=== PATIENT | male | born 1955 | race Caucasian/White ===

== ENCOUNTER 2017-01-04 02:17 | Emergency (ER) | payer OTHER ==
[~2017-01-04] VITALS: Ht 177.8 cm; Wt 78.0 kg
[~2017-01-04 02:17] MED LIST: ALBU6.7H INH
[2017-01-04 02:36] VITALS: BP 135/90; PULSE 66; RESP 18; TEMP 98.5; O2SAT 98
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
[2017-01-04 07:05] VITALS: BP 130/77; PULSE 72; RESP 17; TEMP 97.8; O2SAT 99
--- NOTE | 2017-01-04 10:24 | PD ---
Physical Exam Date Seen by Provider: Jan 04, 2017 Time Seen by Provider: 10:25 Narrative 61 year old male patient was cleared from our facility medically and psychiatrically. I was asked to disposition the patient. Data Data Last Documented VS Vital Signs Date Time Temp Pulse Resp B/P (MAP) Pulse Ox O2 Delivery O2 Flow Rate FiO2 01/04/17 07:05 97.8 72 17 130/77 (94) 99 Room Air Orders Orders Psych Screen (01/04/17 05:16) Diet Regular Basic (01/04/17 Breakfast) ^ Other Nursing Orders (01/04/17 09:35) Ed Discharge Order (01/04/17 10:24) MDM Supervised Visit with SANDHYA: Yes Differential Diagnosis Depression versus suicidal ideation versus anxiety versus adjustment disorder versus mood disorder versus bipolar disorder versus schizophrenia versus paranoid disorder versus psychosis versus substance abuse versus alcohol abuse versus alcohol induced psychosis versus homicidality addition versus cutting versus personality disorder Narrative Course 61 year old male patient was cleared from our facility medically and psychiatrically. I was asked to disposition the patient. The patient will be discharged home with instructions to follow up with ACT. Diagnosis Primary Impression: Medical clearance for psychiatric admission Referrals: ACT (Out patient) Patient Instructions: General Instructions, Medical Clearance for Psychiatric Care (ED) Scripts No Active Prescriptions or Reported Meds Disposition: 01 DISCHARGE HOME Condition: Stable Annemarie Yu Jan 04, 2017 10:24
[2017-01-04 10:30] VITALS: BP 133/81; TEMP 98
--- NOTE | 2017-01-04 11:03 | MB ---
cc: LETICIA PEÑA DATE OF CONSULTATION: 01/04/2017 REASON FOR CONSULTATION: Roberts ACT HISTORY OF PRESENT ILLNESS Mr. Salazar is a 61-year-old male with a remote history of depression, who presents under [email or web address] ACT by law enforcement alleging that the patient was found in unsuitable living conditions with no edible food and a bug infestation. Reviewing the electronic medical record, I see no prior psychiatric contact within our system. The patient seen and examined. Chart reviewed. Case discussed with nurse in the J pod. On my examination today, the patient is calm and cooperative with interview. I note that the patient in fact appears fairly well-groomed and his nails and hair are clean. The patient denies the allegations in the [email or web address] ACT noting that he has "hundreds of pounds of food" in his house including Rice and noodles. He does point out that his refrigerator does not work and so the food in there has spoiled but otherwise he has an adequate supply of edible food. He does admit that there is a insect problem in his apartment and has spoken with the landlord about this. He says that the hosiery looper has come by but have not had much luck in reducing this problem. He denies that he has assembled a yen in the house and tells me when asked that he can gain access to each room of the house without difficulty and has safe passages throughout the house. The patient denies any issues with low mood or elevated mood and I can elicit no depressive or hypomanic / manic symptoms. He denies any suicidal or homicidal ideation, intent or plan on direct questioning and contracts for safety. He denies any current audiovisual hallucinations, and I can elicit no delusional materials. The remainder of psychiatric ROS is negative. The patient is requesting that the Roberts ACT be lifted. He has no physical complaints at this time. PAST PSYCHIATRIC HISTORY The patient reports a history of depression but notes that he has not had issues with this problem in several years. He is not currently under the care of a psychiatrist. He denies any history of psychiatric admissions or suicide attempts. FAMILY HISTORY The patient denies any family history of serious mental illness, substance use disorder or suicide. CHEMICAL DEPENDENCY HISTORY: The patient reports that he is us that he is a social drinker. He denies any other substance use. SOCIAL HISTORY The patient reports that he lives alone. He is single with no children. He has some college education. He is disabled. He served in the [employer] and had an honorable discharge never seen combat. He denies any legal history. He denies any access to guns or firearms. PAST MEDICAL HISTORY The patient reports a history of chronic pain report related to back problems. REVIEW OF SYSTEMS Except as noted in HPI, this is negative. PHYSICAL EXAMINATION VITAL SIGNS: Temperature is 97.8, pulse 72, respirations 17, blood pressure 130/77, pulse oximetry 99% on room air. IN GENERAL: Physical examination was completed by the ED provider. On my examination today, the patient appears to be in no acute physical distress. No motor abnormalities noted. The patient does appear well groomed as I said. LABORATORY Reviewed: No laboratories were obtained this admission. MENTAL STATUS EXAM The patient is in hospital gown. He is well-groomed. He is awake and alert and oriented to person, place and date. His registration is 3/3 in his recall is 3/3 at 5 minutes. He is able to spell the word world forwards and backwards, although he does miss the ER when spelling backwards. He is able to name two items a repeat a phrase. No motor abnormalities noted. Speech is within normal limits for rate, tone and volume. Language and fund of knowledge average. Focus concentration intact. Memory grossly intact on clinical exam. Mood is fair and affect full and reactive. Thought process linear. No loosening of associations. No delusional material elicited. Denies audiovisual hallucinations. Denies suicidal or homicidal ideation, intent or plan on direct questioning. Contracts for safety. Insight and judgment seem fair. ASSESSMENT/PLAN 1. Adjustment disorder, unspecified, F 43.20 This is a 61-year-old male with psychiatric history as detailed above who presents under a Roberts ACT. Roberts ACT does not allege any specific mental illness but rather alleges that the patient's living conditions are suboptimal. The patient denies the allegations in the Roberts ACT. He denies suicidal or homicidal ideation. I can detect no unstable mental illness as defined under the Roberts ACT in this patient at this time. He appears fairly well-groomed on my examination. Synthesizing this information and weighing the relevant factors, I quality systems engineer that the patient does not presently meet Roberts ACT criteria. I have lifted the Roberts ACT. I would recommend involving social security assessor as appropriate if there are concerns about his living situation. I have invited the patient to follow up on an outpatient basis with Landen Rodriguez if he feels like he has mental health issues going forward and in particular if he feels like his depression is recurring although this is apparently well controlled presently. I have counseled the patient to return to the psychiatric emergency room for any concerning psychiatric symptoms. The patient is otherwise psychiatrically clear for discharge from the emergency department. Thank you very much for this consultation. Leticia Peña DC/emily /9:43 AM /10:43 AM MTDS[place]ana
== END 2017-01-04 10:34 | disposition home or self-care (01) ==
LOC: NEPD 02:17
DX: F43.20 Adjustment disorder, unspecified (principal); G89.29 Other chronic pain; M25.531 Pain in right wrist; J45.909 Unspecified asthma, uncomplicated; J44.9 Chronic obstructive pulmonary disease, unspecified; F17.210 Nicotine dependence, cigarettes, uncomplicated; Z86.19 Personal history of other infectious and parasitic diseases; Z87.19 Personal history of other diseases of the digestive system
CPT/HCPCS: 99285

== ENCOUNTER 2018-02-22 03:58 | Observation (INO) ==
[2018-02-22] MEDS ORDERED: Morphine Sulfate Inj 8 MG/ML Vial IM ONE (04:41)
[2018-02-22] MEDS ORDERED: Orphenadrine Inj 60 MG/2 ML Ampul IM ONE (04:41)
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
--- NOTE | 2018-02-22 07:02 | ED ---
HPI General Chief Complaint: Back Pain/Injury Stated Complaint: Pain Time Seen by Provider: 02/22/18 04:41 Source: patient Mode of arrival: ambulatory Limitations: no limitations History of Present Illness HPI Narrative: 62-year-old male came to the emergency room with history of sudden onset right lower extremity pain and charley horses with some tremors. Patient says that he was going to the bathroom and suddenly the spasm in the charley horses started. His leg almost gave way and patient fell but on his both outstretched hands. This happened an hour prior to coming to the emergency room. Patient appears to be uncomfortable. He has been shifting on the stretcher to get into a comfortable position. Vital signs were relatively stable. Upon asking if patient has any lower back issues he said many years back he had some fracture of his vertebrae. Pain is worse upon movement. No bowel or bladder incontinence. No recent trauma. Related Data Home Medications Medication Instructions Recorded Confirmed loratadine [Claritin] 10 mg PO DAILY 02/22/18 02/22/18 Previous Rx's Medication Instructions Recorded cyclobenzaprine 10 mg PO Q8H PRN #30 tab 02/23/18 gabapentin 200 mg PO TID 30 Days #180 cap 02/23/18 oxycodone-acetaminophen 1 tab PO Q4H PRN #12 tab 02/23/18 Allergies Allergy/AdvReac Type Severity Reaction Status Date / Time ibuprofen Allergy Severe SOB Verified 02/22/18 04:17 Review of Systems ROS: all other systems reviewed are negative [facility] Surgical History Surgical History Hx of cholecystectomy (Acute) Family History Family History Other Patient denies medical problems Social History Social History Substance History: Active Abuse Second Hand Smoke Exposure: No Smoking Status: Light tobacco smoker Tobacco Type: Cigarettes How Often Do You Have a Drink Containing Alcohol: 2 to 4 times a month Immunization History Tetanus Immunization: <5 Years Exam Narrative Exam Narrative: GENERAL: Awake, alert, anxious, uncomfortable SKIN: Focused skin assessment warm/dry. HEAD: Atraumatic. Normocephalic. EYES: Pupils equal and round. No scleral icterus. No injection or drainage. ENT: No nasal bleeding or discharge. Mucous membranes pink and moist. NECK: Trachea midline. No JVD. CARDIOVASCULAR: Regular rate and rhythm. No murmur appreciated. RESPIRATORY: No accessory muscle use. Clear to auscultation. Breath sounds equal bilaterally. GASTROINTESTINAL: Abdomen soft, non-tender, nondistended. Hepatic and splenic margins not palpable. MUSCULOSKELETAL: No obvious deformities. No clubbing. No cyanosis. No edema. Fasciculations over the right hamstrings and quadricep muscle NEUROLOGICAL: Awake and alert. No obvious cranial nerve deficits. Motor grossly within normal limits. Normal speech. PSYCHIATRIC: Appropriate mood and affect; insight and judgment normal. Course Consultations Consultation #1: neurosurgery requested admit to medicine and tlso brace per report Consultation #2: dr villasenor agrees to admit Initial Documented Vital Signs Temperature 98.5 F 02/22/18 04:02 Pulse Rate 122 H 02/22/18 04:02 Respiratory Rate 22 02/22/18 04:02 Blood Pressure 166/103 H 02/22/18 04:02 Pulse Oximetry 98 02/22/18 04:02 Last Documented Vital Signs Temperature 97.5 F L 02/23/18 07:47 Pulse Rate 62 02/23/18 07:47 Respiratory Rate 18 02/23/18 07:47 Blood Pressure 111/77 02/23/18 07:47 Pulse Oximetry 96 02/23/18 07:47 Medical Decision Making MDM Narrative Medical decision making narrative: 7:09 AM based on the history MRI of the lumbar spine was ordered. I discussed the case with the neurosurgeon Dr. Esparza regarding the MRI report. He has recommended the patient to be admitted to the hospitalist service and a TLSO brace. I will update the patient regarding this. Awaiting for the hospitalist to call back. Patient was medicated for pain and muscle relaxation. Medical Screen Exam Complete: Yes Emergency Medical Condition: Yes Lab Data Result diagrams: 02/23/18 08:17 02/23/18 08:17 Lab Results 02/22/18 02/22/18 02/23/18 Range/Units 07:45 07:45 08:17 WBC 11.5 H 7.1 (4.0-11.0) th/mm3 RBC 4.76 4.85 (4.50-5.90) mil/mm3 Hgb 14.5 15.0 (13.0-17.0) gm/dL Hct 42.8 43.1 (39.0-51.0) % MCV 90.0 88.8 (80.0-100.0) fL MCH 30.5 31.0 (27.0-34.0) pg MCHC 34.0 34.8 (32.0-36.0) % RDW 14.0 13.6 (11.6-17.2) % Plt Count 266 230 (150-450) th/mm3 MPV 8.0 7.9 (7.0-11.0) fL Neut % (Auto) 60.9 40.1 (16.0-70.0) % Lymph % (Auto) 26.2 39.6 (9.0-44.0) % [place] % (Auto) 9.6 H 10.1 H (0.0-8.0) % Eos % (Auto) 2.4 8.9 H (0.0-4.0) % Baso % (Auto) 0.9 1.3 (0.0-2.0) % Neut # (Auto) 7.0 2.8 (1.8-7.7) th/mm3 Lymph # (Auto) 3.0 2.8 (1.0-4.8) th/mm3 [place] # (Auto) 1.1 H 0.7 (0.0-0.9) th/mm3 Eos # (Auto) 0.3 0.6 H (0.0-0.4) th/mm3 Baso # (Auto) 0.1 0.1 (0.0-0.2) th/mm3 WBC Differential . . Differential Comment Auto diff final Auto diff final Sodium 142 (136-145) meq/L Potassium 4.1 (3.5-5.1) meq/L Chloride 109 H (98-107) meq/L Carbon Dioxide 27.6 (21.0-32.0) meq/L Anion Gap 5 (5-15) meq/L BUN 24 H (7-18) mg/dL Creatinine 1.29 (0.60-1.30) mg/dL Estimated GFR 57 L (>89) mL/min Random Glucose 87 (74-106) mg/dL Calcium 8.4 L (8.5-10.1) mg/dL Magnesium 2.3 (1.5-2.5) mg/dL Total Bilirubin 0.6 (0.2-1.0) mg/dL AST 44 H (15-37) U/L ALT 48 (12-78) U/L Alkaline Phosphatase 69 (45-117) U/L Total Protein 6.8 (6.4-8.2) g/dL Albumin 3.4 (3.4-5.0) g/dL 02/23/18 Range/Units 08:17 WBC (4.0-11.0) th/mm3 RBC (4.50-5.90) mil/mm3 Hgb (13.0-17.0) gm/dL Hct (39.0-51.0) % MCV (80.0-100.0) fL MCH (27.0-34.0) pg MCHC (32.0-36.0) % RDW (11.6-17.2) % Plt Count (150-450) th/mm3 MPV (7.0-11.0) fL Neut % (Auto) (16.0-70.0) % Lymph % (Auto) (9.0-44.0) % [place] % (Auto) (0.0-8.0) % Eos % (Auto) (0.0-4.0) % Baso % (Auto) (0.0-2.0) % Neut # (Auto) (1.8-7.7) th/mm3 Lymph # (Auto) (1.0-4.8) th/mm3 [place] # (Auto) (0.0-0.9) th/mm3 Eos # (Auto) (0.0-0.4) th/mm3 Baso # (Auto) (0.0-0.2) th/mm3 WBC Differential Differential Comment Sodium 140 (136-145) meq/L Potassium 4.3 (3.5-5.1) meq/L Chloride 106 (98-107) meq/L Carbon Dioxide 28.6 (21.0-32.0) meq/L Anion Gap 5 (5-15) meq/L BUN 21 H (7-18) mg/dL Creatinine 1.18 (0.60-1.30) mg/dL Estimated GFR 63 L (>89) mL/min Random Glucose 89 (74-106) mg/dL Calcium 8.5 (8.5-10.1) mg/dL Magnesium (1.5-2.5) mg/dL Total Bilirubin 0.4 (0.2-1.0) mg/dL AST 35 (15-37) U/L ALT 38 (12-78) U/L Alkaline Phosphatase 71 (45-117) U/L Total Protein 6.3 L (6.4-8.2) g/dL Albumin 3.1 L (3.4-5.0) g/dL Imaging Data Radiologist's impression: Lumbar Spine CT 02/22/18 00:00 CONCLUSION: 1. Bilateral pars defects present at the level of L4/L5 and L5/S1 with stable degenerative changes of the disc and facet joints. Bilateral severe neuroforaminal stenosis is present at both of these levels. Lumbar Spine X-Ray 02/22/18 00:00 CONCLUSION: No evidence of fracture. Stable anterolisthesis of L4 and L5 with degenerative changes of the lower lumbar spine. Lumbar Spine X-Ray 02/22/18 00:00 CONCLUSION: Pars defects at L4/L5 with grade 1 anterolisthesis of L4 and L5. Prior CT demonstrated bilateral pars defects at this level as well as L5/S1.. Lumbar Spine MRI 02/22/18 04:41 CONCLUSION: 1. There is interspinous edema between the L3 and L4 spinous processes which potentially could be acute ligamentous injury. The remaining findings appear chronic. 2. There are bilateral pars defects at L4 and L5 with 8 mm of anterolisthesis of L4 on L5. 3. At L4-L5 there is effacement of the right lateral recess with moderate to severe right neural foraminal stenosis. 4. At L5-S1 there is moderate left neural foraminal stenosis. Discharge Plan Discharge Disposition Patient Disposition: ED Admit(ED Internal Use Only) Discharge Condition Condition: Stable Discharge Order Discharge Orders: Discharge Order (Routine); Ordered 02/23/18 Ordered By: Harrison Villasenor ED Use Only Admit Order (Routine); Ordered 02/22/18 Ordered By: Valeria Abdi Discharge Details Anticipated Discharge Date: 02/23/18 Physicians Team ED Provider: Genoveva Marina Primary Care Provider: UNKNOWN, Attending Provider: Harrison Villasenor Other Providers: Paul Esparza Status ED Status: Left Department Discharge Information Discharge Date/Time: 02/22/18 09:29
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
[2018-02-22 08:03] LABS: Baso # (Auto) 0.1 th/mm3 (0.0-0.2); Baso % (Auto) 0.9 % (0.0-2.0); Eos # (Auto) 0.3 th/mm3 (0.0-0.4); Eos % (Auto) 2.4 % (0.0-4.0); Hematocrit 42.8 % (39.0-51.0); Hemoglobin 14.5 gm/dL (13.0-17.0); Lymph % (Auto) 26.2 % (9.0-44.0); Mean Corpuscular Hemoglobin 30.5 pg (27.0-34.0); Mono # (Auto) 1.1 th/mm3 (0.0-0.9); Mono % (Auto) 9.6 % (0.0-8.0); Neut % (Auto) 60.9 % (16.0-70.0); Platelet Count 266 th/mm3 (150-450); Red Blood Count 4.76 mil/mm3 (4.50-5.90); White Blood Count 11.5 th/mm3 (4.0-11.0)
[2018-02-22 08:23] LABS: Alanine Aminotransferase 48 U/L (12-78); Albumin 3.4 g/dL (3.4-5.0); Anion Gap 5 meq/L (5-15); Aspartate Aminotransferase 44 U/L (15-37); Blood Urea Nitrogen 24 mg/dL (7-18); Calcium 8.4 mg/dL (8.5-10.1); Carbon Dioxide 27.6 meq/L (21.0-32.0); Chloride 109 meq/L (98-107); Glomerular Filtration Rate 57 mL/min (>89); Glucose,Random 87 mg/dL (74-106); Magnesium 2.3 mg/dL (1.5-2.5); Potassium 4.1 meq/L (3.5-5.1); Sodium 142 meq/L (136-145)
[2018-02-22 08:26] LABS: Alkaline Phosphatase 69 U/L (45-117); Total Protein 6.8 g/dL (6.4-8.2)
--- NOTE | 2018-02-22 08:33 | CT ---
EXAM DATE: 02/22/2018 8:18 AM EST AGE/SEX: 62 years / Male INDICATIONS: Back pain. Evaluate extent of pars defects L4, L5. CLINICAL DATA: This is the patient's initial encounter. Patient reports that signs and symptoms have been present for 1 day and indicates a pain score of 7/10. MEDICAL/SURGICAL HISTORY: . Spondylosis Cholecystectomy. RADIATION DOSE: 29.28 CTDI (mGy) COMPARISON: [facility] [place], CT LUMBAR SPINE W/O CONTRAST, 05/22/2015. [facility] [place], MR LUMBAR SPINE W/O CONTRAST, . . TECHNIQUE: Contiguous axial images were acquired with a multirow detector CT scanner without contras t. Multiplanar reconstructions in the sagittal and coronal plane were also performed. Using automate d exposure control and adjustment of the mA and/or kV according to patient size, radiation dose was k ept as low as reasonably achievable to obtain optimal diagnostic quality images. DICOM format image data is available electronically for review and comparison. FINDINGS: Vertebrae: Normal vertebral body height. Alignment: There is approximately 1 cm of anterolisthesis of L4 and L5 stable from prior exam. Bilat eral pars defects are present at the level of L4/L5 and L5/S1 with extensive adjacent bony productive changes. This appearance is stable. T12-L1: The thecal sac has a normal diameter. No evidence of disc bulge or protrusion. The neural foramina are patent bilaterally. L1-L2: Minimal broad-based disc bulge and moderate facet degenerative change. Minimal neuroforaminal narrowing. L2-L3: Minimal disc bulge and moderate facet hypertrophy. Minimal neuroforaminal narrowing. L3-L4: Minimal broad-based disc bulge. Severe right-sided facet degenerative change and moderate on the left. Mild bilateral neuroforaminal stenosis. The spinous process of L3 and L4 articulate and dem onstrate degenerative changes. L4-L5: Significant disc desiccation and disc space narrowing with vacuum disc phenomena. Bilateral p ars defects with grade 1 anterolisthesis of L4 and L5. Broad-based posterior disc bulge, severe bilat eral facet degenerative changes. Severe bilateral neuroforaminal stenosis, right greater than left. L5-S1: Disc desiccation and disc space narrowing with vacuum disc phenomenon. Broad-based disc bulge and bilateral pars defects. There is severe bilateral neuroforaminal stenosis. Moderate facet degene rative change. There is a bridging osteophyte involving the left SI joint with sclerotic degenerative changes. CONCLUSION: 1. Bilateral pars defects present at the level of L4/L5 and L5/S1 with stable degenerative changes o f the disc and facet joints. Bilateral severe neuroforaminal stenosis is present at both of these lev els. Electronically signed by: Milagros Gao MD Board Certified Radiologist 02/22/2018 8:32 AM EST
[2018-02-22] MEDS ORDERED: Acetaminophen 325 MG Tablet PO PRN (08:35)
[2018-02-22] MEDS: oxyCODONE/Acetaminophen 10/325 Tablet PO PRN ×2 (08:58→21:28)
[2018-02-22] MEDS: Senna/Docusate Sodium 8.6/50 MG Tablet PO SCH ×2 (08:58→21:27)
[2018-02-22] MEDS: Loratadine 10 MG Tablet PO SCH (08:58)
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
[2018-02-22] MEDS: Gabapentin 100 MG Capsule PO SCH ×2 (13:38→17:40)
[2018-02-22] MEDS: Morphine Inj 4 MG/ML Vial IV.PUSH PRN ×3 (13:39→23:20)
[2018-02-23] MEDS: oxyCODONE/Acetaminophen 10/325 Tablet PO PRN ×2 (03:32→08:21)
[2018-02-23] MEDS: Morphine Inj 4 MG/ML Vial IV.PUSH PRN (05:27)
[2018-02-23 05:39] VITALS: RESP 18
[2018-02-23 07:50] VITALS: BP 111/77; PULSE 62; TEMP 97.5; O2SAT 96
[2018-02-23] MEDS: Senna/Docusate Sodium 8.6/50 MG Tablet PO SCH (08:17)
[2018-02-23] MEDS: Gabapentin 100 MG Capsule PO SCH (08:17)
[2018-02-23] MEDS: Loratadine 10 MG Tablet PO SCH (08:17)
[2018-02-23 08:44] LABS: Baso # (Auto) 0.1 th/mm3 (0.0-0.2); Baso % (Auto) 1.3 % (0.0-2.0); Eos # (Auto) 0.6 th/mm3 (0.0-0.4); Eos % (Auto) 8.9 % (0.0-4.0); Hematocrit 43.1 % (39.0-51.0); Lymph # (Auto) 2.8 th/mm3 (1.0-4.8); Lymph % (Auto) 39.6 % (9.0-44.0); Mean Corpuscular HGB Conc 34.8 % (32.0-36.0); Mean Corpuscular Volume 88.8 fL (80.0-100.0); Mean Platelet Volume 7.9 fL (7.0-11.0); Mono # (Auto) 0.7 th/mm3 (0.0-0.9); Mono % (Auto) 10.1 % (0.0-8.0); Neut # (Auto) 2.8 th/mm3 (1.8-7.7); Neut % (Auto) 40.1 % (16.0-70.0); Platelet Count 230 th/mm3 (150-450); Red Blood Count 4.85 mil/mm3 (4.50-5.90); Red Cell Distribution Width 13.6 % (11.6-17.2); White Blood Count 7.1 th/mm3 (4.0-11.0)
[2018-02-23 09:17] LABS: Albumin 3.1 g/dL (3.4-5.0); Anion Gap 5 meq/L (5-15); Aspartate Aminotransferase 35 U/L (15-37); Blood Urea Nitrogen 21 mg/dL (7-18); Calcium 8.5 mg/dL (8.5-10.1); Carbon Dioxide 28.6 meq/L (21.0-32.0); Chloride 106 meq/L (98-107); Glomerular Filtration Rate 63 mL/min (>89); Glucose,Random 89 mg/dL (74-106); Potassium 4.3 meq/L (3.5-5.1); Sodium 140 meq/L (136-145)
[2018-02-23 09:18] LABS: Alanine Aminotransferase 38 U/L (12-78)
[2018-02-23 09:19] LABS: Alkaline Phosphatase 71 U/L (45-117); Total Protein 6.3 g/dL (6.4-8.2)
--- NOTE | 2018-02-23 09:26 | P.PNIM ---
Subjective Interval history: The patient was feeling a lot better. He was able to ambulate. He had better range of motion in his lower extremities. He says the spasms have been less. He states he knows that his pain is not going to completely go away and he would like to pursue surgery if possible. Physical Exam Vital signs: Vital Signs 02/22/18 12:00 02/22/18 15:25 02/22/18 18:40 Temperature Pulse Rate 72 70 Respiratory Rate 16 16 17 Blood Pressure 130/80 118/75 Pulse Oximetry 98 98 02/22/18 20:00 02/23/18 00:00 02/23/18 04:00 Temperature 98.3 F 98.1 F 98.2 F Pulse Rate 77 81 65 Respiratory Rate 17 18 18 Blood Pressure 122/77 125/88 111/76 Pulse Oximetry 96 96 99 02/23/18 07:47 Temperature 97.5 F L Pulse Rate 62 Respiratory Rate 18 Blood Pressure 111/77 Pulse Oximetry 96 Intake & Output 02/22/18 02/23/18 02/23/18 18:59 06:59 18:59 Intake Total 360 / 360 Output Total 500 / 500 Balance -140 / -140 Intake: Oral 360 / 360 Output: Urine 500 / 500 Other: # Voids 1 Narrative: GENERAL: No distress. SKIN: Focused skin assessment warm/dry. HEAD: Atraumatic. Normocephalic. EYES: Pupils equal and round. No scleral icterus. No injection or drainage. ENT: No nasal bleeding or discharge. Mucous membranes pink and moist. NECK: Trachea midline. No JVD. CARDIOVASCULAR: Regular rate and rhythm. No murmur appreciated. RESPIRATORY: No accessory muscle use. Clear to auscultation. Breath sounds equal bilaterally. GASTROINTESTINAL: Abdomen soft, non-tender, nondistended. Hepatic and splenic margins not palpable. MUSCULOSKELETAL: No obvious deformities. No clubbing. No cyanosis. No edema. NEUROLOGICAL: Awake and alert. No obvious cranial nerve deficits. Motor grossly within normal limits. Normal speech. Results Labs CBC & Chem 7: 02/23/18 08:17 02/23/18 08:17 Assessment and Plan Plan RLE pain Pt with severe right back pain radiating down his right leg a/w muscle spasms. MRI: There is interspinous edema between the L3 and L4 spinous processes which potentially could be acute ligamentous injury; The remaining findings appear chronic; There are bilateral pars defects at L4 and L5 with 8 mm of anterolisthesis of L4 on L5; At L4-L5 there is effacement of the right lateral recess with moderate to severe right neural foraminal stenosis; At L5-S1 there is moderate left neural foraminal stenosis. Neurosurgery consult appreciated. Symptoms have improved. -pain control as needed. -scheduled muscle relaxants. -Physical therapy eval pending. -neurosurgery considering L4-5-S1 TLIF if needed. Leukocytosis Likely reactive. -follow CBC. Resolved. HTN Exacerbated by pain. -pain control. -clonidine as needed. PPx: SCDs Discharge Planning: Await NS clearance. Progress Note: Quality VTE Deep Vein Thrombosis/Pulmonary Embolism Present on Admission: No
--- NOTE | 2018-02-23 11:23 | P.PNNS ---
Subjective Interval history: feeling better today, reports the Flexeril has helped Physical Exam Vital signs: Vital Signs 02/22/18 12:00 02/22/18 15:25 02/22/18 18:40 Temperature Pulse Rate 72 70 Respiratory Rate 16 16 17 Blood Pressure 130/80 118/75 Pulse Oximetry 98 98 02/22/18 20:00 02/23/18 00:00 02/23/18 04:00 Temperature 98.3 F 98.1 F 98.2 F Pulse Rate 77 81 65 Respiratory Rate 17 18 18 Blood Pressure 122/77 125/88 111/76 Pulse Oximetry 96 96 99 02/23/18 07:47 Temperature 97.5 F L Pulse Rate 62 Respiratory Rate 18 Blood Pressure 111/77 Pulse Oximetry 96 Intake & Output 02/22/18 02/23/18 02/23/18 18:59 06:59 18:59 Intake Total 360 / 360 Output Total 500 / 500 Balance -140 / -140 Intake: Oral 360 / 360 Output: Urine 500 / 500 Other: # Voids 1 Narrative: A&O x 3 CN II-XII intact Motor 5/5 UE/LE Reflexes symmetric physiologic Sensation intact light touch Assessment and Plan - Plan 62yoM with L4/5 listhesis and pars defects with disc herniation, right leg spasms (thigh). Plan: Conservative management with pain control for now (flexeril, neurontin, pain meds). If pain unremitting, could consider surgery L4-5-S1 TLIF. Will follow. 02/23/18: cont medical management for now with analgesics, muscle relaxants and Neurontin patient may follow up [facility] office in 1-2 weeks to discuss further regarding surgery
== END 2018-02-23 10:47 | disposition home or self-care (01) ==
LOC: NEPE 03:58 → NEDA 03:58 → NEPGCP 09:26
PROVIDERS: ADMIT Hospitalist; ATTEND Hospitalist
DX: Z90.49 Acquired absence of other specified parts of digestive tract; I10 Essential (primary) hypertension; M43.16 Spondylolisthesis, lumbar region; M51.26 Other intervertebral disc displacement, lumbar region; M47.9 Spondylosis, unspecified; B19.20 Unspecified viral hepatitis C without hepatic coma; D72.829 Elevated white blood cell count, unspecified; F12.90 Cannabis use, unspecified, uncomplicated; M79.604 Pain in right leg; F17.210 Nicotine dependence, cigarettes, uncomplicated
CPT/HCPCS: 72100; 72120; 72131; 72148; 80053; 83735; 85025; 90772; 90782; 96372; 96374; 96376; 97162; 99285; G0378; G8987; G8988; J2270; L0200; L0484; L0560; L0565

== ENCOUNTER 2018-03-13 20:40 | Inpatient (IN) ==
[~2018-03-13 20:40] MED LIST changes: -ALBU6.7H INH; +Norepinephrine Inj 4 MG/4 ML Ampul IV.CONT ONE
--- NOTE | 2018-03-13 21:06 | ED ---
HPI General Chief Complaint: Cardiac Arrest/CPR Stated Complaint: Respriatory Time Seen by Provider: 03/13/18 20:45 Source: EMS Mode of arrival: EMS Limitations: altered mental status History of Present Illness HPI narrative: 62-year-old male was found unresponsive by a friend this evening. Patient was in a tent with another person and reportedly with history of heroin abuse. Patient was found unresponsive. Unknown amount of time. EMS was called. Patient was found to be unresponsive and in PEA. Chest compressions started. Patient was intubated. Patient was given epinephrine IV x3 and bicarb 1 amp IV, Narcan 2 mg IV. Patient was transported to ED for evaluation. Patient regained pulse upon arrival to the ED. Review medical record, patient has history of right lung collapse, pancreatitis, hepatitis C and chronic back pain. Possible history hypertension controlled with clonidine. complaint: Reports found unresponsive and stopped breathing Onset (ago): minute(s) Timing confirmed by: other (Friends) Place: street Bystander CPR performed: No AED applied by bystander/wood room supervisor: Yes Shock advised: No Initial findings in the field: unresponsive, no respirations, no pulse and PEA ROSC in the field: No Associated injuries: No Treatments prior to arrival: Reports intubation, chest compressions, epinephrine mgs # and sodium bicarbonate Related Data Home Medications Medication Instructions Recorded Confirmed loratadine [Claritin] 10 mg PO DAILY 02/22/18 03/13/18 Previous Rx's Medication Instructions Recorded cyclobenzaprine 10 mg PO Q8H PRN #30 tab 02/23/18 gabapentin 200 mg PO TID 30 Days #180 cap 02/23/18 oxycodone-acetaminophen 1 tab PO Q4H PRN #12 tab 02/23/18 Allergies Allergy/AdvReac Type Severity Reaction Status Date / Time ibuprofen Allergy Severe SOB Verified 03/13/18 20:46 Review of Systems ROS: all other systems reviewed are negative PENDING SALE TO [facility] Medical History Medical History Back injury (Acute) Collapse of right lung (Acute) Hepatitis C (Acute) Open wrist fracture (Acute) Pancreatitis (Acute) Spondylosis (Acute) Surgical History Surgical History Hx of cholecystectomy (Acute) Family History Family History Other Patient denies medical problems Social History Social History Substance History: Active Abuse Second Hand Smoke Exposure: No Smoking Status: Light tobacco smoker Tobacco Type: Cigarettes How Often Do You Have a Drink Containing Alcohol: 2 to 4 times a month Recent Travel in [facility] within the Last 8 Weeks: No Recent Out of Country Travel within the Last 8 Weeks: No Immunization History Tetanus Immunization: Unable to Assess Exam Narrative Exam Narrative: GENERAL: Well-nourished, well-developed patient. SKIN: Focused skin assessment warm/dry. HEAD: Normocephalic. EYES: No scleral icterus. No injection or drainage. Pupils 3 mm equal nonreactive NECK: Supple, trachea midline. No JVD or lymphadenopathy. CARDIOVASCULAR: Regular rate and rhythm without murmurs, gallops, or rubs. RESPIRATORY: No spontaneous respiration. Patient is intubated. GASTROINTESTINAL: Abdomen soft, nondistended. MUSCULOSKELETAL: No cyanosis, or edema. BACK: without obvious deformity. Neurologic exam: Patient is intubated. Unresponsive. Course Initial Documented Vital Signs Pulse Rate 122 H 03/13/18 20:42 Respiratory Rate 20 03/13/18 20:42 Blood Pressure 146/66 H 03/13/18 20:42 Pulse Oximetry 100 03/13/18 20:42 Last Documented Vital Signs Pulse Rate 107 H 03/13/18 21:16 Respiratory Rate 15 03/13/18 21:16 Blood Pressure 153/93 H 03/13/18 21:16 Pulse Oximetry 100 03/13/18 21:16 Medical Decision Making MDM Narrative Medical decision making narrative: 62-year-old male was found unresponsive with bowel respiration effort. Patient was intubated. Chest compressions started. Patient was given epinephrine IV and bicarb and Narcan with good results. Patient regained pulse and blood pressure. Normal saline solution 125 cc an hour. Medical Screen Exam Complete: Yes Emergency Medical Condition: Yes Differential Diagnosis Differential Diagnosis: Differential diagnosis including drug overdose, TIA, CVA , [place], electrolyte imbalance, arrhythmia, sepsis. Lab Data Lab results reviewed: Yes I reviewed the patient's lab results. Result diagrams: 03/13/18 20:45 03/13/18 20:45 Lab Results 03/13/18 03/13/18 03/13/18 Range/Units 20:45 20:45 20:45 WBC 17.2 H (4.0-11.0) th/mm3 RBC 4.61 (4.50-5.90) mil/mm3 Hgb 14.0 (13.0-17.0) gm/dL Hct 42.4 (39.0-51.0) % MCV 91.8 (80.0-100.0) fL MCH 30.3 (27.0-34.0) pg MCHC 33.0 (32.0-36.0) % RDW 13.5 (11.6-17.2) % Plt Count 271 (150-450) th/mm3 MPV 8.6 (7.0-11.0) fL Prelim Diff (Auto) Slide review pending Neut % (Auto) 44.8 (16.0-70.0) % Lymph % (Auto) 43.1 (9.0-44.0) % [place] % (Auto) 9.3 H (0.0-8.0) % Eos % (Auto) 1.6 (0.0-4.0) % Baso % (Auto) 1.2 (0.0-2.0) % Neut # (Auto) 7.7 (1.8-7.7) th/mm3 Lymph # (Auto) 7.4 H (1.0-4.8) th/mm3 [place] # (Auto) 1.6 H (0.0-0.9) th/mm3 Eos # (Auto) 0.3 (0.0-0.4) th/mm3 Baso # (Auto) 0.2 (0.0-0.2) th/mm3 Differential Comment . PT 11.0 (9.8-11.6) sec INR 1.1 Ratio APTT 30.0 (23.4-31.7) sec Sodium (136-145) meq/L Potassium (3.5-5.1) meq/L Chloride (98-107) meq/L Carbon Dioxide (21.0-32.0) meq/L Anion Gap (5-15) meq/L BUN (7-18) mg/dL Creatinine (0.60-1.30) mg/dL Estimated GFR (>89) mL/min Random Glucose (74-106) mg/dL Calcium (8.5-10.1) mg/dL Magnesium (1.5-2.5) mg/dL Total Bilirubin (0.2-1.0) mg/dL AST (15-37) U/L ALT (12-78) U/L Alkaline Phosphatase (45-117) U/L Total Creatine Kinase (39-308) U/L Troponin I (0.02-0.05) ng/mL Total Protein (6.4-8.2) g/dL Albumin (3.4-5.0) g/dL Lipase 196 (73-393) U/L Urine Color (Yellw/Straw) Urine Clarity (Clear) Urine pH (5.0-8.5) Ur Specific [place] (1.002-1.035) Urine Protein (Neg-Trace) mg/dL Urine Glucose (UA) (Negative) mg/dL Urine Ketones (Negative) mg/dL Urine Occult Blood (Negative) Urine Nitrate (Negative) Urine Bilirubin (Negative) Urine Urobilinogen (Less than 2) mg/dL Ur Leukocyte Esterase (Negative) Urine RBC (0-3) /hpf Urine WBC (0-5) /hpf Hyaline Casts (0-3) /lpf Urine Sperm (None) /hpf Micro UA Comment Ur Microscopic Review Urine Culture Comments Urine Opiates Screen (Neg) Ur Barbiturates Screen (Neg) Ur Amphetamines Screen (Neg) U Benzodiazepines Scrn (Neg) Urine Cocaine Screen (Neg) U Cannabinoids Screen (Neg) Serum Alcohol Less than 3 (0-5) mg/dL 03/13/18 03/13/18 03/13/18 Range/Units 20:45 20:56 20:56 WBC (4.0-11.0) th/mm3 RBC (4.50-5.90) mil/mm3 Hgb (13.0-17.0) gm/dL Hct (39.0-51.0) % MCV (80.0-100.0) fL MCH (27.0-34.0) pg MCHC (32.0-36.0) % RDW (11.6-17.2) % Plt Count (150-450) th/mm3 MPV (7.0-11.0) fL Prelim Diff (Auto) Neut % (Auto) (16.0-70.0) % Lymph % (Auto) (9.0-44.0) % [place] % (Auto) (0.0-8.0) % Eos % (Auto) (0.0-4.0) % Baso % (Auto) (0.0-2.0) % Neut # (Auto) (1.8-7.7) th/mm3 Lymph # (Auto) (1.0-4.8) th/mm3 [place] # (Auto) (0.0-0.9) th/mm3 Eos # (Auto) (0.0-0.4) th/mm3 Baso # (Auto) (0.0-0.2) th/mm3 Differential Comment PT (9.8-11.6) sec INR Ratio APTT (23.4-31.7) sec Sodium 144 (136-145) meq/L Potassium 3.7 (3.5-5.1) meq/L Chloride 104 (98-107) meq/L Carbon Dioxide 23.3 (21.0-32.0) meq/L Anion Gap 17 H (5-15) meq/L BUN 15 (7-18) mg/dL Creatinine 1.82 H (0.60-1.30) mg/dL Estimated GFR 38 L (>89) mL/min Random Glucose 299 H (74-106) mg/dL Calcium 8.0 L (8.5-10.1) mg/dL Magnesium 2.8 H (1.5-2.5) mg/dL Total Bilirubin 0.3 (0.2-1.0) mg/dL AST 56 H (15-37) U/L ALT 52 (12-78) U/L Alkaline Phosphatase 59 (45-117) U/L Total Creatine Kinase 178 (39-308) U/L Troponin I 0.05 (0.02-0.05) ng/mL Total Protein 5.9 L (6.4-8.2) g/dL Albumin 2.8 L (3.4-5.0) g/dL Lipase (73-393) U/L Urine Color Yellow (Yellw/Straw) Urine Clarity Cloudy H (Clear) Urine pH 5.0 (5.0-8.5) Ur Specific [place] 1.021 (1.002-1.035) Urine Protein 30 H (Neg-Trace) mg/dL Urine Glucose (UA) Negative (Negative) mg/dL Urine Ketones Negative (Negative) mg/dL Urine Occult Blood Small H (Negative) Urine Nitrate Negative (Negative) Urine Bilirubin Negative (Negative) Urine Urobilinogen Less than 2 (Less than 2) mg/dL Ur Leukocyte Esterase Trace H (Negative) Urine RBC 5 H (0-3) /hpf Urine WBC 3 (0-5) /hpf Hyaline Casts 9 (0-3) /lpf Urine Sperm Moderate H (None) /hpf Micro UA Comment Cath-culture not ind Ur Microscopic Review Not Reportable Urine Culture Comments Cath-cult not ind Urine Opiates Screen Pos H (Neg) Ur Barbiturates Screen Neg (Neg) Ur Amphetamines Screen Neg (Neg) U Benzodiazepines Scrn Neg (Neg) Urine Cocaine Screen Pos H (Neg) U Cannabinoids Screen Pos H (Neg) Serum Alcohol (0-5) mg/dL Imaging Data Attestation: I personally reviewed and interpreted this imaging study as follows : Radiologist's impression: Chest X-Ray 03/13/18 20:52 CONCLUSION: 1. Mild bibasilar atelectasis. 2. Endotracheal tube tip 5.7 cm above the saqib. 3. Nasogastric tube tip at the GE junction. Discharge Plan Discharge Disposition Patient Disposition: ED Admit(ED Internal Use Only) Discharge Details Diagnosis: Cardiopulmonary arrest, Acute drug overdose Physicians Team ED Provider: Venkat Gaitan Primary Care Provider: UNKNOWN, Rxs /Orders / Referrals /Forms Prescriptions: No Action loratadine [Claritin] 10 mg Tablet 10 mg PO DAILY RF: 0 cyclobenzaprine 10 mg Tablet 10 mg PO Q8H PRN (Reason: spasm) Qty: 30 RF: 0 oxycodone-acetaminophen 10-325 mg Tablet 1 tab PO Q4H PRN (Reason: pain 3-10 ) Qty: 12 RF: 0 gabapentin 100 mg Capsule 200 mg PO TID 30 Days Qty: 180 RF: 0 Discharge Interventions Interventions: Vital Signs Last Done: 03/13/18 21:16 Status ED Status: With Doctor
[2018-03-13] MEDS: Sod Chloride 0.9% Inj 1,000 ML IV.CONT SCH (21:07)
[2018-03-13 21:22] LABS: Baso # (Auto) 0.2 th/mm3 (0.0-0.2); Baso % (Auto) 1.2 % (0.0-2.0); Eos # (Auto) 0.3 th/mm3 (0.0-0.4); Eos % (Auto) 1.6 % (0.0-4.0); Hematocrit 42.4 % (39.0-51.0); Lymph # (Auto) 7.4 th/mm3 (1.0-4.8); Lymph % (Auto) 43.1 % (9.0-44.0); Mean Corpuscular Hemoglobin 30.3 pg (27.0-34.0); Mean Corpuscular Volume 91.8 fL (80.0-100.0); Mean Platelet Volume 8.6 fL (7.0-11.0); Mono # (Auto) 1.6 th/mm3 (0.0-0.9); Mono % (Auto) 9.3 % (0.0-8.0); Neut # (Auto) 7.7 th/mm3 (1.8-7.7); Neut % (Auto) 44.8 % (16.0-70.0); Platelet Count 271 th/mm3 (150-450); Red Blood Count 4.61 mil/mm3 (4.50-5.90); Red Cell Distribution Width 13.5 % (11.6-17.2); White Blood Count 17.2 th/mm3 (4.0-11.0)
[2018-03-13 21:34] LABS: Amphetamine Screen,Urine Neg (Neg); Barbiturate Screen,Urine Neg (Neg); Cannabinoid Screen,Urine Pos (Neg); Cocaine Screen,Urine Pos (Neg)
[2018-03-13 21:35] LABS: Lipase 196 U/L (73-393)
--- NOTE | 2018-03-13 21:35 | XR ---
EXAM DATE: 03/13/2018 9:31 PM EST AGE/SEX: 62 years / Male INDICATIONS: ET tube placement. CLINICAL DATA: This is the patient's initial encounter. Patient reports that signs and symptoms have been present for 1 day and indicates a pain score of Nonresponsive. MEDICAL/SURGICAL HISTORY: None. None. COMPAR[place]: [facility] [place], [place]. . FINDINGS: There is mild atelectasis at the bases, right slightly more so than left. No lobar consolidation demo nstrated. No pleural effusion or pneumothorax. Heart size is normal. Endotracheal tube tip is proximally 5.7 cm above the saqib. There is a nasogastric tube with tip kacie r the gastroesophageal junction. CONCLUSION: 1. Mild bibasilar atelectasis. 2. Endotracheal tube tip 5.7 cm above the saqib. 3. Nasogastric tube tip at the GE junction. Electronically signed by: Jared Guy MD Board Certified Radiologist 03/13/2018 9:33 PM EST
[2018-03-13 21:36] LABS: Alanine Aminotransferase 52 U/L (12-78); Albumin 2.8 g/dL (3.4-5.0); Anion Gap 17 meq/L (5-15); Aspartate Aminotransferase 56 U/L (15-37); Blood Urea Nitrogen 15 mg/dL (7-18); Carbon Dioxide 23.3 meq/L (21.0-32.0); Chloride 104 meq/L (98-107); Glomerular Filtration Rate 38 mL/min (>89); Glucose,Random 299 mg/dL (74-106); INR 1.1 Ratio; Magnesium 2.8 mg/dL (1.5-2.5); Potassium 3.7 meq/L (3.5-5.1); Sodium 144 meq/L (136-145)
[2018-03-13 21:38] LABS: Bilirubin,Urine Negative (Negative); Clarity,Urine Cloudy (Clear); Glucose,Urine (UA) Negative (Negative); Hyaline Casts,Urine 9 /lpf (0-3); Leukocyte Esterase,Urine Trace (Negative); Nitrite,Urine Negative (Negative); Opiate Screen,Urine Pos (Neg); Specific Gravity,Urine 1.021 (1.002-1.035); Sperm,Urine Moderate /hpf
[2018-03-13 21:40] LABS: Alkaline Phosphatase 59 U/L (45-117); Creatine Kinase 178 U/L (39-308); Total Protein 5.9 g/dL (6.4-8.2); Troponin I 0.05 ng/mL (0.02-0.05)
[2018-03-13 21:40] LABS: Color,Urine Yellow (Yellw/Straw)
[2018-03-13] MEDS: Propofol 1000 mg/100 ml Inj 1,000 MG/100 ML BOTTLE IV.CONT PRN (21:47)
[2018-03-13 21:48] LABS: ABG Base Excess -5.9 mmol/L (-2-2); ABG PCO2 45 mmHg (38-42); ABG PO2 169 mmHg (61-120)
[2018-03-13 21:53] LABS: Creatine Kinase MB 3.4 ng/mL (0.5-3.6)
[2018-03-13 22:04] LABS: Eosinophils 1 % (0-4); Lymphocytes 48 % (9-44); Monocytes 11 % (0-8); Platelet Estimate Normal (Normal); Platelet Morphology Normal (Normal)
[2018-03-13 22:05] LABS: Burr Cells 1+
--- NOTE | 2018-03-13 22:14 | CT ---
EXAM DATE: 03/13/2018 10:07 PM EST AGE/SEX: 62 years / Male INDICATIONS: Altered mental status; patient on ventilator. CLINICAL DATA: This is the patient's initial encounter. Patient reports that signs and symptoms have been present for 1 day and indicates a pain score of Nonresponsive. MEDICAL/SURGICAL HISTORY: Non-responsive. Non-responsive. RADIATION DOSE: 56.35 CTDI (mGy) COMPARISON: No prior exams available for comparison. TECHNIQUE: CT of the head without contrast. Using automated exposure control and adjustment of the mA and/or kV according to patient size, radiation dose was kept as low as reasonably achievable to ob tain optimal diagnostic quality images. DICOM format image data is available electronically for revi ew and comparison. FINDINGS: Study is mildly degraded by motion artifact. Cerebrum: The ventricles are normal for age. No evidence of midline shift, mass lesion, hemorrhage or acute infarction. No extraaxial fluid collections are seen. Posterior Fossa: The cerebellum and brainstem are intact. The 4th ventricle is midline. The cerebe llopontine angle is unremarkable. Extracranial: The visualized portion of the orbits is intact. There is mucosal thickening in the eth moidal air cells and maxillary sinuses. The frontal sinuses are occluded with soft tissue density. Th ere is abnormal soft tissue density in the sinuses. Skull: The calvaria is intact. No evidence of skull fracture. CONCLUSION: 1. No acute hemorrhage or mass effect. 2. Extensive sinusitis with abnormal soft tissue density in the nasal passage which could indicate p olyposis. . Electronically signed by: Harrison De Los Santos MD Board Certified Radiologist 03/13/2018 10:12 PM EST
[2018-03-13] MEDS ORDERED: Bisacodyl 10 MG Supp RECTAL PRN (22:21)
[2018-03-13] MEDS ORDERED: Sodium Phosphate Inj 30 MMOL in Sodium Chlor 0.9% Inj 250 ML IV.SIG PRN (22:37)
[2018-03-13] MEDS ORDERED: Potassium Phosphate Inj 30 MMOL in Sodium Chlor 0.9% Inj 250 ML IV.SIG PRN (22:37)
[2018-03-13] MEDS ORDERED: Potassium Chloride Liq 20 MEQ/15 ML UDC PO PRN (22:37)
[2018-03-13] MEDS ORDERED: Magnesium Oxide 400 MG Tablet PO PRN (22:37)
[2018-03-13] MEDS ORDERED: Magnesium Sulfate Inj 4 GM in Sodium Chlor 0.9% Inj 92 ML IV.SIG PRN (22:37)
[2018-03-13] MEDS ORDERED: Potassium Chlor 20 mEq Premix 20 MEQ/100 ML PIGGYBACK IV.SIG PRN (22:37)
[2018-03-13] MEDS ORDERED: Magnesium Sulfate Inj 2 GM in Sodium Chlor 0.9% Inj 96 ML IV.SIG PRN (22:37)
[2018-03-13] MEDS ORDERED: Potassium Chlor 40 mEq Premix 40 MEQ/100 ML PIGGYBACK IV.SIG PRN (22:37)
[2018-03-13] MEDS ORDERED: Potassium Phosphate 500 MG Soluble Tablet PO PRN (22:37)
[2018-03-13] MEDS ORDERED: Dextrose 50% in Water 50 ML Vial IV.PUSH PRN (22:37)
--- NOTE | 2018-03-13 22:39 | XR ---
EXAM DATE: 03/13/2018 10:24 PM EST AGE/SEX: 62 years / Male INDICATIONS: Post intubation. CLINICAL DATA: This is the patient's subsequent encounter. Patient reports that signs and symptoms h ave been present for 1 day and indicates a pain score of Nonresponsive. MEDICAL/SURGICAL HISTORY: Non-responsive. Non-responsive. COMPARISON: [facility] – [place], CHEST PA & LAT, 06/12/2015. . FINDINGS: No infiltrate, effusion or pneumothorax demonstrated. Heart size stable, within normal limits. Endotracheal tube tip is approximately 5 cm above the saqib. Nasogastric tube tip is in the lower es ophagus. There are multiple rib fractures posteriorly on the right that I believe are nonacute. CONCLUSION: Clear lungs. Endotracheal tube and nasogastric tube positions as above. Old right rib fractures. Electronically signed by: Jared Guy MD Board Certified Radiologist 03/13/2018 10:38 PM EST
--- NOTE | 2018-03-13 22:41 | P.HPCC ---
History of Present Illness Service: Critical care medicine Primary Care Physician: UNKNOWN Chief Complaint: PEA arrest History of Present Illness: This is a 62-year-old male. Date of admission 03/13/2018. Past medical history includes hepatitis C, pancreatitis hypertension, chronic back pain and allergic rhinitis. History of tobacco abuse. Patient presents to [facility] as a PEA arrest per documentation, patient also history of heroin abuse. Patient was found to be unresponsive in attendance in a homeless camp. Presenting rhythm was pulseless electric activity. Chest compressions started. Patient was intubated. Patient was given epinephrine IV x3 and sodium bicarb 1 amp IV, naltrexone 2 mg IV. Patient was transported to ED for evaluation. Patient regained pulse upon arrival to the ED. 15 minutes per ED physician CT brain revealed no acute intracranial findings. Troponin 0.0 0.5. Patient had a leukocytosis, elevated magnesium, acute injury creatinine 1.8, lactate of 9.8 and a blood sugar today today. Toxicology screen positive for opiates, cocaine and cannabinoids. Patient is currently not moving his unresponsive at 50 rebeka grams per kilogram per minute of propofol this is currently on hold. Chest x-ray revealed old right rib fractures. No pneumothorax. ET tube 5 cm above the saqib. - Diagnosis (1) Lactic acidosis (2) Leukocytosis (3) Hyperglycemia (4) Cocaine abuse (5) Synthetic cannabinoid abuse (6) Cardiopulmonary arrest (7) Acute drug overdose Inpatient Certification: I certify that the inpatient services were ordered in accordance with Medicare regulations governing the order. 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 - Medical History Medical History: Medical History (Last Reviewed 03/13/18 @ 21:02 by Venkat Gaitan MD) Back injury Collapse of right lung Hepatitis C Open wrist fracture Pancreatitis Spondylosis - Surgical History Surgical History: Surgical History (Last Reviewed 03/13/18 @ 21:02 by Venkat Gaitan MD) Hx of cholecystectomy - Family History Family History: Family History (Last Reviewed 03/13/18 @ 21:02 by Venkat Gaitan MD) Other Patient denies medical problems - Tobacco History Second Hand Smoke Exposure: No Tobacco Use In Past 30 Days: Yes Smoking Status: Light tobacco smoker Tobacco Type: Cigarettes - Alcohol History How Often Do You Have a Drink Containing Alcohol: 2 to 4 times a month - Substance Use History Substance History: Active Abuse - Travel History Recent Travel in the [place] Within the Last 8 Weeks: No Recent Travel Out of the Country Within the Last 8 Weeks: No - Immunization History Tetanus Immunization: Unable to Assess Medications and Allergies Active Medications: Active Medications Acetaminophen (Tylenol) 650 mg PO Q6H PRN PRN Reason: Fever >101f Al Hydroxide/Mg Hydroxide (Milk Of Magnesia Liq) 30 ml PO Q12H PRN PRN Reason: Mild Constipation Albuterol (Albuterol Neb (Areli)) 2.5 mg NEB Q2HR NEB PRN PRN Reason: SHORTNESS OF BREATH/WHEEZING Albuterol (Duoneb Neb (Prn)) 1 ampul NEB Q4HR NEB ARELI Bisacodyl (Dulcolax Supp) 10 mg RECTAL DAILY PRN PRN Reason: SEVERE CONSITIPATION Chlorhexidine Gluconate (Peridex 0.12% Oral Kit) 15 ml OROPHARYNG BID@0800, 2000 [facility] Chlorhexidine Gluconate (Chlorhexidine 2% Cloth) 3 pack TOPICAL DAILY@0400 ARELI Stop: 03/19/18 03:59 Chlorhexidine Gluconate (Chlorhexidine 2% Cloth) 3 pack TOPICAL DAILY@0400 PRN PRN Reason: Extra cloth needed Stop: 03/19/18 03:59 Sodium Chloride (Ns Inj) 1,000 mls @ 125 mls/hr IV.CONT .Q8H [facility] Last Admin: 03/13/18 21:07 Dose: 125 mls/hr Propofol (Diprivan 1000 Mg/100 Ml Inj) 1,000 mg in 100 mls @ 2.4 mls/hr IV.CONT TITRATE PRN; Protocol PRN Reason: Per Protocol Last Titration: 03/13/18 22:13 Dose: 50 mcg/kg/min, 24 mls/hr Fentanyl (Fentanyl 10 Mcg/Ml Premix Drip) 2,500 mcg in 250 mls @ 5 mls/hr IV.SIG TITRATE PRN; Protocol PRN Reason: Per Protocol Multivitamins 10 ml/ Thiamine HCl 100 mg/ Folic Acid 1 mg/Sodium Chloride 511.2 mls @ 125 mls/hr IV.SIG Q24H ARELI Stop: 03/16/18 03:06 Lactulose (Lactulose Liq) 30 ml PO DAILY PRN PRN Reason: SEVERE CONSITIPATION Miscellaneous Medication () 1 each OROPHARYNG 0000,0400,1200,1600 ARELI Ondansetron HCl (Zofran Inj) 4 mg IV.PUSH Q6H PRN PRN Reason: NAUSEA OR VOMITING Pantoprazole Sodium (Protonix Inj) 40 mg IV.PUSH DAILY ARELI Senna/Docusate Sodium (Ioana-Colace) 1 tab PO BID ARELI Sennosides (Senokot) 17.2 mg PO Q12H PRN PRN Reason: Moderate Constipation Sodium Chloride (Ns Flush) 2 ml IV.FLUSH BID ARELI Sodium Chloride (Ns Flush) 2 ml IV.FLUSH PRN PRN PRN Reason: FLUSH AFTER USING IV ACCESS Allergies Allergy/AdvReac Type Severity Reaction Status Date / Time ibuprofen Allergy Severe SOB Verified 03/13/18 20:46 Home Medications Medication Instructions Recorded Confirmed Type loratadine [Claritin] 10 mg PO DAILY 02/22/18 03/13/18 History Results - Labs CBC & Chem 7: 03/13/18 20:45 03/13/18 20:45 Labs: Short CBC 03/13/18 Range/Units 20:45 WBC 17.2 H (4.0-11.0) th/mm3 Hgb 14.0 (13.0-17.0) gm/dL Hct 42.4 (39.0-51.0) % Plt Count 271 (150-450) th/mm3 BMP 03/13/18 20:45 Sodium 144 Potassium 3.7 Chloride 104 Carbon Dioxide 23.3 BUN 15 Creatinine 1.82 H Calcium 8.0 L Cardiac Enzymes 03/13/18 Range/Units 20:45 Total Creatine Kinase 178 (39-308) U/L CK-MB (CK-2) 3.4 (0.5-3.6) ng/mL Troponin I 0.05 (0.02-0.05) ng/mL Liver Function 03/13/18 Range/Units 20:45 Total Bilirubin 0.3 (0.2-1.0) mg/dL AST 56 H (15-37) U/L ALT 52 (12-78) U/L Alkaline Phosphatase 59 (45-117) U/L Albumin 2.8 L (3.4-5.0) g/dL Urine 03/13/18 Range/Units 20:56 Urine Color Yellow (Yellw/Straw) Urine Clarity Cloudy H (Clear) Urine pH 5.0 (5.0-8.5) Ur Specific [place] 1.021 (1.002-1.035) Urine Protein 30 H (Neg-Trace) mg/dL Urine Glucose (UA) Negative (Negative) mg/dL - Imaging Impressions Head CT 03/13/18 20:50 CONCLUSION: 1. No acute hemorrhage or mass effect. 2. Extensive sinusitis with abnormal soft tissue density in the nasal passage which could indicate polyposis. . Chest X-Ray 03/13/18 20:52 CONCLUSION: 1. Mild bibasilar atelectasis. 2. Endotracheal tube tip 5.7 cm above the saqib. 3. Nasogastric tube tip at the GE junction. Chest X-Ray 03/13/18 21:57 CONCLUSION: Clear lungs. Endotracheal tube and nasogastric tube positions as above. Old right rib fractures. Exam Vital signs: Vital Signs 03/13/18 20:42 03/13/18 20:43 03/13/18 20:48 Pulse Rate 122 H Respiratory Rate 20 15 15 Blood Pressure 146/66 H Pulse Oximetry 100 100 03/13/18 20:55 03/13/18 20:57 03/13/18 21:16 Pulse Rate 104 H 104 H 107 H Respiratory Rate 15 15 Blood Pressure 78/52 L 153/93 H Pulse Oximetry 98 100 100 03/13/18 21:46 03/13/18 21:50 03/13/18 22:09 Pulse Rate 102 H 97 H Respiratory Rate 15 15 Blood Pressure 188/123 H 181/114 H Pulse Oximetry 100 100 100 03/13/18 22:30 03/13/18 22:37 Pulse Rate 86 Respiratory Rate 14 Blood Pressure 189/108 H Pulse Oximetry 100 96 Intake & Output 03/13/18 03/13/18 03/14/18 06:59 18:59 06:59 Weight 80 kg - Constitutional no acute distress - Routine HEENT Exam Head: Present: normocephalic, atraumatic Eye: Present: EOMI, PERRL, normal accommodation ENT: Present: mucous membranes dry - Routine Neck Exam Present: supple - Routine Chest/Breast/Axilla Exam Chest wall: Absent: tenderness Breast: Absent: tenderness Axillae: Absent: lymphadenopathy - Routine Respiratory Exam Present: prolonged expiratory phase, rhonchi. Absent: accessory muscle use, wheezes - Routine Cardiovascular Exam Present: RRR, S1. Absent: S2, murmur - Routine Abdominal Exam Present: soft, normoactive bowel sounds - Routine Extremities Exam Absent: cyanosis, clubbing, edema - Routine Skin Exam Present: intact - Routine Neurological Exam Absent: alert, oriented X3, CN II-XII intact, sensory deficit, motor deficit Septic Shock Reassessment Septic shock perfusion: reassessment completed Caprini VTE Risk Assessment Caprini VTE Risk Assessment: Moderate/High Risk (score >= 2) Caprini Risk Assessment Model: Point Value = 1 Point Value = 2 Point Value = 3 Point Value = 5 Age 41-60 Minor surgery BMI > 25 kg/m2 Swollen legs Varicose veins or History of unexplained or recurrent spontaneous Oral contraceptives or hormone replacement Sepsis (< 1 month) Serious lung disease, including pneumonia (< 1 month) Abnormal pulmonary function Acute myocardial infarction Congestive heart failure (< 1 month) History of inflammatory bowel disease Medical patient at bed rest Age 61-74 Arthroscopic surgery Major open surgery (> 45 min) Laparoscopic surgery (> 45 min) Malignancy Confined to bed (> 72 hours) Immobilizing plaster cast Central venous access Age >= 75 History of VTE Family history of VTE Factor V Leiden Prothrombin [id number] Lupus anticoagulant Anticardiolipin antibodies Elevated serum homocysteine Heparin-induced thrombocytopenia Other congenital or acquired thrombophilia Stroke (< 1 month) Elective arthroplasty Hip, pelvis, or leg fracture Acute spinal cord injury (< 1 month) Prophylaxis Regimen: Total Risk Factor Score Risk Level Prophylaxis Regimen 0-1 Low Early ambulation 2 Moderate Order ONE of the following: *Sequential Compression Device (SCD) *Heparin 5000 units SQ BID 3-4 Higher Order ONE of the following medications: *Heparin 5000 units SQ TID *Enoxaparin/Lovenox 40 mg SQ daily (WT < 150 kg, CrCl > 30 mL/min) *Enoxaparin/Lovenox 30 mg SQ daily (WT < 150 kg, CrCl > 10-29 mL/min) *Enoxaparin/Lovenox 30 mg SQ BID (WT < 150 kg, CrCl > 30 mL/min) AND/OR *Sequential Compression Device (SCD) 5 or more Highest Order ONE of the following medications: *Heparin 5000 units SQ TID (Preferred with Epidurals) *Enoxaparin/Lovenox 40 mg SQ daily (WT < 150 kg, CrCl > 30 mL/min) *Enoxaparin/Lovenox 30 mg SQ daily (WT < 150 kg, CrCl > 10-29 mL/min) *Enoxaparin/Lovenox 30 mg SQ BID (WT < 150 kg, CrCl > 30 mL/min) AND *Sequential Compression Device (SCD) Assessment and Plan - Problem List (1) Lactic acidosis Code(s): E87.2 - Acidosis Status: Acute (2) Leukocytosis Code(s): D72.829 - Elevated white blood cell count, unspecified Status: Acute (3) Hyperglycemia Code(s): R73.9 - Hyperglycemia, unspecified Status: Acute (4) Cocaine abuse Code(s): F14.10 - Cocaine abuse, uncomplicated Status: Acute (5) Synthetic cannabinoid abuse Code(s): F19.10 - Other psychoactive substance abuse, uncomplicated Status: Acute (6) Cardiopulmonary arrest Code(s): I46.9 - Cardiac arrest, cause unspecified Status: Acute (7) Acute drug overdose Code(s): T50.901A - Poisoning by unspecified drugs, medicaments and biological substances, accidental (unintentional), initial encounter Status: Acute - Assessment and Plan Plan: Neuro/Psych: Altered mental status rule out hypoxic ischemic encephalopathy Polysubstance overdose including opiates, cocaine and cannabinoids Currently on propofol/fentanyl drips for sedation/analgesia while intubated Goal of RA SS -[address] brain revealed no acute intracranial findings. Sinusitis Acetaminophen 650 by tube every 6 hours as needed fever Possible candidate for targeted temperature monitoring CV: PEA arrest -likely noncardiac Hypertension Lactic acidosis EKG reveals no ST elevation. Initial troponin 0 0.05. Cycle troponins every 6 hours x2 2D echocardiogram a.m. EKG ordered As needed nicardipine drip for hypertension Initial lactate 9.8. Serial lactates until cleared. Resp: Acute respiratory failure PRVC/AC Ventilation bundle Head of bed at 30 degrees Albuterol/ipratropium aerosols every 4 hours with albuterol aerosols every 2 hours as needed dyspnea Spontaneous breathing trials when clinically indicated Follow-up a.m. ABG and chest x-ray GI: History of hepatitis C NG tube to low intermittent wall suction Pantoprazole for GI prophylaxis Docusate sodium/senna 1 tablet twice daily for bowel regimen : Aly catheter placed in ED Endo: Hyperglycemia Sliding scale insulin aspart insulin with Accu-Cheks every 6 hours to maintain euglycemia Check TSH Renal: Acute kidney injury Monitor urine output Accurate I's and O's Follow BMP in a.m. 03/14 Check urine eosinophils and electrolytes Heme: Leukocytosis Monitor CBC daily. Follow trends No indication for transfusion of blood product ID: Treat empirically with piperacillin/days renally dosed Blood cultures x2, sputum ordered FEN: Hypermagnesia Currently 0.9% NaCl at 84 cc an hour Replace electrolytes as clinically indicated per ICU electrolyte protocol MSK: PT evaluate and treat Access -Utilize peripheral IV. Central line if indicated Prophylaxis -GI -pantoprazole -DVT -SCD/enoxaparin Critical care time 35 minutes admission (2) Leukocytosis Qualifiers: Leukocytosis type: unspecified Qualified Code(s): D72.829 - Elevated white blood cell count, unspecified (7) Acute drug overdose Qualifiers: Encounter type: initial encounter Injury intent: undetermined intent Qualified Code(s): T50.904A - Poisoning by unspecified drugs, medicaments and biological substances, undetermined, initial encounter
--- NOTE | 2018-03-14 00:07 | P.PCN ---
Date of procedure: 03/14/18 Pre-op diagnosis: Target temperature monitoring Post-op diagnosis: same Procedure: DATE: 03/14/2018 PROCEDURE: Femoral arterial catheter placement INDICATION: Hemodynamic access DETAILS OF PROCEDURE The patient was placed in supine position. The skin was cleansed with Chloraprep. Additional barrier precautions included large sterile drape, sterile gloves, sterile gown, face mask, and hat. 1% lidocaine was used for local anesthesia. Under direct ultrasound guidance and on the initial attempt, the artery was accessed with an introducer needle. The guide wire was advanced. Using Seldinger technique 20 gauge arterial catheter was placed. The guide wire was removed. The catheter was connected to a transducer line and flushed with saline. The video monitor displayed normal arterial wave forms. The catheter was secured with 2-0 silk. A sterile dressing with antibiotic disc was applied. ESTIMATED BLOOD LOSS: minimal COMPLICATIONS: None
--- NOTE | 2018-03-14 00:09 | P.PCN ---
Date of procedure: 03/14/18 Pre-op diagnosis: Target temperature monitoring/PEA arrest Post-op diagnosis: same Procedure: DATE: 03/14/2018 Quattro cooling LINE PLACEMENT: Right femoral vein. Ultrasound-guided INDICATION: Central venous accesstargeted temperature monitoring CONSENT Informed consent for procedure was not obtained is no family available/ considered emergent for target temperature monitoring. DESCRIPTION OF THE PROCEDURE The patient was placed in supine position. The skin was cleansed with Chloraprep. Additional barrier precautions included large sterile drape, sterile gloves, sterile gown, face mask, and hat. 1 % lidocaine was used for local anesthesia. Under direct ultrasound guidance and on initial attempt, the vein was accessed with an introducer needle. The guide wire was advanced and the tract was dilated x2. Using Seldinger technique a 9.3 [place] triple lumen targeted temperature monitoring/heat exchange catheter was advanced to a depth of 45 centimeters. The guide wire was removed. All ports had good return of dark venous blood and flushed easily with saline. The central line was secured with 2.0 silk. A sterile dressing with antibiotic disc was applied. ESTIMATED BLOOD LOSS: Minimal COMPLICATIONS: No apparent complications.
[2018-03-14] MEDS: fentaNYL 10 mcg/mL Premix Drip 2,500 MCG/250 ML BAG IV.SIG PRN ×2 (00:15→15:21)
[2018-03-14] MEDS ORDERED: Artificial Tears Opth Oint 3.5 GM Tube EACH EYE PRN (00:18)
[2018-03-14] MEDS ORDERED: Norepinephrine Inj 4 MG in Sodium Chlor 0.9% Inj 246 ML IV.SIG PRN (00:29)
[2018-03-14] MEDS ORDERED: NITROGLYCERIN IV.SIG PRN (00:37)
[2018-03-14] MEDS ORDERED: SODIUM CHLOR 0.9% IV.SIG PRN (00:37)
[2018-03-14] MEDS ORDERED: Nitroglycerin Drip Premix 50 MG/250 ML BOTTLE IV.CONT PRN (00:52)
[2018-03-14] MEDS ORDERED: Hypromellose 0.3% Opth Gel 10 GM Bottle EACH EYE PRN (00:59)
[2018-03-14] MEDS: Multivitamin Inj 10 ML, Thiamine Inj 100 MG, Folic Acid Inj 1 MG in Sodium Chlor 0.9% I... IV.SIG SCH ×2 (01:00→23:24)
[2018-03-14] MEDS: niCARdipine Inj 25 MG in Sodium Chlor 0.9% Inj 240 ML IV.CONT PRN (01:00)
[2018-03-14] MEDS: Cisatracurium Inj 100 MG in Sodium Chlor 0.9% Inj 240 ML IV.CONT PRN ×6 (01:30→23:21)
[2018-03-14 01:48] LABS: Activated Partial Thrombo Time 25.3 sec (23.4-31.7); INR 1.1 Ratio; Prothrombin Time 10.7 sec (9.8-11.6)
[2018-03-14 01:52] LABS: Baso % (Auto) 0.2 % (0.0-2.0); Eos % (Auto) 0.1 % (0.0-4.0); Hematocrit 49.3 % (39.0-51.0); Hemoglobin 16.4 gm/dL (13.0-17.0); Lymph # (Auto) 0.9 th/mm3 (1.0-4.8); Lymph % (Auto) 6.4 % (9.0-44.0); Mean Corpuscular HGB Conc 33.2 % (32.0-36.0); Mean Corpuscular Hemoglobin 29.4 pg (27.0-34.0); Mean Corpuscular Volume 88.3 fL (80.0-100.0); Mean Platelet Volume 8.2 fL (7.0-11.0); Mono # (Auto) 1.2 th/mm3 (0.0-0.9); Mono % (Auto) 8.1 % (0.0-8.0); Neut # (Auto) 12.2 th/mm3 (1.8-7.7); Neut % (Auto) 85.2 % (16.0-70.0); Platelet Count 318 th/mm3 (150-450); Red Blood Count 5.59 mil/mm3 (4.50-5.90); Red Cell Distribution Width 13.4 % (11.6-17.2); White Blood Count 14.4 th/mm3 (4.0-11.0)
[2018-03-14 02:29] LABS: Alanine Aminotransferase 108 U/L (12-78); Albumin 3.7 g/dL (3.4-5.0); Alkaline Phosphatase 94 U/L (45-117); Anion Gap 10 meq/L (5-15); Aspartate Aminotransferase 146 U/L (15-37); Blood Urea Nitrogen 17 mg/dL (7-18); Calcium 7.8 mg/dL (8.5-10.1); Carbon Dioxide 24.2 meq/L (21.0-32.0); Chloride 109 meq/L (98-107); Creatine Kinase 508 U/L (39-308); Glomerular Filtration Rate 60 mL/min (>89); Glucose,Random 175 mg/dL (74-106); Magnesium 2.1 mg/dL (1.5-2.5); Sodium 143 meq/L (136-145); Total Protein 7.6 g/dL (6.4-8.2)
[2018-03-14 02:36] LABS: Potassium 2.9 meq/L (3.5-5.1); Troponin I 6.05 ng/mL (0.02-0.05)
[2018-03-14] MEDS: Potassium Chlor 40 mEq Premix 40 MEQ/100 ML PIGGYBACK IV.SIG PRN ×2 (03:00→06:12)
[2018-03-14 03:05] LABS: Creatine Kinase MB 27.5 ng/mL (0.5-3.6)
[2018-03-14 03:09] LABS: CKMB Percent 5.4 % (0.0-4.0)
[2018-03-14] MEDS ORDERED: Chlorhexidine Gluconate 2% 1 Pack (2 Cloths) TOPICAL PRN (04:00)
--- NOTE | 2018-03-14 04:00 | XR ---
EXAM DATE: 03/14/2018 3:39 AM EST AGE/SEX: 62 years / Male INDICATIONS: Shortness of breath, possible pneumothorax. CLINICAL DATA: This is the patient's subsequent encounter. Patient reports that signs and symptoms h ave been present for 2 days and indicates a pain score of Nonresponsive. MEDICAL/SURGICAL HISTORY: Non-responsive. Non-responsive. COMPARISON: C, CHEST 1V SINGLE AP, 03/13/2018. . FINDINGS: The ET tube is well placed. The NG tube tip projects over the distal esophagus and should be advanced . There appears to be overlying in the IVC and extends into the right atrium presumably related to a properly positioned central line. The heart size is normal. The lungs are grossly clear. CONCLUSION: NG tube tip in the distal esophagus. This should be advanced. Electronically signed by: Jared Sheppard MD Board Certified Radiologist 03/14/2018 3:59 AM EST
[2018-03-14] MEDS: Propofol 1000 mg/100 ml Inj 1,000 MG/100 ML BOTTLE IV.CONT PRN ×3 (04:26→17:24)
[2018-03-14] MEDS: Chlorhexidine Gluconate 2% 1 Pack (2 Cloths) TOPICAL SCH (04:31)
[2018-03-14] MEDS: Oral Hygiene Kit OROPHARYNG SCH ×4 (04:37→16:08)
[2018-03-14] MEDS: Insulin NovoLOG Aspart Correctional Sugar Inj SQ SCH ×4 (04:37→18:20)
[2018-03-14] MEDS: Artificial Tears Opth Drops 15 ML Bottle EACH EYE SCH ×4 (04:38→23:24)
[2018-03-14] MEDS: Sod Chloride 0.9% Inj 1,000 ML IV.CONT SCH ×3 (05:33→21:12)
[2018-03-14 05:45] LABS: ABG Base Excess -2.7 mmol/L (-2-2); ABG PCO2 35 mmHg (38-42); ABG PO2 204 mmHG (61-120)
[2018-03-14 05:59] LABS: Baso % (Auto) 0.2 % (0.0-2.0); Eos % (Auto) 0.1 % (0.0-4.0); Hematocrit 43.4 % (39.0-51.0); Hemoglobin 14.9 gm/dL (13.0-17.0); Mean Corpuscular HGB Conc 34.4 % (32.0-36.0); Mean Corpuscular Volume 87.2 fL (80.0-100.0); Mean Platelet Volume 7.8 fL (7.0-11.0); Mono % (Auto) 6.4 % (0.0-8.0); Neut % (Auto) 87.3 % (16.0-70.0); Platelet Count 245 th/mm3 (150-450); Red Blood Count 4.98 mil/mm3 (4.50-5.90); Red Cell Distribution Width 13.3 % (11.6-17.2); White Blood Count 16.1 th/mm3 (4.0-11.0)
[2018-03-14 06:05] LABS: Activated Partial Thrombo Time 24.5 sec (23.4-31.7); INR 1.1 Ratio; Prothrombin Time 10.9 sec (9.8-11.6)
[2018-03-14] MEDS: Piperacil/Tazo 3.375 GM Premix 3.375 GM/50 ML PIGGYBACK IV.SIG SCH ×5 (06:12→23:57)
[2018-03-14 06:34] LABS: Calcium 7.3 mg/dL (8.5-10.1); Carbon Dioxide 22.8 meq/L (21.0-32.0); Phosphorus 2.3 mg/dL (2.5-4.9); Potassium 4.3 meq/L (3.5-5.1); Thyroid Stimulating Hormone 0.459 uIU/mL (0.358-3.740); Total Protein 6.3 g/dL (6.4-8.2)
[2018-03-14 07:03] LABS: Troponin I 13.7 ng/mL (0.02-0.05)
--- NOTE | 2018-03-14 07:59 | P.PNCC ---
Subjective Subjective Remarks/Hospital Course: This is a 62-year-old male. Date of admission 03/13/2018. Past medical history includes hepatitis C, pancreatitis hypertension, chronic back pain and allergic rhinitis. History of tobacco abuse. Patient presents to [facility] as a PEA arrest per documentation, patient also history of heroin abuse. Patient was found to be unresponsive in attendance in a homeless camp. Presenting rhythm was pulseless electric activity. Chest compressions started. Patient was intubated. Patient was given epinephrine IV x3 and sodium bicarb 1 amp IV, naltrexone 2 mg IV. Patient was transported to ED for evaluation. Patient regained pulse upon arrival to the ED. 15 minutes per ED physician CT brain revealed no acute intracranial findings. Troponin 0.0 0.5. Patient had a leukocytosis, elevated magnesium, acute injury creatinine 1.8, lactate of 9.8 and a blood sugar today today. Toxicology screen positive for opiates, cocaine and cannabinoids. Patient is currently not moving his unresponsive at 50 rebeka grams per kilogram per minute of propofol this is currently on hold. Chest x-ray revealed old right rib fractures. No pneumothorax. ET tube 5 cm above the saqib. 03/14/18: Induced hypothermia initiated by overnight salesperson men's furnishings currently at target temperature. Patient is on propofol fentanyl and Nimbex. Troponin has peaked at 16. I will start IV heparin and aspirin. Cardiology consulted. Objective Vital Signs / I&O: Vital Signs 03/13/18 20:42 03/13/18 20:43 03/13/18 20:48 Temperature Pulse Rate 122 H Respiratory Rate 20 15 15 Blood Pressure 146/66 H Pulse Oximetry 100 100 03/13/18 20:55 03/13/18 20:57 03/13/18 21:16 Temperature Pulse Rate 104 H 104 H 107 H Respiratory Rate 15 15 Blood Pressure 78/52 L 153/93 H Pulse Oximetry 98 100 100 03/13/18 21:46 03/13/18 21:50 03/13/18 22:09 Temperature Pulse Rate 102 H 97 H Respiratory Rate 15 15 Blood Pressure 188/123 H 181/114 H Pulse Oximetry 100 100 100 03/13/18 22:30 03/13/18 22:37 03/13/18 23:22 Temperature Pulse Rate 86 83 Respiratory Rate 14 14 Blood Pressure 189/108 H 215/117 H Pulse Oximetry 100 96 95 03/13/18 23:47 03/13/18 23:48 03/13/18 23:50 Temperature Pulse Rate 108 H Respiratory Rate 14 14 Blood Pressure Pulse Oximetry 100 03/14/18 00:00 03/14/18 01:39 03/14/18 03:00 Temperature 97.6 F 93.2 F L Pulse Rate 79 64 Respiratory Rate 16 16 16 Blood Pressure 192/129 H 108/78 Pulse Oximetry 99 100 100 03/14/18 04:10 Temperature Pulse Rate 60 Respiratory Rate 16 Blood Pressure Pulse Oximetry 100 Intake & Output 03/13/18 03/14/18 03/14/18 18:59 06:59 18:59 Intake Total 1011.2 / 1011.2 Output Total 240 / 240 Balance 771.2 / 771.2 Weight 78 kg Intake: IV 1011.2 / 1011.2 Nimbex Inj 100 MG In NS Inj 240 250 / 250 ML @ 1 MCG/KG/MIN 12 mls/hr IV .CONT TITRATE PRN Rx#:[id number] Diprivan 1000 mg/100 ml Inj 1, 100 / 100 000 mg In 100 ml @ 5 MCG/KG/MIN 2.4 mls/hr IV.CONT TITRATE PRN Rx#:[id number] NS Inj 1,000 ML @ 125 mls/hr IV 0 / 0 .CONT .Q8H ALEIDA Rx#:[id number] MVI-12 Inj 10 ML Thiamine Inj 511.2 / 511.2 100 MG Folvite Inj 1 MG In NS Inj 500 ML @ 125 mls/hr IV.SIG Q24H ALEIDA Rx#:[id number] Zosyn 3.375 GM Premix 3.375 gm 50 / 50 In 50 ml @ 100 mls/hr IV.SIG Q6H ALEIDA Rx#:[id number] KCl 40 mEq Premix Inj 40 meq In 100 / 100 100 ml @ 25 mls/hr IV.SIG Q2H PRN Rx#:[id number] Output: Urine Amount (Catheter) 240 / 240 Indwelling Urethral Catheter 240 / 240 Gastric Drainage 0 / 0 Orogastric Tube 0 / 0 Result Diagrams: 03/14/18 05:45 03/14/18 05:45 Objective Remarks: - Constitutional Intubated heavily sedated undergoing induced hypothermia - Routine HEENT Exam Head: normocephalic, atraumatic Eye: Pupils are 2 mm sluggish ENT: mucous membranes dry - Routine Neck Exam Supple - Routine Respiratory Exam Air entry equal bilaterally, synchronous with the vent. No wheezes or crackles - Routine Cardiovascular Exam Normal sinus rhythm S1-S2 normal no murmurs - Routine Abdominal Exam soft, normoactive bowel sounds - Routine Extremities Exam nO cyanosis, clubbing, edema - Routine Skin Exam intact - Routine Neurological Exam Patient is intubated sedated and neuromuscularly paralyzed limiting exam. Pupils are bilaterally equal 2 mm sluggish Assessment and Plan - Problem List (1) Lactic acidosis Code(s): E87.2 - Acidosis Status: Acute (2) Leukocytosis Code(s): D72.829 - Elevated white blood cell count, unspecified Status: Acute (3) Hyperglycemia Code(s): R73.9 - Hyperglycemia, unspecified Status: Acute (4) Cocaine abuse Code(s): F14.10 - Cocaine abuse, uncomplicated Status: Acute (5) Synthetic cannabinoid abuse Code(s): F19.10 - Other psychoactive substance abuse, uncomplicated Status: Acute (6) Cardiopulmonary arrest Code(s): I46.9 - Cardiac arrest, cause unspecified Status: Acute (7) Acute drug overdose Code(s): T50.901A - Poisoning by unspecified drugs, medicaments and biological substances, accidental (unintentional), initial encounter Status: Acute - Assessment and Plan Plan: Neuro/Psych: Hypoxic ischemic encephalopathy Polysubstance overdose including opiates, cocaine and cannabinoids Currently on propofol/fentanyl/Nimbex drips for sedation/analgesia/ neuromuscular paralysis while intubated undergoing hypothermia Target temperature achieved, leave on per protocol in [address] brain revealed no acute intracranial findings. Sinusitis Acetaminophen 650 by tube every 6 hours as needed fever CV: PEA arrest NSTEMI Hypertension Lactic acidosis EKG reveals no ST elevation, telemetry strips shows left bundle branch block Initial troponin 0 0.05. Later troponin peaked at 16 Start IV heparin per [place] protocol Aspirin 81 mg daily, hypotensive will not tolerate beta blockers at this Cardiology consult 2D echocardiogram a.m. EKG ordered As needed nicardipine drip for hypertension Levophed to keep map above 65 Initial lactate 9.8. Now cleared Resp: Acute respiratory failure PRVC/AC Ventilation bundle. Head of bed at 30 degrees Albuterol/ipratropium aerosols every 4 hours with albuterol aerosols every 2 hours as needed dyspnea Spontaneous breathing trials when clinically indicated, and once there is neurological recovery Follow-up a.m. ABG and chest x-ray GI: History of hepatitis C NG tube to low intermittent wall suction Pantoprazole for GI prophylaxis Docusate sodium/senna 1 tablet twice daily for bowel regimen : Aly catheter placed in ED Endo: Hyperglycemia Sliding scale insulin aspart insulin with Accu-Cheks every 6 hours to maintain euglycemia Renal: Acute kidney injury Monitor urine output Accurate I's and O's Follow BMP in a.m. 03/14 Heme: Leukocytosis Monitor CBC daily. Follow trends No indication for transfusion of blood product ID: Treat empirically with zosyn renally dosed Blood cultures x2, sputum ordered FEN: Hypermagnesia Currently 0.9% NaCl at 84 cc an hour Replace electrolytes as clinically indicated per ICU electrolyte protocol MSK: PT evaluate and treat once hypothermia protocol completed Access -Utilize peripheral IV. Heat exchange femoral catheter placed to 219 Prophylaxis -GI -pantoprazole -DVT -SCD/IV Heparin Critical care time 35 minutes admission (2) Leukocytosis Qualifiers: Leukocytosis type: unspecified Qualified Code(s): D72.829 - Elevated white blood cell count, unspecified (7) Acute drug overdose Qualifiers: Encounter type: initial encounter Injury intent: undetermined intent Qualified Code(s): T50.904A - Poisoning by unspecified drugs, medicaments and biological substances, undetermined, initial encounter
[2018-03-14 08:32] LABS: Activated Partial Thrombo Time 27.1 sec (23.4-31.7); INR 1.1 Ratio; Prothrombin Time 11.1 sec (9.8-11.6)
[2018-03-14] MEDS: Heparin Drip 25,000 UNIT/250 ML BAG IV.CONT PRN (08:38)
[2018-03-14] MEDS: Pantoprazole Inj 40 MG Vial IV.PUSH SCH (08:38)
[2018-03-14] MEDS ORDERED: Enoxaparin Inj 30 MG/0.3 ML Syringe SQ SCH (09:00)
[2018-03-14] MEDS: Chlorhexidine 0.12% Oral Kit 15 ML UDC OROPHARYNG SCH ×2 (09:45→20:23)
[2018-03-14] MEDS: Artificial Tears Opth Oint 3.5 GM Tube EACH EYE SCH ×2 (09:45→21:12)
[2018-03-14] MEDS: Senna/Docusate Sodium 8.6/50 MG Tablet PO SCH ×2 (09:46→21:11)
--- NOTE | 2018-03-14 10:30 | US ---
EXAM DATE: 03/14/2018 9:58 AM EST AGE/SEX: 62 years / Male INDICATIONS: Increased BUN and creatinine. CLINICAL DATA: This is the patient's initial encounter. Patient reports that signs and symptoms have been present for 1 day and indicates a pain score of 0/10. MEDICAL/SURGICAL HISTORY: . Hepatitis C. Pancreatitis. Hypertension. Spondylosis. Tobacco a buse. Substance abuse. . Cholecystectomy. COMPARISON: [facility] [place], CT ABDOMEN & PELVIS W CONTRAST, 05/22/2015. [facility] [place], CT ABDOMEN & PELVIS W CONTRAST , 01/21/2015. . MEASUREMENTS: Right Kidney:__11.2 x 4.9 x 4.8 cm Left Kidney:__11.8 x 5.9 x 5.6 cm FINDINGS: Right Kidney: Normal echogenicity and cortical thickness. No mass or hydronephrosis. Left Kidney: Normal echogenicity and cortical thickness. No mass or hydronephrosis. Bladder: Aly catheter is present. Bladder decompressed. Other: None. CONCLUSION: 1. Normal appearance of the kidneys without abnormal echotexture or hydronephrosis. There is a Aly catheter identified within the decompressed bladder. Electronically signed by: Milagros Gao MD Board Certified Radiologist 03/14/2018 10:28 AM EST
--- NOTE | 2018-03-14 12:46 | ECG ---
Date Performed: 03/13/2018 Time Performed: 20:56:37 PTAGE: 62 years EKG: SINUS TACHYCARDIA NONSPECIFIC ST & T-WAVE ABNORMALITY ABNORMAL RHYTHM ECG Since PREVIOUS TRACING , the diffuse ST-T changes are new and HR is faster. Clinical correlatio n is recommended PREVIOUS TRACIN05/24/2015 20.40 DOCTOR: Harshad Sanford Interpretating Date/Time 03/14/2018 12:45:48
[2018-03-14 12:49] LABS: Bilirubin,Urine Negative (Negative); Clarity,Urine Cloudy (Clear); Color,Urine Yellow (Yellw/Straw); Creatinine,Urine Random 156 mg/dL (27-300); Glucose,Urine (UA) Negative (Negative); Leukocyte Esterase,Urine Moderate (Negative); Mucus,Urine Few /lpf (Occasional); Nitrite,Urine Negative (Negative); Sodium,Urine Random 9 meq/L; Specific Gravity,Urine 1.025 (1.002-1.035); Squamous Epithelial Cell,Urine <1 /hpf (0-5); Uric Acid Crystals,Urine Occasional /hpf
[2018-03-14 12:55] LABS: Calcium 6.7 mg/dL (8.5-10.1); Magnesium 1.9 mg/dL (1.5-2.5)
[2018-03-14 12:56] LABS: Amphetamine Screen,Urine Neg (Neg); Barbiturate Screen,Urine Neg (Neg); Cannabinoid Screen,Urine Pos (Neg); Cocaine Screen,Urine Pos (Neg)
[2018-03-14 13:02] LABS: Albumin 2.6 g/dL (3.4-5.0); Calcium-Albumin Corrected 7.8 mg/dL (8.5-10.1); Opiate Screen,Urine Pos (Neg)
--- NOTE | 2018-03-14 14:02 | MB ---
cc: Samantha Bui MD DATE: 03/14/2018 REASON FOR CONSULTATION: Possible myocardial infarction, increased troponin, cardiorespiratory arrest. HISTORY OF PRESENT ILLNESS: Mr. Salazar is a 62-year-old gentleman with history of hepatitis C, hypertension, pancreatitis, chronic back pain, chronic smoker, living in the homeless camp, history of drug abuse, apparently gentleman used cocaine and heroin. He was found with pulseless activity. Naloxone was given. The patient was intubated, put on mechanical ventilation. A code call initiated. Troponin increased. I was consulted for evaluation and management. The chart was reviewed. The patient was evaluated, information obtained from medical record and also talking to Dr. Coleman, critical care physician. ALLERGIES: IBUPROFEN. SOCIAL HISTORY: Apparently gentleman smokes cigarettes, uses cocaine and heroin. FAMILY HISTORY: Noncontributory to his current medical condition. MEDICATIONS: 1. Currently, the gentleman is on albuterol inhaler p.r.n. 2. He is on aspirin. 3. He is on fentanyl. 4. Glucagon p.r.n. 5. Insulin p.r.n. 6. Ativan. 7. Magnesium. 8. Folic acid. 9. Nicardipine IV. 10. Norepinephrine p.r.n. 11. Zofran. 12. Zosyn. 13. Potassium. 14. Propofol. 15. Terbutaline. REVIEW OF SYSTEMS: Cannot be performed. The patient is on mechanical ventilation. PHYSICAL EXAMINATION: GENERAL: Sedated on mechanical ventilation on a code call. VITAL SIGNS: Blood pressure 82/63, pulse 55, respiratory rate controlled by the ventilator. LUNGS: Ventilated. CARDIOVASCULAR: S1, S2. Regular. ABDOMEN: Soft. EXTREMITIES: No edema. LABORATORY DATA: Electrocardiogram indicates sinus rhythm, some diffuse ST and T-wave changes. Currently, telemetry shows sinus bradycardia. Hemoglobin 14.9, white blood cell 16.1, INR 1.1, pH 7.41. Oxygen saturation 98.6. Potassium 4.0, creatinine 1.41. Troponin 13.5. ASSESSMENT AND RECOMMENDATIONS: Mr. Salazar is currently on mechanical ventilation. He is on code call. His neurologic status is unknown for now. At this point, my recommendation is to continue with management. When the patient is extubated or when the neurological status can be evaluated appropriately, then ischemic workup will be considered. I will monitor the patient during hospitalization. The patient's condition is critical. His prognosis is poor. I will follow him during hospitalization. Samantha Bui MD HS/ts , 01:30 PM , 01:49 PM
[2018-03-14 18:15] LABS: Calcium 6.4 mg/dL (8.5-10.1); Magnesium 1.9 mg/dL (1.5-2.5)
[2018-03-14 18:21] LABS: Albumin 2.3 g/dL (3.4-5.0); Calcium-Albumin Corrected 7.8 mg/dL (8.5-10.1)
--- NOTE | 2018-03-14 19:24 | ECHRPT ---
Indication: HEART FAILURE CONCLUSIONS Normal left ventricular size. Mild concentric left ventricular hypertrophy. The left ventricular systolic function is severely reduced with an estimated ejection fraction in th e range of 20-25% There is mild tricuspid valve regurgitation. The estimated pulmonary arterial pressure is 20 mmHg. The inferior vena cava is dilated. There is less than 50% respiratory change in dimension of the inferior vena cava (abnormal). BP: / HR: Rhythm: Sinus, PVCs MEASUREMENTS (Male / Female) Normal Values Technical Quality:Technically difficult study 2D ECHO LV Diastolic Diameter PLAX 4.5 cm 4.2 - 5.9 / 3.9 - 5.3 cm LV Systolic Diameter PLAX 4.2 cm IVS Diastolic Thickness 1.0 cm 0.6 - 1.0 / 0.6 - 0.9 cm LVPW Diastolic Thickness 1.0 cm 0.6 - 1.0 / 0.6 - 0.9 cm LV Relative Wall Thickness 0.5 RV Internal Dim ED PLAX 3.4 cm LVOT Diameter 2.1 cm Aortic Root Diameter 3.6 cm LA Systolic Diameter LX 3.2 cm 3.0 - 4.0 / 2.7 - 3.8 cm M-MODE AV Cusp Separation MM 2.4 cm DOPPLER AV Peak Velocity 98.2 cm/s AV Peak Gradient 3.9 mmHg AV Mean Gradient 2.0 mmHg AV Velocity Time Integral 16.2 cm LVOT Peak Velocity 52.2 cm/s LVOT Peak Gradient 1.1 mmHg LVOT Velocity Time Integral 12.0 cm AV Area Cont Eq vti 2.6 cm AV Area Cont Eq pk 1.8 cm Mitral E Point Velocity 30.2 cm/s Mitral A Point Velocity 32.6 cm/s Mitral E to A Ratio 0.9 LV E' Lateral Velocity 7.1 cm/s Mitral E to LV E' Lateral Ratio 4.2 LV E' Septal Velocity 15.6 cm/s Mitral E to LV E' Septal Ratio 1.9 TR Peak Velocity 158.5 cm/s TR Peak Gradient 10.0 mmHg Right Atrial Pressure 10.0 mmHg Pulmonary Artery Systolic Pressu 20.0 mmHg Right Ventricular Systolic Press 20.0 mmHg PV Peak Velocity 45.1 cm/s PV Peak Gradient 0.8 mmHg FINDINGS LEFT VENTRICLE Normal left ventricular size. Mild concentric left ventricular hypertrophy. The left ventricular systolic function is severely reduced with an estimated ejection fraction in th e range of 20-25% RIGHT VENTRICLE Normal right ventricular size and systolic function. LEFT ATRIUM The left atrial size is normal. RIGHT ATRIUM The right atrial size is normal. ATRIAL SEPTUM Normal atrial septal thickness without atrial level shunting by limited color doppler interrogation. AORTA The aortic root and proximal ascending aorta are normal in size on limited imaging. MITRAL VALVE Structurally normal mitral valve. No mitral valve stenosis or regurgitation. AORTIC VALVE Trileaflet aortic valve. No aortic valve stenosis or regurgitation. TRICUSPID VALVE There is mild tricuspid valve regurgitation. The estimated pulmonary arterial pressure is 20 mmHg. PULMONARY VALVE No pulmonary valve regurgitation or stenosis. VESSELS The inferior vena cava is dilated. There is less than 50% respiratory change in dimension of the inferior vena cava (abnormal). PERICARDIUM No pericardial effusion. Samantha Bui MD (Electronically Signed) Final Date:14 March 2018 19:24
[2018-03-15] MEDS: Oral Hygiene Kit OROPHARYNG SCH ×4 (00:19→16:15)
[2018-03-15] MEDS: Insulin NovoLOG Aspart Correctional Sugar Inj SQ SCH ×4 (00:19→17:48)
[2018-03-15] MEDS: Propofol 1000 mg/100 ml Inj 1,000 MG/100 ML BOTTLE IV.CONT PRN ×2 (00:30→07:41)
[2018-03-15 01:00] LABS: Calcium 6.5 mg/dL (8.5-10.1); Carbon Dioxide 21.9 meq/L (21.0-32.0); Magnesium 1.7 mg/dL (1.5-2.5); Potassium 3.8 meq/L (3.5-5.1)
[2018-03-15 01:09] LABS: Albumin 2.3 g/dL (3.4-5.0); Calcium-Albumin Corrected 7.9 mg/dL (8.5-10.1)
[2018-03-15] MEDS: Cisatracurium Inj 100 MG in Sodium Chlor 0.9% Inj 240 ML IV.CONT PRN (03:59)
[2018-03-15] MEDS: Chlorhexidine Gluconate 2% 1 Pack (2 Cloths) TOPICAL SCH (04:02)
[2018-03-15] MEDS: Sod Chloride 0.9% Inj 1,000 ML IV.CONT SCH ×3 (05:17→21:10)
[2018-03-15] MEDS: Piperacil/Tazo 3.375 GM Premix 3.375 GM/50 ML PIGGYBACK IV.SIG SCH ×4 (05:55→23:03)
[2018-03-15 06:01] LABS: Hematocrit 36.3 % (39.0-51.0); Hemoglobin 12.9 gm/dL (13.0-17.0); Mean Corpuscular HGB Conc 35.6 % (32.0-36.0); Mean Corpuscular Hemoglobin 31.4 pg (27.0-34.0); Mean Corpuscular Volume 88.4 fL (80.0-100.0); Mean Platelet Volume 7.8 fL (7.0-11.0); Platelet Count 182 th/mm3 (150-450); Red Cell Distribution Width 13.8 % (11.6-17.2)
[2018-03-15] MEDS: Artificial Tears Opth Drops 15 ML Bottle EACH EYE SCH ×3 (06:29→23:15)
[2018-03-15 06:38] LABS: Albumin 2.2 g/dL (3.4-5.0); Calcium 6.3 mg/dL (8.5-10.1); Carbon Dioxide 20.6 meq/L (21.0-32.0); Magnesium 1.7 mg/dL (1.5-2.5); Potassium 3.9 meq/L (3.5-5.1)
[2018-03-15 06:39] LABS: Total Protein 4.8 g/dL (6.4-8.2)
[2018-03-15] MEDS: fentaNYL 10 mcg/mL Premix Drip 2,500 MCG/250 ML BAG IV.SIG PRN (08:20)
--- NOTE | 2018-03-15 09:35 | P.PNCC ---
Subjective Subjective Remarks/Hospital Course: This is a 62-year-old male. Date of admission 03/13/2018. Past medical history includes hepatitis C, pancreatitis hypertension, chronic back pain and allergic rhinitis. History of tobacco abuse. Patient presents to [facility] as a PEA arrest per documentation, patient also history of heroin abuse. Patient was found to be unresponsive in attendance in a homeless camp. Presenting rhythm was pulseless electric activity. Chest compressions started. Patient was intubated. Patient was given epinephrine IV x3 and sodium bicarb 1 amp IV, naltrexone 2 mg IV. Patient was transported to ED for evaluation. Patient regained pulse upon arrival to the ED. 15 minutes per ED physician CT brain revealed no acute intracranial findings. Troponin 0.0 0.5. Patient had a leukocytosis, elevated magnesium, acute injury creatinine 1.8, lactate of 9.8 and a blood sugar today today. Toxicology screen positive for opiates, cocaine and cannabinoids. Patient is currently not moving his unresponsive at 50 rebeka grams per kilogram per minute of propofol this is currently on hold. Chest x-ray revealed old right rib fractures. No pneumothorax. ET tube 5 cm above the saqib. 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 Patient is on propofol fentanyl and Nimbex. Troponin has peaked at 16. I will start IV heparin and aspirin. Cardiology consulted. 03/15/18: Induced hypothermia completed. Currently in the rewarming phase. Will be completed by to prevent in the afternoon. Currently sedated and paralyzed limiting neuro exam. Pupils are slightly reactive. Objective Vital Signs / I&O: Vital Signs 03/14/18 11:00 03/14/18 13:46 03/14/18 15:00 Temperature 93.2 F L 93.2 F L Pulse Rate 55 L 85 53 L Respiratory Rate 16 16 16 Blood Pressure 82/63 L 83/62 L Pulse Oximetry 100 100 100 03/14/18 16:25 03/14/18 16:26 03/14/18 19:00 Temperature 93.2 F L Pulse Rate 51 L 50 L Respiratory Rate 16 16 16 Blood Pressure 88/55 L Pulse Oximetry 100 100 03/14/18 19:50 03/14/18 19:51 03/14/18 20:00 Temperature Pulse Rate 50 L Respiratory Rate 17 16 Blood Pressure Pulse Oximetry 100 100 03/14/18 23:00 03/15/18 00:08 03/15/18 00:09 Temperature 93.2 F L Pulse Rate 56 L 53 L Respiratory Rate 16 16 16 Blood Pressure 104/76 Pulse Oximetry 99 100 03/15/18 03:00 03/15/18 03:38 03/15/18 04:03 Temperature 93.2 F L Pulse Rate 53 L 53 L 55 L Respiratory Rate 16 17 Blood Pressure 86/64 L Pulse Oximetry 100 100 03/15/18 07:00 03/15/18 07:54 03/15/18 08:00 Temperature 95.3 F L Pulse Rate 57 L 63 Respiratory Rate 16 16 Blood Pressure 90/67 L Pulse Oximetry 100 99 100 Intake & Output 03/14/18 03/15/18 03/15/18 18:59 06:59 18:59 Intake Total 2345 / 2345 3132 / 3132 350 / 350 Output Total 240 / 240 1675 / 1675 Balance 2105 / 2105 1457 / 1457 350 / 350 Weight 82.5 kg Intake: IV 2345 / 2345 3132 / 3132 350 / 350 Nimbex Inj 100 MG In NS Inj 240 725 / 725 536 / 536 ML @ 1 MCG/KG/MIN 12 mls/hr IV .CONT TITRATE PRN Rx#:[id number] Diprivan 1000 mg/100 ml Inj 1, 200 / 200 90 / 90 100 / 100 000 mg In 100 ml @ 5 MCG/KG/MIN 2.4 mls/hr IV.CONT TITRATE PRN Rx#:[id number] NS Inj 1,000 ML @ 125 mls/hr IV 1000 / 1000 1876 / 1876 .CONT .Q8H ALEIDA Rx#:[id number] MVI-12 Inj 10 ML Thiamine Inj 530 / 530 100 MG Folvite Inj 1 MG In NS Inj 500 ML @ 125 mls/hr IV.SIG Q24H ALEIDA Rx#:[id number] Zosyn 3.375 GM Premix 3.375 gm 150 / 150 100 / 100 In 50 ml @ 100 mls/hr IV.SIG Q6H ALEIDA Rx#:[id number] KCl 40 mEq Premix Inj 40 meq In 20 / 20 100 ml @ 25 mls/hr IV.SIG Q2H PRN Rx#:[id number] fentaNYL 10 mcg/mL Premix Drip 250 / 250 250 / 250 2,500 mcg In 250 ml @ 50 MCG/HR 5 mls/hr IV.SIG TITRATE PRN Rx #:[id number] Output: Urine Amount (Catheter) 240 / 240 675 / 675 Indwelling Urethral Catheter 240 / 240 675 / 675 Gastric Drainage 0 / 0 1000 / 1000 Orogastric Tube 0 / 0 1000 / 1000 Other: # Bowel Movements 0 Result Diagrams: 03/15/18 05:45 03/15/18 05:45 Objective Remarks: - Constitutional Intubated heavily sedated undergoing induced hypothermia - Routine HEENT Exam Head: normocephalic, atraumatic. Pupils are 2 mm sluggish. mucous membranes dry - Routine Neck Exam Supple - Routine Respiratory Exam Air entry equal bilaterally, synchronous with the vent. No wheezes or crackles - Routine Cardiovascular Exam Normal sinus rhythm S1-S2 normal no murmurs - Routine Abdominal Exam soft, normoactive bowel sounds - Routine Extremities Exam nO cyanosis, clubbing, edema - Routine Skin Exam intact - Routine Neurological Exam Patient is intubated sedated and neuromuscularly paralyzed limiting exam. Pupils are bilaterally equal 2 mm sluggish Assessment and Plan - Problem List (1) Lactic acidosis Code(s): E87.2 - Acidosis Status: Acute (2) Leukocytosis Code(s): D72.829 - Elevated white blood cell count, unspecified Status: Acute (3) Hyperglycemia Code(s): R73.9 - Hyperglycemia, unspecified Status: Acute (4) Cocaine abuse Code(s): F14.10 - Cocaine abuse, uncomplicated Status: Acute (5) Synthetic cannabinoid abuse Code(s): F19.10 - Other psychoactive substance abuse, uncomplicated Status: Acute (6) Cardiopulmonary arrest Code(s): I46.9 - Cardiac arrest, cause unspecified Status: Acute (7) Acute drug overdose Code(s): T50.901A - Poisoning by unspecified drugs, medicaments and biological substances, accidental (unintentional), initial encounter Status: Acute - Assessment and Plan Plan: Neuro/Psych: Hypoxic ischemic encephalopathy Polysubstance overdose including opiates, cocaine and cannabinoids Currently on propofol/fentanyl/Nimbex drips for sedation/analgesia/ neuromuscular paralysis while intubated undergoing hypothermia Target temperature achieved, complete and now in the rewarming phase will be completed by [address] brain revealed no acute intracranial findings. Sinusitis Acetaminophen 650 by tube every 6 hours as needed fever CV: PEA arrest NSTEMI Hypertension Lactic acidosis Cardiomyopathy with EF 20-25% EKG reveals no ST elevation, telemetry strips shows left bundle branch block Initial troponin 0 0.05. Later troponin peaked at 16 Continue IV heparin per [place] protocol Aspirin 81 mg daily, hypotensive will not tolerate beta blockers at this Cardiology consult appreciated 2D echocardiogram EF severely reduced with an estimated ejection fraction in the range of 20-25% Further workup if there is meaningful neurological improvement Not requiring pressors at this time Initial lactate 9.8. Now cleared Resp: Acute respiratory failure PRVC/AC Ventilation bundle. Head of bed at 30 degrees Albuterol/ipratropium aerosols every 4 hours with albuterol aerosols every 2 hours as needed dyspnea Spontaneous breathing trials when clinically indicated, and once there is neurological recovery Follow-up a.m. ABG and chest x-ray GI: History of hepatitis C NG tube to low intermittent wall suction, start tube feeds with Jevity Pantoprazole for GI prophylaxis Docusate sodium/senna 1 tablet twice daily for bowel regimen : Aly catheter placed in ED Endo: Hyperglycemia Sliding scale insulin aspart insulin with Accu-Cheks every 6 hours to maintain euglycemia Renal: Acute kidney injury Monitor urine output Accurate I's and O's Follow BMP in a.m. 03/14 Heme: Leukocytosis Monitor CBC daily. Follow trends, trending down now No indication for transfusion of blood product ID: Treat empirically with zosyn renally dosed Blood cultures x2, sputum all negative to date FEN: Hypermagnesia Currently 0.9% NaCl at 84 cc an hour Replace electrolytes as clinically indicated per ICU electrolyte protocol MSK: PT evaluate and treat once hypothermia protocol completed Access -Utilize peripheral IV. Heat exchange femoral catheter placed to 219 Prophylaxis -GI -pantoprazole -DVT -SCD/IV Heparin Critical care time 35 minutes admission (2) Leukocytosis Qualifiers: Leukocytosis type: unspecified Qualified Code(s): D72.829 - Elevated white blood cell count, unspecified (7) Acute drug overdose Qualifiers: Encounter type: initial encounter Injury intent: undetermined intent Qualified Code(s): T50.904A - Poisoning by unspecified drugs, medicaments and biological substances, undetermined, initial encounter
[2018-03-15] MEDS: Senna/Docusate Sodium 8.6/50 MG Tablet PO SCH ×2 (09:58→22:58)
[2018-03-15] MEDS: Chlorhexidine 0.12% Oral Kit 15 ML UDC OROPHARYNG SCH ×2 (09:58→21:10)
[2018-03-15] MEDS: Pantoprazole Inj 40 MG Vial IV.PUSH SCH (09:59)
[2018-03-15] MEDS: Artificial Tears Opth Oint 3.5 GM Tube EACH EYE SCH (10:12)
--- NOTE | 2018-03-15 11:50 | P.PN ---
Subjective Interval history: Still on mechanical ventilation Code cool Physical Exam Vital signs: Vital Signs 03/14/18 13:46 03/14/18 15:00 03/14/18 16:25 Temperature 93.2 F L Pulse Rate 85 53 L 51 L Respiratory Rate 16 16 16 Blood Pressure 83/62 L Pulse Oximetry 100 100 03/14/18 16:26 03/14/18 19:00 03/14/18 19:50 Temperature 93.2 F L Pulse Rate 50 L 50 L Respiratory Rate 16 16 17 Blood Pressure 88/55 L Pulse Oximetry 100 100 03/14/18 19:51 03/14/18 20:00 03/14/18 23:00 Temperature 93.2 F L Pulse Rate 56 L Respiratory Rate 16 16 Blood Pressure 104/76 Pulse Oximetry 100 100 99 03/15/18 00:08 03/15/18 00:09 03/15/18 03:00 Temperature Pulse Rate 53 L 53 L Respiratory Rate 16 16 Blood Pressure Pulse Oximetry 100 03/15/18 03:38 03/15/18 04:03 03/15/18 07:00 Temperature 93.2 F L 95.3 F L Pulse Rate 53 L 55 L 57 L Respiratory Rate 16 17 16 Blood Pressure 86/64 L 90/67 L Pulse Oximetry 100 100 100 03/15/18 07:54 03/15/18 08:00 03/15/18 11:00 Temperature 97.3 F L Pulse Rate 63 75 Respiratory Rate 16 Blood Pressure 125/73 Pulse Oximetry 99 100 99 Intake & Output 03/14/18 03/15/18 03/15/18 18:59 06:59 18:59 Intake Total 2345 / 2345 3132 / 3132 350 / 350 Output Total 240 / 240 1675 / 1675 Balance 2105 / 2105 1457 / 1457 350 / 350 Weight 82.5 kg Intake: IV 2345 / 2345 3132 / 3132 350 / 350 Nimbex Inj 100 MG In NS Inj 240 725 / 725 536 / 536 ML @ 1 MCG/KG/MIN 12 mls/hr IV .CONT TITRATE PRN Rx#:[id number] Diprivan 1000 mg/100 ml Inj 1, 200 / 200 90 / 90 100 / 100 000 mg In 100 ml @ 5 MCG/KG/MIN 2.4 mls/hr IV.CONT TITRATE PRN Rx#:[id number] NS Inj 1,000 ML @ 125 mls/hr IV 1000 / 1000 1876 / 1876 .CONT .Q8H ALEIDA Rx#:[id number] MVI-12 Inj 10 ML Thiamine Inj 530 / 530 100 MG Folvite Inj 1 MG In NS Inj 500 ML @ 125 mls/hr IV.SIG Q24H ALEIDA Rx#:[id number] Zosyn 3.375 GM Premix 3.375 gm 150 / 150 100 / 100 In 50 ml @ 100 mls/hr IV.SIG Q6H ALEIDA Rx#:[id number] KCl 40 mEq Premix Inj 40 meq In 20 / 20 100 ml @ 25 mls/hr IV.SIG Q2H PRN Rx#:[id number] fentaNYL 10 mcg/mL Premix Drip 250 / 250 250 / 250 2,500 mcg In 250 ml @ 50 MCG/HR 5 mls/hr IV.SIG TITRATE PRN Rx #:[id number] Output: Urine Amount (Catheter) 240 / 240 675 / 675 Indwelling Urethral Catheter 240 / 240 675 / 675 Gastric Drainage 0 / 0 1000 / 1000 Orogastric Tube 0 / 0 1000 / 1000 Other: # Bowel Movements 0 - Constitutional Comments: Sedated warming from the code cool - Routine HEENT Exam Head: Present: normocephalic - Routine Cardiovascular Exam Present: S1, S2 - Urinary Catheter Management Indwelling Urethral Catheter Cath placed during this visit: yes Reason for continuing: Hourly intake/output Insertion date: 03/14/18 Insertion time: 00:00 Results - Labs CBC & Chem 7: 03/15/18 05:45 03/15/18 05:45 Laboratory Results - last 24 hr 03/14/18 03/14/18 03/14/18 12:10 12:10 12:10 WBC RBC Hgb Hct MCV MCH MCHC RDW Plt Count MPV APTT Sodium Potassium Chloride Carbon Dioxide Anion Gap BUN Creatinine Estimated GFR POC Glucose Random Glucose Lactic Acid 1.0 Calcium Calcium Adj for Albumin Magnesium Total Bilirubin AST ALT Alkaline Phosphatase Total Protein Albumin Urine Color Yellow Urine Clarity Cloudy H Urine pH 5.0 Ur Specific [place] 1.025 Urine Protein 30 H Urine Glucose (UA) Negative Urine Ketones Negative Urine Occult Blood Negative Urine Nitrate Negative Urine Bilirubin Negative Urine Urobilinogen Less than 2 Ur Leukocyte Esterase Moderate H Urine RBC 11 H Urine WBC 117 H Urine WBC Clumps Moderate H Ur Squamous Epith Cells <1 Uric Acid Crystals Occasional H Urine Mucus Few H Ur Microscopic Review Not Reportable Urine Eosinophils Ur Random Creatinine Ur Random Sodium Urine Opiates Screen Pos H Ur Barbiturates Screen Neg Ur Amphetamines Screen Neg U Benzodiazepines Scrn Neg Urine Cocaine Screen Pos H U Cannabinoids Screen Pos H 03/14/18 03/14/18 03/14/18 12:10 12:10 12:10 WBC RBC Hgb Hct MCV MCH MCHC RDW Plt Count MPV APTT Sodium 146 H Potassium 4.0 Chloride 115 H Carbon Dioxide 25.0 Anion Gap 6 BUN 24 H Creatinine 1.41 H Estimated GFR 51 L POC Glucose Random Glucose 113 H Lactic Acid Calcium 6.7 L* Calcium Adj for Albumin 7.8 L Magnesium 1.9 Total Bilirubin AST ALT Alkaline Phosphatase Total Protein Albumin 2.6 L Urine Color Urine Clarity Urine pH Ur Specific [place] Urine Protein Urine Glucose (UA) Urine Ketones Urine Occult Blood Urine Nitrate Urine Bilirubin Urine Urobilinogen Ur Leukocyte Esterase Urine RBC Urine WBC Urine WBC Clumps Ur Squamous Epith Cells Uric Acid Crystals Urine Mucus Ur Microscopic Review Urine Eosinophils None seen Ur Random Creatinine 156 Ur Random Sodium 9 Urine Opiates Screen Ur Barbiturates Screen Ur Amphetamines Screen U Benzodiazepines Scrn Urine Cocaine Screen U Cannabinoids Screen 03/14/18 03/14/18 03/14/18 13:40 17:30 19:55 WBC RBC Hgb Hct MCV MCH MCHC RDW Plt Count MPV APTT 66.2 H D 75.1 H Sodium 148 H Potassium 4.0 Chloride 118 H Carbon Dioxide 22.0 Anion Gap 8 BUN 24 H Creatinine 1.37 H Estimated GFR 53 L POC Glucose Random Glucose 99 Lactic Acid Calcium 6.4 L* Calcium Adj for Albumin 7.8 L Magnesium 1.9 Total Bilirubin AST ALT Alkaline Phosphatase Total Protein Albumin 2.3 L Urine Color Urine Clarity Urine pH Ur Specific [place] Urine Protein Urine Glucose (UA) Urine Ketones Urine Occult Blood Urine Nitrate Urine Bilirubin Urine Urobilinogen Ur Leukocyte Esterase Urine RBC Urine WBC Urine WBC Clumps Ur Squamous Epith Cells Uric Acid Crystals Urine Mucus Ur Microscopic Review Urine Eosinophils Ur Random Creatinine Ur Random Sodium Urine Opiates Screen Ur Barbiturates Screen Ur Amphetamines Screen U Benzodiazepines Scrn Urine Cocaine Screen U Cannabinoids Screen 03/14/18 03/15/18 03/15/18 23:54 00:00 00:03 WBC RBC Hgb Hct MCV MCH MCHC RDW Plt Count MPV APTT Sodium 148 H Potassium 3.8 Chloride 118 H Carbon Dioxide 21.9 Anion Gap 8 BUN 25 H Creatinine 1.46 H Estimated GFR 49 L POC Glucose 64 L 94 Random Glucose 92 Lactic Acid Calcium 6.5 L* Calcium Adj for Albumin 7.9 L Magnesium 1.7 Total Bilirubin AST ALT Alkaline Phosphatase Total Protein Albumin 2.3 L Urine Color Urine Clarity Urine pH Ur Specific [place] Urine Protein Urine Glucose (UA) Urine Ketones Urine Occult Blood Urine Nitrate Urine Bilirubin Urine Urobilinogen Ur Leukocyte Esterase Urine RBC Urine WBC Urine WBC Clumps Ur Squamous Epith Cells Uric Acid Crystals Urine Mucus Ur Microscopic Review Urine Eosinophils Ur Random Creatinine Ur Random Sodium Urine Opiates Screen Ur Barbiturates Screen Ur Amphetamines Screen U Benzodiazepines Scrn Urine Cocaine Screen U Cannabinoids Screen 03/15/18 03/15/18 03/15/18 03:08 05:45 05:45 WBC 13.0 H RBC 4.10 L Hgb 12.9 L D Hct 36.3 L MCV 88.4 MCH 31.4 MCHC 35.6 RDW 13.8 Plt Count 182 MPV 7.8 APTT 54.4 H D Sodium 148 H Potassium 3.9 Chloride 121 H Carbon Dioxide 20.6 L Anion Gap 6 BUN 25 H Creatinine 1.28 Estimated GFR 57 L POC Glucose Random Glucose 91 Lactic Acid Calcium 6.3 L* Calcium Adj for Albumin 7.7 L Magnesium 1.7 Total Bilirubin 0.3 AST 90 H ALT 65 Alkaline Phosphatase 48 Total Protein 4.8 L D Albumin 2.2 L Urine Color Urine Clarity Urine pH Ur Specific [place] Urine Protein Urine Glucose (UA) Urine Ketones Urine Occult Blood Urine Nitrate Urine Bilirubin Urine Urobilinogen Ur Leukocyte Esterase Urine RBC Urine WBC Urine WBC Clumps Ur Squamous Epith Cells Uric Acid Crystals Urine Mucus Ur Microscopic Review Urine Eosinophils Ur Random Creatinine Ur Random Sodium Urine Opiates Screen Ur Barbiturates Screen Ur Amphetamines Screen U Benzodiazepines Scrn Urine Cocaine Screen U Cannabinoids Screen 03/15/18 03/15/18 03/15/18 05:48 09:10 11:21 WBC RBC Hgb Hct MCV MCH MCHC RDW Plt Count MPV APTT 39.0 H D Sodium Potassium Chloride Carbon Dioxide Anion Gap BUN Creatinine Estimated GFR POC Glucose 88 70 Random Glucose Lactic Acid Calcium Calcium Adj for Albumin Magnesium Total Bilirubin AST ALT Alkaline Phosphatase Total Protein Albumin Urine Color Urine Clarity Urine pH Ur Specific [place] Urine Protein Urine Glucose (UA) Urine Ketones Urine Occult Blood Urine Nitrate Urine Bilirubin Urine Urobilinogen Ur Leukocyte Esterase Urine RBC Urine WBC Urine WBC Clumps Ur Squamous Epith Cells Uric Acid Crystals Urine Mucus Ur Microscopic Review Urine Eosinophils Ur Random Creatinine Ur Random Sodium Urine Opiates Screen Ur Barbiturates Screen Ur Amphetamines Screen U Benzodiazepines Scrn Urine Cocaine Screen U Cannabinoids Screen 03/15/18 11:24 WBC RBC Hgb Hct MCV MCH MCHC RDW Plt Count MPV APTT Sodium Potassium Chloride Carbon Dioxide Anion Gap BUN Creatinine Estimated GFR POC Glucose 75 Random Glucose Lactic Acid Calcium Calcium Adj for Albumin Magnesium Total Bilirubin AST ALT Alkaline Phosphatase Total Protein Albumin Urine Color Urine Clarity Urine pH Ur Specific [place] Urine Protein Urine Glucose (UA) Urine Ketones Urine Occult Blood Urine Nitrate Urine Bilirubin Urine Urobilinogen Ur Leukocyte Esterase Urine RBC Urine WBC Urine WBC Clumps Ur Squamous Epith Cells Uric Acid Crystals Urine Mucus Ur Microscopic Review Urine Eosinophils Ur Random Creatinine Ur Random Sodium Urine Opiates Screen Ur Barbiturates Screen Ur Amphetamines Screen U Benzodiazepines Scrn Urine Cocaine Screen U Cannabinoids Screen Microbiology 03/14/18 19:55 Blood - Line Aerobic Blood Culture - Preliminary No growth in 1 day 03/14/18 19:55 Blood - Line Anaerobic Blood Culture - Preliminary No growth in 1 day 03/13/18 21:00 Blood - Peripheral Aerobic Blood Culture - Preliminary No growth in 2 days 03/13/18 21:00 Blood - Peripheral Anaerobic Blood Culture - Preliminary No growth in 2 days 03/13/18 21:10 Blood - Peripheral Aerobic Blood Culture - Preliminary No growth in 2 days 03/13/18 21:10 Blood - Peripheral Anaerobic Blood Culture - Preliminary No growth in 2 days 03/14/18 01:10 Sputum - Endotracheal Gram Stain - Final Assessment and Plan - Assessment (1) Cardiopulmonary arrest Code(s): I46.9 - Cardiac arrest, cause unspecified Status: Acute - Plan Warming from code cool open his eyes spontaneously . Not follow verbal indications. Not responding to verbal stimulus Will continue on current management Further decisions about ischemic workup will be base on neurological status. Case discussed with a family friend who was at bedside
[2018-03-15 14:02] LABS: Calcium 6.8 mg/dL (8.5-10.1); Carbon Dioxide 20.6 meq/L (21.0-32.0); Magnesium 1.8 mg/dL (1.5-2.5); Potassium 3.9 meq/L (3.5-5.1)
[2018-03-15 14:14] LABS: Albumin 2.3 g/dL (3.4-5.0); Calcium-Albumin Corrected 8.2 mg/dL (8.5-10.1)
--- NOTE | 2018-03-15 14:41 | P.DIET ---
Nutritional Evaluation Type of nutrition evaluation: initial Nutrition consult regarding: Tube Feeding Objective - Diagnosis Cardiopulmonary Arrest, Drug Overdose - Objective % IBW: 96 (IBW: 81kg) Body Weight Used for Calculations: Actual (78kg) Energy Needs - Lower Range (kCal/kg): 25 Energy Needs - Upper Range (kCal/kg): 30 Lower Limit kCal/kg (kCals): 1,950 Upper Limit kCal/kg (kCals): 2,340 Lower Limit Protein Factor (Grams per Kg): 1.2 Upper Limit Protein Factor (Grams per Kg): 1.5 Lower Protein Needs (Protein): 94 Upper Protein Needs (Protein): 117 Dietitian Reviewed in Medical Record: Current diet, Curent medications, Intake & Output, Labs, Medical history, Tube feeding Diet Order: NPO Objective Comments: PMH: Hepatitis C, Pancreatitis, chronic back pain Meds include: IV Multivit, Lactulose, propofol, fentanyl Labs include: Na 148, Ammonia 54 Assessment Assessment: Pt at nutritional risk r/t current clinical status and need for a TF for nutrition support. Pt intubated/sedated on propofol/fentanyl. Pt admitted for cardiopulmonary arrest and drug overdose. Nutritional needs as assessed above. Current TF Jevity 1.5 with goal rate 45ml/hr per MD. To meet pt's nutritional needs, a goal rate of 60ml/hr is necessary providing 2160kcals, 92gms protein and 1094mls free water. Will monitor TF tolerance, ammonia level, clinical course. Recommendations: TF Jevity 1.5 with goal rate 60ml/hr to meet pt's nutritional needs. Dietitian to Monitor: Lab values, Intake & Output, Tube feeding tolerance, Weight change, Medical course
[2018-03-15] MEDS ORDERED: hydrALAZINE HCl Inj 20 MG/ML Vial ONE (17:17)
[2018-03-15] MEDS: hydrALAZINE HCl Inj 20 MG/ML Vial IV.PUSH PRN (17:35)
[2018-03-15] MEDS: niCARdipine Inj 25 MG in Sodium Chlor 0.9% Inj 240 ML IV.CONT PRN (18:36)
[2018-03-15] MEDS: Heparin Drip 25,000 UNIT/250 ML BAG IV.CONT PRN (21:07)
[2018-03-15] MEDS: Multivitamin Inj 10 ML, Thiamine Inj 100 MG, Folic Acid Inj 1 MG in Sodium Chlor 0.9% I... IV.SIG SCH (22:58)
[2018-03-15] MEDS ORDERED: Metoprolol Inj 5 MG/5 ML Vial IV.PUSH ONE (23:00)
[2018-03-16] MEDS: niCARdipine Inj 25 MG in Sodium Chlor 0.9% Inj 240 ML IV.CONT PRN ×4 (00:01→23:52)
[2018-03-16] MEDS: Insulin NovoLOG Aspart Correctional Sugar Inj SQ SCH ×4 (00:12→18:50)
[2018-03-16] MEDS: Oral Hygiene Kit OROPHARYNG SCH ×4 (00:12→18:49)
[2018-03-16] MEDS: Sod Chloride 0.9% Inj 1,000 ML IV.CONT SCH ×3 (04:42→21:55)
[2018-03-16] MEDS: Piperacil/Tazo 3.375 GM Premix 3.375 GM/50 ML PIGGYBACK IV.SIG SCH ×4 (05:11→23:59)
[2018-03-16] MEDS: Chlorhexidine Gluconate 2% 1 Pack (2 Cloths) TOPICAL SCH (05:11)
[2018-03-16] MEDS: Artificial Tears Opth Oint 3.5 GM Tube EACH EYE SCH ×2 (05:14→08:53)
--- NOTE | 2018-03-16 05:22 | XR ---
EXAM DATE: 03/16/2018 5:15 AM EST AGE/SEX: 62 years / Male INDICATIONS: Shortness of breath, possible respiratory disease. CLINICAL DATA: This is the patient's subsequent encounter. Patient reports that signs and symptoms h ave been present for 3 days and indicates a pain score of Nonresponsive. MEDICAL/SURGICAL HISTORY: Non-responsive. Non-responsive. COMPARISON: C, CHEST 1V SINGLE AP, 03/14/2018. . FINDINGS: Portable AP view of the chest demonstrates a normal-sized cardiac silhouette. ETT and nasogastric tub e remain present. EKG lines overlie the patient. No effusion, consolidation, or pneumothorax is ident ified. CONCLUSION: No acute cardiopulmonary abnormality is appreciated. Electronically signed by: Jared Funez MD Board Certified Radiologist 03/16/2018 5:20 AM EST
[2018-03-16 06:17] LABS: Hematocrit 44.2 % (39.0-51.0); Hemoglobin 14.6 gm/dL (13.0-17.0); Mean Corpuscular HGB Conc 33.1 % (32.0-36.0); Mean Corpuscular Volume 90.7 fL (80.0-100.0); Mean Platelet Volume 8.3 fL (7.0-11.0); Platelet Count 266 th/mm3 (150-450); Red Blood Count 4.87 mil/mm3 (4.50-5.90); White Blood Count 21.8 th/mm3 (4.0-11.0)
[2018-03-16 06:44] LABS: Albumin 2.5 g/dL (3.4-5.0); Calcium 7.4 mg/dL (8.5-10.1); Carbon Dioxide 25.9 meq/L (21.0-32.0); Potassium 4.1 meq/L (3.5-5.1); Total Protein 6.3 g/dL (6.4-8.2)
--- NOTE | 2018-03-16 07:36 | P.PNCC ---
Subjective Subjective Remarks/Hospital Course: This is a 62-year-old male. Date of admission 03/13/2018. Past medical history includes hepatitis C, pancreatitis hypertension, chronic back pain and allergic rhinitis. History of tobacco abuse. Patient presents to [facility] as a PEA arrest per documentation, patient also history of heroin abuse. Patient was found to be unresponsive in attendance in a homeless camp. Presenting rhythm was pulseless electric activity. Chest compressions started. Patient was intubated. Patient was given epinephrine IV x3 and sodium bicarb 1 amp IV, naltrexone 2 mg IV. Patient was transported to ED for evaluation. Patient regained pulse upon arrival to the ED. [address] minutes per ED physician CT brain revealed no acute intracranial findings. Troponin 0.0 0.5. Patient had a leukocytosis, elevated magnesium, acute injury creatinine 1.8, lactate of 9.8 and a blood sugar today today. Toxicology screen positive for opiates, cocaine and cannabinoids. Patient is currently not moving his unresponsive at 50 rebeka grams per kilogram per minute of propofol this is currently on hold. Chest x-ray revealed old right rib fractures. No pneumothorax. ET tube 5 cm above the saqib. 03/14/18: Induced hypothermia initiated by overnight instructor watch assembly currently at target temperature. Patient is on propofol fentanyl and Nimbex. Troponin has peaked at 16. I will start IV heparin and aspirin. Cardiology consulted. 03/15/18: Induced hypothermia completed. Currently in the rewarming phase. Will be completed by to prevent in the afternoon. Currently sedated and paralyzed limiting neuro exam. Pupils are slightly reactive. 03/16/18: Patient remains off sedation last 12 hours. No clinical improvement in neuro status. Patient remains comatose. Weak cough. Slight sluggish pupil reflex. No spontaneous eye opening no withdrawal to pain. MRI of the brain ordered neurology consulted. Also check EEG to rule out subclinical seizures. Noted to have increasing white count chest x-ray shows no infiltrate Objective Vital Signs / I&O: Vital Signs 03/15/18 07:54 03/15/18 08:00 03/15/18 11:00 Temperature 97.3 F L Pulse Rate 63 75 Respiratory Rate 16 Blood Pressure 125/73 Pulse Oximetry 99 100 99 03/15/18 12:13 03/15/18 14:32 03/15/18 15:00 Temperature 98.6 F Pulse Rate 77 86 92 H Respiratory Rate 16 16 Blood Pressure 159/92 H Pulse Oximetry 100 99 03/15/18 16:36 03/15/18 19:00 03/15/18 20:00 Temperature 98.2 F Pulse Rate 97 H 130 H Respiratory Rate 16 18 Blood Pressure 159/98 H Pulse Oximetry 100 100 99 03/15/18 20:51 03/15/18 23:00 03/16/18 00:24 Temperature 98.1 F Pulse Rate 118 H 104 H Respiratory Rate 19 16 16 Blood Pressure 143/57 H Pulse Oximetry 100 100 03/16/18 00:25 03/16/18 03:00 03/16/18 03:45 Temperature 97.7 F Pulse Rate 107 H 111 H Respiratory Rate 16 16 16 Blood Pressure 135/84 Pulse Oximetry 100 100 03/16/18 03:46 Temperature Pulse Rate Respiratory Rate 16 Blood Pressure Pulse Oximetry 99 Intake & Output 03/15/18 03/16/18 03/16/18 18:59 06:59 18:59 Intake Total 1637 / 1637 2932 / 2932 Output Total 1074 / 1074 1900 / 1900 Balance 563 / 563 1032 / 1032 Intake: IV 1567 / 1567 2850 / 2850 Nimbex Inj 100 MG In NS Inj 240 52 / 52 ML @ 1 MCG/KG/MIN 12 mls/hr IV .CONT TITRATE PRN Rx#:[id number] Heparin/D5W 25,000 U/250 mL 25, 250 / 250 000 unit In 250 ml @ 900 UNITS/ HR 9 mls/hr IV.CONT TITRATE PRN Rx#:[id number] Diprivan 1000 mg/100 ml Inj 1, 155 / 155 000 mg In 100 ml @ 5 MCG/KG/MIN 2.4 mls/hr IV.CONT TITRATE PRN Rx#:[id number] NS Inj 1,000 ML @ 125 mls/hr IV 1000 / 1000 1999 / 1999 .CONT .Q8H ALEIDA Rx#:[id number] Cardene Inj 25 MG In NS Inj 240 10 / 10 500 / 500 ML @ 5 MG/HR 50 mls/hr IV.CONT TITRATE PRN Rx#:[id number] Zosyn 3.375 GM Premix 3.375 gm 50 / 50 100 / 100 In 50 ml @ 100 mls/hr IV.SIG Q6H ALEIDA Rx#:[id number] fentaNYL 10 mcg/mL Premix Drip 300 / 300 2,500 mcg In 250 ml @ 50 MCG/HR 5 mls/hr IV.SIG TITRATE PRN Rx #:[id number] Oral 0 / 0 Tube Feeding Water Bolus Amount 60 / 60 60 / 60 Output: Stool 0 / 0 Urine Amount (Catheter) 724 / 724 1800 / 1800 Indwelling Urethral Catheter 724 / 724 1800 / 1800 Gastric Drainage 350 / 350 100 / 100 Orogastric Tube 350 / 350 100 / 100 Other: # Bowel Movements 0 Result Diagrams: 03/16/18 05:55 03/16/18 05:55 Objective Remarks: - Constitutional Intubated currently off all sedation remains comatose - Routine HEENT Exam Head: normocephalic, atraumatic. Pupils are 2 mm sluggish. mucous membranes dry - Routine Neck Exam Supple - Routine Respiratory Exam Air entry equal bilaterally, synchronous with the vent. No wheezes or crackles - Routine Cardiovascular Exam Normal sinus rhythm S1-S2 normal no murmurs. Hypertensive on Cardene infusion - Routine Abdominal Exam soft, normoactive bowel sounds - Routine Extremities Exam No cyanosis, clubbing, edema - Routine Skin Exam intact - Routine Neurological Exam Patient is intubated currently off sedation remains comatose. GCS 3T. Pupils are bilaterally equal 2 mm sluggish no corneal reflex. No withdrawal to pain. Plantar equivocal Assessment and Plan - Problem List (1) Lactic acidosis Code(s): E87.2 - Acidosis Status: Acute (2) Leukocytosis Code(s): D72.829 - Elevated white blood cell count, unspecified Status: Acute (3) Hyperglycemia Code(s): R73.9 - Hyperglycemia, unspecified Status: Acute (4) Cocaine abuse Code(s): F14.10 - Cocaine abuse, uncomplicated Status: Acute (5) Synthetic cannabinoid abuse Code(s): F19.10 - Other psychoactive substance abuse, uncomplicated Status: Acute (6) Cardiopulmonary arrest Code(s): I46.9 - Cardiac arrest, cause unspecified Status: Acute (7) Acute drug overdose Code(s): T50.901A - Poisoning by unspecified drugs, medicaments and biological substances, accidental (unintentional), initial encounter Status: Acute - Assessment and Plan Plan: Neuro/Psych: Hypoxic ischemic encephalopathy Polysubstance overdose including opiates, cocaine and cannabinoids Rewarming completed yesterday, off all sedation for last 12 hours No improvement in neuro exam. Check EEG, MRI of the head, consult neurology CT brain revealed no acute intracranial findings. Sinusitis Acetaminophen 650 by tube every 6 hours as needed fever CV: PEA arrest NSTEMI Uncontrolled hypertension Lactic acidosis Cardiomyopathy with EF 20-25% EKG reveals no ST elevation, telemetry strips shows left bundle branch block Initial troponin 0 0.05. Later troponin peaked at 16 Continue IV heparin per PR protocol Aspirin 81 mg daily, hypotensive now hypotensive Start metoprolol 25 mg every 8 Start lisinopril 5 mg twice daily Continue Cardene infusion for hypertensive urgency Cardiology consult appreciated 2D echocardiogram EF severely reduced with an estimated ejection fraction in the range of 20-25% Further workup if there is meaningful neurological improvement Initial lactate 9.8. Now cleared Resp: Acute respiratory failure PRVC/AC Ventilation bundle. Head of bed at 30 degrees Albuterol/ipratropium aerosols every 4 hours with albuterol aerosols every 2 hours as needed dyspnea Spontaneous breathing trials however mental status will not permit extubation Follow-up a.m. ABG and chest x-ray GI: History of hepatitis C Hyperammonemia Tube feeds with Jevity Pantoprazole for GI prophylaxis Docusate sodium/senna 1 tablet twice daily for bowel regimen-no BM yet Check ammonia level Endo: Hyperglycemia Sliding scale insulin aspart insulin with Accu-Cheks every 6 hours to maintain euglycemia Renal: Acute kidney injury Monitor urine output Accurate I's and O's. LEANDER Aly to Follow BMP in a.m. 03/14 Heme: Leukocytosis Monitor CBC daily. Follow trends, trending down now No indication for transfusion of blood product ID: Treat empirically with zosyn renally dosed Blood cultures x2, negative to date GNR in sputum on admission however no infiltrate on chest x-ray FEN: Hypermagnesia Currently 0.9% NaCl at 84 cc an hour Replace electrolytes as clinically indicated per ICU electrolyte protocol Access -Utilize peripheral IV. Heat exchange femoral catheter placed to 03/13/18 Prophylaxis -GI -pantoprazole -DVT -SCD/IV Heparin Critical care time 35 minutes admission Code Status: Full (2) Leukocytosis Qualifiers: Leukocytosis type: unspecified Qualified Code(s): D72.829 - Elevated white blood cell count, unspecified (7) Acute drug overdose Qualifiers: Encounter type: initial encounter Injury intent: undetermined intent Qualified Code(s): T50.904A - Poisoning by unspecified drugs, medicaments and biological substances, undetermined, initial encounter
[2018-03-16] MEDS: Artificial Tears Opth Drops 15 ML Bottle EACH EYE SCH ×2 (07:48→18:49)
[2018-03-16] MEDS: Chlorhexidine 0.12% Oral Kit 15 ML UDC OROPHARYNG SCH ×2 (07:53→20:04)
[2018-03-16] MEDS: Lisinopril 5 MG Tablet PO SCH ×2 (08:53→23:57)
[2018-03-16] MEDS: Senna/Docusate Sodium 8.6/50 MG Tablet PO SCH ×2 (08:53→23:57)
[2018-03-16] MEDS: Metoprolol Tartrate 25 MG Tablet PO SCH ×3 (08:53→17:54)
[2018-03-16] MEDS: Pantoprazole Inj 40 MG Vial IV.PUSH SCH (08:54)
--- NOTE | 2018-03-16 11:48 | MG ---
cc: Judith Hernandez MD EEG NUMBER: [id number]. REFERRING PHYSICIAN: Jared. ROOM: 448. Intubated. Sedation was turned off at 4 o'clock in the morning. The patient is not sedated any longer; unresponsive. Only photic stimulation done. Deep tactile stimulation done with no withdrawal x4 extremities; found unresponsive by a friend in PEA; history of pancreatitis, hepatitis C, chronic narcotic use heroin. MEDICATIONS: Currently on: 1. Zosyn. 2. Aspirin. 3. Nicardipine. 4. Protonix. DESCRIPTION OF RECORD: The patient exhibits significant attenuated background, bilaterally symmetrical. No epileptiform features are seen. Deep tactile stimulation varies and did not change the background. Photic stimulation did not show any driving response. IMPRESSION: Severely attenuated background noted bilaterally; can be seen in an anoxic encephalopathy. Clinical correlation. Judith Hernandez MD DF/sheila , 11:32 AM , 11:38 AM
--- NOTE | 2018-03-16 15:01 | MB ---
cc: Judith Hernandez MD DATE: 03/16/2018 REASON FOR CONSULTATION: Possible anoxic encephalopathy. HISTORY OF PRESENT ILLNESS: The patient is a 62-year-old man admitted on 03/13/2018 with a known history of pancreatitis, hypertension, chronic low back pain, hepatitis C; came in as a PA arrest, found unresponsive in a homeless [place]. Chest compressions were started, intubated, given epinephrine, bicarbonate ,Valtrex and sent to the ED. He regained a pulse upon arrival to the ED. He did have a CT of the head that did not show anything acute. His troponin was reported as 0.05. He was placed in an induced hypothermia, put on fentanyl, propofol and Nimbex; started on IV heparin and aspirin. Cardiology consulted. He has been off sedation since 4:00 a.m. without any improvement in his neuro status, remains comatose. He does over-breathe the vent with a very weak cough with suctioning. Neurology is asked to assess him. PAST MEDICAL HISTORY: As stated. SOCIAL HISTORY: Apparently abuses drugs. He is a smoker per chart. MEDICINES: I do not have a list of. PHYSICAL EXAMINATION: VITAL SIGNS: His temperature currently is 98, pulse 88, respiratory rate 24, blood pressure a-line is 122/94. GENERAL: He is intubated on CPAP currently; was overbreathing the ventilator. He does have a cough with deep suctioning. Does not follow commands. HEENT: His pupils are 1 mm, sluggish. The right eye is upward deviated, left eye is not. No oculocephalics, no corneals. NEUROLOGIC: Does not withdraw to painful stimuli, does not follow any commands. I do not see any posturing. DTRs are blunted throughout. Tone is decreased throughout. Babinski's are neutral. LABORATORY DATA: Reviewed. His white count is 21.8, platelets 266,000, hemoglobin 14.6. His PTT is 54.1. Chemistry: Sodium 149. Lactic acid initially on 03/13/2018 was 9.8, GFR 64. ALT currently is 65, it peaked at 108. Ammonia level was 44, currently albumin 2.5. His TSH is 0.459. Tox screen positive for opiates, cocaine, and cannabinoids. IMAGING: CT head on 03/13/2018 that shows nothing acute except for extensive sinusitis. DIAGNOSTIC DATA: His EEG was diffusely slow, significant for a diffuse probable anoxic encephalopathy or diffuse cerebral dysfunction. 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 PLAN: Recommend continuing him off sedation as doing, get an MRI of the brain. A repeat EEG can be considered at some point in time. Of note, I did not mention his EF is 20%-25%. However, this patient's neurological recovery is likely very poor for any meaningful outcome. Continue to monitor and make further recommendations accordingly. MD YAMIL Allison/sheila , 02:18 PM , 02:27 PM
[2018-03-16] MEDS: Acetaminophen 325 MG Tablet PO PRN (17:15)
[2018-03-16] MEDS: hydrALAZINE HCl Inj 20 MG/ML Vial IV.PUSH PRN (18:17)
[2018-03-17] MEDS: Artificial Tears Opth Oint 3.5 GM Tube EACH EYE SCH ×2 (00:06→09:16)
[2018-03-17] MEDS: Artificial Tears Opth Drops 15 ML Bottle EACH EYE SCH ×3 (00:06→15:44)
[2018-03-17] MEDS: Oral Hygiene Kit OROPHARYNG SCH ×4 (00:07→16:54)
[2018-03-17] MEDS: Insulin NovoLOG Aspart Correctional Sugar Inj SQ SCH ×4 (00:26→17:06)
[2018-03-17] MEDS: Acetaminophen 325 MG Tablet PO PRN ×3 (01:00→21:17)
[2018-03-17] MEDS: Metoprolol Inj 5 MG/5 ML Vial IV.PUSH PRN (01:00)
[2018-03-17] MEDS: niCARdipine Inj 25 MG in Sodium Chlor 0.9% Inj 240 ML IV.CONT PRN ×6 (02:48→17:54)
[2018-03-17 04:55] LABS: Hematocrit 41.9 % (39.0-51.0); Hemoglobin 13.7 gm/dL (13.0-17.0); Mean Corpuscular HGB Conc 32.8 % (32.0-36.0); Mean Corpuscular Hemoglobin 29.3 pg (27.0-34.0); Mean Corpuscular Volume 89.1 fL (80.0-100.0); Mean Platelet Volume 7.7 fL (7.0-11.0); Platelet Count 274 th/mm3 (150-450); Red Cell Distribution Width 13.8 % (11.6-17.2); White Blood Count 18.4 th/mm3 (4.0-11.0)
[2018-03-17] MEDS: Chlorhexidine Gluconate 2% 1 Pack (2 Cloths) TOPICAL SCH (05:11)
[2018-03-17] MEDS: Sod Chloride 0.9% Inj 1,000 ML IV.CONT SCH ×3 (05:12→20:39)
[2018-03-17] MEDS: Piperacil/Tazo 3.375 GM Premix 3.375 GM/50 ML PIGGYBACK IV.SIG SCH ×3 (05:31→17:01)
[2018-03-17] MEDS: Heparin Drip 25,000 UNIT/250 ML BAG IV.CONT PRN (07:49)
[2018-03-17] MEDS: Chlorhexidine 0.12% Oral Kit 15 ML UDC OROPHARYNG SCH ×2 (07:53→20:38)
[2018-03-17] MEDS: Lisinopril 5 MG Tablet PO SCH ×2 (09:12→20:37)
[2018-03-17] MEDS: Metoprolol Tartrate 25 MG Tablet PO SCH ×3 (09:12→17:01)
[2018-03-17] MEDS: Senna/Docusate Sodium 8.6/50 MG Tablet PO SCH ×2 (09:12→20:37)
[2018-03-17] MEDS: Pantoprazole Inj 40 MG Vial IV.PUSH SCH (09:16)
[2018-03-17] MEDS: Artificial Tears Opth Oint 3.5 GM Tube EACH EYE PRN ×2 (11:41→15:41)
--- NOTE | 2018-03-17 11:41 | MR ---
EXAM DATE: 03/17/2018 10:53 AM EST AGE/SEX: 62 years / Male INDICATIONS: . Anoxic brain injury. CLINICAL DATA: This is the patient's initial encounter. Patient reports that signs and symptoms have been present for 1 day and indicates a pain score of Nonresponsive. MEDICAL/SURGICAL HISTORY: Pancreatitis. Hepatitis C. Hypertension. Cholecystectomy. Eye socke t sx. COMPARISON: No prior exams available for comparison. TECHNIQUE: Multiplanar, multisequence examination of the brain was performed without contrast. FINDINGS: There is extensive opacification of the right sphenoid sinus, multiple ethmoid air cells with moderat e mucoperiosteal thickening within bilateral maxillary sinuses left sphenoid sinus and the frontal si nuses appear to be completely opacified. There is restriction in diffusion capacity diffusely bilater ally symmetrically including frontal, parietal, temporal and occipital lobes without any bright signa l on the diffusion portion of the exam. There is no hemorrhage or mass effect. Slight periventricular white matter changes seen nonspecific mostly consistent with chronic small vessel ischemic changes. CONCLUSION: Symmetric abnormal diffusion capacity bilaterally characteristic of global anoxic/hypoxic insult/ence phalopathy. Findings were discussed with Casandra the patient's nurse at the time of this dictation a t 11:[address] Coleman without be reached by phone. Electronically signed by: Bonnie Russell MD Board Certified Radiologist 03/17/2018 11:40 AM EST
[2018-03-17] MEDS: [UNRECOGNIZED DRUG - OTHER] EACH EYE SCH ×2 (11:44→20:38)
--- NOTE | 2018-03-17 14:58 | P.PNCC ---
Subjective Subjective Remarks/Hospital Course: This is a 62-year-old male. Date of admission 03/13/2018. Past medical history includes hepatitis C, pancreatitis hypertension, chronic back pain and allergic rhinitis. History of tobacco abuse. Patient presents to [facility] as a PEA arrest per documentation, patient also history of heroin abuse. Patient was found to be unresponsive in attendance in a homeless camp. Presenting rhythm was pulseless electric activity. Chest compressions started. Patient was intubated. Patient was given epinephrine IV x3 and sodium bicarb 1 amp IV, naltrexone 2 mg IV. Patient was transported to ED for evaluation. Patient regained pulse upon arrival to the ED. 15 minutes per ED physician CT brain revealed no acute intracranial findings. Troponin 0.0 0.5. Patient had a leukocytosis, elevated magnesium, acute injury creatinine 1.8, lactate of 9.8 and a blood sugar today today. Toxicology screen positive for opiates, cocaine and cannabinoids. Patient is currently not moving his unresponsive at 50 rebeka grams per kilogram per minute of propofol this is currently on hold. Chest x-ray revealed old right rib fractures. No pneumothorax. ET tube 5 cm above the saqib. 03/14/18: Induced hypothermia initiated by overnight leadite heater currently at target temperature. Patient is on propofol fentanyl and Nimbex. Troponin has peaked at 16. I will start IV heparin and aspirin. Cardiology consulted. 03/15/18: Induced hypothermia completed. Currently in the rewarming phase. Will be completed by to prevent in the afternoon. Currently sedated and paralyzed limiting neuro exam. Pupils are slightly reactive. 03/16/18: Patient remains off sedation last 12 hours. No clinical improvement in neuro status. Patient remains comatose. Weak cough. Slight sluggish pupil reflex. No spontaneous eye opening no withdrawal to pain. MRI of the brain ordered neurology consulted. Also check EEG to rule out subclinical seizures. Noted to have increasing white count chest x-ray shows no infiltrate 03/17: Remains encephalopathic off sedation. Orally intubated on mechanical ventilation. Has some spontaneous eye opening however no purposeful movements. Objective Vital Signs / I&O: Vital Signs 03/16/18 15:00 03/16/18 16:00 03/16/18 16:05 Temperature 98.8 F Pulse Rate 88 87 Respiratory Rate 16 16 Blood Pressure 135/78 Pulse Oximetry 99 99 03/16/18 16:44 03/16/18 19:00 03/16/18 20:00 Temperature 101.2 F H Pulse Rate 114 H Respiratory Rate 18 Blood Pressure 152/84 H Pulse Oximetry 100 98 98 03/16/18 20:20 03/16/18 20:45 03/16/18 22:50 Temperature Pulse Rate 114 H Respiratory Rate 18 17 19 Blood Pressure Pulse Oximetry 98 98 03/16/18 23:00 03/17/18 00:27 03/17/18 03:00 Temperature 100.8 F H 100.4 F H Pulse Rate 118 H 120 H 114 H Respiratory Rate 16 16 20 Blood Pressure 143/80 H 133/70 Pulse Oximetry 98 98 98 03/17/18 03:59 03/17/18 07:00 03/17/18 07:44 Temperature 100.2 F H Pulse Rate 116 H 116 H 114 H Respiratory Rate 18 22 21 Blood Pressure 155/74 H Pulse Oximetry 98 99 99 03/17/18 08:00 03/17/18 11:00 03/17/18 11:03 Temperature 100 F H Pulse Rate 96 H Respiratory Rate 19 Blood Pressure 144/79 H Pulse Oximetry 99 99 99 03/17/18 14:20 Temperature Pulse Rate Respiratory Rate 18 Blood Pressure Pulse Oximetry 98 Intake & Output 03/16/18 03/17/18 03/17/18 18:59 06:59 18:59 Intake Total 2707.2 / 2707.2 3384 / 3384 2049 Output Total 1475 / 1475 1425 / 1425 Balance 1232.2 / 1232.2 1958 / 1958 Weight 82.5 kg 89 kg Intake: IV 2319.2 / 2319.2 2900 / 2900 2049 Nimbex Inj 100 MG In NS Inj 240 198 / 198 ML @ 1 MCG/KG/MIN 12 mls/hr IV .CONT TITRATE PRN Rx#:[id number] Heparin/D5W 25,000 U/250 mL 25, 250 / 250 000 unit In 250 ml @ 900 UNITS/ HR 9 mls/hr IV.CONT TITRATE PRN Rx#:[id number] Diprivan 1000 mg/100 ml Inj 1, 50 / 50 000 mg In 100 ml @ 5 MCG/KG/MIN 2.4 mls/hr IV.CONT TITRATE PRN Rx#:[id number] NS Inj 1,000 ML @ 125 mls/hr IV 1000 / 1000 2000 / 2000 1000 / 1000 .CONT .Q8H ALEIDA Rx#:[id number] Cardene Inj 25 MG In NS Inj 240 260 / 260 750 / 750 750 / 750 ML @ 5 MG/HR 50 mls/hr IV.CONT TITRATE PRN Rx#:[id number] MVI-12 Inj 10 ML Thiamine Inj 511.2 / 511.2 100 MG Folvite Inj 1 MG In NS Inj 500 ML @ 125 mls/hr IV.SIG Q24H ALEIDA Rx#:[id number] Zosyn 3.375 GM Premix 3.375 gm 100 / 100 150 / 150 50 / 50 In 50 ml @ 100 mls/hr IV.SIG Q6H ALEIDA Rx#:[id number] fentaNYL 10 mcg/mL Premix Drip 200 / 200 2,500 mcg In 250 ml @ 50 MCG/HR 5 mls/hr IV.SIG TITRATE PRN Rx #:[id number] Oral 0 / 0 Tube Feeding 268 / 268 364 / 364 Water Bolus Amount 120 / 120 120 / 120 Output: Stool 0 / 0 Urine Amount (Catheter) 1475 / 1475 1425 / 1425 Indwelling Urethral Catheter 1475 / 1475 1425 / 1425 Other: # Bowel Movements 0 Result Diagrams: 03/17/18 04:40 03/16/18 05:55 Objective Remarks: - Constitutional Intubated currently off all sedation remains encephalopathic, occasional eye opening however not having any purposeful movements - Routine HEENT Exam Head: normocephalic, atraumatic. Pupils are 2 mm sluggish. mucous membranes dry - Routine Neck Exam Supple - Routine Respiratory Exam Air entry equal bilaterally, synchronous with the vent. No wheezes or crackles - Routine Cardiovascular Exam Normal sinus rhythm S1-S2 normal no murmurs. Hypertensive on Cardene infusion - Routine Abdominal Exam soft, normoactive bowel sounds - Routine Extremities Exam No cyanosis, clubbing, edema - Routine Skin Exam intact - Routine Neurological Exam Patient is intubated currently off sedation remains comatose. Occasional eye opening however not focusing, no purposeful movements. Does have a gag reflex. Pupils are bilaterally equal 2 mm sluggish no corneal reflex. No withdrawal to pain. Plantar equivocal Assessment and Plan - Problem List (1) Lactic acidosis Code(s): E87.2 - Acidosis Status: Acute (2) Leukocytosis Code(s): D72.829 - Elevated white blood cell count, unspecified Status: Acute (3) Hyperglycemia Code(s): R73.9 - Hyperglycemia, unspecified Status: Acute (4) Cocaine abuse Code(s): F14.10 - Cocaine abuse, uncomplicated Status: Acute (5) Synthetic cannabinoid abuse Code(s): F19.10 - Other psychoactive substance abuse, uncomplicated Status: Acute (6) Cardiopulmonary arrest Code(s): I46.9 - Cardiac arrest, cause unspecified Status: Acute (7) Acute drug overdose Code(s): T50.901A - Poisoning by unspecified drugs, medicaments and biological substances, accidental (unintentional), initial encounter Status: Acute - Assessment and Plan Plan: Neuro/Psych: Hypoxic ischemic encephalopathy Polysubstance overdose including opiates, cocaine and cannabinoids Rewarming completed yesterday, off all sedation for last 12 hours No improvement in neuro exam. EEG with generalized slowing. Neurology consult noted. MRI brain consistent with severe anoxic brain injury per discussion with radiology. CT brain revealed no acute intracranial findings. Sinusitis Acetaminophen 650 by tube every 6 hours as needed fever CV: PEA arrest NSTEMI Uncontrolled hypertension Lactic acidosis Cardiomyopathy with EF 20-25% EKG reveals no ST elevation, telemetry strips shows left bundle branch block Initial troponin 0 0.05. Later troponin peaked at 16 Continue IV heparin per SD protocol Aspirin 81 mg daily, hypotensive now hypotensive Start metoprolol 25 mg every 8 Start lisinopril 5 mg twice daily Continue Cardene infusion for hypertensive urgency. Add amlodipine 10 mg daily via G-tube Cardiology consult appreciated 2D echocardiogram EF severely reduced with an estimated ejection fraction in the range of 20-25% Further workup if there is meaningful neurological improvement Initial lactate 9.8. Now cleared Resp: Acute respiratory failure PRVC/AC Ventilation bundle. Head of bed at 30 degrees Albuterol/ipratropium aerosols every 4 hours with albuterol aerosols every 2 hours as needed dyspnea Spontaneous breathing trials however mental status will not permit extubation Follow-up a.m. ABG and chest x-ray GI: History of hepatitis C Hyperammonemia Tube feeds with Jevity Pantoprazole for GI prophylaxis Docusate sodium/senna 1 tablet twice daily for bowel regimen-no BM yet Check ammonia level Endo: Hyperglycemia Sliding scale insulin aspart insulin with Accu-Cheks every 6 hours to maintain euglycemia Renal: Acute kidney injury Monitor urine output Accurate I's and O's. LEANDER Aly to Follow BMP in a.m. 03/14 Heme: Leukocytosis Monitor CBC daily. Follow trends, trending down now No indication for transfusion of blood product ID: Treat empirically with zosyn renally dosed Blood cultures x2, negative to date GNR in sputum on admission however no infiltrate on chest x-ray FEN: Hypermagnesia Currently 0.9% NaCl at 84 cc an hour Replace electrolytes as clinically indicated per ICU electrolyte protocol Access -Utilize peripheral IV. Heat exchange femoral catheter placed to 03/13/18 Prophylaxis -GI -pantoprazole -DVT -SCD/IV Heparin Consult palliative care service to assist with deciding goals of therapy. Prognosis appears poor. Condition remains critical. Critical care time 35 minutes admission (2) Leukocytosis Qualifiers: Leukocytosis type: unspecified Qualified Code(s): D72.829 - Elevated white blood cell count, unspecified (7) Acute drug overdose Qualifiers: Encounter type: initial encounter Injury intent: undetermined intent Qualified Code(s): T50.904A - Poisoning by unspecified drugs, medicaments and biological substances, undetermined, initial encounter
[2018-03-17] MEDS: amLODIPine 10 MG Tablet PO SCH (15:38)
[2018-03-17] MEDS: Propofol 1000 mg/100 ml Inj 1,000 MG/100 ML BOTTLE IV.CONT PRN (17:12)
[2018-03-18] MEDS: Insulin NovoLOG Aspart Correctional Sugar Inj SQ SCH ×2 (00:22→07:37)
[2018-03-18] MEDS: Piperacil/Tazo 3.375 GM Premix 3.375 GM/50 ML PIGGYBACK IV.SIG SCH ×5 (00:24→23:26)
[2018-03-18] MEDS: Oral Hygiene Kit OROPHARYNG SCH ×5 (00:24→23:26)
[2018-03-18] MEDS: Artificial Tears Opth Drops 15 ML Bottle EACH EYE SCH ×4 (00:24→23:58)
[2018-03-18] MEDS: Sod Chloride 0.9% Inj 1,000 ML IV.CONT SCH ×2 (05:15→13:12)
[2018-03-18] MEDS: Chlorhexidine Gluconate 2% 1 Pack (2 Cloths) TOPICAL SCH (05:15)
[2018-03-18] MEDS: Propofol 1000 mg/100 ml Inj 1,000 MG/100 ML BOTTLE IV.CONT PRN (05:17)
[2018-03-18] MEDS: niCARdipine Inj 25 MG in Sodium Chlor 0.9% Inj 240 ML IV.CONT PRN ×4 (05:18→23:23)
[2018-03-18] MEDS: Metoprolol Inj 5 MG/5 ML Vial IV.PUSH PRN (05:20)
[2018-03-18] MEDS: Acetaminophen 325 MG Tablet PO PRN ×3 (05:20→23:58)
[2018-03-18] MEDS: Pantoprazole Inj 40 MG Vial IV.PUSH SCH (08:16)
[2018-03-18] MEDS: Chlorhexidine 0.12% Oral Kit 15 ML UDC OROPHARYNG SCH ×2 (08:16→20:23)
[2018-03-18] MEDS: Lisinopril 5 MG Tablet PO SCH ×2 (08:17→20:23)
[2018-03-18] MEDS: Senna/Docusate Sodium 8.6/50 MG Tablet PO SCH ×2 (08:17→20:23)
[2018-03-18] MEDS: Metoprolol Tartrate 25 MG Tablet PO SCH ×3 (08:17→17:36)
[2018-03-18] MEDS: amLODIPine 10 MG Tablet PO SCH (08:17)
[2018-03-18] MEDS: [UNRECOGNIZED DRUG - OTHER] EACH EYE SCH ×2 (08:17→20:25)
[2018-03-18 11:30] LABS: Baso % (Auto) 0.1 % (0.0-2.0); Hematocrit 43.8 % (39.0-51.0); Hemoglobin 14.7 gm/dL (13.0-17.0); Lymph # (Auto) 1.3 th/mm3 (1.0-4.8); Mean Corpuscular HGB Conc 33.7 % (32.0-36.0); Mean Corpuscular Hemoglobin 29.8 pg (27.0-34.0); Mean Corpuscular Volume 88.7 fL (80.0-100.0); Mono # (Auto) 1.4 th/mm3 (0.0-0.9); Mono % (Auto) 9.8 % (0.0-8.0); Neut # (Auto) 11.6 th/mm3 (1.8-7.7); Neut % (Auto) 81.1 % (16.0-70.0); Platelet Count 259 th/mm3 (150-450); Red Blood Count 4.94 mil/mm3 (4.50-5.90); Red Cell Distribution Width 13.7 % (11.6-17.2); White Blood Count 14.3 th/mm3 (4.0-11.0)
[2018-03-18 11:52] LABS: Alanine Aminotransferase 47 U/L (12-78); Albumin 2.5 g/dL (3.4-5.0); Anion Gap 6 meq/L (5-15); Aspartate Aminotransferase 86 U/L (15-37); Blood Urea Nitrogen 24 mg/dL (7-18); Calcium 7.9 mg/dL (8.5-10.1); Carbon Dioxide 29.8 meq/L (21.0-32.0); Chloride 116 meq/L (98-107); Glomerular Filtration Rate 72 mL/min (>89); Glucose,Random 159 mg/dL (74-106); Potassium 3.3 meq/L (3.5-5.1); Sodium 152 meq/L (136-145)
[2018-03-18 11:53] LABS: Alkaline Phosphatase 76 U/L (45-117); Total Protein 6.4 g/dL (6.4-8.2)
--- NOTE | 2018-03-18 12:12 | P.CONPAL ---
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 at the time of this dictation at 11:[address] Coleman without be reached by phone. Patient/Family Conference Issues Discussed: Discussed with the sister at bedside the following: * Palliative care role, purpose, approach * Additional medical, psychosocial, and spiritual history * Patients general health, functional status, and cognitive changes in the months leading up to the current hospitalization * Patient/family understanding of the current medical problems * Patient/family understanding of prognosis * Patients goals of care as best understood from advance directives and/or conversations and/or values * Current medical treatment options and benefits/burdens of those options * Likely scenarios comparing ongoing aggressive care with a transition to comfort measures only * Questions answered to the best of my ability * Palliative care contact information provided Assessment and Plan - Disease Oriented Problem List (1) Anoxic encephalopathy (2) Cardiopulmonary arrest (3) Acute drug overdose (4) Lactic acidosis (5) Leukocytosis (6) Hyperglycemia (7) Hepatitis C (8) Acute respiratory failure (9) Cardiomyopathy (10) NSTEMI (non-ST elevated myocardial infarction) - Symptom Scale (1) Dyspnea 0-10 Scale: Unable to quantify (2) Encephalopathy 0-10 Scale: Unable to quantify (3) Pain 0-10 Scale: Unable to quantify Pertinent Non-Medical Issues: Psychosocial: Patient born and raised in [place]. 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 Parents , has 1 sister. Not , no children. Intermittently homeless. Most recently lived with a roommate. Spiritual: Sister indicates "they believe ", requests utility operator support Legal: Patient is unable to participate in medical decision making does not appear he will regain ability secondary to significant brain injury. Per [place] statutes his only sister would be appropriate legal proxy (Maribell). He is not , no children. Parents . Ethical issues impacting care: No ethical issues identified Important Contacts: Sister Maribell Salazar [phone] Prognosis: This patient was admitted for out of hospital arrest, possible overdose. He has sustained severe anoxic brain injury. Prognosis for meaningful neurologic recovery is poor. Code Status: Full Code Plan: Legal decision maker:Patient is unable to participate in medical decision making does not appear he will regain ability secondary to significant brain injury. Per [place] statutes his only sister would be appropriate legal proxy ( Maribell). He is not , no children. Parents . Goals: At this time sister indicates that she is grieving and still processing information, she is not ready to make any decisions regarding possibility of withdrawal or even changing to DNR status. She wishes to continue all available aggressive treatments / interventions at this time. CODE STATUS: Full code SYMPTOMS: --Painpotential sources: s/p CPR. patient with reported history of chronic back pain. Of note he was recently seen in [place] ED 02/22/18 for severe back pain. Lumbar spine imaging notes possible acute ligament injury L3-L4, with chronic/stable findings of anterolisthesis at L4, L5, severe foraminal stenosis at L4, L5, and moderate stenosis at L5, S1. [Neurosurgery was consulted at that time and recommended conservative management with pain control, at some point if pain unremitting could consider surgery discharged with analgesic, muscle relaxant, Neurontin recommended for follow-up 1-2 weeks]. + hx old rib fx. Currently nonresponsive on sedation, also reported nonresponsive off of sedation no signs of or distress --Dyspnea-intubated due to brain injury and no respiratory effort, currently breathing comfortable on mechanical vent, would likely require prolonged support and possibly tracheostomy given severity of anoxic brain injury --Encephalopathy-found unresponsive and pulseless, unknown amount of downtime out of hospital, underwent CPR with ROSC. Imaging, EEG indicative of severe anoxic injury. Poor prognosis for meaningful neurologic recovery Palliative care will continue to follow during hospital course as condition evolves, to assist patient/decision-maker with understanding of medical conditions, weighing benefits/burdens of treatment options, for clarification of goals of treatment. Additionally will assist with any symptoms of palliative concern Appreciation Thank you for the opportunity to participate in the care of Emil Salazar. Attestation Attestation: To help prompt me to consider important information that might be impacting today's encounter and assessment, information from prior notes written by myself or my colleagues may have been "brought forward" into today's note. My signature on this note, however, is an attestation that I personally performed the exam, history, and/or decision-making noted today, and, unless otherwise indicated, the interactions with patient, family, and staff as well as the review of records all occurred today. I also attest that the listed assessment and stated plan reflect my best clinical judgment today based on the combination of historical information, prior notes, and today's exam/ interactions. When time spent is documented, it refers only to time spent today by the signer, or if indicated, combined time spent today by collaborating physician/nurse practitioner.
[2018-03-18] MEDS: Potassium Chloride Liq 20 MEQ/15 ML UDC PO PRN (13:15)
--- NOTE | 2018-03-18 13:25 | P.PNCC ---
Subjective Subjective Remarks/Hospital Course: This is a 62-year-old male. Date of admission 03/13/2018. Past medical history includes hepatitis C, pancreatitis hypertension, chronic back pain and allergic rhinitis. History of tobacco abuse. Patient presents to [facility] as a PEA arrest per documentation, patient also history of heroin abuse. Patient was found to be unresponsive in attendance in a homeless camp. Presenting rhythm was pulseless electric activity. Chest compressions started. Patient was intubated. Patient was given epinephrine IV x3 and sodium bicarb 1 amp IV, naltrexone 2 mg IV. Patient was transported to ED for evaluation. Patient regained pulse upon arrival to the ED. [address] minutes [address] physician CT brain revealed no acute intracranial findings. Troponin 0.0 0.5. Patient had a leukocytosis, elevated magnesium, acute injury creatinine 1.8, lactate of 9.8 and a blood sugar today today. Toxicology screen positive for opiates, cocaine and cannabinoids. Patient is currently not moving his unresponsive at 50 rebeka grams per kilogram per minute of propofol this is currently on hold. Chest x-ray revealed old right rib fractures. No pneumothorax. ET tube 5 cm above the saqib. 03/14/18: Induced hypothermia initiated by overnight child care teacher currently at target temperature. Patient is on propofol fentanyl and Nimbex. Troponin has peaked at 16. I will start IV heparin and aspirin. Cardiology consulted. 03/15/18: Induced hypothermia completed. Currently in the rewarming phase. Will be completed by to prevent in the afternoon. Currently sedated and paralyzed limiting neuro exam. Pupils are slightly reactive. 03/16/18: Patient remains off sedation last 12 hours. No clinical improvement in neuro status. Patient remains comatose. Weak cough. Slight sluggish pupil reflex. No spontaneous eye opening no withdrawal to pain. MRI of the brain ordered neurology consulted. Also check EEG to rule out subclinical seizures. Noted to have increasing white count chest x-ray shows no infiltrate 2/5: Remains encephalopathic off sedation. Orally intubated on mechanical ventilation. Has some spontaneous eye opening however no purposeful movements. 26: Remains encephalopathic, orally intubated on mechanical ventilation. Febrile. Tolerating tube feeds. Objective Vital Signs / I&O: Vital Signs 03/17/18 14:20 03/17/18 15:00 03/17/18 16:09 Temperature 101 F H Pulse Rate 96 H 109 H Respiratory Rate 18 16 21 Blood Pressure 125/71 Pulse Oximetry 98 98 03/17/18 16:25 03/17/18 20:00 03/17/18 21:15 Temperature 101.7 F H Pulse Rate 106 H Respiratory Rate 21 19 17 Blood Pressure 133/77 Pulse Oximetry 99 98 99 03/17/18 21:30 03/18/18 00:00 03/18/18 00:15 Temperature 100.4 F H Pulse Rate 110 H 117 H 118 H Respiratory Rate 17 20 20 Blood Pressure 144/85 H Pulse Oximetry 99 99 03/18/18 04:00 03/18/18 04:35 03/18/18 07:00 Temperature 102.2 F H 101.4 F H Pulse Rate 122 H 116 H Respiratory Rate 20 18 20 Blood Pressure 172/92 H 153/89 H Pulse Oximetry 99 99 97 03/18/18 07:25 03/18/18 10:55 03/18/18 11:00 Temperature 101.6 F H Pulse Rate 115 H Respiratory Rate 21 20 20 Blood Pressure 162/89 H Pulse Oximetry 97 99 99 03/18/18 13:05 Temperature Pulse Rate Respiratory Rate 18 Blood Pressure Pulse Oximetry 99 Intake & Output 03/17/18 03/18/18 03/18/18 18:59 06:59 18:59 Intake Total 3185 / 3185 3056 / 3056 1300 / 1300 Output Total 1050 / 1050 2200 / 2200 Balance 2135 / 2135 856 / 856 1300 / 1300 Weight 87 kg Intake: IV 2410 / 2410 2450 / 2450 1300 / 1300 Heparin/D5W 25,000 U/250 mL 25, 310 / 310 000 unit In 250 ml @ 900 UNITS/ HR 9 mls/hr IV.CONT TITRATE PRN Rx#:[id number] Diprivan 1000 mg/100 ml Inj 1, 100 / 100 000 mg In 100 ml @ 5 MCG/KG/MIN 2.67 mls/hr IV.CONT TITRATE PRN Rx#:[id number] NS Inj 1,000 ML @ 50 mls/hr IV. 1000 / 1000 2000 / 2000 1000 / 1000 CONT .Q20H ALEIDA Rx#:[id number] Cardene Inj 25 MG In NS Inj 240 1000 / 1000 250 / 250 250 / 250 ML @ 5 MG/HR 50 mls/hr IV.CONT TITRATE PRN Rx#:[id number] Zosyn 3.375 GM Premix 3.375 gm 100 / 100 100 / 100 50 / 50 In 50 ml @ 100 mls/hr IV.SIG Q6H ALEIDA Rx#:[id number] Oral 0 / 0 Tube Feeding 535 / 535 506 / 506 Tube Irrigant 240 / 240 Water Bolus Amount 100 / 100 Output: Urine 1050 / 1050 Urine Amount (Catheter) 2200 / 2200 Condom 2200 / 2200 Other: # Bowel Movements 1 Result Diagrams: 03/18/18 10:54 03/18/18 10:54 Objective Remarks: - Constitutional Intubated currently off all sedation remains encephalopathic, occasional eye opening however not having any purposeful movements - Routine HEENT Exam Head: normocephalic, atraumatic. Pupils are 2 mm sluggish. mucous membranes dry - Routine Neck Exam Supple - Routine Respiratory Exam Air entry equal bilaterally, synchronous with the vent. No wheezes or crackles - Routine Cardiovascular Exam Normal sinus rhythm S1-S2 normal no murmurs. Hypertensive on Cardene infusion - Routine Abdominal Exam soft, normoactive bowel sounds - Routine Extremities Exam No cyanosis, clubbing, edema - Routine Skin Exam intact - Routine Neurological Exam Patient is intubated currently off sedation remains comatose. Occasional eye opening however not focusing, no purposeful movements. Does have a gag reflex. Pupils are bilaterally equal 2 mm sluggish no corneal reflex. No withdrawal to pain. Plantar equivocal Assessment and Plan - Problem List (1) Lactic acidosis Code(s): E87.2 - Acidosis Status: Acute (2) Leukocytosis Code(s): D72.829 - Elevated white blood cell count, unspecified Status: Acute (3) Hyperglycemia Code(s): R73.9 - Hyperglycemia, unspecified Status: Acute (4) Cocaine abuse Code(s): F14.10 - Cocaine abuse, uncomplicated Status: Acute (5) Synthetic cannabinoid abuse Code(s): F19.10 - Other psychoactive substance abuse, uncomplicated Status: Acute (6) Cardiopulmonary arrest Code(s): I46.9 - Cardiac arrest, cause unspecified Status: Acute (7) Acute drug overdose Code(s): T50.901A - Poisoning by unspecified drugs, medicaments and biological substances, accidental (unintentional), initial encounter Status: Acute - Assessment and Plan Plan: Neuro/Psych: Hypoxic ischemic encephalopathy Polysubstance overdose including opiates, cocaine and cannabinoids Rewarming completed yesterday, off all sedation for last 12 hours No improvement in neuro exam. EEG with generalized slowing. Neurology consult noted. MRI brain consistent with severe anoxic brain injury per discussion with radiology. CT brain revealed no acute intracranial findings. Sinusitis Acetaminophen 650 by tube every 6 hours as needed fever CV: PEA arrest NSTEMI Uncontrolled hypertension Lactic acidosis Cardiomyopathy with EF 20-25% EKG reveals no ST elevation, telemetry strips shows left bundle branch block Initial troponin 0 0.05. Later troponin peaked at 16 Continue IV heparin per [facility] protocol Aspirin 81 mg daily, hypotensive now hypotensive Start metoprolol 25 mg every 8 Start lisinopril 5 mg twice daily Continue Cardene infusion for hypertensive urgency. Add amlodipine 10 mg daily via G-tube Cardiology consult appreciated 2D echocardiogram EF severely reduced with an estimated ejection fraction in the range of 20-25% Further workup if there is meaningful neurological improvement Initial lactate 9.8. Now cleared Resp: Acute respiratory failure PRVC/AC Ventilation bundle. Head of bed at 30 degrees Albuterol/ipratropium aerosols every 4 hours with albuterol aerosols every 2 hours as needed dyspnea Spontaneous breathing trials however mental status will not permit extubation Follow-up a.m. ABG and chest x-ray GI: History of hepatitis C Hyperammonemia Tube feeds with Jevity Pantoprazole for GI prophylaxis Docusate sodium/senna 1 tablet twice daily for bowel regimen-no BM yet Check ammonia level Endo: Hyperglycemia Sliding scale insulin aspart insulin with Accu-Cheks every 6 hours to maintain euglycemia Renal: Acute kidney injury Monitor urine output Accurate I's and O's. LEANDER Aly to Follow BMP in a.m. 03/14 Heme: Leukocytosis Monitor CBC daily. Follow trends, trending down now No indication for transfusion of blood product ID: Treat empirically with zosyn renally dosed Blood cultures x2, negative to date GNR in sputum on admission however no infiltrate on chest x-ray FEN: Hypermagnesia Currently 0.9% NaCl at 84 cc an hour Replace electrolytes as clinically indicated per ICU electrolyte protocol Access -Utilize peripheral IV. Heat exchange femoral catheter placed to 03/13/18 Prophylaxis -GI -pantoprazole -DVT -SCD/IV Heparin Consulted palliative care service to assist with deciding goals of therapy. Prognosis appears poor. Condition remains critical. Discussed with patient's sister on 03/17 regarding poor neurologic prognosis. Patient appears to have a terminal condition at this time with severe anoxic brain injury. Discussed need to decide goals of therapy including CODE STATUS as well as transitioning to comfort measures versus proceeding with tracheostomy and PEG tube placement. Critical care time 35 minutes excluding procedures (2) Leukocytosis Qualifiers: Leukocytosis type: unspecified Qualified Code(s): D72.829 - Elevated white blood cell count, unspecified (7) Acute drug overdose Qualifiers: Encounter type: initial encounter Injury intent: undetermined intent Qualified Code(s): T50.904A - Poisoning by unspecified drugs, medicaments and biological substances, undetermined, initial encounter
[2018-03-19] MEDS: Acetaminophen 325 MG Tablet PO PRN ×2 (04:12→11:18)
[2018-03-19] MEDS: Oral Hygiene Kit OROPHARYNG SCH ×3 (04:13→16:03)
[2018-03-19] MEDS: Piperacil/Tazo 3.375 GM Premix 3.375 GM/50 ML PIGGYBACK IV.SIG SCH ×4 (05:09→23:03)
[2018-03-19] MEDS: Artificial Tears Opth Drops 15 ML Bottle EACH EYE SCH ×3 (06:16→23:39)
[2018-03-19] MEDS: Senna/Docusate Sodium 8.6/50 MG Tablet PO SCH ×2 (08:15→20:58)
[2018-03-19] MEDS: Chlorhexidine 0.12% Oral Kit 15 ML UDC OROPHARYNG SCH ×2 (08:15→20:59)
[2018-03-19] MEDS: [UNRECOGNIZED DRUG - OTHER] EACH EYE SCH ×2 (08:16→20:58)
[2018-03-19] MEDS: Metoprolol Tartrate 25 MG Tablet PO SCH ×3 (08:16→17:31)
[2018-03-19] MEDS: Lisinopril 5 MG Tablet PO SCH ×2 (08:16→20:58)
[2018-03-19] MEDS: amLODIPine 10 MG Tablet PO SCH (08:16)
[2018-03-19] MEDS: Pantoprazole Inj 40 MG Vial IV.PUSH SCH (08:17)
[2018-03-19] MEDS: Sod Chloride 0.9% Inj 1,000 ML IV.CONT SCH (08:17)
[2018-03-19] MEDS: Potassium Chlor 20 mEq Premix 20 MEQ/100 ML PIGGYBACK IV.SIG PRN ×2 (08:27→10:22)
--- NOTE | 2018-03-19 12:19 | P.PNPAL ---
Reason for Visit Reason for visit: a. To assist with evaluation and management of symptoms including: Dyspnea, encephalopathy b. To assist medical decision maker(s) with: better understanding of current medical conditions; weighing benefits/burdens of medical treatment options; making medical treatment decisions. Subjective Subjective/Interval History: Pt seen today to follow up on comfort, goals with decision maker. Has remained stable overnight. off of nicardipine this morning. No new labs or imaging. Micro BC w no growth to date. Nursing reports no changes in neuro assessment. Pt seen in room, dual visit w [employer] medical student. He is non responsive to exam. Eyes closed, still w upward gaze, + corneal reflex. No withdrawal to any pain stimuli. Not overbreathing over vent rate. No sedation. Following exam call to sister (HCP) Maribell. updated on current condition, assessments, treatments in place. She tells me she is not ready for him to and asks me if there are any other options. Explore that he is not currently dying that he is receiving maximized therapy for current conditions. Further , explore that she does not need to make any decisions today, or in immediate coming days. Advise that the medical team has been exploring with her upcoming tx/options so she is prepared for what decisions will lie ahead with continued aggressive tx, as well as expected prognosis. Further, explore the alternative to trach, prolonged ventilation, PEG etc would be transition to comfort. She indicates that she is not at a point where she "wants to starve him to "-- explore that he would pass 2/2 to brain damage and in ability to breathe/ function normally and that he would not 2/2 to starvation. She asks if there is "something in between" that can be done. Attempt to further clarify what she means by this, she indicates that she does not want him to have to stay with breathing tubes and other tubes because he "looks terrible ", but she also does not want him to have to . She indicates that while on one hand she does not want him to have to have a trach and be on machines long-term she wonders if there is in between type of care that can be helpful to support him but that he would also not be on uncomfortable life support. Attempt to explore with her that given the severity of his brain injury demonstrated thus far he will likely require some sort of prolonged life support measures and that he will not be able to function on his own and maintain life for very long without those measures and that there is not really" in between "type of treatment available. All questions answered to the best of my ability. She continues to hope and pray. Objective Vital Signs: Vital Signs 03/18/18 13:05 03/18/18 15:00 03/18/18 16:15 Temperature 99.6 F Pulse Rate 98 H Respiratory Rate 18 19 22 Blood Pressure 146/91 H Pulse Oximetry 99 100 100 03/18/18 19:00 03/18/18 20:41 03/18/18 21:19 Temperature 99.7 F H Pulse Rate 99 H 109 H Respiratory Rate 18 16 16 Blood Pressure 130/94 H Pulse Oximetry 99 99 03/18/18 23:00 03/19/18 00:13 03/19/18 03:00 Temperature 101.2 F H 101.2 F H Pulse Rate 118 H 118 H Respiratory Rate 18 17 17 Blood Pressure 129/85 124/84 Pulse Oximetry 99 99 98 03/19/18 03:43 03/19/18 07:00 03/19/18 11:00 Temperature 101 F H 101.6 F H Pulse Rate 101 H 99 H Respiratory Rate 16 16 16 Blood Pressure 125/86 136/86 Pulse Oximetry 99 99 98 Intake & Output 03/18/18 03/19/18 03/19/18 18:59 06:59 18:59 Intake Total 2261 / 2261 1574 / 1574 501 / 501 Output Total 2600 / 2600 1550 / 1550 Balance -339 / -339 24 / 24 501 / 501 Weight 83.5 kg Intake: IV 1600 / 1600 949 / 949 501 / 501 NS Inj 1,000 ML @ 50 mls/hr IV. 1000 / 1000 599 / 599 401 / 401 CONT .Q20H ALEIDA Rx#:[id number] Cardene Inj 25 MG In NS Inj 240 500 / 500 250 / 250 ML @ 5 MG/HR 50 mls/hr IV.CONT TITRATE PRN Rx#:[id number] Zosyn 3.375 GM Premix 3.375 gm 100 / 100 100 / 100 In 50 ml @ 100 mls/hr IV.SIG Q6H ALEIDA Rx#:[id number] KCl 20 mEq Premix Inj 20 meq In 100 / 100 100 ml @ 50 mls/hr IV.SIG Q2H PRN Rx#:[id number] Oral 0 / 0 Tube Feeding 511 / 511 445 / 445 Water Bolus Amount 150 / 150 180 / 180 Output: Urine Amount (Catheter) 2600 / 2600 1550 / 1550 Condom 2600 / 2600 1550 / 1550 Other: Date of Last Bowel Movement 03/18/18 03/18/18 # Bowel Movements 1 0 Physical Exam: CONSTITUTIONAL/GENERAL: This is an adequately nourished older male, no distress. TUBES/LINES/DRAINS: Peripheral IV x2 right hand referral IV left hand, 2, OG tube, external catheter, soft wrist restraints SKIN: No jaundice, rashes, or lesions. No wounds seen anteriorly. Skin warm and dry HEAD: Atraumatic. Normocephalic. EYES: Pupils equal and round and reactive. Upward gaze. No scleral icterus. No injection or drainage. Fundi not examined. ENT: Nose without bleeding or purulent drainage. Limited oropharynx exam secondary to tubes NECK: Trachea midline. Supple, nontender. No palpable thyroid enlargement or nodularity. CARDIOVASCULAR: Regular rate and rhythm without murmur . No JVD. Peripheral pulses symmetric. RESPIRATORY/CHEST: Symmetric, unlabored respirations via ET tube mechanical vent. Clear to auscultation. Breath sounds equal bilaterally. No wheezes, rales , or rhonchi. GASTROINTESTINAL: Abdomen soft, no apparent tenderness, nondistended. No palpable masses. Bowel sounds present. GENITOURINARY: Without palpable bladder distension. External catheter in place. MUSCULOSKELETAL: Extremities without clubbing, cyanosis, or edema. No joint effusion noted. No mottling or clubbing. LYMPHATICS: No palpable cervical or supraclavicular adenopathy. NEUROLOGICAL: On propofol. On mechanical vent. Nonresponsive to my exam. Eyes spontaneously open at times upward gaze. Positive corneal reflex. Pupils are round and reactive to light. Does not withdrawal to pain stimuli on extremities. PSYCHIATRIC: No obvious anxiety/depression--limited assessment secondary to clinical condition. Diagnostic Tests Laboratory: Laboratory Results - last 72 hr 03/16/18 03/16/18 03/16/18 11:49 11:50 12:16 WBC RBC Hgb Hct MCV MCH MCHC RDW Plt Count MPV Neut % (Auto) Lymph % (Auto) Blaine % (Auto) Eos % (Auto) Baso % (Auto) Neut # (Auto) Lymph # (Auto) Blaine # (Auto) Eos # (Auto) Baso # (Auto) WBC Differential Differential Comment APTT 54.1 H Sodium Potassium Chloride Carbon Dioxide Anion Gap BUN Creatinine Estimated GFR POC Glucose 106 Random Glucose Calcium Total Bilirubin AST ALT Alkaline Phosphatase Ammonia 44 H Total Protein Albumin 03/16/18 03/17/18 03/17/18 18:05 00:26 04:40 WBC RBC Hgb Hct MCV MCH MCHC RDW Plt Count MPV Neut % (Auto) Lymph % (Auto) Blaine % (Auto) Eos % (Auto) Baso % (Auto) Neut # (Auto) Lymph # (Auto) Blaine # (Auto) Eos # (Auto) Baso # (Auto) WBC Differential Differential Comment APTT 53.4 H Sodium Potassium Chloride Carbon Dioxide Anion Gap BUN Creatinine Estimated GFR POC Glucose 98 128 H Random Glucose Calcium Total Bilirubin AST ALT Alkaline Phosphatase Ammonia Total Protein Albumin 03/17/18 03/17/18 03/17/18 04:40 07:23 11:06 WBC 18.4 H RBC 4.70 Hgb 13.7 Hct 41.9 MCV 89.1 MCH 29.3 MCHC 32.8 RDW 13.8 Plt Count 274 MPV 7.7 Neut % (Auto) Lymph % (Auto) Blaine % (Auto) Eos % (Auto) Baso % (Auto) Neut # (Auto) Lymph # (Auto) Blaine # (Auto) Eos # (Auto) Baso # (Auto) WBC Differential Differential Comment APTT Sodium Potassium Chloride Carbon Dioxide Anion Gap BUN Creatinine Estimated GFR POC Glucose 132 H 110 Random Glucose Calcium Total Bilirubin AST ALT Alkaline Phosphatase Ammonia Total Protein Albumin 03/17/18 03/18/18 03/18/18 17:05 00:22 05:35 WBC RBC Hgb Hct MCV MCH MCHC RDW Plt Count MPV Neut % (Auto) Lymph % (Auto) Blaine % (Auto) Eos % (Auto) Baso % (Auto) Neut # (Auto) Lymph # (Auto) Blaine # (Auto) Eos # (Auto) Baso # (Auto) WBC Differential Differential Comment APTT Sodium Potassium Chloride Carbon Dioxide Anion Gap BUN Creatinine Estimated GFR POC Glucose 121 H 130 H 117 H Random Glucose Calcium Total Bilirubin AST ALT Alkaline Phosphatase Ammonia Total Protein Albumin 03/18/18 03/18/18 03/18/18 08:07 10:54 10:54 WBC 14.3 H RBC 4.94 Hgb 14.7 Hct 43.8 MCV 88.7 MCH 29.8 MCHC 33.7 RDW 13.7 Plt Count 259 MPV 8.0 Neut % (Auto) 81.1 H Lymph % (Auto) 9.0 Blaine % (Auto) 9.8 H Eos % (Auto) 0.0 Baso % (Auto) 0.1 Neut # (Auto) 11.6 H Lymph # (Auto) 1.3 Blaine # (Auto) 1.4 H Eos # (Auto) 0.0 Baso # (Auto) 0.0 WBC Differential . Differential Comment Auto diff final APTT Sodium 152 H Potassium 3.3 L Chloride 116 H Carbon Dioxide 29.8 Anion Gap 6 BUN 24 H Creatinine 1.05 Estimated GFR 72 L POC Glucose 144 H Random Glucose 159 H Calcium 7.9 L Total Bilirubin 0.5 AST 86 H ALT 47 Alkaline Phosphatase 76 Ammonia Total Protein 6.4 Albumin 2.5 L Result Diagrams: 03/18/18 10:54 03/18/18 10:54 Microbiology: Microbiology 03/17/18 03:55 Aerobic Blood Culture - Preliminary Blood - Peripheral No growth in 2 days Anaerobic Blood Culture - Preliminary No growth in 2 days 03/17/18 01:00 Aerobic Blood Culture - Preliminary Blood - Peripheral No growth in 2 days Anaerobic Blood Culture - Preliminary No growth in 2 days 03/14/18 19:55 Aerobic Blood Culture - Final Blood - Line No growth in 5 days Anaerobic Blood Culture - Final No growth in 5 days 03/13/18 21:00 Aerobic Blood Culture - Final Blood - Peripheral No growth in 5 days Anaerobic Blood Culture - Final No growth in 5 days 03/13/18 21:10 Aerobic Blood Culture - Final Blood - Peripheral No growth in 5 days Anaerobic Blood Culture - Final No growth in 5 days 03/14/18 01:10 Gram Stain - Final Sputum - Endotracheal Sputum Culture - Final Pseudomonas aeruginosa Assessment and Plan - Disease Oriented Problem List (1) Anoxic encephalopathy (2) Cardiopulmonary arrest (3) Acute drug overdose (4) Lactic acidosis (5) Leukocytosis (6) Hyperglycemia (7) Hepatitis C (8) Acute respiratory failure (9) Cardiomyopathy (10) NSTEMI (non-ST elevated myocardial infarction) Pertinent Non-Medical Issues: Psychosocial: Patient born and raised in [place]. 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 Parents , has 1 sister. Not , no children. Intermittently homeless. Most recently lived with a roommate. Spiritual: Sister indicates "they believe ", requests scallop cutter machine support Legal: Patient is unable to participate in medical decision making does not appear he will regain ability secondary to significant brain injury. Per [place] statutes his only sister would be appropriate legal proxy (Maribell). He is not , no children. Parents . Ethical issues impacting care: No ethical issues identified Important Contacts: Sister Maribell Salazar [phone] Prognosis: This patient was admitted for out of hospital arrest, possible overdose. He has sustained severe anoxic brain injury. Prognosis for meaningful neurologic recovery is poor. Code Status: Full Code Plan: Legal decision maker:Patient is unable to participate in medical decision making does not appear he will regain ability secondary to significant brain injury. Per [place] statutes his only sister would be appropriate legal proxy ( Maribell). He is not , no children. Parents . Goals: At this time sister indicates that she is grieving and still processing information, she is not ready to make any decisions regarding possibility of withdrawal or even changing to DNR status. She wishes to continue all available aggressive treatments / interventions at this time. CODE STATUS: Full code SYMPTOMS: --Painpotential sources: s/p CPR. patient with reported history of chronic back pain. Of note he was recently seen in [place] ED 02/22/18 for severe back pain. Lumbar spine imaging notes possible acute ligament injury L3-L4, with chronic/stable findings of anterolisthesis at L4, L5, severe foraminal stenosis at L4, L5, and moderate stenosis at L5, S1. [Neurosurgery was consulted at that time and recommended conservative management with pain control, at some point if pain unremitting could consider surgery discharged with analgesic, muscle relaxant, Neurontin recommended for follow-up 1-2 weeks]. + hx old rib fx. Currently nonresponsive, no signs of distress --Dyspnea-intubated due to brain injury and no respiratory effort, currently breathing comfortable on mechanical vent, would likely require prolonged support and possibly tracheostomy given severity of anoxic brain injury --Encephalopathy-found unresponsive and pulseless, unknown amount of downtime out of hospital, underwent CPR with ROSC. Imaging, EEG indicative of severe anoxic injury. Poor prognosis for meaningful neurologic recovery Palliative care will continue to follow during hospital course as condition evolves, to assist patient/decision-maker with understanding of medical conditions, weighing benefits/burdens of treatment options, for clarification of goals of treatment. Additionally will assist with any symptoms of palliative concern Attestation Attestation: To help prompt me to consider important information that might be impacting today's encounter and assessment, information from prior notes written by myself or my colleagues may have been "brought forward" into today's note. My signature on this note, however, is an attestation that I personally performed the exam, history, and/or decision-making noted today, and, unless otherwise indicated, the interactions with patient, family, and staff as well as the review of records all occurred today. I also attest that the listed assessment and stated plan reflect my best clinical judgment today based on the combination of historical information, prior notes, and today's exam/ interactions. When time spent is documented, it refers only to time spent today by the signer, or if indicated, combined time spent today by collaborating physician/nurse practitioner.
--- NOTE | 2018-03-19 17:06 | P.PNCC ---
Subjective Subjective Remarks/Hospital Course: This is a 62-year-old male. Date of admission 03/13/2018. Past medical history includes hepatitis C, pancreatitis hypertension, chronic back pain and allergic rhinitis. History of tobacco abuse. Patient presents to [facility] as a PEA arrest per documentation, patient also history of heroin abuse. Patient was found to be unresponsive in attendance in a homeless camp. Presenting rhythm was pulseless electric activity. Chest compressions started. Patient was intubated. Patient was given epinephrine IV x3 and sodium bicarb 1 amp IV, naltrexone 2 mg IV. Patient was transported to ED for evaluation. Patient regained pulse upon arrival to the ED. [address] CT brain revealed no acute intracranial findings. Troponin 0.0 0.5. Patient had a leukocytosis, elevated magnesium, acute injury creatinine 1.8, lactate of 9.8 and a blood sugar today today. Toxicology screen positive for opiates, cocaine and cannabinoids. Patient is currently not moving his unresponsive at 50 rebeka grams per kilogram per minute of propofol this is currently on hold. Chest x-ray revealed old right rib fractures. No pneumothorax. ET tube 5 cm above the saqib. 03/14/18: Induced hypothermia initiated by overnight foreign service officer currently at target temperature. Patient is on propofol fentanyl and Nimbex. Troponin has peaked at 16. I will start IV heparin and aspirin. Cardiology consulted. 03/15/18: Induced hypothermia completed. Currently in the rewarming phase. Will be completed by to prevent in the afternoon. Currently sedated and paralyzed limiting neuro exam. Pupils are slightly reactive. 03/16/18: Patient remains off sedation last 12 hours. No clinical improvement in neuro status. Patient remains comatose. Weak cough. Slight sluggish pupil reflex. No spontaneous eye opening no withdrawal to pain. MRI of the brain ordered neurology consulted. Also check EEG to rule out subclinical seizures. Noted to have increasing white count chest x-ray shows no infiltrate 25: Remains encephalopathic off sedation. Orally intubated on mechanical ventilation. Has some spontaneous eye opening however no purposeful movements. 26: Remains encephalopathic, orally intubated on mechanical ventilation. Febrile. Tolerating tube feeds. 2: Remains encephalopathic, orally intubated on mechanical ventilation. Febrile. Tolerating tube feeds. Patient's sister is deciding regarding goals of therapy with palliative Objective Vital Signs / I&O: Vital Signs 03/18/18 19:00 03/18/18 20:41 03/18/18 21:19 Temperature 99.7 F H Pulse Rate 99 H 109 H Respiratory Rate 18 16 16 Blood Pressure 130/94 H Pulse Oximetry 99 99 03/18/18 23:00 03/19/18 00:13 03/19/18 03:00 Temperature 101.2 F H 101.2 F H Pulse Rate 118 H 118 H Respiratory Rate 18 17 17 Blood Pressure 129/85 124/84 Pulse Oximetry 99 99 98 03/19/18 03:43 03/19/18 07:00 03/19/18 09:50 Temperature 101 F H Pulse Rate 101 H Respiratory Rate 16 16 18 Blood Pressure 125/86 Pulse Oximetry 99 99 98 03/19/18 11:00 03/19/18 12:36 03/19/18 15:00 Temperature 101.6 F H 99.3 F 100 F H Pulse Rate 101 H 101 H Respiratory Rate 16 16 Blood Pressure 138/56 L 142/83 H Pulse Oximetry 98 98 Intake & Output 03/18/18 03/19/18 03/19/18 18:59 06:59 18:59 Intake Total 2261 / 2261 1574 / 1574 651 / 651 Output Total 2600 / 2600 1550 / 1550 Balance -339 / -339 24 / 24 651 / 651 Weight 83.5 kg Intake: IV 1600 / 1600 949 / 949 651 / 651 NS Inj 1,000 ML @ 50 mls/hr IV. 1000 / 1000 599 / 599 401 / 401 CONT .Q20H ALEIDA Rx#:[id number] Cardene Inj 25 MG In NS Inj 240 500 / 500 250 / 250 ML @ 5 MG/HR 50 mls/hr IV.CONT TITRATE PRN Rx#:[id number] Zosyn 3.375 GM Premix 3.375 gm 100 / 100 100 / 100 50 / 50 In 50 ml @ 100 mls/hr IV.SIG Q6H ALEIDA Rx#:[id number] KCl 20 mEq Premix Inj 20 meq In 200 / 200 100 ml @ 50 mls/hr IV.SIG Q2H PRN Rx#:[id number] Oral 0 / 0 Tube Feeding 511 / 511 445 / 445 Water Bolus Amount 150 / 150 180 / 180 Output: Urine Amount (Catheter) 2600 / 2600 1550 / 1550 Condom 2600 / 2600 1550 / 1550 Other: Date of Last Bowel Movement 03/18/18 03/18/18 # Bowel Movements 1 0 Result Diagrams: 03/18/18 10:54 03/19/18 16:16 Objective Remarks: - Constitutional Intubated currently off all sedation remains encephalopathic, occasional eye opening however not having any purposeful movements - Routine HEENT Exam Head: normocephalic, atraumatic. Pupils are 2 mm sluggish. mucous membranes dry - Routine Neck Exam Supple - Routine Respiratory Exam Air entry equal bilaterally, synchronous with the vent. No wheezes or crackles - Routine Cardiovascular Exam Normal sinus rhythm S1-S2 normal no murmurs. Hypertensive on Cardene infusion - Routine Abdominal Exam soft, normoactive bowel sounds - Routine Extremities Exam No cyanosis, clubbing, edema - Routine Skin Exam intact - Routine Neurological Exam Patient is intubated currently off sedation remains comatose. Occasional eye opening however not focusing, no purposeful movements. Does have a gag reflex. Pupils are bilaterally equal 2 mm sluggish no corneal reflex. No withdrawal to pain. Plantar equivocal Assessment and Plan - Problem List (1) Lactic acidosis Code(s): E87.2 - Acidosis Status: Acute (2) Leukocytosis Code(s): D72.829 - Elevated white blood cell count, unspecified Status: Acute (3) Hyperglycemia Code(s): R73.9 - Hyperglycemia, unspecified Status: Acute (4) Cocaine abuse Code(s): F14.10 - Cocaine abuse, uncomplicated Status: Acute (5) Synthetic cannabinoid abuse Code(s): F19.10 - Other psychoactive substance abuse, uncomplicated Status: Acute (6) Cardiopulmonary arrest Code(s): I46.9 - Cardiac arrest, cause unspecified Status: Acute (7) Acute drug overdose Code(s): T50.901A - Poisoning by unspecified drugs, medicaments and biological substances, accidental (unintentional), initial encounter Status: Acute - Assessment and Plan Plan: Neuro/Psych: Hypoxic ischemic encephalopathy Polysubstance overdose including opiates, cocaine and cannabinoids Rewarming completed yesterday, off all sedation for last 12 hours No improvement in neuro exam. EEG with generalized slowing. Neurology consult noted. MRI brain consistent with severe anoxic brain injury per discussion with radiology. CT brain revealed no acute intracranial findings. Sinusitis Acetaminophen 650 by tube every 6 hours as needed fever CV: PEA arrest NSTEMI Uncontrolled hypertension Lactic acidosis Cardiomyopathy with EF 20-25% EKG reveals no ST elevation, telemetry strips shows left bundle branch block Initial troponin 0 0.05. Later troponin peaked at 16 Stopped IV heparin Aspirin 81 mg daily, hypotensive now hypotensive Start metoprolol 25 mg every 8 Start lisinopril 5 mg twice daily Continue Cardene infusion for hypertensive urgency. Add amlodipine 10 mg daily via G-tube Cardiology consult appreciated 2D echocardiogram EF severely reduced with an estimated ejection fraction in the range of 20-25% Further workup if there is meaningful neurological improvement Initial lactate 9.8. Now cleared Resp: Acute respiratory failure PRVC/AC Ventilation bundle. Head of bed at 30 degrees Albuterol/ipratropium aerosols every 4 hours with albuterol aerosols every 2 hours as needed dyspnea Spontaneous breathing trials however mental status will not permit extubation GI: History of hepatitis C Hyperammonemia Tube feeds with Jevity Pantoprazole for GI prophylaxis Docusate sodium/senna 1 tablet twice daily for bowel regimen-no BM yet Check ammonia level Endo: Hyperglycemia Sliding scale insulin aspart insulin with Accu-Cheks every 6 hours to maintain euglycemia Renal: Acute kidney injury Monitor urine output Accurate I's and O's. LEANDER Aly to Follow BMP in a.m. 03/14 Heme: Leukocytosis Monitor CBC daily. Follow trends, trending down now No indication for transfusion of blood product ID: Treat empirically with zosyn renally dosed Blood cultures x2, negative to date GNR in sputum on admission however no infiltrate on chest x-ray FEN: Hypermagnesia Currently 0.9% NaCl at 84 cc an hour Replace electrolytes as clinically indicated per ICU electrolyte protocol Access -Utilize peripheral IV. Heat exchange femoral catheter placed to 03/13/18 Prophylaxis -GI -pantoprazole -DVT -SCD/IV Heparin Consulted palliative care service to assist with deciding goals of therapy. Prognosis appears poor. Condition remains critical. Discussed with patient's sister on 03/17 regarding poor neurologic prognosis. Patient appears to have a terminal condition at this time with severe anoxic brain injury. Discussed need to decide goals of therapy including CODE STATUS as well as transitioning to comfort measures versus proceeding with tracheostomy and PEG tube placement. Patient's sister is having ongoing discussions with palliative care team regarding goals of therapy. Patient remains full CODE STATUS at this time. Critical care time 35 minutes excluding procedures (2) Leukocytosis Qualifiers: Leukocytosis type: unspecified Qualified Code(s): D72.829 - Elevated white blood cell count, unspecified (7) Acute drug overdose Qualifiers: Encounter type: initial encounter Injury intent: undetermined intent Qualified Code(s): T50.904A - Poisoning by unspecified drugs, medicaments and biological substances, undetermined, initial encounter
[2018-03-19] MEDS: hydrALAZINE HCl Inj 20 MG/ML Vial IV.PUSH PRN (22:27)
[2018-03-19] MEDS: Metoprolol Inj 5 MG/5 ML Vial IV.PUSH PRN (23:02)
[2018-03-20] MEDS: Oral Hygiene Kit OROPHARYNG SCH ×4 (00:40→16:42)
[2018-03-20] MEDS: Metoprolol Inj 5 MG/5 ML Vial IV.PUSH PRN (05:41)
[2018-03-20] MEDS: Piperacil/Tazo 3.375 GM Premix 3.375 GM/50 ML PIGGYBACK IV.SIG SCH ×3 (05:41→18:29)
[2018-03-20] MEDS: Acetaminophen 325 MG Tablet PO PRN ×2 (05:43→23:24)
[2018-03-20] MEDS: Sod Chloride 0.9% Inj 1,000 ML IV.CONT SCH (06:46)
[2018-03-20] MEDS: Lisinopril 5 MG Tablet PO SCH ×2 (08:50→21:12)
[2018-03-20] MEDS: [UNRECOGNIZED DRUG - OTHER] EACH EYE SCH ×2 (08:50→21:13)
[2018-03-20] MEDS: Pantoprazole Inj 40 MG Vial IV.PUSH SCH (08:51)
[2018-03-20] MEDS: Chlorhexidine 0.12% Oral Kit 15 ML UDC OROPHARYNG SCH ×2 (08:51→21:13)
[2018-03-20] MEDS: Metoprolol Tartrate 25 MG Tablet PO SCH ×3 (08:51→18:29)
[2018-03-20] MEDS: amLODIPine 10 MG Tablet PO SCH (08:51)
[2018-03-20] MEDS: Senna/Docusate Sodium 8.6/50 MG Tablet PO SCH ×2 (08:51→21:12)
[2018-03-20] MEDS: Artificial Tears Opth Drops 15 ML Bottle EACH EYE SCH ×2 (08:54→16:42)
--- NOTE | 2018-03-20 11:43 | P.PNPAL ---
Reason for Visit Reason for visit: a. To assist with evaluation and management of symptoms including: Dyspnea, encephalopathy b. To assist medical decision maker(s) with: better understanding of current medical conditions; weighing benefits/burdens of medical treatment options; making medical treatment decisions. Subjective Subjective/Interval History: Pt seen today to follow up on comfort, goals with decision maker. Has remained stable overnight. Nurse reports slight withdrawal response to deep pain stimuli. No new labs/imaging. Not on sedation. Pt seen in room, no visitors present. Minimal response to stimuli. Slight increase in RR on mech vent w pain stimuli, does not withdraw to pain. No signs of pain or anxiety. Eyes cont to have upward gaze. Nurse reports sister has already been in , and requested DNR w critical care. Request nursing call me if sister arrives and has additional questions. Objective Vital Signs: Vital Signs 03/19/18 12:36 03/19/18 15:00 03/19/18 17:40 Temperature 99.3 F 100 F H Pulse Rate 101 H Respiratory Rate 16 18 Blood Pressure 142/83 H Pulse Oximetry 98 99 03/19/18 19:00 03/19/18 22:10 03/19/18 23:00 Temperature 101.2 F H 99.8 F H Pulse Rate 77 118 H Respiratory Rate 16 20 30 H Blood Pressure 134/87 148/94 H Pulse Oximetry 99 100 99 03/20/18 00:46 03/20/18 03:00 03/20/18 04:25 Temperature 101.4 F H Pulse Rate 119 H Respiratory Rate 21 24 25 H Blood Pressure 131/84 Pulse Oximetry 98 95 98 03/20/18 09:04 Temperature Pulse Rate Respiratory Rate 30 H Blood Pressure Pulse Oximetry 97 Intake & Output 03/19/18 03/20/18 03/20/18 18:59 06:59 18:59 Intake Total 1268 / 1268 1689 / 1689 Output Total 1600 / 1600 1200 / 1200 Balance -332 / -332 489 / 489 Weight 82.5 kg Intake: IV 701 / 701 1100 / 1100 NS Inj 1,000 ML @ 50 mls/hr IV. 401 / 401 1000 / 1000 CONT .Q20H ALEIDA Rx#:[id number] Zosyn 3.375 GM Premix 3.375 gm 100 / 100 100 / 100 In 50 ml @ 100 mls/hr IV.SIG Q6H ALEIDA Rx#:[id number] KCl 20 mEq Premix Inj 20 meq In 200 / 200 100 ml @ 50 mls/hr IV.SIG Q2H PRN Rx#:[id number] Oral 0 / 0 Tube Feeding 567 / 567 469 / 469 Water Bolus Amount 120 / 120 Output: Urine Amount (Catheter) 1600 / 1600 1200 / 1200 Condom 1600 / 1600 1200 / 1200 Other: Date of Last Bowel Movement 03/18/18 03/18/18 # Bowel Movements 0 0 Physical Exam: CONSTITUTIONAL/GENERAL: This is an adequately nourished older male, no distress. TUBES/LINES/DRAINS: Peripheral IV bilat upper extremities, 2, OG tube, external catheter, soft wrist restraints SKIN: No jaundice, rashes, or lesions. No wounds seen anteriorly. Skin warm and dry HEAD: Atraumatic. Normocephalic. EYES: Pupils equal and round and reactive 3mm. Upward gaze. No scleral icterus. No injection or drainage. Fundi not examined. ENT: Nose without bleeding or purulent drainage. Limited oropharynx exam secondary to tubes CARDIOVASCULAR: Regular rate and rhythm without murmur . No JVD. Peripheral pulses symmetric. RESPIRATORY/CHEST: Symmetric, unlabored respirations via ET tube mechanical vent. + respirations over vent rate. Clear to auscultation. Breath sounds equal bilaterally. No wheezes, rales, or rhonchi. GASTROINTESTINAL: Abdomen soft, no apparent tenderness, nondistended. No palpable masses. Bowel sounds present. GENITOURINARY: Without palpable bladder distension. External catheter in place. MUSCULOSKELETAL: Extremities without clubbing, cyanosis, or edema. No joint effusion noted. No mottling or clubbing. NEUROLOGICAL: no sedation. On mechanical vent. minimally responsive to my exam - increase in RR w stimuli. Eyes with upward gaze. Positive corneal reflex. Pupils are round and reactive to light. Does not withdrawal to pain stimuli on extremities. PSYCHIATRIC: No obvious anxiety/depression--limited assessment secondary to clinical condition. Diagnostic Tests Laboratory: Laboratory Results - last 72 hr 03/17/18 03/18/18 03/18/18 17:05 00:22 05:35 WBC RBC Hgb Hct MCV MCH MCHC RDW Plt Count MPV Neut % (Auto) Lymph % (Auto) Mclean % (Auto) Eos % (Auto) Baso % (Auto) Neut # (Auto) Lymph # (Auto) Mclean # (Auto) Eos # (Auto) Baso # (Auto) WBC Differential Differential Comment Sodium Potassium Chloride Carbon Dioxide Anion Gap BUN Creatinine Estimated GFR POC Glucose 121 H 130 H 117 H Random Glucose Calcium Total Bilirubin AST ALT Alkaline Phosphatase Total Protein Albumin 03/18/18 03/18/18 03/18/18 08:07 10:54 10:54 WBC 14.3 H RBC 4.94 Hgb 14.7 Hct 43.8 MCV 88.7 MCH 29.8 MCHC 33.7 RDW 13.7 Plt Count 259 MPV 8.0 Neut % (Auto) 81.1 H Lymph % (Auto) 9.0 Mclean % (Auto) 9.8 H Eos % (Auto) 0.0 Baso % (Auto) 0.1 Neut # (Auto) 11.6 H Lymph # (Auto) 1.3 Mclean # (Auto) 1.4 H Eos # (Auto) 0.0 Baso # (Auto) 0.0 WBC Differential . Differential Comment Auto diff final Sodium 152 H Potassium 3.3 L Chloride 116 H Carbon Dioxide 29.8 Anion Gap 6 BUN 24 H Creatinine 1.05 Estimated GFR 72 L POC Glucose 144 H Random Glucose 159 H Calcium 7.9 L Total Bilirubin 0.5 AST 86 H ALT 47 Alkaline Phosphatase 76 Total Protein 6.4 Albumin 2.5 L 03/19/18 16:16 WBC RBC Hgb Hct MCV MCH MCHC RDW Plt Count MPV Neut % (Auto) Lymph % (Auto) Mclean % (Auto) Eos % (Auto) Baso % (Auto) Neut # (Auto) Lymph # (Auto) Mclean # (Auto) Eos # (Auto) Baso # (Auto) WBC Differential Differential Comment Sodium Potassium 3.9 Chloride Carbon Dioxide Anion Gap BUN Creatinine Estimated GFR POC Glucose Random Glucose Calcium Total Bilirubin AST ALT Alkaline Phosphatase Total Protein Albumin Result Diagrams: 03/18/18 10:54 03/19/18 16:16 Microbiology: Microbiology 03/17/18 03:55 Aerobic Blood Culture - Preliminary Blood - Peripheral No growth in 3 days Anaerobic Blood Culture - Preliminary No growth in 3 days 03/17/18 01:00 Aerobic Blood Culture - Preliminary Blood - Peripheral No growth in 3 days Anaerobic Blood Culture - Preliminary No growth in 3 days 03/14/18 19:55 Aerobic Blood Culture - Final Blood - Line No growth in 5 days Anaerobic Blood Culture - Final No growth in 5 days 03/13/18 21:00 Aerobic Blood Culture - Final Blood - Peripheral No growth in 5 days Anaerobic Blood Culture - Final No growth in 5 days 03/13/18 21:10 Aerobic Blood Culture - Final Blood - Peripheral No growth in 5 days Anaerobic Blood Culture - Final No growth in 5 days Assessment and Plan - Disease Oriented Problem List (1) Anoxic encephalopathy (2) Cardiopulmonary arrest (3) Acute drug overdose (4) Lactic acidosis (5) Leukocytosis (6) Hyperglycemia (7) Hepatitis C (8) Acute respiratory failure (9) Cardiomyopathy (10) NSTEMI (non-ST elevated myocardial infarction) Pertinent Non-Medical Issues: Psychosocial: Patient born and raised in [place]. 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 Parents , has 1 sister. Not , no children. Intermittently homeless. Most recently lived with a roommate. Spiritual: Sister indicates "they believe ", requests director oracle database support Legal: Patient is unable to participate in medical decision making does not appear he will regain ability secondary to significant brain injury. Per [place] statutes his only sister would be appropriate legal proxy (Maribell). He is not , no children. Parents . Ethical issues impacting care: No ethical issues identified Important Contacts: Sister Maribell Salazar [phone] Prognosis: This patient was admitted for out of hospital arrest, possible overdose. He has sustained severe anoxic brain injury. Prognosis for meaningful neurologic recovery is poor. Code Status: No Code DNR Plan: Legal decision maker:Patient is unable to participate in medical decision making does not appear he will regain ability secondary to significant brain injury. Per [place] statutes his only sister would be appropriate legal proxy ( Maribell). He is not , no children. Parents . Goals: sister indicates that she is grieving and still processing information, she is not ready to make any decisions regarding possibility of withdrawal. She wishes to continue all available aggressive treatments / interventions at this time. She has elected DNR CODE STATUS: DNR SYMPTOMS: --Painpotential sources: s/p CPR. patient with reported history of chronic back pain. Of note he was recently seen in [place] ED 02/22/18 for severe back pain. Lumbar spine imaging notes possible acute ligament injury L3-L4, with chronic/stable findings of anterolisthesis at L4, L5, severe foraminal stenosis at L4, L5, and moderate stenosis at L5, S1. [Neurosurgery was consulted at that time and recommended conservative management with pain control, at some point if pain unremitting could consider surgery discharged with analgesic, muscle relaxant, Neurontin recommended for follow-up 1-2 weeks]. + hx old rib fx. Currently nonresponsive, no signs of distress --Dyspnea-intubated due to brain injury and no respiratory effort, currently breathing comfortable on mechanical vent, would likely require prolonged support and possibly tracheostomy given severity of anoxic brain injury --Encephalopathy-found unresponsive and pulseless, unknown amount of downtime out of hospital, underwent CPR with ROSC. Imaging, EEG indicative of severe anoxic injury. Poor prognosis for meaningful neurologic recovery Palliative care will continue to follow during hospital course as condition evolves, to assist patient/decision-maker with understanding of medical conditions, weighing benefits/burdens of treatment options, for clarification of goals of treatment. Additionally will assist with any symptoms of palliative concern Attestation Attestation: To help prompt me to consider important information that might be impacting today's encounter and assessment, information from prior notes written by myself or my colleagues may have been "brought forward" into today's note. My signature on this note, however, is an attestation that I personally performed the exam, history, and/or decision-making noted today, and, unless otherwise indicated, the interactions with patient, family, and staff as well as the review of records all occurred today. I also attest that the listed assessment and stated plan reflect my best clinical judgment today based on the combination of historical information, prior notes, and today's exam/ interactions. When time spent is documented, it refers only to time spent today by the signer, or if indicated, combined time spent today by collaborating physician/nurse practitioner.
--- NOTE | 2018-03-20 13:08 | P.PNCC ---
Subjective Subjective Remarks/Hospital Course: This is a 62-year-old male. Date of admission 03/13/2018. Past medical history includes hepatitis C, pancreatitis hypertension, chronic back pain and allergic rhinitis. History of tobacco abuse. Patient presents to [facility] as a PEA arrest per documentation, patient also history of heroin abuse. Patient was found to be unresponsive in attendance in a homeless camp. Presenting rhythm was pulseless electric activity. Chest compressions started. Patient was intubated. Patient was given epinephrine IV x3 and sodium bicarb 1 amp IV, naltrexone 2 mg IV. Patient was transported to ED for evaluation. Patient regained pulse upon arrival to the ED. [address] physician CT brain revealed no acute intracranial findings. Troponin 0.0 0.5. Patient had a leukocytosis, elevated magnesium, acute injury creatinine 1.8, lactate of 9.8 and a blood sugar today today. Toxicology screen positive for opiates, cocaine and cannabinoids. Patient is currently not moving his unresponsive at 50 rebeka grams per kilogram per minute of propofol this is currently on hold. Chest x-ray revealed old right rib fractures. No pneumothorax. ET tube 5 cm above the saqib. 03/14/18: Induced hypothermia initiated by overnight regulatory compliance manager currently at target temperature. Patient is on propofol fentanyl and Nimbex. Troponin has peaked at 16. I will start IV heparin and aspirin. Cardiology consulted. 03/15/18: Induced hypothermia completed. Currently in the rewarming phase. Will be completed by to prevent in the afternoon. Currently sedated and paralyzed limiting neuro exam. Pupils are slightly reactive. 03/16/18: Patient remains off sedation last 12 hours. No clinical improvement in neuro status. Patient remains comatose. Weak cough. Slight sluggish pupil reflex. No spontaneous eye opening no withdrawal to pain. MRI of the brain ordered neurology consulted. Also check EEG to rule out subclinical seizures. Noted to have increasing white count chest x-ray shows no infiltrate 2: Remains encephalopathic off sedation. Orally intubated on mechanical ventilation. Has some spontaneous eye opening however no purposeful movements. 2: Remains encephalopathic, orally intubated on mechanical ventilation. Febrile. Tolerating tube feeds. 03/19: Remains encephalopathic, orally intubated on mechanical ventilation. Febrile. Tolerating tube feeds. Patient's sister is deciding regarding goals of therapy with palliative 2: Remains encephalopathic, orally intubated on mechanical ventilation. Awaiting family's decision regarding goals of therapy. Objective Vital Signs / I&O: Vital Signs 03/19/18 15:00 03/19/18 17:40 03/19/18 19:00 Temperature 100 F H 101.2 F H Pulse Rate 101 H 77 Respiratory Rate 16 18 16 Blood Pressure 142/83 H 134/87 Pulse Oximetry 98 99 99 03/19/18 22:10 03/19/18 23:00 03/20/18 00:46 Temperature 99.8 F H Pulse Rate 118 H Respiratory Rate 20 30 H 21 Blood Pressure 148/94 H Pulse Oximetry 100 99 98 03/20/18 03:00 03/20/18 04:25 03/20/18 07:00 Temperature 101.4 F H 100.0 F H Pulse Rate 119 H 98 H Respiratory Rate 24 25 H 16 Blood Pressure 131/84 125/81 Pulse Oximetry 95 98 94 L 03/20/18 09:04 Temperature Pulse Rate Respiratory Rate 30 H Blood Pressure Pulse Oximetry 97 Intake & Output 03/19/18 03/20/18 03/20/18 18:59 06:59 18:59 Intake Total 1268 / 1268 1689 / 1689 Output Total 1600 / 1600 1200 / 1200 Balance -332 / -332 489 / 489 Weight 82.5 kg Intake: IV 701 / 701 1100 / 1100 NS Inj 1,000 ML @ 50 mls/hr IV. 401 / 401 1000 / 1000 CONT .Q20H ALEIDA Rx#:[id number] Zosyn 3.375 GM Premix 3.375 gm 100 / 100 100 / 100 In 50 ml @ 100 mls/hr IV.SIG Q6H ALEIDA Rx#:[id number] KCl 20 mEq Premix Inj 20 meq In 200 / 200 100 ml @ 50 mls/hr IV.SIG Q2H PRN Rx#:[id number] Oral 0 / 0 Tube Feeding 567 / 567 469 / 469 Water Bolus Amount 120 / 120 Output: Urine Amount (Catheter) 1600 / 1600 1200 / 1200 Condom 1600 / 1600 1200 / 1200 Other: Date of Last Bowel Movement 03/18/18 03/18/18 03/18/18 # Bowel Movements 0 0 Result Diagrams: 03/18/18 10:54 03/19/18 16:16 Objective Remarks: - Constitutional Intubated currently off all sedation remains encephalopathic, occasional eye opening however not having any purposeful movements - Routine HEENT Exam Head: normocephalic, atraumatic. Pupils are 2 mm sluggish. mucous membranes dry - Routine Neck Exam Supple - Routine Respiratory Exam Air entry equal bilaterally, synchronous with the vent. No wheezes or crackles - Routine Cardiovascular Exam Normal sinus rhythm S1-S2 normal no murmurs. Hypertensive on Cardene infusion - Routine Abdominal Exam soft, normoactive bowel sounds - Routine Extremities Exam No cyanosis, clubbing, edema - Routine Skin Exam intact - Routine Neurological Exam Patient is intubated currently off sedation remains comatose. Occasional eye opening however not focusing, no purposeful movements. Does have a gag reflex. Pupils are bilaterally equal 2 mm sluggish no corneal reflex. No withdrawal to pain. Plantar equivocal Assessment and Plan - Problem List (1) Lactic acidosis Code(s): E87.2 - Acidosis Status: Acute (2) Leukocytosis Code(s): D72.829 - Elevated white blood cell count, unspecified Status: Acute (3) Hyperglycemia Code(s): R73.9 - Hyperglycemia, unspecified Status: Acute (4) Cocaine abuse Code(s): F14.10 - Cocaine abuse, uncomplicated Status: Acute (5) Synthetic cannabinoid abuse Code(s): F19.10 - Other psychoactive substance abuse, uncomplicated Status: Acute (6) Cardiopulmonary arrest Code(s): I46.9 - Cardiac arrest, cause unspecified Status: Acute (7) Acute drug overdose Code(s): T50.901A - Poisoning by unspecified drugs, medicaments and biological substances, accidental (unintentional), initial encounter Status: Acute - Assessment and Plan Plan: Neuro/Psych: Hypoxic ischemic encephalopathy Polysubstance overdose including opiates, cocaine and cannabinoids Rewarming completed yesterday, off all sedation for last 12 hours No improvement in neuro exam. EEG with generalized slowing. Neurology consult noted. MRI brain consistent with severe anoxic brain injury per discussion with radiology. CT brain revealed no acute intracranial findings. Sinusitis Acetaminophen 650 by tube every 6 hours as needed fever CV: PEA arrest NSTEMI Uncontrolled hypertension Lactic acidosis Cardiomyopathy with EF 20-25% EKG reveals no ST elevation, telemetry strips shows left bundle branch block Initial troponin 0 0.05. Later troponin peaked at 16 Stopped IV heparin Aspirin 81 mg daily, hypotensive now hypotensive Start metoprolol 25 mg every 8 Start lisinopril 5 mg twice daily Continue Cardene infusion for hypertensive urgency. Add amlodipine 10 mg daily via G-tube Cardiology consult appreciated 2D echocardiogram EF severely reduced with an estimated ejection fraction in the range of 20-25% Further workup if there is meaningful neurological improvement Initial lactate 9.8. Now cleared Resp: Acute respiratory failure PRVC/AC Ventilation bundle. Head of bed at 30 degrees Albuterol/ipratropium aerosols every 4 hours with albuterol aerosols every 2 hours as needed dyspnea Spontaneous breathing trials however mental status will not permit extubation GI: History of hepatitis C Hyperammonemia Tube feeds with Jevity Pantoprazole for GI prophylaxis Docusate sodium/senna 1 tablet twice daily for bowel regimen-no BM yet Check ammonia level Endo: Hyperglycemia Sliding scale insulin aspart insulin with Accu-Cheks every 6 hours to maintain euglycemia Renal: Acute kidney injury Monitor urine output Accurate I's and O's. LEANDER Aly to Follow BMP in a.m. 03/14 Heme: Leukocytosis Monitor CBC daily. Follow trends, trending down now No indication for transfusion of blood product ID: Treat empirically with zosyn renally dosed Blood cultures x2, negative to date GNR in sputum on admission however no infiltrate on chest x-ray FEN: Hypermagnesia Currently 0.9% NaCl at 84 cc an hour Replace electrolytes as clinically indicated per ICU electrolyte protocol Access -Utilize peripheral IV. Heat exchange femoral catheter placed to 03/13/18 Prophylaxis -GI -pantoprazole -DVT -SCD/IV Heparin Consulted palliative care service to assist with deciding goals of therapy. Prognosis appears poor. Condition remains critical. Discussed with patient's sister on 03/17 regarding poor neurologic prognosis. Patient appears to have a terminal condition at this time with severe anoxic brain injury. Discussed need to decide goals of therapy including CODE STATUS as well as transitioning to comfort measures versus proceeding with tracheostomy and PEG tube placement. Patient's sister is having ongoing discussions with palliative care team regarding goals of therapy. Patient remains full CODE STATUS at this time. Critical care time 35 minutes excluding procedures (2) Leukocytosis Qualifiers: Leukocytosis type: unspecified Qualified Code(s): D72.829 - Elevated white blood cell count, unspecified (7) Acute drug overdose Qualifiers: Encounter type: initial encounter Injury intent: undetermined intent Qualified Code(s): T50.904A - Poisoning by unspecified drugs, medicaments and biological substances, undetermined, initial encounter
[2018-03-21] MEDS: Piperacil/Tazo 3.375 GM Premix 3.375 GM/50 ML PIGGYBACK IV.SIG SCH ×4 (00:24→17:17)
[2018-03-21] MEDS: Sod Chloride 0.9% Inj 1,000 ML IV.CONT SCH ×2 (00:25→21:06)
[2018-03-21] MEDS: Oral Hygiene Kit OROPHARYNG SCH ×4 (01:13→16:05)
[2018-03-21] MEDS: Artificial Tears Opth Drops 15 ML Bottle EACH EYE SCH ×3 (02:51→14:39)
[2018-03-21] MEDS: Acetaminophen 325 MG Tablet PO PRN ×3 (07:24→21:03)
[2018-03-21] MEDS: Chlorhexidine 0.12% Oral Kit 15 ML UDC OROPHARYNG SCH ×2 (07:52→21:05)
[2018-03-21] MEDS: Pantoprazole Inj 40 MG Vial IV.PUSH SCH (08:31)
[2018-03-21] MEDS: [UNRECOGNIZED DRUG - OTHER] EACH EYE SCH ×2 (08:32→21:05)
[2018-03-21] MEDS: amLODIPine 10 MG Tablet PO SCH (08:33)
[2018-03-21] MEDS: Metoprolol Tartrate 25 MG Tablet PO SCH ×3 (08:33→20:58)
[2018-03-21] MEDS: Senna/Docusate Sodium 8.6/50 MG Tablet PO SCH ×2 (08:33→21:04)
[2018-03-21] MEDS: Lisinopril 5 MG Tablet PO SCH ×2 (08:33→21:04)
--- NOTE | 2018-03-21 14:15 | P.PNCC ---
Subjective Subjective Remarks/Hospital Course: This is a 62-year-old male. Date of admission 03/13/2018. Past medical history includes hepatitis C, pancreatitis hypertension, chronic back pain and allergic rhinitis. History of tobacco abuse. Patient presents to [facility] as a PEA arrest per documentation, patient also history of heroin abuse. Patient was found to be unresponsive in attendance in a homeless camp. Presenting rhythm was pulseless electric activity. Chest compressions started. Patient was intubated. Patient was given epinephrine IV x3 and sodium bicarb 1 amp IV, naltrexone 2 mg IV. Patient was transported to ED for evaluation. Patient regained pulse upon arrival to the ED. 15 minutes per ED physician CT brain revealed no acute intracranial findings. Troponin 0.0 0.5. Patient had a leukocytosis, elevated magnesium, acute injury creatinine 1.8, lactate of 9.8 and a blood sugar today today. Toxicology screen positive for opiates, cocaine and cannabinoids. Patient is currently not moving his unresponsive at 50 rebeka grams per kilogram per minute of propofol this is currently on hold. Chest x-ray revealed old right rib fractures. No pneumothorax. ET tube 5 cm above the saqib. 03/14/18: Induced hypothermia initiated by overnight doctor osteopathic currently at target temperature. Patient is on propofol fentanyl and Nimbex. Troponin has peaked at 16. I will start IV heparin and aspirin. Cardiology consulted. 03/15/18: Induced hypothermia completed. Currently in the rewarming phase. Will be completed by to prevent in the afternoon. Currently sedated and paralyzed limiting neuro exam. Pupils are slightly reactive. 03/16/18: Patient remains off sedation last 12 hours. No clinical improvement in neuro status. Patient remains comatose. Weak cough. Slight sluggish pupil reflex. No spontaneous eye opening no withdrawal to pain. MRI of the brain ordered neurology consulted. Also check EEG to rule out subclinical seizures. Noted to have increasing white count chest x-ray shows no infiltrate 2: Remains encephalopathic off sedation. Orally intubated on mechanical ventilation. Has some spontaneous eye opening however no purposeful movements. 2: Remains encephalopathic, orally intubated on mechanical ventilation. Febrile. Tolerating tube feeds. 03/19: Remains encephalopathic, orally intubated on mechanical ventilation. Febrile. Tolerating tube feeds. Patient's sister is deciding regarding goals of therapy with palliative 2: Remains encephalopathic, orally intubated on mechanical ventilation. Awaiting family's decision regarding goals of therapy. 03/21: Remains encephalopathic, orally intubated on mechanical ventilation. Objective Vital Signs / I&O: Vital Signs 03/20/18 15:00 03/20/18 15:35 03/20/18 19:00 Temperature 98.4 F Pulse Rate 101 H 102 H Respiratory Rate 24 28 H Blood Pressure 133/82 Pulse Oximetry 97 99 03/20/18 20:00 03/20/18 20:30 03/20/18 20:54 Temperature 100.2 F H Pulse Rate 86 92 H Respiratory Rate 18 20 20 Blood Pressure 117/78 Pulse Oximetry 98 98 03/20/18 22:32 03/20/18 23:00 03/20/18 23:15 Temperature 101.4 F H Pulse Rate 101 H 103 H Respiratory Rate 23 23 Blood Pressure 131/57 L Pulse Oximetry 98 99 03/21/18 01:53 03/21/18 03:00 03/21/18 03:54 Temperature 99.2 F Pulse Rate 101 H Respiratory Rate 21 18 16 Blood Pressure 111/74 Pulse Oximetry 98 99 98 03/21/18 07:00 03/21/18 07:58 03/21/18 10:08 Temperature 101.3 F H Pulse Rate 105 H Respiratory Rate 18 18 24 Blood Pressure 125/79 Pulse Oximetry 99 99 99 03/21/18 11:00 Temperature 100.5 F H Pulse Rate 92 H Respiratory Rate 22 Blood Pressure 124/80 Pulse Oximetry 99 Intake & Output 03/20/18 03/21/18 03/21/18 18:59 06:59 18:59 Intake Total 700 / 700 1961 / 1961 Output Total 1100 / 1100 1050 / 1050 Balance -400 / -400 911 / 911 Weight 80 kg Intake: IV 50 / 50 1316 / 1316 NS Inj 1,000 ML @ 50 mls/hr IV. 1166 / 1166 CONT .Q20H ALEIDA Rx#:[id number] Zosyn 3.375 GM Premix 3.375 gm 50 / 50 150 / 150 In 50 ml @ 100 mls/hr IV.SIG Q6H ALEIDA Rx#:[id number] Tube Feeding 450 / 450 395 / 395 Tube Irrigant 250 / 250 Water Bolus Amount 200 / 200 Output: Urine Amount (Catheter) 1100 / 1100 1050 / 1050 Condom 1100 / 1100 1050 / 1050 Other: Date of Last Bowel Movement 03/18/18 03/21/18 03/21/18 # Bowel Movements 1 Result Diagrams: 03/18/18 10:54 03/19/18 16:16 Objective Remarks: - Constitutional Intubated currently off all sedation remains encephalopathic, occasional eye opening however not having any purposeful movements - Routine HEENT Exam Head: normocephalic, atraumatic. Pupils are 2 mm sluggish. mucous membranes dry - Routine Neck Exam Supple - Routine Respiratory Exam Air entry equal bilaterally, synchronous with the vent. No wheezes or crackles - Routine Cardiovascular Exam Normal sinus rhythm S1-S2 normal no murmurs. Hypertensive on Cardene infusion - Routine Abdominal Exam soft, normoactive bowel sounds - Routine Extremities Exam No cyanosis, clubbing, edema - Routine Skin Exam intact - Routine Neurological Exam Patient is intubated currently off sedation remains comatose. Occasional eye opening however not focusing, no purposeful movements. Does have a gag reflex. Pupils are bilaterally equal 2 mm sluggish no corneal reflex. No withdrawal to pain. Plantar equivocal Assessment and Plan - Problem List (1) Lactic acidosis Code(s): E87.2 - Acidosis Status: Acute (2) Leukocytosis Code(s): D72.829 - Elevated white blood cell count, unspecified Status: Acute (3) Hyperglycemia Code(s): R73.9 - Hyperglycemia, unspecified Status: Acute (4) Cocaine abuse Code(s): F14.10 - Cocaine abuse, uncomplicated Status: Acute (5) Synthetic cannabinoid abuse Code(s): F19.10 - Other psychoactive substance abuse, uncomplicated Status: Acute (6) Cardiopulmonary arrest Code(s): I46.9 - Cardiac arrest, cause unspecified Status: Acute (7) Acute drug overdose Code(s): T50.901A - Poisoning by unspecified drugs, medicaments and biological substances, accidental (unintentional), initial encounter Status: Acute - Assessment and Plan Plan: Neuro/Psych: Hypoxic ischemic encephalopathy Polysubstance overdose including opiates, cocaine and cannabinoids Rewarming completed yesterday, off all sedation for last 12 hours No improvement in neuro exam. EEG with generalized slowing. Neurology consult noted. MRI brain consistent with severe anoxic brain injury per discussion with radiology. CT brain revealed no acute intracranial findings. Sinusitis Acetaminophen 650 by tube every 6 hours as needed fever CV: PEA arrest NSTEMI Uncontrolled hypertension Lactic acidosis Cardiomyopathy with EF 20-25% EKG reveals no ST elevation, telemetry strips shows left bundle branch block Initial troponin 0 0.05. Later troponin peaked at 16 Stopped IV heparin Aspirin 81 mg daily, hypotensive now hypotensive Start metoprolol 25 mg every 8 Start lisinopril 5 mg twice daily Continue Cardene infusion for hypertensive urgency. Add amlodipine 10 mg daily via G-tube Cardiology consult appreciated 2D echocardiogram EF severely reduced with an estimated ejection fraction in the range of 20-25% Further workup if there is meaningful neurological improvement Initial lactate 9.8. Now cleared Resp: Acute respiratory failure PRVC/AC Ventilation bundle. Head of bed at 30 degrees Albuterol/ipratropium aerosols every 4 hours with albuterol aerosols every 2 hours as needed dyspnea Spontaneous breathing trials however mental status will not permit extubation GI: History of hepatitis C Hyperammonemia Tube feeds with Jevity Pantoprazole for GI prophylaxis Docusate sodium/senna 1 tablet twice daily for bowel regimen-no BM yet Check ammonia level Endo: Hyperglycemia Sliding scale insulin aspart insulin with Accu-Cheks every 6 hours to maintain euglycemia Renal: Acute kidney injury Monitor urine output Accurate I's and O's. LEANDER Aly to Follow BMP in a.m. 03/14 Heme: Leukocytosis Monitor CBC daily. Follow trends, trending down now No indication for transfusion of blood product ID: Treat empirically with zosyn renally dosed Blood cultures x2, negative to date GNR in sputum on admission however no infiltrate on chest x-ray FEN: Hypermagnesia Currently 0.9% NaCl at 84 cc an hour Replace electrolytes as clinically indicated per ICU electrolyte protocol Access -Utilize peripheral IV. Heat exchange femoral catheter placed to 03/13/18 Prophylaxis -GI -pantoprazole -DVT -SCD/IV Heparin Consulted palliative care service to assist with deciding goals of therapy. Prognosis appears poor. Condition remains critical. Discussed with patient's sister on 03/17 regarding poor neurologic prognosis. Patient appears to have a terminal condition at this time with severe anoxic brain injury. Discussed need to decide goals of therapy including CODE STATUS as well as transitioning to comfort measures versus proceeding with tracheostomy and PEG tube placement. Patient's sister is having ongoing discussions with palliative care team regarding goals of therapy. CODE STATUS changed to DNR per sister. Critical care time 35 minutes excluding procedures (2) Leukocytosis Qualifiers: Leukocytosis type: unspecified Qualified Code(s): D72.829 - Elevated white blood cell count, unspecified (7) Acute drug overdose Qualifiers: Encounter type: initial encounter Injury intent: undetermined intent Qualified Code(s): T50.904A - Poisoning by unspecified drugs, medicaments and biological substances, undetermined, initial encounter
[2018-03-22] MEDS: Artificial Tears Opth Drops 15 ML Bottle EACH EYE SCH ×3 (00:51→15:46)
[2018-03-22] MEDS: Oral Hygiene Kit OROPHARYNG SCH ×4 (00:51→15:46)
[2018-03-22] MEDS: Piperacil/Tazo 3.375 GM Premix 3.375 GM/50 ML PIGGYBACK IV.SIG SCH ×4 (00:51→17:20)
[2018-03-22] MEDS: Acetaminophen 325 MG Tablet PO PRN ×3 (03:55→20:46)
[2018-03-22 04:50] LABS: Baso # (Auto) 0.1 th/mm3 (0.0-0.2); Baso % (Auto) 0.3 % (0.0-2.0); Eos # (Auto) 0.1 th/mm3 (0.0-0.4); Eos % (Auto) 0.5 % (0.0-4.0); Hemoglobin 14.8 gm/dL (13.0-17.0); Lymph # (Auto) 1.7 th/mm3 (1.0-4.8); Lymph % (Auto) 9.5 % (9.0-44.0); Mean Corpuscular HGB Conc 33.7 % (32.0-36.0); Mean Corpuscular Hemoglobin 31.1 pg (27.0-34.0); Mean Corpuscular Volume 92.2 fL (80.0-100.0); Mean Platelet Volume 8.6 fL (7.0-11.0); Mono # (Auto) 1.4 th/mm3 (0.0-0.9); Mono % (Auto) 7.9 % (0.0-8.0); Neut # (Auto) 14.7 th/mm3 (1.8-7.7); Neut % (Auto) 81.8 % (16.0-70.0); Platelet Count 241 th/mm3 (150-450); Red Blood Count 4.77 mil/mm3 (4.50-5.90); Red Cell Distribution Width 14.2 % (11.6-17.2)
[2018-03-22 05:19] LABS: Alanine Aminotransferase 69 U/L (12-78); Albumin 2.3 g/dL (3.4-5.0); Alkaline Phosphatase 75 U/L (45-117); Anion Gap 3 meq/L (5-15); Aspartate Aminotransferase 92 U/L (15-37); Blood Urea Nitrogen 43 mg/dL (7-18); Calcium 8.1 mg/dL (8.5-10.1); Carbon Dioxide 33.9 meq/L (21.0-32.0); Chloride 125 meq/L (98-107); Glomerular Filtration Rate 64 mL/min (>89); Glucose,Random 121 mg/dL (74-106); Potassium 3.8 meq/L (3.5-5.1); Total Protein 6.1 g/dL (6.4-8.2)
[2018-03-22 05:31] LABS: Sodium 162 meq/L (136-145)
[2018-03-22] MEDS: Chlorhexidine 0.12% Oral Kit 15 ML UDC OROPHARYNG SCH ×2 (07:31→20:45)
[2018-03-22] MEDS: amLODIPine 10 MG Tablet PO SCH (08:51)
[2018-03-22] MEDS: Metoprolol Tartrate 25 MG Tablet PO SCH ×3 (08:51→17:20)
[2018-03-22] MEDS: Pantoprazole Inj 40 MG Vial IV.PUSH SCH (08:51)
[2018-03-22] MEDS: Senna/Docusate Sodium 8.6/50 MG Tablet PO SCH ×2 (08:52→20:46)
[2018-03-22] MEDS: Lisinopril 5 MG Tablet PO SCH ×2 (08:52→20:46)
[2018-03-22] MEDS: [UNRECOGNIZED DRUG - OTHER] EACH EYE SCH ×2 (08:53→20:45)
--- NOTE | 2018-03-22 09:24 | P.PNCC ---
Subjective Subjective Remarks/Hospital Course: This is a 62-year-old male. Date of admission 03/13/2018. Past medical history includes hepatitis C, pancreatitis hypertension, chronic back pain and allergic rhinitis. History of tobacco abuse. Patient presents to [facility] as a PEA arrest per documentation, patient also history of heroin abuse. Patient was found to be unresponsive in attendance in a homeless camp. Presenting rhythm was pulseless electric activity. Chest compressions started. Patient was intubated. Patient was given epinephrine IV x3 and sodium bicarb 1 amp IV, naltrexone 2 mg IV. Patient was transported to ED for evaluation. Patient regained pulse upon arrival to the ED. 15 minutes per ED physician CT brain revealed no acute intracranial findings. Troponin 0.0 0.5. Patient had a leukocytosis, elevated magnesium, acute injury creatinine 1.8, lactate of 9.8 and a blood sugar today today. Toxicology screen positive for opiates, cocaine and cannabinoids. Patient is currently not moving his unresponsive at 50 rebeka grams per kilogram per minute of propofol this is currently on hold. Chest x-ray revealed old right rib fractures. No pneumothorax. ET tube 5 cm above the saqib. 03/14/18: Induced hypothermia initiated by overnight roll forming supervisor currently at target temperature. Patient is on propofol fentanyl and Nimbex. Troponin has peaked at 16. I will start IV heparin and aspirin. Cardiology consulted. 03/15/18: Induced hypothermia completed. Currently in the rewarming phase. Will be completed by to prevent in the afternoon. Currently sedated and paralyzed limiting neuro exam. Pupils are slightly reactive. 03/16/18: Patient remains off sedation last 12 hours. No clinical improvement in neuro status. Patient remains comatose. Weak cough. Slight sluggish pupil reflex. No spontaneous eye opening no withdrawal to pain. MRI of the brain ordered neurology consulted. Also check EEG to rule out subclinical seizures. Noted to have increasing white count chest x-ray shows no infiltrate 2: Remains encephalopathic off sedation. Orally intubated on mechanical ventilation. Has some spontaneous eye opening however no purposeful movements. 2: Remains encephalopathic, orally intubated on mechanical ventilation. Febrile. Tolerating tube feeds. 03/19: Remains encephalopathic, orally intubated on mechanical ventilation. Febrile. Tolerating tube feeds. Patient's sister is deciding regarding goals of therapy with palliative 2: Remains encephalopathic, orally intubated on mechanical ventilation. Awaiting family's decision regarding goals of therapy. 03/21: Remains encephalopathic, orally intubated on mechanical ventilation. 03/22: Remains encephalopathic, on mechanical ventilation. Awaiting family's decision regarding goals of therapy. Switched IV fluid to D5 water in view of hypernatremia Objective Vital Signs / I&O: Vital Signs 03/21/18 10:08 03/21/18 11:00 03/21/18 15:00 Temperature 100.5 F H 101.2 F H Pulse Rate 92 H 92 H Respiratory Rate 24 22 24 Blood Pressure 124/80 129/81 Pulse Oximetry 99 99 98 03/21/18 16:42 03/21/18 20:00 03/21/18 20:30 Temperature 101.1 F H Pulse Rate 98 H Respiratory Rate 21 19 18 Blood Pressure 121/80 Pulse Oximetry 99 99 98 03/21/18 20:49 03/21/18 23:44 03/22/18 00:00 Temperature 100.9 F H Pulse Rate 100 H 99 H Respiratory Rate 18 19 19 Blood Pressure 126/79 Pulse Oximetry 98 97 03/22/18 03:50 03/22/18 04:00 03/22/18 07:00 Temperature 101.0 F H 100.3 F H Pulse Rate 98 H 93 H Respiratory Rate 18 17 17 Blood Pressure 125/84 96/67 L Pulse Oximetry 98 99 99 03/22/18 07:55 Temperature Pulse Rate Respiratory Rate 16 Blood Pressure Pulse Oximetry 98 Intake & Output 03/21/18 03/22/18 03/22/18 18:59 06:59 18:59 Intake Total 1155 / 1155 943 / 943 50 / 50 Output Total 845 / 845 870 / 870 Balance 310 / 310 73 / 73 50 / 50 Weight 79 kg Intake: IV 632 / 632 451 / 451 50 / 50 NS Inj 1,000 ML @ 50 mls/hr IV. 532 / 532 401 / 401 CONT .Q20H ALEIDA Rx#:[id number] Zosyn 3.375 GM Premix 3.375 gm 100 / 100 50 / 50 50 / 50 In 50 ml @ 100 mls/hr IV.SIG Q6H ALEIDA Rx#:[id number] Oral 0 / 0 Tube Feeding 373 / 373 492 / 492 Water Bolus Amount 150 / 150 Output: Urine Amount (Catheter) 845 / 845 870 / 870 Condom 845 / 845 870 / 870 Other: Date of Last Bowel Movement 03/21/18 03/22/18 03/21/18 # Bowel Movements 0 1 Result Diagrams: 03/22/18 04:30 03/22/18 04:30 Objective Remarks: - Constitutional Intubated currently off all sedation remains encephalopathic, occasional eye opening however not having any purposeful movements - Routine HEENT Exam Head: normocephalic, atraumatic. Pupils are 2 mm sluggish. mucous membranes moist - Routine Neck Exam Supple - Routine Respiratory Exam Air entry equal bilaterally, synchronous with the vent. No wheezes or crackles - Routine Cardiovascular Exam Normal sinus rhythm S1-S2 normal no murmurs. Hypertensive on Cardene infusion - Routine Abdominal Exam soft, normoactive bowel sounds - Routine Extremities Exam No cyanosis, clubbing, edema - Routine Skin Exam intact - Routine Neurological Exam Patient is intubated currently off sedation remains comatose. Occasional eye opening however not focusing, no purposeful movements. Does have a gag reflex. Pupils are bilaterally equal 2 mm sluggish no corneal reflex. No withdrawal to pain. Plantar equivocal Assessment and Plan - Problem List (1) Lactic acidosis Code(s): E87.2 - Acidosis Status: Acute (2) Leukocytosis Code(s): D72.829 - Elevated white blood cell count, unspecified Status: Acute (3) Hyperglycemia Code(s): R73.9 - Hyperglycemia, unspecified Status: Acute (4) Cocaine abuse Code(s): F14.10 - Cocaine abuse, uncomplicated Status: Acute (5) Synthetic cannabinoid abuse Code(s): F19.10 - Other psychoactive substance abuse, uncomplicated Status: Acute (6) Cardiopulmonary arrest Code(s): I46.9 - Cardiac arrest, cause unspecified Status: Acute (7) Acute drug overdose Code(s): T50.901A - Poisoning by unspecified drugs, medicaments and biological substances, accidental (unintentional), initial encounter Status: Acute - Assessment and Plan Plan: Neuro/Psych: Hypoxic ischemic encephalopathy Polysubstance overdose including opiates, cocaine and cannabinoids Rewarming completed yesterday, off all sedation for last 12 hours No improvement in neuro exam. EEG with generalized slowing. Neurology consult noted. MRI brain consistent with severe anoxic brain injury per discussion with radiology. CT brain revealed no acute intracranial findings. Sinusitis Acetaminophen 650 by tube every 6 hours as needed fever CV: PEA arrest NSTEMI Uncontrolled hypertension Lactic acidosis Cardiomyopathy with EF 20-25% EKG reveals no ST elevation, telemetry strips shows left bundle branch block Initial troponin 0 0.05. Later troponin peaked at 16 Stopped IV heparin Aspirin 81 mg daily, hypotensive now hypotensive Start metoprolol 25 mg every 8 Start lisinopril 5 mg twice daily Continue Cardene infusion for hypertensive urgency. Add amlodipine 10 mg daily via G-tube Cardiology consult appreciated 2D echocardiogram EF severely reduced with an estimated ejection fraction in the range of 20-25% Further workup if there is meaningful neurological improvement Initial lactate 9.8. Now cleared Resp: Acute respiratory failure PRVC/AC Ventilation bundle. Head of bed at 30 degrees Albuterol/ipratropium aerosols every 4 hours with albuterol aerosols every 2 hours as needed dyspnea Spontaneous breathing trials however mental status will not permit extubation GI: History of hepatitis C Hyperammonemia Tube feeds with Jevity Pantoprazole for GI prophylaxis Docusate sodium/senna 1 tablet twice daily for bowel regimen-no BM yet Check ammonia level Endo: Hyperglycemia Sliding scale insulin aspart insulin with Accu-Cheks every 6 hours to maintain euglycemia Renal: Acute kidney injury Monitor urine output Accurate I's and O's. LEANDER Aly to Follow BMP in a.m. 03/14 Heme: Leukocytosis Monitor CBC daily. Follow trends, trending down now No indication for transfusion of blood product ID: Treat empirically with zosyn renally dosed Blood cultures x2, negative to date GNR in sputum on admission however no infiltrate on chest x-ray FEN: Hypermagnesia Currently 0.9% NaCl at 84 cc an hour Replace electrolytes as clinically indicated per ICU electrolyte protocol Access -Utilize peripheral IV. Heat exchange femoral catheter placed to 03/13/18 Prophylaxis -GI -pantoprazole -DVT -SCD/IV Heparin Consulted palliative care service to assist with deciding goals of therapy. Prognosis appears poor. Condition remains critical. Discussed with patient's sister on 03/17 regarding poor neurologic prognosis. Patient appears to have a terminal condition at this time with severe anoxic brain injury. Discussed need to decide goals of therapy including CODE STATUS as well as transitioning to comfort measures versus proceeding with tracheostomy and PEG tube placement. Patient's sister is having ongoing discussions with palliative care team regarding goals of therapy. CODE STATUS changed to DNR per sister. Critical care time 35 minutes excluding procedures (2) Leukocytosis Qualifiers: Leukocytosis type: unspecified Qualified Code(s): D72.829 - Elevated white blood cell count, unspecified (7) Acute drug overdose Qualifiers: Encounter type: initial encounter Injury intent: undetermined intent Qualified Code(s): T50.904A - Poisoning by unspecified drugs, medicaments and biological substances, undetermined, initial encounter
[2018-03-22] MEDS: Dextrose 5% in Water Inj 1,000 ML IV.SIG SCH (09:45)
[2018-03-23] MEDS: Dextrose 5% in Water Inj 1,000 ML IV.SIG SCH ×2 (00:10→16:39)
[2018-03-23] MEDS: Artificial Tears Opth Drops 15 ML Bottle EACH EYE SCH ×4 (00:56→23:01)
[2018-03-23] MEDS: Oral Hygiene Kit OROPHARYNG SCH ×3 (00:58→16:32)
[2018-03-23] MEDS: Piperacil/Tazo 3.375 GM Premix 3.375 GM/50 ML PIGGYBACK IV.SIG SCH ×4 (00:58→21:13)
[2018-03-23 04:22] LABS: Baso % (Auto) 0.1 % (0.0-2.0); Eos # (Auto) 0.2 th/mm3 (0.0-0.4); Eos % (Auto) 1.3 % (0.0-4.0); Hematocrit 41.4 % (39.0-51.0); Hemoglobin 13.5 gm/dL (13.0-17.0); Lymph # (Auto) 1.6 th/mm3 (1.0-4.8); Lymph % (Auto) 9.6 % (9.0-44.0); Mean Corpuscular HGB Conc 32.6 % (32.0-36.0); Mean Corpuscular Hemoglobin 29.7 pg (27.0-34.0); Mean Corpuscular Volume 90.9 fL (80.0-100.0); Mean Platelet Volume 9.1 fL (7.0-11.0); Mono % (Auto) 6.3 % (0.0-8.0); Neut # (Auto) 13.8 th/mm3 (1.8-7.7); Neut % (Auto) 82.7 % (16.0-70.0); Platelet Count 207 th/mm3 (150-450); Red Blood Count 4.56 mil/mm3 (4.50-5.90); Red Cell Distribution Width 13.8 % (11.6-17.2); White Blood Count 16.7 th/mm3 (4.0-11.0)
[2018-03-23 04:53] LABS: Alanine Aminotransferase 66 U/L (12-78); Alkaline Phosphatase 80 U/L (45-117); Anion Gap 4 meq/L (5-15); Aspartate Aminotransferase 89 U/L (15-37); Blood Urea Nitrogen 42 mg/dL (7-18); Carbon Dioxide 33.2 meq/L (21.0-32.0); Chloride 127 meq/L (98-107); Glomerular Filtration Rate 61 mL/min (>89); Glucose,Random 145 mg/dL (74-106); Potassium 3.5 meq/L (3.5-5.1); Total Protein 5.5 g/dL (6.4-8.2)
[2018-03-23] MEDS: Acetaminophen 325 MG Tablet PO PRN ×2 (04:55→23:02)
[2018-03-23 05:04] LABS: Sodium 164 meq/L (136-145)
[2018-03-23] MEDS: Chlorhexidine 0.12% Oral Kit 15 ML UDC OROPHARYNG SCH ×2 (07:30→21:14)
[2018-03-23] MEDS: Pantoprazole Inj 40 MG Vial IV.PUSH SCH (08:25)
[2018-03-23] MEDS: [UNRECOGNIZED DRUG - OTHER] EACH EYE SCH ×2 (08:26→23:01)
[2018-03-23] MEDS: amLODIPine 10 MG Tablet PO SCH (08:26)
[2018-03-23] MEDS: Metoprolol Tartrate 25 MG Tablet PO SCH ×3 (08:26→18:29)
[2018-03-23] MEDS: Lisinopril 5 MG Tablet PO SCH ×2 (08:27→21:15)
[2018-03-23] MEDS: Senna/Docusate Sodium 8.6/50 MG Tablet PO SCH ×2 (08:27→21:15)
[2018-03-23] MEDS: Potassium Chloride Liq 20 MEQ/15 ML UDC PO PRN (08:28)
--- NOTE | 2018-03-23 15:11 | P.PNPAL ---
Reason for Visit Reason for visit: a. To assist with evaluation and management of symptoms including: Dyspnea, encephalopathy b. To assist medical decision maker(s) with: better understanding of current medical conditions; weighing benefits/burdens of medical treatment options; making medical treatment decisions. Subjective Subjective/Interval History: Pt seen today to follow up on comfort, goals with decision maker. Has remained stable over weekend. Transferred to medical ICU. No improvement in neuro assessment. Na+ trending up 164, D5W IVF per critical care. WBC 16.7. Febrile, tmax 101 . ? infectious vs central. On Zosyn. Izabel TF, having BMs. BUN 42/creatinine 1.21. Pt seen in room, friend at bedside. Advise I would update sister Maribell. He does not respond to my exam. No spont respirations over vent rate. Skin warm/moist. d/w event sales assistant/Friend Interactions: following exam call to sister Maribell. Updated on current assessment, tx in place. Explore no signs of neuro improvement. She tells me that "she knows what she needs to do," she's "just not ready to make that decision". She does not wish to discuss further. She asks that the medical team cont to do every thing possible for him short of resuscitation. NO changes in goals at this time. She has palliative contact information , verbalizes appreciation for ongoing updates. Objective Vital Signs: Vital Signs 03/22/18 15:00 03/22/18 16:45 03/22/18 19:56 Temperature 100 F H Pulse Rate 78 89 Respiratory Rate 17 21 Blood Pressure 139/79 Pulse Oximetry 98 98 03/22/18 20:00 03/22/18 21:00 03/22/18 23:44 Temperature 101.8 F H Pulse Rate 92 H Respiratory Rate 16 22 17 Blood Pressure 120/86 Pulse Oximetry 98 99 99 03/23/18 00:00 03/23/18 04:00 03/23/18 04:33 Temperature 101.0 F H 101.0 F H Pulse Rate 82 99 H Respiratory Rate 16 16 17 Blood Pressure 100/65 110/68 Pulse Oximetry 99 99 100 03/23/18 07:00 03/23/18 08:31 03/23/18 12:00 Temperature 100.3 F H Pulse Rate 108 H Respiratory Rate 16 16 16 Blood Pressure 88/62 L Pulse Oximetry 99 99 98 03/23/18 14:42 Temperature Pulse Rate Respiratory Rate 16 Blood Pressure Pulse Oximetry 100 Intake & Output 03/22/18 03/23/18 03/23/18 18:59 06:59 18:59 Intake Total 1367 / 1367 1702 / 1702 50 / 50 Output Total 690 / 690 520 / 520 Balance 677 / 677 1182 / 1182 50 / 50 Weight 78 kg Intake: IV 709 / 709 1050 / 1050 50 / 50 D5W Inj 1,000 ML @ 75 mls/hr IV 559 / 559 1000 / 1000 .SIG .[id number] ALEIDA Rx#:[id number] Zosyn 3.375 GM Premix 3.375 gm 150 / 150 50 / 50 50 / 50 In 50 ml @ 100 mls/hr IV.SIG Q6H ALEIDA Rx#:[id number] Oral 0 / 0 Tube Feeding 538 / 538 552 / 552 Water Bolus Amount 120 / 120 100 / 100 Output: Urine Amount (Catheter) 690 / 690 520 / 520 Condom 690 / 690 520 / 520 Other: Date of Last Bowel Movement 03/21/18 03/21/18 03/23/18 # Bowel Movements 0 0 Physical Exam: CONSTITUTIONAL/GENERAL: This is an adequately nourished older male, no distress. TUBES/LINES/DRAINS: Peripheral IV upper extremities, OG tube, external catheter. SKIN: Skin warm /diaphoretic. HEAD: Atraumatic. Normocephalic. EYES: Pupils equal and round and reactive 2mm. Does not open for exam. Upward gaze. No scleral icterus. No injection or drainage. Fundi not examined. ENT: Nose without bleeding or purulent drainage. Limited oropharynx exam secondary to tubes CARDIOVASCULAR: Regular rate and rhythm without murmur . No JVD. Peripheral pulses symmetric. RESPIRATORY/CHEST: Symmetric, unlabored respirations via ET tube mechanical vent. no respirations over vent rate. Clear to auscultation. Breath sounds equal bilaterally. GASTROINTESTINAL: Abdomen soft, no apparent tenderness, nondistended. No palpable masses. Bowel sounds present.TF infusing GENITOURINARY: Without palpable bladder distension. External catheter in place. MUSCULOSKELETAL: Extremities without clubbing, cyanosis, or edema. No joint effusion noted. No mottling or clubbing. NEUROLOGICAL: no sedation. On mechanical vent. non responsive to my exam . Eyes with upward gaze. Positive corneal reflex. Pupils are round and reactive to light. Does not withdrawal to pain stimuli on extremities. PSYCHIATRIC: No obvious anxiety/depression--limited assessment secondary to clinical condition. Diagnostic Tests Laboratory: Laboratory Results - last 72 hr 03/22/18 03/22/18 03/23/18 04:30 04:30 04:00 WBC 18.0 H 16.7 H RBC 4.77 4.56 Hgb 14.8 13.5 Hct 44.0 41.4 MCV 92.2 90.9 MCH 31.1 29.7 MCHC 33.7 32.6 RDW 14.2 13.8 Plt Count 241 207 MPV 8.6 9.1 Neut % (Auto) 81.8 H 82.7 H Lymph % (Auto) 9.5 9.6 [place] % (Auto) 7.9 6.3 Eos % (Auto) 0.5 1.3 Baso % (Auto) 0.3 0.1 Neut # (Auto) 14.7 H 13.8 H Lymph # (Auto) 1.7 1.6 [place] # (Auto) 1.4 H 1.0 H Eos # (Auto) 0.1 0.2 Baso # (Auto) 0.1 0.0 WBC Differential . . Differential Comment Auto diff final Auto diff final Sodium 162 H* Potassium 3.8 Chloride 125 H Carbon Dioxide 33.9 H Anion Gap 3 L BUN 43 H Creatinine 1.16 Estimated GFR 64 L Random Glucose 121 H Calcium 8.1 L Total Bilirubin 0.9 AST 92 H ALT 69 Alkaline Phosphatase 75 Total Protein 6.1 L Albumin 2.3 L 03/23/18 04:00 WBC RBC Hgb Hct MCV MCH MCHC RDW Plt Count MPV Neut % (Auto) Lymph % (Auto) [place] % (Auto) Eos % (Auto) Baso % (Auto) Neut # (Auto) Lymph # (Auto) [place] # (Auto) Eos # (Auto) Baso # (Auto) WBC Differential Differential Comment Sodium 164 H* Potassium 3.5 Chloride 127 H Carbon Dioxide 33.2 H Anion Gap 4 L BUN 42 H Creatinine 1.21 Estimated GFR 61 L Random Glucose 145 H Calcium 8.0 L Total Bilirubin 0.9 AST 89 H ALT 66 Alkaline Phosphatase 80 Total Protein 5.5 L D Albumin 2.0 L Result Diagrams: 03/23/18 04:00 03/23/18 04:00 Microbiology: Microbiology 03/17/18 03:55 Aerobic Blood Culture - Final Blood - Peripheral No growth in 5 days Anaerobic Blood Culture - Final No growth in 5 days 03/17/18 01:00 Aerobic Blood Culture - Final Blood - Peripheral No growth in 5 days Anaerobic Blood Culture - Final No growth in 5 days Assessment and Plan - Disease Oriented Problem List (1) Anoxic encephalopathy (2) Cardiopulmonary arrest (3) Acute drug overdose (4) Lactic acidosis (5) Leukocytosis (6) Hyperglycemia (7) Hepatitis C (8) Acute respiratory failure (9) Cardiomyopathy (10) NSTEMI (non-ST elevated myocardial infarction) Pertinent Non-Medical Issues: Psychosocial: Patient born and raised in [place]. 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 Parents , has 1 sister. Not , no children. Intermittently homeless. Most recently lived with a roommate. Spiritual: Sister indicates "they believe ", requests melter supervisor oxygen furnace support Legal: Patient is unable to participate in medical decision making does not appear he will regain ability secondary to significant brain injury. Per [place] statutes his only sister would be appropriate legal proxy (Maribell). He is not , no children. Parents . Ethical issues impacting care: No ethical issues identified Important Contacts: Sister Maribell Salazar [phone] Prognosis: This patient was admitted for out of hospital arrest, possible overdose. He has sustained severe anoxic brain injury. Prognosis for meaningful neurologic recovery is poor. Code Status: No Code DNR Plan: Legal decision maker:Patient is unable to participate in medical decision making does not appear he will regain ability secondary to significant brain injury. Per [place] statutes his only sister would be appropriate legal proxy ( Maribell). He is not , no children. Parents . Goals: sister is not ready to make any decisions regarding possibility of withdrawal. She wishes to continue all available aggressive treatments / interventions at this time. She has elected DNR CODE STATUS: DNR SYMPTOMS: --Painpotential sources: s/p CPR. patient with reported history of chronic back pain. Of note he was recently seen in [place] ED 02/22/18 for severe back pain. Lumbar spine imaging notes possible acute ligament injury L3-L4, with chronic/stable findings of anterolisthesis at L4, L5, severe foraminal stenosis at L4, L5, and moderate stenosis at L5, S1. [Neurosurgery was consulted at that time and recommended conservative management with pain control, at some point if pain unremitting could consider surgery discharged with analgesic, muscle relaxant, Neurontin recommended for follow-up 1-2 weeks]. + hx old rib fx. Currently nonresponsive, no signs of distress --Dyspnea-intubated due to brain injury and no respiratory effort, currently breathing comfortable on mechanical vent, would likely require prolonged support and possibly tracheostomy given severity of anoxic brain injury --Encephalopathy-found unresponsive and pulseless, unknown amount of downtime out of hospital, underwent CPR with ROSC. Imaging, EEG indicative of severe anoxic injury. Poor prognosis for meaningful neurologic recovery Palliative care will continue to follow during hospital course as condition evolves, to assist patient/decision-maker with understanding of medical conditions, weighing benefits/burdens of treatment options, for clarification of goals of treatment. Additionally will assist with any symptoms of palliative concern Attestation Attestation: To help prompt me to consider important information that might be impacting today's encounter and assessment, information from prior notes written by myself or my colleagues may have been "brought forward" into today's note. My signature on this note, however, is an attestation that I personally performed the exam, history, and/or decision-making noted today, and, unless otherwise indicated, the interactions with patient, family, and staff as well as the review of records all occurred today. I also attest that the listed assessment and stated plan reflect my best clinical judgment today based on the combination of historical information, prior notes, and today's exam/ interactions. When time spent is documented, it refers only to time spent today by the signer, or if indicated, combined time spent today by collaborating physician/nurse practitioner.
--- NOTE | 2018-03-23 16:33 | P.PNCC ---
Subjective Subjective Remarks/Hospital Course: This is a 62-year-old male. Date of admission 03/13/2018. Past medical history includes hepatitis C, pancreatitis hypertension, chronic back pain and allergic rhinitis. History of tobacco abuse. Patient presents to [facility] as a PEA arrest per documentation, patient also history of heroin abuse. Patient was found to be unresponsive in attendance in a homeless camp. Presenting rhythm was pulseless electric activity. Chest compressions started. Patient was intubated. Patient was given epinephrine IV x3 and sodium bicarb 1 amp IV, naltrexone 2 mg IV. Patient was transported to ED for evaluation. Patient regained pulse upon arrival to the ED. [address] minutes per ED physician CT brain revealed no acute intracranial findings. Troponin 0.0 0.5. Patient had a leukocytosis, elevated magnesium, acute injury creatinine 1.8, lactate of 9.8 and a blood sugar today today. Toxicology screen positive for opiates, cocaine and cannabinoids. Patient is currently not moving his unresponsive at 50 rebeka grams per kilogram per minute of propofol this is currently on hold. Chest x-ray revealed old right rib fractures. No pneumothorax. ET tube 5 cm above the saqib. 03/14/18: Induced hypothermia initiated by overnight flat folder currently at target temperature. Patient is on propofol fentanyl and Nimbex. Troponin has peaked at 16. I will start IV heparin and aspirin. Cardiology consulted. 03/15/18: Induced hypothermia completed. Currently in the rewarming phase. Will be completed by to prevent in the afternoon. Currently sedated and paralyzed limiting neuro exam. Pupils are slightly reactive. 03/16/18: Patient remains off sedation last 12 hours. No clinical improvement in neuro status. Patient remains comatose. Weak cough. Slight sluggish pupil reflex. No spontaneous eye opening no withdrawal to pain. MRI of the brain ordered neurology consulted. Also check EEG to rule out subclinical seizures. Noted to have increasing white count chest x-ray shows no infiltrate 2: Remains encephalopathic off sedation. Orally intubated on mechanical ventilation. Has some spontaneous eye opening however no purposeful movements. 2: Remains encephalopathic, orally intubated on mechanical ventilation. Febrile. Tolerating tube feeds. 03/19: Remains encephalopathic, orally intubated on mechanical ventilation. Febrile. Tolerating tube feeds. Patient's sister is deciding regarding goals of therapy with palliative 2: Remains encephalopathic, orally intubated on mechanical ventilation. Awaiting family's decision regarding goals of therapy. 03/21: Remains encephalopathic, orally intubated on mechanical ventilation. 03/22: Remains encephalopathic, on mechanical ventilation. Awaiting family's decision regarding goals of therapy. Switched IV fluid to D5 water in view of hypernatremia 03/23: Remains encephalopathic on mechanical ventilation. Awaiting patient's sister's decision regarding goals of therapy. Poor neurologic prognosis. Objective Vital Signs / I&O: Vital Signs 03/22/18 16:45 03/22/18 19:56 03/22/18 20:00 Temperature 101.8 F H Pulse Rate 89 92 H Respiratory Rate 17 21 16 Blood Pressure 120/86 Pulse Oximetry 98 98 03/22/18 21:00 03/22/18 23:44 03/23/18 00:00 Temperature 101.0 F H Pulse Rate 82 Respiratory Rate 22 17 16 Blood Pressure 100/65 Pulse Oximetry 99 99 99 03/23/18 04:00 03/23/18 04:33 03/23/18 07:00 Temperature 101.0 F H 100.3 F H Pulse Rate 99 H 108 H Respiratory Rate 16 17 16 Blood Pressure 110/68 88/62 L Pulse Oximetry 99 100 99 03/23/18 08:31 03/23/18 11:00 03/23/18 12:00 Temperature 100 F H Pulse Rate 78 Respiratory Rate 16 16 16 Blood Pressure 94/70 L Pulse Oximetry 99 100 98 03/23/18 14:42 03/23/18 16:00 Temperature Pulse Rate 109 H Respiratory Rate 16 17 Blood Pressure 129/88 Pulse Oximetry 100 100 Intake & Output 03/22/18 03/23/18 03/23/18 18:59 06:59 18:59 Intake Total 1367 / 1367 1702 / 1702 50 / 50 Output Total 690 / 690 520 / 520 Balance 677 / 677 1182 / 1182 50 / 50 Weight 78 kg Intake: IV 709 / 709 1050 / 1050 50 / 50 D5W Inj 1,000 ML @ 75 mls/hr IV 559 / 559 1000 / 1000 .SIG .[id number] [facility] Rx#:[id number] Zosyn 3.375 GM Premix 3.375 gm 150 / 150 50 / 50 50 / 50 In 50 ml @ 100 mls/hr IV.SIG Q6H ALEIDA Rx#:[id number] Oral 0 / 0 Tube Feeding 538 / 538 552 / 552 Water Bolus Amount 120 / 120 100 / 100 Output: Urine Amount (Catheter) 690 / 690 520 / 520 Condom 690 / 690 520 / 520 Other: Date of Last Bowel Movement 03/21/18 03/21/18 03/23/18 # Bowel Movements 0 0 Result Diagrams: 03/23/18 04:00 03/23/18 04:00 Objective Remarks: - Constitutional Intubated currently off all sedation remains encephalopathic, occasional eye opening however not having any purposeful movements - Routine HEENT Exam Head: normocephalic, atraumatic. Pupils are 2 mm sluggish. mucous membranes moist - Routine Neck Exam Supple - Routine Respiratory Exam Air entry equal bilaterally, synchronous with the vent. No wheezes or crackles - Routine Cardiovascular Exam Normal sinus rhythm S1-S2 normal no murmurs. Hypertensive on Cardene infusion - Routine Abdominal Exam soft, normoactive bowel sounds - Routine Extremities Exam No cyanosis, clubbing, edema - Routine Skin Exam intact - Routine Neurological Exam Patient is intubated currently off sedation remains comatose. Occasional eye opening however not focusing, no purposeful movements. Does have a gag reflex. Pupils are bilaterally equal 2 mm sluggish no corneal reflex. No withdrawal to pain. Plantar equivocal Assessment and Plan - Problem List (1) Lactic acidosis Code(s): E87.2 - Acidosis Status: Acute (2) Leukocytosis Code(s): D72.829 - Elevated white blood cell count, unspecified Status: Acute (3) Hyperglycemia Code(s): R73.9 - Hyperglycemia, unspecified Status: Acute (4) Cocaine abuse Code(s): F14.10 - Cocaine abuse, uncomplicated Status: Acute (5) Synthetic cannabinoid abuse Code(s): F19.10 - Other psychoactive substance abuse, uncomplicated Status: Acute (6) Cardiopulmonary arrest Code(s): I46.9 - Cardiac arrest, cause unspecified Status: Acute (7) Acute drug overdose Code(s): T50.901A - Poisoning by unspecified drugs, medicaments and biological substances, accidental (unintentional), initial encounter Status: Acute - Assessment and Plan Plan: Neuro/Psych: Hypoxic ischemic encephalopathy Polysubstance overdose including opiates, cocaine and cannabinoids Rewarming completed yesterday, off all sedation for last 12 hours No improvement in neuro exam. EEG with generalized slowing. Neurology consult noted. MRI brain consistent with severe anoxic brain injury per discussion with radiology. CT brain revealed no acute intracranial findings. Sinusitis Acetaminophen 650 by tube every 6 hours as needed fever CV: PEA arrest NSTEMI Uncontrolled hypertension Lactic acidosis Cardiomyopathy with EF 20-25% EKG reveals no ST elevation, telemetry strips shows left bundle branch block Initial troponin 0 0.05. Later troponin peaked at 16 Stopped IV heparin Aspirin 81 mg daily, hypotensive now hypotensive Start metoprolol 25 mg every 8 Start lisinopril 5 mg twice daily Continue Cardene infusion for hypertensive urgency. Add amlodipine 10 mg daily via G-tube Cardiology consult appreciated 2D echocardiogram EF severely reduced with an estimated ejection fraction in the range of 20-25% Further workup if there is meaningful neurological improvement Initial lactate 9.8. Now cleared Resp: Acute respiratory failure PRVC/AC Ventilation bundle. Head of bed at 30 degrees Albuterol/ipratropium aerosols every 4 hours with albuterol aerosols every 2 hours as needed dyspnea Spontaneous breathing trials however mental status will not permit extubation GI: History of hepatitis C Hyperammonemia Tube feeds with Jevity Pantoprazole for GI prophylaxis Docusate sodium/senna 1 tablet twice daily for bowel regimen-no BM yet Check ammonia level Endo: Hyperglycemia Sliding scale insulin aspart insulin with Accu-Cheks every 6 hours to maintain euglycemia Renal: Acute kidney injury Monitor urine output Accurate I's and O's. Heme: Leukocytosis Monitor CBC No indication for transfusion of blood product ID: Treat empirically with zosyn renally dosed Blood cultures x2, negative to date GNR in sputum on admission however no infiltrate on chest x-ray FEN: Hypermagnesia Currently 0.9% NaCl at 84 cc an hour Replace electrolytes as clinically indicated per ICU electrolyte protocol Access -Utilize peripheral IV. Heat exchange femoral catheter placed to 03/13/18 Prophylaxis -GI -pantoprazole -DVT -SCD/IV Heparin Consulted palliative care service to assist with deciding goals of therapy. Prognosis appears poor. Condition remains critical. Discussed with patient's sister on 03/17 regarding poor neurologic prognosis. Patient appears to have a terminal condition at this time with severe anoxic brain injury. Discussed need to decide goals of therapy including CODE STATUS as well as transitioning to comfort measures versus proceeding with tracheostomy and PEG tube placement. Patient's sister is having ongoing discussions with palliative care team regarding goals of therapy. CODE STATUS changed to DNR per sister. Critical care time 35 minutes excluding procedures (2) Leukocytosis Qualifiers: Leukocytosis type: unspecified Qualified Code(s): D72.829 - Elevated white blood cell count, unspecified (7) Acute drug overdose Qualifiers: Encounter type: initial encounter Injury intent: undetermined intent Qualified Code(s): T50.904A - Poisoning by unspecified drugs, medicaments and biological substances, undetermined, initial encounter
--- NOTE | 2018-03-23 16:56 | P.PNWCN ---
Wound Care Nurse Consult Description: Received pressure ulcer wound management consult from Doctor Cheo for coccyx area. Communicated with: [place]ITTA Kennedy [facility] Vazquez Helms Recommendation: 1. Please cleanse wound to sacrococcygeal area with normal saline and pat dry. 2. Apply Cavilon skin barrier film to unopened portion of DTI. Then apply Calazime skin protectant paste over opening of DTI and gluteal cleft areas BID 3. Leave open to air. 4. Turn patient every 2 hours from L side to R side limiting time spent on back to P.T. , Meals, Patient care, and medical procedures. 5. Do not place cotton pads on low airloss mattress. 6. Vocera wound care nurse for wound deterioration. Wound/Pressure Injury - Wound Sacrococcygeal Wound Staging: DTI Wound Assessment: Ongoing Requested from Provider a Wound Care Consult: Yes Length (cm): 6.1 Width (cm): 2.7 Depth (cm): 0 (non blanchable light purple discoloration that is opening to partial thickness skin loss) Wound Bed Appearance: Wound presents as non blanchable light purple discoloration that is opening to partial thickness skin loss that is measuring 1cm x 0.9cm x ~0.1cm Surrounding Tissue Appearance: Blanched/Dull Surrounding Tissue Temperature: Warm Drainage Amount: None Drainage Odor: No Odor Dressing Status: Open to Air Cleansing Solution: Saline Topical: Cavilon skin barrier film to unopened portion of DTI Wound Dressing Change Date: 03/23/18 Wound Margin Description: Poorly defined - Additional Information [place] [facility] [place] pressure ulcer wound management of coccyx area. Patient was turned toward the L side with the assistance of documentation writer and BRITTA Hernández to reveal deep tissue injury that is opening.Wound presents as non blanchable light purple discoloration to ~90% intact skin, that is opening to partial thickness skin loss that is measuring 1cm x 0.9cm x ~0.1cm.Wound was cleansed with normal saline and patted dry. Cavilon skin barrier film was then applied over unopened portion of DTI. Applied Calazime skin protectant paste over opened area within DTI and gluteal cleft. Patient was cleansed after having Bowel movement with Bath wipes and was positioned off bottom with pillow in place for support. Full wound description, measurements and recommendations are noted above.
[2018-03-24] MEDS: Oral Hygiene Kit OROPHARYNG SCH ×4 (00:57→17:11)
[2018-03-24] MEDS: Dextrose 5% in Water Inj 1,000 ML IV.SIG SCH ×5 (00:57→21:21)
[2018-03-24] MEDS: Piperacil/Tazo 3.375 GM Premix 3.375 GM/50 ML PIGGYBACK IV.SIG SCH ×2 (00:57→06:22)
[2018-03-24 05:05] LABS: Baso % (Auto) 0.1 % (0.0-2.0); Eos # (Auto) 0.3 th/mm3 (0.0-0.4); Eos % (Auto) 1.4 % (0.0-4.0); Hematocrit 41.1 % (39.0-51.0); Hemoglobin 13.2 gm/dL (13.0-17.0); Lymph % (Auto) 8.8 % (9.0-44.0); Mean Corpuscular HGB Conc 32.2 % (32.0-36.0); Mean Corpuscular Hemoglobin 29.7 pg (27.0-34.0); Mean Corpuscular Volume 92.2 fL (80.0-100.0); Mean Platelet Volume 10.4 fL (7.0-11.0); Mono # (Auto) 1.1 th/mm3 (0.0-0.9); Mono % (Auto) 4.7 % (0.0-8.0); Neut # (Auto) 19.5 th/mm3 (1.8-7.7); Platelet Count 255 th/mm3 (150-450); Red Blood Count 4.45 mil/mm3 (4.50-5.90); Red Cell Distribution Width 14.3 % (11.6-17.2)
[2018-03-24] MEDS: Artificial Tears Opth Drops 15 ML Bottle EACH EYE SCH ×3 (06:23→23:35)
[2018-03-24] MEDS: Acetaminophen 325 MG Tablet PO PRN ×2 (08:45→16:12)
[2018-03-24] MEDS: amLODIPine 10 MG Tablet PO SCH (08:46)
[2018-03-24] MEDS: Metoprolol Tartrate 25 MG Tablet PO SCH ×3 (08:46→17:07)
[2018-03-24] MEDS: Lisinopril 5 MG Tablet PO SCH ×2 (08:46→21:20)
[2018-03-24] MEDS: Senna/Docusate Sodium 8.6/50 MG Tablet PO SCH ×2 (08:47→21:20)
[2018-03-24] MEDS: Pantoprazole Inj 40 MG Vial IV.PUSH SCH (08:49)
[2018-03-24] MEDS: Potassium Chloride Liq 20 MEQ/15 ML UDC PO PRN (08:49)
--- NOTE | 2018-03-24 09:56 | P.PNCC ---
Subjective Subjective Remarks/Hospital Course: This is a 62-year-old male. Date of admission 03/13/2018. Past medical history includes hepatitis C, pancreatitis hypertension, chronic back pain and allergic rhinitis. History of tobacco abuse. Patient presents to [facility] as a PEA arrest per documentation, patient also history of heroin abuse. Patient was found to be unresponsive in attendance in a homeless [place]. Presenting rhythm was pulseless electric activity. Chest compressions started. Patient was intubated. Patient was given epinephrine IV x3 and sodium bicarb 1 amp IV, naltrexone 2 mg IV. Patient was transported to ED for evaluation. Patient regained pulse upon arrival to the ED. [address] minutes per ED physician CT brain revealed no acute intracranial findings. Troponin 0.0 0.5. Patient had a leukocytosis, elevated magnesium, acute injury creatinine 1.8, lactate of 9.8 and a blood sugar today today. Toxicology screen positive for opiates, cocaine and cannabinoids. Patient is currently not moving his unresponsive at 50 rebeka grams per kilogram per minute of propofol this is currently on hold. Chest x-ray revealed old right rib fractures. No pneumothorax. ET tube 5 cm above the saqib. 03/14/18: Induced hypothermia initiated by overnight window treatment installer currently at target temperature. Patient is on propofol fentanyl and Nimbex. Troponin has peaked at 16. I will start IV heparin and aspirin. Cardiology consulted. 03/15/18: Induced hypothermia completed. Currently in the rewarming phase. Will be completed by to prevent in the afternoon. Currently sedated and paralyzed limiting neuro exam. Pupils are slightly reactive. 03/16/18: Patient remains off sedation last 12 hours. No clinical improvement in neuro status. Patient remains comatose. Weak cough. Slight sluggish pupil reflex. No spontaneous eye opening no withdrawal to pain. MRI of the brain ordered neurology consulted. Also check EEG to rule out subclinical seizures. Noted to have increasing white count chest x-ray shows no infiltrate 2: Remains encephalopathic off sedation. Orally intubated on mechanical ventilation. Has some spontaneous eye opening however no purposeful movements. 2: Remains encephalopathic, orally intubated on mechanical ventilation. Febrile. Tolerating tube feeds. 03/19: Remains encephalopathic, orally intubated on mechanical ventilation. Febrile. Tolerating tube feeds. Patient's sister is deciding regarding goals of therapy with palliative 2: Remains encephalopathic, orally intubated on mechanical ventilation. Awaiting family's decision regarding goals of therapy. 03/21: Remains encephalopathic, orally intubated on mechanical ventilation. 03/22: Remains encephalopathic, on mechanical ventilation. Awaiting family's decision regarding goals of therapy. Switched IV fluid to D5 water in view of hypernatremia 03/23: Remains encephalopathic on mechanical ventilation. Awaiting patient's sister's decision regarding goals of therapy. Poor neurologic prognosis. 03/24: Remains encephalopathic on mechanical ventilation. Has spontaneous eye opening. Hyponatremic. Febrile. Sputum cultures with Pseudomonas on Zosyn. We will repeat nam cultures. Patient's sister is not sure regarding decision for trach PEG versus comfort measures currently. She requests additional neuro follow-up for prognosis. Objective Vital Signs / I&O: Vital Signs 03/23/18 11:00 03/23/18 12:00 03/23/18 14:42 Temperature 100 F H Pulse Rate 78 Respiratory Rate 16 16 16 Blood Pressure 94/70 L Pulse Oximetry 100 98 100 03/23/18 16:00 03/23/18 19:00 03/23/18 19:30 Temperature Pulse Rate 109 H 106 H 112 H Respiratory Rate 17 16 16 Blood Pressure 129/88 113/70 114/80 Pulse Oximetry 100 92 L 92 L 03/23/18 20:00 03/23/18 20:30 03/23/18 20:50 Temperature Pulse Rate 110 H 110 H Respiratory Rate 16 16 19 Blood Pressure 105/84 111/84 Pulse Oximetry 92 L 93 L 94 L 03/23/18 21:00 03/23/18 21:30 03/23/18 22:00 Temperature Pulse Rate 109 H 113 H 109 H Respiratory Rate 16 16 16 Blood Pressure 102/76 128/88 120/81 Pulse Oximetry 91 L 91 L 92 L 03/23/18 22:30 03/23/18 23:00 03/23/18 23:30 Temperature 103.1 F H Pulse Rate 106 H 102 H 116 H Respiratory Rate 16 16 16 Blood Pressure 111/73 127/84 124/86 Pulse Oximetry 92 L 93 L 92 L 03/24/18 00:00 03/24/18 00:09 03/24/18 00:30 Temperature 102 F H Pulse Rate 109 H 109 H Respiratory Rate 16 18 16 Blood Pressure 104/74 107/72 Pulse Oximetry 92 L 93 L 92 L 03/24/18 01:00 03/24/18 01:30 03/24/18 02:00 Temperature 101.1 F H Pulse Rate 110 H 109 H 104 H Respiratory Rate 16 16 Blood Pressure 96/69 L 122/86 123/90 Pulse Oximetry 91 L 92 L 92 L 03/24/18 02:30 03/24/18 03:00 03/24/18 03:30 Temperature Pulse Rate 102 H 105 H 105 H Respiratory Rate Blood Pressure 120/83 106/72 125/85 Pulse Oximetry 92 L 92 L 99 03/24/18 04:00 03/24/18 04:17 03/24/18 04:30 Temperature 101.5 F H Pulse Rate 107 H 107 H Respiratory Rate 17 Blood Pressure 130/87 117/82 Pulse Oximetry 98 98 99 03/24/18 05:00 03/24/18 07:55 Temperature Pulse Rate 105 H Respiratory Rate 16 Blood Pressure 119/79 Pulse Oximetry 99 98 Intake & Output 03/23/18 03/24/18 03/24/18 18:59 06:59 18:59 Intake Total 1100 / 1100 1970 / 1970 Output Total 550 / 550 600 / 600 Balance 550 / 550 1371 / 1371 Weight 81.1 kg Intake: IV 1100 / 1100 1100 / 1100 D5W Inj 1,000 ML @ 75 mls/hr IV 1000 / 1000 1000 / 1000 .SIG .[id number] [facility] Rx#:[id number] Zosyn 3.375 GM Premix 3.375 gm 100 / 100 100 / 100 In 50 ml @ 100 mls/hr IV.SIG Q6H [facility] Rx#:[id number] Tube Feeding 871 / 871 Output: Urine Amount (Catheter) 550 / 550 600 / 600 Condom 550 / 550 600 / 600 Other: Date of Last Bowel Movement 03/23/18 03/23/18 Result Diagrams: 03/24/18 03:29 03/23/18 04:00 Objective Remarks: - Constitutional Intubated currently off all sedation remains encephalopathic, occasional eye opening however not having any purposeful movements - Routine HEENT Exam Head: normocephalic, atraumatic. Pupils are 2 mm sluggish. mucous membranes moist - Routine Neck Exam Supple - Routine Respiratory Exam Air entry equal bilaterally, synchronous with the vent. No wheezes or crackles. Scattered rhonchi - Routine Cardiovascular Exam Normal sinus rhythm S1-S2 normal no murmurs. - Routine Abdominal Exam soft, normoactive bowel sounds - Routine Extremities Exam No cyanosis, clubbing, edema - Routine Skin Exam intact - Routine Neurological Exam Patient is intubated currently off sedation remains encephalopathic. Occasional eye opening however not focusing, occasional blinking, no purposeful movements. Does have a gag reflex. Pupils are bilaterally equal 2 mm sluggish no corneal reflex. No withdrawal to pain. Plantar equivocal Assessment and Plan - Problem List (1) Lactic acidosis Code(s): E87.2 - Acidosis Status: Acute (2) Leukocytosis Code(s): D72.829 - Elevated white blood cell count, unspecified Status: Acute (3) Hyperglycemia Code(s): R73.9 - Hyperglycemia, unspecified Status: Acute (4) Cocaine abuse Code(s): F14.10 - Cocaine abuse, uncomplicated Status: Acute (5) Synthetic cannabinoid abuse Code(s): F19.10 - Other psychoactive substance abuse, uncomplicated Status: Acute (6) Cardiopulmonary arrest Code(s): I46.9 - Cardiac arrest, cause unspecified Status: Acute (7) Acute drug overdose Code(s): T50.901A - Poisoning by unspecified drugs, medicaments and biological substances, accidental (unintentional), initial encounter Status: Acute - Assessment and Plan Plan: Neuro/Psych: Hypoxic ischemic encephalopathy Polysubstance overdose including opiates, cocaine and cannabinoids Rewarming completed, off all sedation for 4 days No improvement in neuro exam. EEG with generalized slowing. Neurology consult noted. MRI brain consistent with severe anoxic brain injury per discussion with radiology. We will repeat EEG and request review by neurology regarding prognosis from anoxic brain injury. CT brain revealed no acute intracranial findings. Sinusitis Acetaminophen 650 by tube every 6 hours as needed fever CV: PEA arrest NSTEMI Uncontrolled hypertension Lactic acidosis Cardiomyopathy with EF 20-25% EKG reveals no ST elevation, telemetry strips shows left bundle branch block Initial troponin 0 0.05. Later troponin peaked at 16 Stopped IV heparin Aspirin 81 mg daily, hypotensive now hypotensive metoprolol 25 mg every 8 Start lisinopril 5 mg twice daily Off Cardene. amlodipine 10 mg daily via G-tube Cardiology consult appreciated 2D echocardiogram EF severely reduced with an estimated ejection fraction in the range of 20-25% Further workup if there is meaningful neurological improvement Initial lactate 9.8. Now cleared Resp: Acute respiratory failure PRVC/AC Ventilation bundle. Head of bed at 30 degrees Albuterol/ipratropium aerosols every 4 hours with albuterol aerosols every 2 hours as needed dyspnea Spontaneous breathing trials however mental status will not permit extubation GI: History of hepatitis C Hyperammonemia Tube feeds with Jevity Pantoprazole for GI prophylaxis Docusate sodium/senna 1 tablet twice daily for bowel regimen-no BM yet Check ammonia level Endo: Hyperglycemia Sliding scale insulin aspart insulin with Accu-Cheks every 6 hours to maintain euglycemia Renal: Acute kidney injury Hypernatremia Increase D5 water to 150 cc/h, free water via NG tube. Follow sodium. Monitor urine output Accurate I's and O's. Heme: Leukocytosis Monitor CBC No indication for transfusion of blood product ID: Increase Zosyn to 4.5 g IV every 6 hourly Blood cultures x2, negative to date Pseudomonas in sputum on admission FEN: Currently 0.9% NaCl at 84 cc an hour Replace electrolytes as clinically indicated per ICU electrolyte protocol Access -Utilize peripheral IV. Heat exchange femoral catheter placed to 03/13/18 Prophylaxis -GI -pantoprazole -DVT -SCD/IV Heparin Consulted palliative care service to assist with deciding goals of therapy. Prognosis appears poor. Condition remains critical. Discussed with patient's sister on 03/17 regarding poor neurologic prognosis. Patient appears to have a terminal condition at this time with severe anoxic brain injury. Discussed need to decide goals of therapy including CODE STATUS as well as transitioning to comfort measures versus proceeding with tracheostomy and PEG tube placement. Patient's sister is having ongoing discussions with palliative care team regarding goals of therapy. CODE STATUS changed to DNR per sister. Critical care time 35 minutes excluding procedures (2) Leukocytosis Qualifiers: Leukocytosis type: unspecified Qualified Code(s): D72.829 - Elevated white blood cell count, unspecified (7) Acute drug overdose Qualifiers: Encounter type: initial encounter Injury intent: undetermined intent Qualified Code(s): T50.904A - Poisoning by unspecified drugs, medicaments and biological substances, undetermined, initial encounter
[2018-03-24] MEDS: Chlorhexidine 0.12% Oral Kit 15 ML UDC OROPHARYNG SCH ×2 (11:10→21:20)
[2018-03-24] MEDS: [UNRECOGNIZED DRUG - OTHER] EACH EYE SCH ×2 (11:10→21:20)
[2018-03-24] MEDS: Piperacil/Tazo 4.5 GM Premix 4.5 GM/100 ML BAG IV.SIG SCH ×2 (11:38→17:11)
[2018-03-24 14:22] LABS: Bilirubin,Urine Small (Negative); Clarity,Urine Clear (Clear); Color,Urine Amber (Yellw/Straw); Glucose,Urine (UA) Negative (Negative); Leukocyte Esterase,Urine Negative (Negative); Nitrite,Urine Negative (Negative); Specific Gravity,Urine 1.028 (1.002-1.035); Squamous Epithelial Cell,Urine <1 /hpf (0-5)
[2018-03-24 14:25] LABS: Ictotest,Urine Positive (Negative)
--- NOTE | 2018-03-24 16:36 | P.DIET ---
Nutritional Evaluation Type of nutrition evaluation: follow-up Nutrition consult regarding: Tube Feeding Objective - Diagnosis Cardiopulmonary Arrest, Drug Overdose - Objective % IBW: 96 (IBW: 81kg) Body Weight Used for Calculations: Actual (78kg) Energy Needs - Lower Range (kCal/kg): 25 Energy Needs - Upper Range (kCal/kg): 30 Lower Limit kCal/kg (kCals): 1,950 Upper Limit kCal/kg (kCals): 2,340 Lower Limit Protein Factor (Grams per Kg): 1.2 Upper Limit Protein Factor (Grams per Kg): 1.5 Lower Protein Needs (Protein): 94 Upper Protein Needs (Protein): 117 Dietitian Reviewed in Medical Record: Curent medications, Intake & Output, Labs , Medical history, Tube feeding, Wound/DTI Diet Order: NPO Wound Care Note: See WOCN dated 03/23: pt with new DTI of sacrococcyx area Objective Comments: PMH: Hepatitis C, Pancreatitis, chronic back pain Assessment Assessment: Pt remains at nutritional risk r/t current clinical status and need for a TF for nutrition support. Pt admitted for cardiopulmonary arrest and drug overdose. Nutritional needs as assessed above. Current TF Jevity 1.5 with goal rate 45ml/hr per MD. To meet pt's nutritional needs, a goal rate of 60ml/hr is necessary providing 2160kcals, 92gms protein and 1094mls free water. Labs, wts and clinical course reviewed: elevated Na @ 164 and elevated glucose @ 145 noted. Recommendations: TF Jevity 1.5 with goal rate 60ml/hr to meet pt's nutritional needs. Dietitian to Monitor: Lab values (Na and glu), Intake & Output, Tube feeding tolerance, Weight change, Wound/skin status, Medical course
--- NOTE | 2018-03-24 23:20 | MG ---
cc: Marvin Russo MD EEG RECORD NUMBER: [id number]. FINDINGS: Flat line appearance occurring throughout the recording. No driving with photic stimulation. Single lead EKG showing sinus rhythm. Deep tactile stimuli that was apparently moving inward. Questionable small electrical activity and potentials, frontotemporal region. Single-lead EKG showing sinus rhythm. INTERPRETATION: Mostly flat line-appearing electroencephalogram. This would be consistent with severe anoxic cortical injury. Clinical correlation. Marvin Russo MD MG/eb/do , 10:39 PM , 10:42 PM
[2018-03-25] MEDS: Piperacil/Tazo 4.5 GM Premix 4.5 GM/100 ML BAG IV.SIG SCH ×4 (00:25→17:53)
[2018-03-25] MEDS: Oral Hygiene Kit OROPHARYNG SCH ×4 (00:25→17:51)
[2018-03-25] MEDS: Dextrose 5% in Water Inj 1,000 ML IV.SIG SCH ×3 (04:52→22:06)
[2018-03-25] MEDS: Artificial Tears Opth Drops 15 ML Bottle EACH EYE SCH ×3 (06:00→23:30)
[2018-03-25 06:21] LABS: Baso # (Auto) 0.1 th/mm3 (0.0-0.2); Baso % (Auto) 0.3 % (0.0-2.0); Eos # (Auto) 0.4 th/mm3 (0.0-0.4); Eos % (Auto) 1.6 % (0.0-4.0); Hematocrit 40.5 % (39.0-51.0); Hemoglobin 13.4 gm/dL (13.0-17.0); Lymph # (Auto) 1.5 th/mm3 (1.0-4.8); Lymph % (Auto) 6.5 % (9.0-44.0); Mean Corpuscular HGB Conc 32.9 % (32.0-36.0); Mean Corpuscular Hemoglobin 30.7 pg (27.0-34.0); Mean Corpuscular Volume 93.3 fL (80.0-100.0); Mean Platelet Volume 10.8 fL (7.0-11.0); Mono % (Auto) 4.4 % (0.0-8.0); Neut # (Auto) 19.7 th/mm3 (1.8-7.7); Neut % (Auto) 87.2 % (16.0-70.0); Platelet Count 260 th/mm3 (150-450); Red Blood Count 4.34 mil/mm3 (4.50-5.90); Red Cell Distribution Width 13.9 % (11.6-17.2); White Blood Count 22.6 th/mm3 (4.0-11.0)
--- NOTE | 2018-03-25 06:33 | P.PNNEU ---
Subjective Subjective Comments: pt seen for f/u of anoxic encephalopathy off sedation for days. Active Medications: Active Medications Acetaminophen (Tylenol) 650 mg PO Q6H PRN PRN Reason: Fever >101f Last Admin: 03/24/18 16:12 Dose: 650 mg Al Hydroxide/Mg Hydroxide (Milk Of Magncayla Liq) 30 ml PO Q12H PRN PRN Reason: Mild Constipation Albuterol (Albuterol Neb (Prn)) 2.5 mg NEB Q2HR NEB PRN PRN Reason: SHORTNESS OF BREATH/WHEEZING Last Admin: 03/22/18 19:56 Dose: 2.5 mg Amlodipine Besylate (Norvasc) 10 mg PO DAILY [facility] Last Admin: 03/24/18 08:46 Dose: 10 mg Artificial Tears (Tears Naturale Opth Drops) 1 drop EACH EYE Q8H [facility] Last Admin: 03/25/18 06:00 Dose: Not Given Artificial Tears (Lacrilube Opth Oint) 1 applicatio EACH EYE Q4H PRN PRN Reason: WHILE ON NMB Last Admin: 03/17/18 15:41 Dose: 1 applicatio Aspirin (Aspirin Chew) 81 mg PO DAILY [facility] Last Admin: 03/24/18 08:47 Dose: 81 mg Bisacodyl (Dulcolax Supp) 10 mg RECTAL DAILY PRN PRN Reason: SEVERE CONSITIPATION Chlorhexidine Gluconate (Peridex 0.12% Oral Kit) 15 ml OROPHARYNG BID@0800, 2000 [facility] Last Admin: 03/24/18 21:20 Dose: 15 ml Clonidine HCl (Catapres) 0.1 mg PO Q6HR [facility] Last Admin: 03/25/18 05:19 Dose: 0.1 mg Hydralazine HCl (Apresoline Inj) 20 mg IV.PUSH Q3H PRN PRN Reason: FOR SBP >160 Last Admin: 03/19/18 22:27 Dose: 20 mg Hyoscyamine (Levsin) 0.125 mg PO Q6H PRN PRN Reason: SECRETIONS Last Admin: 03/23/18 04:55 Dose: 0.125 mg Dextrose (D5w Inj) 1,000 mls @ 150 mls/hr IV.SIG .Q6H40M [facility] Last Admin: 03/25/18 04:52 Dose: 150 mls/hr Piperacillin/Tazobactam/Dextrose (Zosyn 4.5 Gm Premix) 4.5 gm in 100 mls @ 200 mls/hr IV.SIG Q6H [facility] Last Admin: 03/25/18 05:19 Dose: 200 mls/hr Magnesium Sulfate 2 gm/ Sodium (Chloride) 100 mls @ 50 mls/hr IV.SIG UNSCH PRN PRN Reason: For Magnesium 1.2 - 1.6 mg/dL Potassium Chloride (Kcl 40 Meq Premix Inj) 40 meq in 100 mls @ 25 mls/hr IV.SIG Q2H PRN PRN Reason: For Potassium 2.8 - 3.2 mEq/L Last Infusion: 03/14/18 07:00 Dose: Infused Potassium Chloride (Kcl 20 Meq Premix Inj) 20 meq in 100 mls @ 50 mls/hr IV.SIG Q2H PRN PRN Reason: For Potassium 3.3 - 3.5 mEq/L Last Infusion: 03/19/18 12:22 Dose: Infused Potassium Chloride (Kcl 40 Meq Premix Inj) 40 meq in 100 mls @ 25 mls/hr IV.SIG UNSCH PRN PRN Reason: For Potassium 3.3 - 3.5 mEq/L Potassium Chloride (Kcl 20 Meq Premix Inj) 20 meq in 100 mls @ 50 mls/hr IV.SIG Q2H PRN PRN Reason: For Potassium 2.8 - 3.2 mEq/L Potassium Phosphate 30 mmol/ (Sodium Chloride) 260 mls @ 42 mls/hr IV.SIG UNSCH PRN PRN Reason: SEE LABEL COMMENTS Sodium Phosphate 30 mmol/ (Sodium Chloride) 260 mls @ 42 mls/hr IV.SIG UNSCH PRN PRN Reason: For Phosphorus < 2.5 mg/dL Magnesium Sulfate 4 gm/ Sodium (Chloride) 100 mls @ 50 mls/hr IV.SIG UNSCH PRN PRN Reason: For Magnesium 0.9 - 1.1 mg/dL Nicardipine HCl 25 mg/ Sodium (Chloride) 250 mls @ 50 mls/hr IV.CONT TITRATE PRN; Protocol PRN Reason: Per Protocol Last Titration: 03/19/18 05:20 Dose: 0 mg/hr, 0 mls/hr Nitroglycerin 50 mg/ Sodium (Chloride) 250 mls @ 0 mls/hr IV.SIG TITRATE PRN; Protocol PRN Reason: Per Protocol Propofol (Diprivan 1000 Mg/100 Ml Inj) 1,000 mg in 100 mls @ 2.67 mls/hr IV.CONT TITRATE PRN; Protocol PRN Reason: Per Protocol Last Titration: 03/24/18 13:13 Dose: Infused Lactulose (Lactulose Liq) 30 ml PO DAILY PRN PRN Reason: SEVERE CONSITIPATION Lisinopril (Prinivil) 5 mg PO BID [facility] Last Admin: 03/24/18 21:20 Dose: 5 mg Magnesium Oxide (Mag-Ox) 800 mg PO UNSCH PRN PRN Reason: For Magnesium 1.2 - 1.6 mg/dL Metoprolol Tartrate (Lopressor Inj) 5 mg IV.PUSH Q6H PRN PRN Reason: HR > 120 BPM Last Admin: 03/20/18 05:41 Dose: 5 mg Metoprolol Tartrate (Lopressor) 25 mg PO TID [facility] Last Admin: 03/24/18 17:07 Dose: Not Given Miscellaneous Medication () 1 each OROPHARYNG 0000,0400,1200,1600 [facility] Last Admin: 03/25/18 04:51 Dose: 1 each Non-Formulary Drug: Lubrifresh P.M. ( Lubricant Eye Ointment Pf) 3.5gm 0 each EACH EYE BID [facility] Last Admin: 03/24/18 21:20 Dose: Not Given Ondansetron HCl (Zofran Inj) 4 mg IV.PUSH Q6H PRN PRN Reason: NAUSEA OR VOMITING Pantoprazole Sodium (Protonix Inj) 40 mg IV.PUSH DAILY [facility] Last Admin: 03/24/18 08:49 Dose: 40 mg Potassium Chloride (Kcl Liq) 40 meq PO UNSCH PRN PRN Reason: Potassium level 3.3-3.5 mEq/L Last Admin: 03/24/18 08:49 Dose: 40 meq Potassium Chloride (Kcl Liq) 40 meq PO UNSCH PRN PRN Reason: POTASSIUM LESS THAN 3.5 Potassium Phosphate (K-Phos Original) 2,000 mg PO Q4H PRN PRN Reason: Phosphorus Less Than 2.5 mg/dL Potassium Phosphate (K-Phos Original) 2,000 mg PO UNSCH PRN PRN Reason: SEE LABEL COMMENTS Senna/Docusate Sodium (Ioana-Colace) 1 tab PO BID [facility] Last Admin: 03/24/18 21:20 Dose: Not Given Sennosides (Senokot) 17.2 mg PO Q12H PRN PRN Reason: Moderate Constipation Sodium Chloride (Ns Flush) 2 ml IV.FLUSH BID [facility] Last Admin: 03/24/18 21:20 Dose: 2 ml Sodium Chloride (Ns Flush) 2 ml IV.FLUSH PRN PRN PRN Reason: FLUSH AFTER USING IV ACCESS Last Admin: 03/20/18 05:43 Dose: 2 ml Sterile Water (Free Water) 200 ml G-TUBE Q4HR [facility] Last Admin: 03/25/18 04:51 Dose: 200 ml Allergies/Adverse Reactions: Allergies Allergy/AdvReac Type Severity Reaction Status Date / Time ibuprofen Allergy Severe SOB Verified 03/13/18 20:46 Physical Exam Vital signs: Vital Signs 03/24/18 07:00 03/24/18 07:30 03/24/18 07:55 Temperature Pulse Rate 102 H 104 H Respiratory Rate 17 12 16 Blood Pressure 114/75 122/85 Pulse Oximetry 98 99 98 03/24/18 08:00 03/24/18 08:30 03/24/18 09:00 Temperature Pulse Rate 106 H 109 H 112 H Respiratory Rate 16 16 18 Blood Pressure 120/82 137/99 H 140/96 H Pulse Oximetry 98 100 100 03/24/18 09:30 03/24/18 10:00 03/24/18 10:30 Temperature Pulse Rate 93 H 82 78 Respiratory Rate 16 16 16 Blood Pressure 119/81 104/69 91/65 L Pulse Oximetry 99 99 99 03/24/18 10:50 03/24/18 12:00 03/24/18 12:30 Temperature Pulse Rate 96 H 89 Respiratory Rate 16 18 19 Blood Pressure 113/78 81/56 L Pulse Oximetry 100 100 100 03/24/18 13:00 03/24/18 13:30 03/24/18 14:00 Temperature Pulse Rate 97 H 87 89 Respiratory Rate 19 16 20 Blood Pressure 110/75 91/61 L 94/70 L Pulse Oximetry 97 100 100 03/24/18 14:30 03/24/18 15:00 03/24/18 15:13 Temperature Pulse Rate 89 92 H Respiratory Rate 17 19 16 Blood Pressure 100/72 107/74 Pulse Oximetry 98 96 97 03/24/18 15:26 02/12/19 15:30 03/24/18 16:00 Temperature Pulse Rate 92 H 96 H 94 H Respiratory Rate 22 19 22 Blood Pressure 94/64 L 121/76 111/75 Pulse Oximetry 96 97 96 03/24/18 16:30 03/24/18 17:00 03/24/18 17:05 Temperature Pulse Rate 96 H 90 92 H Respiratory Rate 24 20 18 Blood Pressure 92/62 L 92/61 L 115/73 Pulse Oximetry 95 96 96 03/24/18 17:30 03/24/18 18:00 03/24/18 18:30 Temperature Pulse Rate 96 H 98 H 106 H Respiratory Rate 16 28 H Blood Pressure 98/65 L 106/68 115/80 Pulse Oximetry 98 96 03/24/18 19:00 03/24/18 19:30 03/24/18 20:00 Temperature 102.1 F H Pulse Rate 95 H 90 91 H Respiratory Rate 27 H 25 H 17 Blood Pressure 94/62 L 93/60 L 124/78 Pulse Oximetry 99 99 100 03/24/18 20:30 03/24/18 20:50 03/24/18 21:00 Temperature Pulse Rate 100 H 98 H Respiratory Rate 19 23 18 Blood Pressure 111/72 114/75 Pulse Oximetry 100 100 100 03/24/18 21:30 03/24/18 22:00 03/24/18 22:30 Temperature Pulse Rate 97 H 93 H 91 H Respiratory Rate 19 31 H 19 Blood Pressure 102/65 110/74 102/63 Pulse Oximetry 100 100 100 03/24/18 23:00 03/24/18 23:30 03/25/18 00:00 Temperature 101.1 F H Pulse Rate 96 H 92 H 101 H Respiratory Rate 22 20 21 Blood Pressure 103/65 99/62 L 106/77 Pulse Oximetry 100 100 100 03/25/18 00:04 03/25/18 00:30 03/25/18 01:00 Temperature Pulse Rate 109 H 99 H Respiratory Rate 17 27 H 32 H Blood Pressure 130/74 100/65 Pulse Oximetry 100 100 100 03/25/18 01:30 03/25/18 02:00 03/25/18 02:30 Temperature Pulse Rate 100 H 109 H 116 H Respiratory Rate 26 H 33 H 31 H Blood Pressure 109/67 132/80 140/88 Pulse Oximetry 100 100 100 03/25/18 03:00 03/25/18 03:30 03/25/18 04:00 Temperature 101.7 F H Pulse Rate 112 H 110 H 117 H Respiratory Rate 36 H 38 H 40 H Blood Pressure 119/74 128/78 142/81 H Pulse Oximetry 100 100 100 03/25/18 04:14 03/25/18 04:30 03/25/18 05:00 Temperature Pulse Rate 115 H 122 H Respiratory Rate 24 40 H 42 H Blood Pressure 138/87 Pulse Oximetry 100 99 03/25/18 05:01 03/25/18 05:08 03/25/18 05:30 Temperature Pulse Rate 123 H 123 H 122 H Respiratory Rate 30 H 39 H Blood Pressure 144/101 H 127/78 122/81 Pulse Oximetry 78 L 100 Intake & Output 03/24/18 03/24/18 03/25/18 06:59 18:59 06:59 Intake Total 1970 / 1971 4900 / 4900 2693 / 2693 Output Total 600 / 600 550 / 550 1100 / 1100 Balance 1371 / 1371 4350 / 4350 1593 / 1593 Weight 81.1 kg 77.8 kg Intake: IV 1100 / 1100 3250 / 3250 1200 / 1200 Diprivan 1000 mg/100 ml Inj 1, 100 / 100 000 mg In 100 ml @ 5 MCG/KG/MIN 2.67 mls/hr IV.CONT TITRATE PRN Rx#:[id number] D5W Inj 1,000 ML @ 150 mls/hr 1000 / 1000 2000 / 2000 1000 / 1000 IV.SIG .Q6H40M [facility] Rx#:[id number] Zosyn 3.375 GM Premix 3.375 gm 100 / 100 50 / 50 In 50 ml @ 100 mls/hr IV.SIG Q6H [facility] Rx#:[id number] Zosyn 4.5 GM Premix 4.5 gm In 100 / 100 200 / 200 100 ml @ 200 mls/hr IV.SIG Q6H [facility] Rx#:[id number] Tube Feeding 871 / 871 500 / 500 433 / 433 Tube Irrigant 150 / 150 60 / 60 Water Bolus Amount 400 / 400 400 / 400 Free Water Amount 600 / 600 600 / 600 Output: Urine 1100 / 1100 Urine Amount (Catheter) 600 / 600 550 / 550 Condom 600 / 600 550 / 550 Other: Date of Last Bowel Movement 03/23/18 03/24/18 03/25/18 # Bowel Movements 1 # Incontinent Bowel Movements 2 - Constitutional no acute distress - Routine Neurological Exam intubated /vent no sedation does overbreathe the vent no cough/gag w/suctioning spontaneous eye opening to deep sternal rub pupils 2-1mm sluggish no gaze deviation no corneals or ocr. no blink to threat or to loud sound-clap. no withdrawl to painful stimuli in any extremitiy. dtrs decreased in all 4 extremities right ankle sustained clonus toes are neutral. - Detailed Neurological Exam: Coma Scale Eye Opening: To pressure Verbal Response: None Motor Response: None [place] Coma Scale Total: 4 - Urinary Catheter Management Indwelling Urethral Catheter Cath placed during this visit: yes, but has since been removed by the nurse Reason for continuing: Decision to DC catheter Insertion date: 03/13/18 Insertion time: 00:00 Removal date: 03/16/18 Removal time: 17:00 Condom Cath placed during this visit: no Objective Radiology Results: mri brain c/w severe anoxic encephalopathy eeg c/w severe anoxia Laboratory Results - last 24 hr 03/24/18 03/25/18 12:00 04:27 WBC 22.6 H RBC 4.34 L Hgb 13.4 Hct 40.5 MCV 93.3 MCH 30.7 MCHC 32.9 RDW 13.9 Plt Count 260 MPV 10.8 Prelim Diff (Auto) Slide review pending Neut % (Auto) 87.2 H Lymph % (Auto) 6.5 L [place] % (Auto) 4.4 Eos % (Auto) 1.6 Baso % (Auto) 0.3 Neut # (Auto) 19.7 H Lymph # (Auto) 1.5 [place] # (Auto) 1.0 H Eos # (Auto) 0.4 Baso # (Auto) 0.1 Differential Comment . Urine Color [place] Urine Clarity Clear Urine pH 6.0 Ur Specific [place] 1.028 Urine Protein 30 H Urine Glucose (UA) Negative Urine Ketones Negative Urine Occult Blood Negative Urine Nitrate Negative Urine Bilirubin Small H Urine Ictotest Positive H Urine Urobilinogen Less than 2 Ur Leukocyte Esterase Negative Urine RBC 3 Urine WBC 1 Ur Squamous Epith Cells <1 Urine Yeast Moderate H Ur Yeast w Hyphae Moderate H Ur Microscopic Review Not Reportable Review/Management - Diagnosis (1) Anoxic encephalopathy Code(s): G93.1 - Anoxic brain damage, not elsewhere classified Status: Acute Current Visit: Yes - Review/Management Plan: pt has severe anoxic encephalopathy and is not going to recover to his prior state of functioning. he will be in a fdc for the remainder of his life with a feeding tube and trach as total care. no other testing needed at this time withdrawal is appropriate if family agrees. will sign off.
[2018-03-25 06:57] LABS: Alanine Aminotransferase 73 U/L (12-78); Alkaline Phosphatase 99 U/L (45-117); Anion Gap 7 meq/L (5-15); Aspartate Aminotransferase 101 U/L (15-37); Blood Urea Nitrogen 35 mg/dL (7-18); Carbon Dioxide 29.1 meq/L (21.0-32.0); Chloride 123 meq/L (98-107); Glomerular Filtration Rate 62 mL/min (>89); Glucose,Random 117 mg/dL (74-106); Potassium 3.5 meq/L (3.5-5.1); Total Protein 6.1 g/dL (6.4-8.2)
[2018-03-25 07:45] LABS: Sodium 159 meq/L (136-145)
[2018-03-25 07:47] LABS: Eosinophils 2 % (0-4); Lymphocytes 4 % (9-44); Monocytes 3 % (0-8)
[2018-03-25 07:48] LABS: Platelet Estimate Normal (Normal); Platelet Morphology Normal (Normal); RBC Morphology Normal (Normal)
[2018-03-25] MEDS: Potassium Chloride Liq 20 MEQ/15 ML UDC PO PRN (08:16)
[2018-03-25] MEDS: Pantoprazole Inj 40 MG Vial IV.PUSH SCH (08:16)
[2018-03-25] MEDS: Metoprolol Tartrate 25 MG Tablet PO SCH ×3 (08:17→17:53)
[2018-03-25] MEDS: Chlorhexidine 0.12% Oral Kit 15 ML UDC OROPHARYNG SCH ×2 (08:17→21:24)
[2018-03-25] MEDS: amLODIPine 10 MG Tablet PO SCH (08:18)
[2018-03-25] MEDS: Lisinopril 5 MG Tablet PO SCH ×2 (08:18→21:26)
[2018-03-25] MEDS: Senna/Docusate Sodium 8.6/50 MG Tablet PO SCH ×2 (08:18→21:25)
[2018-03-25] MEDS: [UNRECOGNIZED DRUG - OTHER] EACH EYE SCH ×2 (08:18→21:25)
--- NOTE | 2018-03-25 09:08 | P.PNCC ---
Subjective Subjective Remarks/Hospital Course: This is a 62-year-old male. Date of admission 03/13/2018. Past medical history includes hepatitis C, pancreatitis hypertension, chronic back pain and allergic rhinitis. History of tobacco abuse. Patient presents to [facility] as a PEA arrest per documentation, patient also history of heroin abuse. Patient was found to be unresponsive in attendance in a homeless [place]. Presenting rhythm was pulseless electric activity. Chest compressions started. Patient was intubated. Patient was given epinephrine IV x3 and sodium bicarb 1 amp IV, naltrexone 2 mg IV. Patient was transported to ED for evaluation. Patient regained pulse upon arrival to the ED. [address] minutes per ED physician CT brain revealed no acute intracranial findings. Troponin 0.0 0.5. Patient had a leukocytosis, elevated magnesium, acute injury creatinine 1.8, lactate of 9.8 and a blood sugar today today. Toxicology screen positive for opiates, cocaine and cannabinoids. Patient is currently not moving his unresponsive at 50 rebeka grams per kilogram per minute of propofol this is currently on hold. Chest x-ray revealed old right rib fractures. No pneumothorax. ET tube 5 cm above the saqib. 03/14/18: Induced hypothermia initiated by overnight school admissions representative currently at target temperature. Patient is on propofol fentanyl and Nimbex. Troponin has peaked at 16. I will start IV heparin and aspirin. Cardiology consulted. 03/15/18: Induced hypothermia completed. Currently in the rewarming phase. Will be completed by to prevent in the afternoon. Currently sedated and paralyzed limiting neuro exam. Pupils are slightly reactive. 03/16/18: Patient remains off sedation last 12 hours. No clinical improvement in neuro status. Patient remains comatose. Weak cough. Slight sluggish pupil reflex. No spontaneous eye opening no withdrawal to pain. MRI of the brain ordered neurology consulted. Also check EEG to rule out subclinical seizures. Noted to have increasing white count chest x-ray shows no infiltrate 2: Remains encephalopathic off sedation. Orally intubated on mechanical ventilation. Has some spontaneous eye opening however no purposeful movements. 2: Remains encephalopathic, orally intubated on mechanical ventilation. Febrile. Tolerating tube feeds. 03/19: Remains encephalopathic, orally intubated on mechanical ventilation. Febrile. Tolerating tube feeds. Patient's sister is deciding regarding goals of therapy with palliative 2: Remains encephalopathic, orally intubated on mechanical ventilation. Awaiting family's decision regarding goals of therapy. 03/21: Remains encephalopathic, orally intubated on mechanical ventilation. 03/22: Remains encephalopathic, on mechanical ventilation. Awaiting family's decision regarding goals of therapy. Switched IV fluid to D5 water in view of hypernatremia 03/23: Remains encephalopathic on mechanical ventilation. Awaiting patient's sister's decision regarding goals of therapy. Poor neurologic prognosis. 03/24: Remains encephalopathic on mechanical ventilation. Has spontaneous eye opening. Hyponatremic. Febrile. Sputum cultures with Pseudomonas on Zosyn. We will repeat nam cultures. Patient's sister is not sure regarding decision for trach PEG versus comfort measures currently. She requests additional neuro follow-up for prognosis. 03/25: Persistent severe anoxic injury. He opens his eyes to painful stimuli but do not track. Extensive posturing to painful stimuli. Positive corneals. However clinical exam EEG and MRI consistent with severe anoxic injury Objective Vital Signs / I&O: Vital Signs 03/24/18 09:00 03/24/18 09:30 03/24/18 10:00 Temperature Pulse Rate 112 H 93 H 82 Respiratory Rate 18 16 16 Blood Pressure 140/96 H 119/81 104/69 Pulse Oximetry 100 99 99 03/24/18 10:30 03/24/18 10:50 03/24/18 12:00 Temperature Pulse Rate 78 96 H Respiratory Rate 16 16 18 Blood Pressure 91/65 L 113/78 Pulse Oximetry 99 100 100 03/24/18 12:30 03/24/18 13:00 03/24/18 13:30 Temperature Pulse Rate 89 97 H 87 Respiratory Rate 19 19 16 Blood Pressure 81/56 L 110/75 91/61 L Pulse Oximetry 100 97 100 03/24/18 14:00 03/24/18 14:30 03/24/18 15:00 Temperature Pulse Rate 89 89 92 H Respiratory Rate 20 17 19 Blood Pressure 94/70 L 100/72 107/74 Pulse Oximetry 100 98 96 03/24/18 15:13 03/24/18 15:26 03/24/18 15:30 Temperature Pulse Rate 92 H 96 H Respiratory Rate 16 22 19 Blood Pressure 94/64 L 121/76 Pulse Oximetry 97 96 97 03/24/18 16:00 03/24/18 16:30 03/24/18 17:00 Temperature Pulse Rate 94 H 96 H 90 Respiratory Rate 22 24 20 Blood Pressure 111/75 92/62 L 92/61 L Pulse Oximetry 96 95 96 03/24/18 17:05 03/24/18 17:30 03/24/18 18:00 Temperature Pulse Rate 92 H 96 H 98 H Respiratory Rate 18 16 28 H Blood Pressure 115/73 98/65 L 106/68 Pulse Oximetry 96 98 96 03/24/18 18:30 03/24/18 19:00 03/24/18 19:30 Temperature Pulse Rate 106 H 95 H 90 Respiratory Rate 27 H 25 H Blood Pressure 115/80 94/62 L 93/60 L Pulse Oximetry 99 99 03/24/18 20:00 03/24/18 20:30 03/24/18 20:50 Temperature 102.1 F H Pulse Rate 91 H 100 H Respiratory Rate 17 19 23 Blood Pressure 124/78 111/72 Pulse Oximetry 100 100 100 03/24/18 21:00 03/24/18 21:30 03/24/18 22:00 Temperature Pulse Rate 98 H 97 H 93 H Respiratory Rate 18 19 31 H Blood Pressure 114/75 102/65 110/74 Pulse Oximetry 100 100 100 03/24/18 22:30 03/24/18 23:00 03/24/18 23:30 Temperature Pulse Rate 91 H 96 H 92 H Respiratory Rate 19 22 20 Blood Pressure 102/63 103/65 99/62 L Pulse Oximetry 100 100 100 03/25/18 00:00 03/25/18 00:04 03/25/18 00:30 Temperature 101.1 F H Pulse Rate 101 H 109 H Respiratory Rate 21 17 27 H Blood Pressure 106/77 130/74 Pulse Oximetry 100 100 100 03/25/18 01:00 03/25/18 01:30 03/25/18 02:00 Temperature Pulse Rate 99 H 100 H 109 H Respiratory Rate 32 H 26 H 33 H Blood Pressure 100/65 109/67 132/80 Pulse Oximetry 100 100 100 03/25/18 02:30 03/25/18 03:00 03/25/18 03:30 Temperature Pulse Rate 116 H 112 H 110 H Respiratory Rate 31 H 36 H 38 H Blood Pressure 140/88 119/74 128/78 Pulse Oximetry 100 100 100 03/25/18 04:00 03/25/18 04:14 03/25/18 04:30 Temperature 101.7 F H Pulse Rate 117 H 115 H Respiratory Rate 40 H 24 40 H Blood Pressure 142/81 H 138/87 Pulse Oximetry 100 100 99 03/25/18 05:00 03/25/18 05:01 03/25/18 05:08 Temperature Pulse Rate 122 H 123 H 123 H Respiratory Rate 42 H 30 H Blood Pressure 144/101 H 127/78 Pulse Oximetry 78 L 03/25/18 05:30 03/25/18 08:00 03/25/18 08:03 Temperature Pulse Rate 122 H 98 H Respiratory Rate 39 H 20 Blood Pressure 122/81 Pulse Oximetry 100 100 Intake & Output 03/24/18 03/25/18 03/25/18 18:59 06:59 18:59 Intake Total 4900 / 4900 2693 / 2693 200 / 200 Output Total 550 / 550 1100 / 1100 Balance 4350 / 4350 1593 / 1593 200 / 200 Weight 77.8 kg Intake: IV 3250 / 3250 1200 / 1200 Diprivan 1000 mg/100 ml Inj 1, 100 / 100 000 mg In 100 ml @ 5 MCG/KG/MIN 2.67 mls/hr IV.CONT TITRATE PRN Rx#:[id number] D5W Inj 1,000 ML @ 150 mls/hr 2000 / 2000 1000 / 1000 IV.SIG .Q6H40M ALEIDA Rx#:[id number] Zosyn 3.375 GM Premix 3.375 gm 50 / 50 In 50 ml @ 100 mls/hr IV.SIG Q6H ALEIDA Rx#:[id number] Zosyn 4.5 GM Premix 4.5 gm In 100 / 100 200 / 200 100 ml @ 200 mls/hr IV.SIG Q6H ALEIDA Rx#:[id number] Tube Feeding 500 / 500 433 / 433 Tube Irrigant 150 / 150 60 / 60 Water Bolus Amount 400 / 400 400 / 400 Free Water Amount 600 / 600 600 / 600 200 / 200 Output: Urine 1100 / 1100 Urine Amount (Catheter) 550 / 550 Condom 550 / 550 Other: Date of Last Bowel Movement 03/24/18 03/25/18 # Bowel Movements 1 # Incontinent Bowel Movements 2 Result Diagrams: 03/25/18 04:27 03/25/18 04:27 Objective Remarks: - Constitutional Intubated currently off all sedation remains encephalopathic, occasional eye opening however not having any purposeful movements - Routine HEENT Exam Head: normocephalic, atraumatic. Pupils are 2 mm sluggish. mucous membranes moist. Positive corneal reflexes - Routine Neck Exam Supple - Routine Respiratory Exam Air entry equal bilaterally, synchronous with the vent. No wheezes or crackles. Scattered rhonchi - Routine Cardiovascular Exam Normal sinus rhythm S1-S2 normal no murmurs. - Routine Abdominal Exam soft, normoactive bowel sounds - Routine Extremities Exam No cyanosis, clubbing, edema - Routine Skin Exam intact - Routine Neurological Exam Patient is intubated currently off sedation for almost 6 days remains encephalopathic. Occasional eye opening however not focusing, occasional blinking, no purposeful movements. Does have a gag reflex. Pupils are bilaterally equal 2 mm sluggish positive corneal reflex. Extensive posturing to noxious stimuli. Plantar equivocal Assessment and Plan - Problem List (1) Lactic acidosis Code(s): E87.2 - Acidosis Status: Acute (2) Leukocytosis Code(s): D72.829 - Elevated white blood cell count, unspecified Status: Acute (3) Hyperglycemia Code(s): R73.9 - Hyperglycemia, unspecified Status: Acute (4) Cocaine abuse Code(s): F14.10 - Cocaine abuse, uncomplicated Status: Acute (5) Synthetic cannabinoid abuse Code(s): F19.10 - Other psychoactive substance abuse, uncomplicated Status: Acute (6) Cardiopulmonary arrest Code(s): I46.9 - Cardiac arrest, cause unspecified Status: Acute (7) Acute drug overdose Code(s): T50.901A - Poisoning by unspecified drugs, medicaments and biological substances, accidental (unintentional), initial encounter Status: Acute - Assessment and Plan Plan: Neuro/Psych: Hypoxic ischemic encephalopathy Polysubstance overdose including opiates, cocaine and cannabinoids Rewarming completed, off all sedation for almost 6 days No improvement in neuro exam-see detailed neuro exam in the physical exam. EEG and MRI brain consistent with severe anoxic brain injury CT brain revealed no acute intracranial findings. Sinusitis Acetaminophen 650 by tube every 6 hours as needed fever CV: PEA arrest NSTEMI Uncontrolled hypertension Lactic acidosis Cardiomyopathy with EF 20-25% EKG reveals no ST elevation, telemetry strips shows left bundle branch block Initial troponin 0 0.05. Later troponin peaked at 16 Off IV heparin. Aspirin 81 mg daily metoprolol 25 mg every 8. Lisinopril 5 mg twice daily Off Cardene. amlodipine 10 mg daily via G-tube Cardiology consult appreciated 2D echocardiogram EF severely reduced with an estimated ejection fraction in the range of 20-25% Further workup if there is meaningful neurological improvement Initial lactate 9.8. Now cleared Resp: Acute respiratory failure PRVC/AC Ventilation bundle. Head of bed at 30 degrees Albuterol/ipratropium aerosols every 4 hours with albuterol aerosols every 2 hours as needed dyspnea Spontaneous breathin GI: History of hepatitis C Hyperammonemia Tube feeds with Jevity Pantoprazole for GI prophylaxis Docusate sodium/senna 1 tablet twice daily for bowel regimen-no BM yet Ammonia level Endo: Hyperglycemia Sliding scale insulin aspart insulin with Accu-Cheks every 6 hours to maintain euglycemia Renal: Acute kidney injury Hypernatremia Continue free water replacement. Follow sodium. Monitor urine output Accurate I's and O's. Heme: Leukocytosis Monitor CBC No indication for transfusion of blood product ID: Zosyn to 4.5 g IV every 6 hourly Blood cultures x2, negative to date Pseudomonas in sputum on admission FEN: Currently 0.9% NaCl at 84 cc an hour Replace electrolytes as clinically indicated per ICU electrolyte protocol Access -Utilize peripheral IV. Heat exchange femoral catheter placed to 03/13/18 Prophylaxis -GI -pantoprazole -DVT -SCD/IV Heparin Consulted palliative care service to assist with deciding goals of therapy. Prognosis appears poor. Condition remains critical. Discussed with patient's sister on 03/17 regarding poor neurologic prognosis. Patient appears to have a terminal condition at this time with severe anoxic brain injury. Discussed need to decide goals of therapy including CODE STATUS as well as transitioning to comfort measures versus proceeding with tracheostomy and PEG tube placement. Patient's sister is having ongoing discussions with palliative care team regarding goals of therapy. CODE STATUS changed to DNR per sister. 03/25/18: Clinical exam consistent with a severe anoxic injury. It is appropriate at this time due to withdrawal of life support if that is what family wants. Palliative care following Critical care time 35 minutes excluding procedures (2) Leukocytosis Qualifiers: Leukocytosis type: unspecified Qualified Code(s): D72.829 - Elevated white blood cell count, unspecified (7) Acute drug overdose Qualifiers: Encounter type: initial encounter Injury intent: undetermined intent Qualified Code(s): T50.904A - Poisoning by unspecified drugs, medicaments and biological substances, undetermined, initial encounter
[2018-03-25] MEDS: Acetaminophen 325 MG Tablet PO PRN (12:21)
[2018-03-26] MEDS: Dextrose 5% in Water Inj 1,000 ML IV.SIG SCH ×2 (01:28→09:03)
[2018-03-26] MEDS: Oral Hygiene Kit OROPHARYNG SCH ×4 (01:28→17:54)
[2018-03-26 04:02] LABS: Baso % (Auto) 0.3 % (0.0-2.0); Eos # (Auto) 0.3 th/mm3 (0.0-0.4); Eos % (Auto) 1.7 % (0.0-4.0); Hematocrit 31.5 % (39.0-51.0); Hemoglobin 10.6 gm/dL (13.0-17.0); Lymph # (Auto) 1.1 th/mm3 (1.0-4.8); Lymph % (Auto) 7.5 % (9.0-44.0); Mean Corpuscular HGB Conc 33.5 % (32.0-36.0); Mean Corpuscular Hemoglobin 30.7 pg (27.0-34.0); Mean Corpuscular Volume 91.6 fL (80.0-100.0); Mean Platelet Volume 10.5 fL (7.0-11.0); Mono # (Auto) 0.6 th/mm3 (0.0-0.9); Mono % (Auto) 4.3 % (0.0-8.0); Neut # (Auto) 12.7 th/mm3 (1.8-7.7); Neut % (Auto) 86.2 % (16.0-70.0); Platelet Count 244 th/mm3 (150-450); Red Blood Count 3.44 mil/mm3 (4.50-5.90); Red Cell Distribution Width 13.4 % (11.6-17.2); White Blood Count 14.8 th/mm3 (4.0-11.0)
[2018-03-26] MEDS: Piperacil/Tazo 4.5 GM Premix 4.5 GM/100 ML BAG IV.SIG SCH ×5 (06:33→23:29)
[2018-03-26] MEDS: Artificial Tears Opth Drops 15 ML Bottle EACH EYE SCH ×3 (08:07→23:30)
[2018-03-26] MEDS: Chlorhexidine 0.12% Oral Kit 15 ML UDC OROPHARYNG SCH ×2 (08:07→23:32)
--- NOTE | 2018-03-26 08:17 | P.PNCC ---
Subjective Subjective Remarks/Hospital Course: This is a 62-year-old male. Date of admission 03/13/2018. Past medical history includes hepatitis C, pancreatitis hypertension, chronic back pain and allergic rhinitis. History of tobacco abuse. Patient presents to [facility] as a PEA arrest per documentation, patient also history of heroin abuse. Patient was found to be unresponsive in attendance in a homeless [place]. Presenting rhythm was pulseless electric activity. Chest compressions started. Patient was intubated. Patient was given epinephrine IV x3 and sodium bicarb 1 amp IV, naltrexone 2 mg IV. Patient was transported to ED for evaluation. Patient regained pulse upon arrival to the ED. 15 minutes per ED physician CT brain revealed no acute intracranial findings. Troponin 0.0 0.5. Patient had a leukocytosis, elevated magnesium, acute injury creatinine 1.8, lactate of 9.8 and a blood sugar today today. Toxicology screen positive for opiates, cocaine and cannabinoids. Patient is currently not moving his unresponsive at 50 rebeka grams per kilogram per minute of propofol this is currently on hold. Chest x-ray revealed old right rib fractures. No pneumothorax. ET tube 5 cm above the saqib. 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 Patient is on propofol fentanyl and Nimbex. Troponin has peaked at 16. I will start IV heparin and aspirin. Cardiology consulted. 03/15/18: Induced hypothermia completed. Currently in the rewarming phase. Will be completed by to prevent in the afternoon. Currently sedated and paralyzed limiting neuro exam. Pupils are slightly reactive. 03/16/18: Patient remains off sedation last 12 hours. No clinical improvement in neuro status. Patient remains comatose. Weak cough. Slight sluggish pupil reflex. No spontaneous eye opening no withdrawal to pain. MRI of the brain ordered neurology consulted. Also check EEG to rule out subclinical seizures. Noted to have increasing white count chest x-ray shows no infiltrate 2: Remains encephalopathic off sedation. Orally intubated on mechanical ventilation. Has some spontaneous eye opening however no purposeful movements. 2: Remains encephalopathic, orally intubated on mechanical ventilation. Febrile. Tolerating tube feeds. 03/19: Remains encephalopathic, orally intubated on mechanical ventilation. Febrile. Tolerating tube feeds. Patient's sister is deciding regarding goals of therapy with palliative 2: Remains encephalopathic, orally intubated on mechanical ventilation. Awaiting family's decision regarding goals of therapy. 03/21: Remains encephalopathic, orally intubated on mechanical ventilation. 03/22: Remains encephalopathic, on mechanical ventilation. Awaiting family's decision regarding goals of therapy. Switched IV fluid to D5 water in view of hypernatremia 03/23: Remains encephalopathic on mechanical ventilation. Awaiting patient's sister's decision regarding goals of therapy. Poor neurologic prognosis. 03/24: Remains encephalopathic on mechanical ventilation. Has spontaneous eye opening. Hyponatremic. Febrile. Sputum cultures with Pseudomonas on Zosyn. We will repeat nam cultures. Patient's sister is not sure regarding decision for trach PEG versus comfort measures currently. She requests additional neuro follow-up for prognosis. 03/25: Persistent severe anoxic injury. He opens his eyes to painful stimuli but do not track. Extensive posturing to painful stimuli. Positive corneals. However clinical exam EEG and MRI consistent with severe anoxic injury Subjective 03/26: Patient is opens eyes to painful stimuli but eyes were rolled upward into the left. Continues to posture not sedated to noxious stimulus. Intubated since 03/13. Objective Vital Signs / I&O: Vital Signs 03/25/18 08:30 03/25/18 09:00 03/25/18 09:30 Temperature Pulse Rate 100 H 102 H 96 H Respiratory Rate 16 18 18 Blood Pressure 99/64 L 90/62 L 90/62 L Pulse Oximetry 97 96 96 03/25/18 10:00 03/25/18 10:07 03/25/18 10:30 Temperature Pulse Rate 103 H 104 H 105 H Respiratory Rate 18 18 18 Blood Pressure 118/77 115/70 Pulse Oximetry 99 99 97 03/25/18 11:00 03/25/18 11:28 03/25/18 11:30 Temperature Pulse Rate 95 H 89 Respiratory Rate 16 22 16 Blood Pressure 86/56 L 91/64 L Pulse Oximetry 95 95 97 03/25/18 12:00 03/25/18 12:30 03/25/18 13:00 Temperature Pulse Rate 97 H 115 H 84 Respiratory Rate 35 H 16 32 H Blood Pressure 132/79 127/81 81/52 L Pulse Oximetry 99 97 96 03/25/18 13:13 03/25/18 13:30 03/25/18 14:00 Temperature Pulse Rate 77 81 79 Respiratory Rate 28 H 24 24 Blood Pressure 96/63 L 99/66 L 97/63 L Pulse Oximetry 96 98 99 03/25/18 14:30 03/25/18 14:34 03/25/18 15:00 Temperature Pulse Rate 68 71 79 Respiratory Rate 21 18 22 Blood Pressure 73/49 L 83/53 L 91/62 L Pulse Oximetry 98 99 98 03/25/18 15:30 03/25/18 16:00 03/25/18 16:14 Temperature Pulse Rate 71 68 69 Respiratory Rate 21 16 16 Blood Pressure 82/52 L 83/51 L 82/51 L Pulse Oximetry 98 100 100 03/25/18 16:30 03/25/18 16:31 03/25/18 17:00 Temperature Pulse Rate 71 86 Respiratory Rate 19 19 26 H Blood Pressure 91/54 L 97/73 L Pulse Oximetry 100 100 100 03/25/18 17:30 03/25/18 19:00 03/25/18 20:00 Temperature 99.3 F Pulse Rate 88 67 77 Respiratory Rate 29 H 18 19 Blood Pressure 104/70 120/75 98/62 L Pulse Oximetry 99 100 96 03/25/18 21:00 03/25/18 21:11 03/25/18 22:00 Temperature Pulse Rate 80 77 Respiratory Rate 24 25 H 19 Blood Pressure 90/57 L 93/58 L Pulse Oximetry 98 98 100 03/25/18 23:00 03/26/18 00:00 03/26/18 00:54 Temperature 99 F Pulse Rate 85 79 Respiratory Rate 22 20 26 H Blood Pressure 102/69 94/59 L Pulse Oximetry 97 100 100 03/26/18 04:00 03/26/18 04:51 03/26/18 05:00 Temperature 99.2 F Pulse Rate 91 H 96 H Respiratory Rate 26 H 23 23 Blood Pressure 128/93 H 126/64 Pulse Oximetry 100 100 99 03/26/18 07:59 Temperature Pulse Rate Respiratory Rate 20 Blood Pressure Pulse Oximetry 100 Intake & Output 03/25/18 03/26/18 03/26/18 18:59 06:59 18:59 Intake Total 2357 / 2357 882 / 882 300 / 300 Output Total 550 / 550 1500 / 1500 Balance 1807 / 1807 -618 / -618 300 / 300 Weight 80.7 kg Intake: IV 1297 / 1297 100 / 100 100 / 100 D5W Inj 1,000 ML @ 150 mls/hr 1000 / 1000 IV.SIG .Q6H40M [facility] Rx#:[id number] Zosyn 4.5 GM Premix 4.5 gm In 297 / 297 100 / 100 100 / 100 100 ml @ 200 mls/hr IV.SIG Q6H [facility] Rx#:[id number] Tube Feeding 0 / 0 322 / 322 Tube Irrigant 60 / 60 60 / 60 Water Bolus Amount 400 / 400 200 / 200 Free Water Amount 600 / 600 200 / 200 200 / 200 Output: Stool 200 / 200 Emesis 100 / 100 Urine Amount (Catheter) 550 / 550 1200 / 1200 Condom 550 / 550 1200 / 1200 Other: Date of Last Bowel Movement 03/25/18 03/25/18 # Incontinent Bowel Movements 1 2 Result Diagrams: 03/26/18 03:41 03/25/18 04:27 Other Results: Microbiology 03/24/18 12:00 Sputum - Endotracheal Gram Stain - Final 03/24/18 12:00 Sputum - Endotracheal Sputum Culture - Preliminary Pseudomonas species 03/24/18 12:00 Random Urine Urine Culture - Final 50-100,000 cfu/mL mixed gram positive lfip (probable contaminants) 03/24/18 11:10 Blood - Peripheral Aerobic Blood Culture - Preliminary No growth in 1 day 03/24/18 11:10 Blood - Peripheral Anaerobic Blood Culture - Preliminary No growth in 1 day 03/24/18 11:17 Blood - Peripheral Aerobic Blood Culture - Preliminary No growth in 1 day 03/24/18 11:17 Blood - Peripheral Anaerobic Blood Culture - Preliminary No growth in 1 day 03/17/18 03:55 Blood - Peripheral Aerobic Blood Culture - Final No growth in 5 days 03/17/18 03:55 Blood - Peripheral Anaerobic Blood Culture - Final No growth in 5 days 03/17/18 01:00 Blood - Peripheral Aerobic Blood Culture - Final No growth in 5 days 03/17/18 01:00 Blood - Peripheral Anaerobic Blood Culture - Final No growth in 5 days 03/14/18 19:55 Blood - Line Aerobic Blood Culture - Final No growth in 5 days 03/14/18 19:55 Blood - Line Anaerobic Blood Culture - Final No growth in 5 days 03/13/18 21:00 Blood - Peripheral Aerobic Blood Culture - Final No growth in 5 days 03/13/18 21:00 Blood - Peripheral Anaerobic Blood Culture - Final No growth in 5 days 03/13/18 21:10 Blood - Peripheral Aerobic Blood Culture - Final No growth in 5 days 03/13/18 21:10 Blood - Peripheral Anaerobic Blood Culture - Final No growth in 5 days 03/14/18 01:10 Sputum - Endotracheal Gram Stain - Final 03/14/18 01:10 Sputum - Endotracheal Sputum Culture - Final Pseudomonas aeruginosa Imaging: Head CT 03/13/18 20:50 CONCLUSION: 1. No acute hemorrhage or mass effect. 2. Extensive sinusitis with abnormal soft tissue density in the nasal passage which could indicate polyposis. . Chest X-Ray 03/13/18 20:52 CONCLUSION: 1. Mild bibasilar atelectasis. 2. Endotracheal tube tip 5.7 cm above the saqib. 3. Nasogastric tube tip at the GE junction. Chest X-Ray 03/13/18 21:57 CONCLUSION: Clear lungs. Endotracheal tube and nasogastric tube positions as above. Old right rib fractures. Chest X-Ray 03/14/18 06:00 CONCLUSION: NG tube tip in the distal esophagus. This should be advanced. Abdomen/Bladder Ultrasound 03/14/18 23:09 CONCLUSION: 1. Normal appearance of the kidneys without abnormal echotexture or hydronephrosis. There is a Aly catheter identified within the decompressed bladder. Chest X-Ray 03/16/18 06:00 CONCLUSION: No acute cardiopulmonary abnormality is appreciated. Head MRI 03/17/18 00:00 CONCLUSION: Symmetric abnormal diffusion capacity bilaterally characteristic of global anoxic/hypoxic insult/encephalopathy. Findings were discussed with Casandra the patient's nurse at the time of this dictation at 11:[address] Coleman without be reached by phone. Objective Remarks: GENERAL: 62-year-old male currently orotracheally intubated SKIN: Warm and dry. No rash HEAD: Atraumatic. Normocephalic. EYES: Pupils equal and round about 2 mm bilaterally and reactive. No scleral icterus. No injection or drainage. ENT: No nasal bleeding or discharge. Mucous membranes pink and moist. NECK: Trachea midline. No JVD. CARDIOVASCULAR: Regular rate and rhythm. S1, S2. No S4. RESPIRATORY: No accessory muscle use. Clear to auscultation. Breath sounds equal bilaterally. GASTROINTESTINAL: Abdomen soft, non-tender, nondistended. Hypoactive bowel sounds appreciated MUSCULOSKELETAL: Extremities without clubbing, cyanosis, or edema. NEUROLOGICAL: Currently off all sedation. Positive corneal reflex. Positive gag and cough. Postures with noxious stimulation to upper and bilateral lower extreme is. Assessment and Plan - Problem List (1) Lactic acidosis Code(s): E87.2 - Acidosis Status: Acute (2) Leukocytosis Code(s): D72.829 - Elevated white blood cell count, unspecified Status: Acute (3) Hyperglycemia Code(s): R73.9 - Hyperglycemia, unspecified Status: Acute (4) Cocaine abuse Code(s): F14.10 - Cocaine abuse, uncomplicated Status: Acute (5) Synthetic cannabinoid abuse Code(s): F19.10 - Other psychoactive substance abuse, uncomplicated Status: Acute (6) Cardiopulmonary arrest Code(s): I46.9 - Cardiac arrest, cause unspecified Status: Acute (7) Acute drug overdose Code(s): T50.901A - Poisoning by unspecified drugs, medicaments and biological substances, accidental (unintentional), initial encounter Status: Acute - Assessment and Plan Plan: Neuro/Psych: Hypoxic ischemic encephalopathy Polysubstance overdose including opiates, cocaine and cannabinoids Rewarming completed, off all sedation for almost 7 days No improvement in neuro exam-see detailed neuro exam in the physical exam. EEG and MRI brain consistent with severe anoxic brain injury CT brain on admission revealed no acute intracranial findings. Sinusitis Acetaminophen 650 by tube every 6 hours as needed fever Urine toxicology screen positive for cocaine, cannabinoids and opiates. Document of possible heroin overdose CV: PEA arrest NSTEMI Uncontrolled hypertension Cardiomyopathy with EF 20-25% EKG reveals no ST elevation, telemetry strips shows left bundle branch block Initial troponin 0 0.05. Later troponin peaked at 16 Off IV heparin. Aspirin 81 mg daily Due to lower blood pressure currently on Cipro 5 mg twice daily metoprolol tartrate 20 mg twice daily Discontinue clonidine 0.1 mg every 6 hours and amlodipine 10 mg daily Cardiology consult appreciated. Further workup of meaningful neurological improvement. 2D echocardiogram EF severely reduced with an estimated ejection fraction in the range of 20-25% Lactic acid has cleared Resp: Acute respiratory failure PRVC/AC Ventilation bundle. Head of bed at 30 degrees Albuterol/ipratropium aerosols every 6 hours with albuterol aerosols every 2 hours as needed dyspnea Spontaneous breathing trials as clinically indicated GI: History of hepatitis C Hyperammonemia Elevated total bilirubin Elevated AST hypoalbuminemia Tube feeds with Jevity 1.5 currently 45 cc an hour Pantoprazole for GI prophylaxis Docusate sodium/senna 1 tablet twice daily for bowel regimen Ammonia level was 44 Endo: Hyperglycemia Sliding scale insulin aspart insulin with Accu-Cheks every 6 hours to maintain euglycemia medium protocol Renal: Acute kidney injury Hypernatremia Continue free water replacement. Follow sodium. Monitor urine output Accurate I's and O's. Currently free water 200 cc every 4 hours Heme: Leukocytosis Normocytic anemia Monitor CBC No indication for transfusion of blood product ID: Pseudomonas pneumonia Piperacillin/tazobactam to 4.5 g IV every 6 hourly Blood cultures x2, negative to date Pseudomonas in sputum on admission 03/14 and repeated 03/24 FEN: Hypernatremia Currently on D5 water at 150 cc an hour.. Discontinued today Replace electrolytes as clinically indicated per ICU electrolyte protocol Access -Utilize peripheral IV. Heat exchange femoral catheter placed to 03/13/18 it has been discontinued Prophylaxis -GI -pantoprazole -DVT -SCD/cutaneous heparin Level 2 follow-up (2) Leukocytosis Qualifiers: Leukocytosis type: unspecified Qualified Code(s): D72.829 - Elevated white blood cell count, unspecified (7) Acute drug overdose Qualifiers: Encounter type: initial encounter Injury intent: undetermined intent Qualified Code(s): T50.904A - Poisoning by unspecified drugs, medicaments and biological substances, undetermined, initial encounter
[2018-03-26] MEDS: Metoprolol Tartrate 25 MG Tablet PO SCH ×3 (08:58→17:54)
[2018-03-26] MEDS: Senna/Docusate Sodium 8.6/50 MG Tablet PO SCH ×2 (08:58→23:32)
[2018-03-26] MEDS: [UNRECOGNIZED DRUG - OTHER] EACH EYE SCH ×2 (08:58→21:31)
[2018-03-26] MEDS: Pantoprazole Inj 40 MG Vial IV.PUSH SCH (08:58)
[2018-03-26] MEDS: Lisinopril 5 MG Tablet PO SCH ×2 (09:20→21:32)
--- NOTE | 2018-03-26 12:09 | P.PNPAL ---
Reason for Visit Reason for visit: a. To assist with evaluation and management of symptoms including: Dyspnea, encephalopathy b. To assist medical decision maker(s) with: better understanding of current medical conditions; weighing benefits/burdens of medical treatment options; making medical treatment decisions. Subjective Subjective/Interval History: Pt seen today to follow up on comfort, goals with decision maker. Stable. Some flexion /posturing to pain stimuli yesterday. Neurology has signed off, "pt has severe anoxic encephalopathy and is not going to recover to his prior state of functioning.he will be in a fpc for the remainder of his life with a feeding tube and trach as total care.no other testing needed at this time withdrawal is appropriate if family agrees. will sign off." Febrile yesterday 101.7, repeat blood culture sent. No growth x1 day. sputum + pseudomonas. WBC 14.8. Remains on Zosyn. Episode of vomiting last night, TF held , has since been resumed. Rectal drain in place , + loose brown stool. Pt seen in room,no visitors present. No eye opening, upward eye gaze. + increase RR on vent with stimuli for exam. No withdrawal to pain on BUE. Very slight foot flexion with pain stimuli. d/w RN, d/w critical care. Nursing indicates that sister is discussing possible withdrawal in the coming days, but not today "because it is ". call to sister Gómez YARBROUGH, she immediately called me back, updated her on neuro assessment, neuro signed off. She has question about what [place] [facility] care would look like. Gently explore likely trajectory of person in vegetative / dependent state, potential complications may face. She endorses that she does not think that he would want that but also that she does not want to lose her brother. She says she "knows what she needs to do" but is not prepared to do it yet. She says she cannot make a difficult decision on . She says she does not want to see him suffer or gasp for air either, if she removes him from life support. Gently explore withdrawal process and that he would be medicated to help with comfort and that he would not suffer. She indicates she will think more tomorrow and plans to make decision in the coming days. She voices appreciation for update. She has palliative contact #. -sister called me back again later somewhat anxious and indicated that she had been thinking and she will probably want to withdrawal in the coming days. She has questions about how to notify the home, what she must sign etc. Brief review of anticipatory guidance of procedure, paperwork, home notification etc. Review of comfort measures provided. She indicates she will probably come in sometime tomorrow Monday 03/27 to sign paperwork however she is not certain of when she might want to withdraw tomorrow or Friday possibly. Objective Vital Signs: Vital Signs 03/25/18 12:00 03/25/18 12:30 03/25/18 13:00 Temperature Pulse Rate 97 H 115 H 84 Respiratory Rate 35 H 16 32 H Blood Pressure 132/79 127/81 81/52 L Pulse Oximetry 99 97 96 03/25/18 13:13 03/25/18 13:30 03/25/18 14:00 Temperature Pulse Rate 77 81 79 Respiratory Rate 28 H 24 24 Blood Pressure 96/63 L 99/66 L 97/63 L Pulse Oximetry 96 98 99 03/25/18 14:30 03/25/18 14:34 03/25/18 15:00 Temperature Pulse Rate 68 71 79 Respiratory Rate 21 18 22 Blood Pressure 73/49 L 83/53 L 91/62 L Pulse Oximetry 98 99 98 03/25/18 15:30 03/25/18 16:00 03/25/18 16:14 Temperature Pulse Rate 71 68 69 Respiratory Rate 21 16 16 Blood Pressure 82/52 L 83/51 L 82/51 L Pulse Oximetry 98 100 100 03/25/18 16:30 03/25/18 16:31 03/25/18 17:00 Temperature Pulse Rate 71 86 Respiratory Rate 19 19 26 H Blood Pressure 91/54 L 97/73 L Pulse Oximetry 100 100 100 03/25/18 17:30 03/25/18 19:00 03/25/18 20:00 Temperature 99.3 F Pulse Rate 88 67 77 Respiratory Rate 29 H 18 19 Blood Pressure 104/70 120/75 98/62 L Pulse Oximetry 99 100 96 03/25/18 21:00 03/25/18 21:11 03/25/18 22:00 Temperature Pulse Rate 80 77 Respiratory Rate 24 25 H 19 Blood Pressure 90/57 L 93/58 L Pulse Oximetry 98 98 100 03/25/18 23:00 03/26/18 00:00 03/26/18 00:54 Temperature 99 F Pulse Rate 85 79 Respiratory Rate 22 20 26 H Blood Pressure 102/69 94/59 L Pulse Oximetry 97 100 100 03/26/18 04:00 03/26/18 04:51 03/26/18 05:00 Temperature 99.2 F Pulse Rate 91 H 96 H Respiratory Rate 26 H 23 23 Blood Pressure 128/93 H 126/64 Pulse Oximetry 100 100 99 03/26/18 06:00 03/26/18 06:30 03/26/18 07:00 Temperature Pulse Rate 86 93 H 100 H Respiratory Rate 21 27 H 26 H Blood Pressure 103/61 116/70 122/64 Pulse Oximetry 100 99 99 03/26/18 07:30 03/26/18 07:59 03/26/18 08:00 Temperature Pulse Rate 92 H 92 H Respiratory Rate 19 20 21 Blood Pressure 105/59 L 112/71 Pulse Oximetry 98 100 100 03/26/18 08:30 03/26/18 09:00 03/26/18 09:30 Temperature Pulse Rate 90 92 H 96 H Respiratory Rate 22 20 29 H Blood Pressure 110/60 118/65 124/81 Pulse Oximetry 100 99 100 03/26/18 09:59 03/26/18 10:00 03/26/18 10:30 Temperature Pulse Rate 92 H 90 96 H Respiratory Rate 20 18 26 H Blood Pressure 111/66 105/77 Pulse Oximetry 100 100 Intake & Output 03/25/18 03/26/18 03/26/18 18:59 06:59 18:59 Intake Total 2357 / 2357 882 / 882 402 / 402 Output Total 550 / 550 1500 / 1500 Balance 1807 / 1807 -618 / -618 402 / 402 Weight 80.7 kg Intake: IV 1297 / 1297 100 / 100 202 / 202 D5W Inj 1,000 ML @ 150 mls/hr 1000 / 1000 102 / 102 IV.SIG .Q6H40M ALEIDA Rx#:[id number] Zosyn 4.5 GM Premix 4.5 gm In 297 / 297 100 / 100 100 / 100 100 ml @ 200 mls/hr IV.SIG Q6H ALEIDA Rx#:[id number] Tube Feeding 0 / 0 322 / 322 Tube Irrigant 60 / 60 60 / 60 Water Bolus Amount 400 / 400 200 / 200 Free Water Amount 600 / 600 200 / 200 200 / 200 Output: Stool 200 / 200 Emesis 100 / 100 Urine Amount (Catheter) 550 / 550 1200 / 1200 Condom 550 / 550 1200 / 1200 Other: Date of Last Bowel Movement 03/25/18 03/25/18 03/25/18 # Incontinent Bowel Movements 1 2 Physical Exam: CONSTITUTIONAL/GENERAL: This is an adequately nourished older male, no distress. TUBES/LINES/DRAINS: Peripheral IV RUE, OG tube, external catheter. rectal drain tube. SKIN: Skin warm /diaphoretic. HEAD: Atraumatic. Normocephalic. EYES: Pupils equal and round and reactive 2mm. Does not open for exam. Upward gaze. No scleral icterus. No injection or drainage. Fundi not examined. ENT: Nose without bleeding or purulent drainage. Limited oropharynx exam secondary to tubes CARDIOVASCULAR: Regular rate and rhythm without murmur . No JVD. Peripheral pulses symmetric. RESPIRATORY/CHEST: Symmetric, unlabored respirations via ET tube mechanical vent. + increased RR over vent w pain stimuli. Clear to auscultation. Breath sounds equal bilaterally. GASTROINTESTINAL: Abdomen soft, no apparent tenderness, nondistended. No palpable masses. Bowel sounds present.TF infusing. loose brown stool in rectal drain. GENITOURINARY: Without palpable bladder distension. External catheter in place. MUSCULOSKELETAL: Extremities without clubbing, cyanosis, or edema. No joint effusion noted. No mottling or clubbing. NEUROLOGICAL: no sedation. On mechanical vent. minimally responsive to my exam no response from UE. Slight flexion to pain stimuli BLE. Increase RR on vent w stimuli. Eyes with upward gaze. Positive corneal reflex. PSYCHIATRIC: No obvious anxiety/depression--limited assessment secondary to clinical condition. Diagnostic Tests Laboratory: Laboratory Results - last 72 hr 03/24/18 03/24/18 03/25/18 03:29 12:00 04:27 WBC 23.0 H 22.6 H RBC 4.45 L 4.34 L Hgb 13.2 13.4 Hct 41.1 40.5 MCV 92.2 93.3 MCH 29.7 30.7 MCHC 32.2 32.9 RDW 14.3 13.9 Plt Count 255 260 MPV 10.4 10.8 Prelim Diff (Auto) Slide review pending Neut % (Auto) 85.0 H 87.2 H Lymph % (Auto) 8.8 L 6.5 L [place] % (Auto) 4.7 4.4 Eos % (Auto) 1.4 1.6 Baso % (Auto) 0.1 0.3 Neut # (Auto) 19.5 H 19.7 H Lymph # (Auto) 2.0 1.5 [place] # (Auto) 1.1 H 1.0 H Eos # (Auto) 0.3 0.4 Baso # (Auto) 0.0 0.1 WBC Differential . Manual diff final Seg Neuts % (Manual) 88 H Band Neuts % (Manual) 3 Lymphocytes % (Manual) 4 L Monocytes % (Manual) 3 Eosinophils % (Manual) 2 Abs Neuts (Manual) 20.6 H Differential Comment Auto diff final . Platelet Estimate Normal Platelet Morphology Normal RBC Morphology Normal Sodium Potassium Chloride Carbon Dioxide Anion Gap BUN Creatinine Estimated GFR Random Glucose Calcium Total Bilirubin AST ALT Alkaline Phosphatase Total Protein Albumin Urine Color [place] Urine Clarity Clear Urine pH 6.0 Ur Specific [place] 1.028 Urine Protein 30 H Urine Glucose (UA) Negative Urine Ketones Negative Urine Occult Blood Negative Urine Nitrate Negative Urine Bilirubin Small H Urine Ictotest Positive H Urine Urobilinogen Less than 2 Ur Leukocyte Esterase Negative Urine RBC 3 Urine WBC 1 Ur Squamous Epith Cells <1 Urine Yeast Moderate H Ur Yeast w Hyphae Moderate H Ur Microscopic Review Not Reportable 03/25/18 03/26/18 04:27 03:41 WBC 14.8 H RBC 3.44 L Hgb 10.6 L D Hct 31.5 L MCV 91.6 MCH 30.7 MCHC 33.5 RDW 13.4 Plt Count 244 MPV 10.5 Prelim Diff (Auto) Neut % (Auto) 86.2 H Lymph % (Auto) 7.5 L [place] % (Auto) 4.3 Eos % (Auto) 1.7 Baso % (Auto) 0.3 Neut # (Auto) 12.7 H Lymph # (Auto) 1.1 [place] # (Auto) 0.6 Eos # (Auto) 0.3 Baso # (Auto) 0.0 WBC Differential . Seg Neuts % (Manual) Band Neuts % (Manual) Lymphocytes % (Manual) Monocytes % (Manual) Eosinophils % (Manual) Abs Neuts (Manual) Differential Comment Auto diff final Platelet Estimate Platelet Morphology RBC Morphology Sodium 159 H* Potassium 3.5 Chloride 123 H Carbon Dioxide 29.1 Anion Gap 7 BUN 35 H Creatinine 1.19 Estimated GFR 62 L Random Glucose 117 H Calcium 8.0 L Total Bilirubin 2.0 H AST 101 H ALT 73 Alkaline Phosphatase 99 Total Protein 6.1 L D Albumin 2.0 L Urine Color Urine Clarity Urine pH Ur Specific [place] Urine Protein Urine Glucose (UA) Urine Ketones Urine Occult Blood Urine Nitrate Urine Bilirubin Urine Ictotest Urine Urobilinogen Ur Leukocyte Esterase Urine RBC Urine WBC Ur Squamous Epith Cells Urine Yeast Ur Yeast w Hyphae Ur Microscopic Review Result Diagrams: 03/27/18 07:05 03/27/18 07:05 Microbiology: Microbiology 03/24/18 11:10 Aerobic Blood Culture - Preliminary Blood - Peripheral No growth in 2 days Anaerobic Blood Culture - Preliminary No growth in 2 days 03/24/18 11:17 Aerobic Blood Culture - Preliminary Blood - Peripheral No growth in 2 days Anaerobic Blood Culture - Preliminary No growth in 2 days 03/24/18 12:00 Gram Stain - Final Sputum - Endotracheal Sputum Culture - Preliminary Pseudomonas species 03/24/18 12:00 Urine Culture - Final Random Urine 50-100,000 cfu/mL mixed gram positive flip (probable contaminants) Assessment and Plan - Disease Oriented Problem List (1) Anoxic encephalopathy (2) Cardiopulmonary arrest (3) Acute drug overdose (4) Lactic acidosis (5) Leukocytosis (6) Hyperglycemia (7) Hepatitis C (8) Acute respiratory failure (9) Cardiomyopathy (10) NSTEMI (non-ST elevated myocardial infarction) Pertinent Non-Medical Issues: Psychosocial: Patient born and raised in [place]. 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 Parents , has 1 sister. Not , no children. Intermittently homeless. Most recently lived with a roommate. Spiritual: Sister indicates "they believe ", requests personnel generalist manager support Legal: Patient is unable to participate in medical decision making does not appear he will regain ability secondary to significant brain injury. Per [place] statutes his only sister would be appropriate legal proxy (Maribell). He is not , no children. Parents . Ethical issues impacting care: No ethical issues identified Important Contacts: Sister Maribell Salazar [phone] Prognosis: This patient was admitted for out of hospital arrest, possible overdose. He has sustained severe anoxic brain injury. Prognosis for meaningful neurologic recovery is poor. Per neurology: "pt has severe anoxic encephalopathy and is not going to recover to his prior state of functioning. he will be in a fpc for the remainder of his life with a feeding tube and trach as total care. no other testing needed at this time withdrawal is appropriate if family agrees.will sign off." Code Status: No Code DNR Plan: Legal decision maker:Patient is unable to participate in medical decision making does not appear he will regain ability secondary to significant brain injury. Per [place] statutes his only sister would be appropriate legal proxy ( Maribell). He is not , no children. Parents . Goals: sister is not ready to make any decisions regarding possibility of withdrawal today, though is considering possible withdrawal in the coming days. She wishes to continue all available aggressive treatments / interventions for the time being, short of resuscitation/ DNR ----Sister called later to indicate she is leaning towards withdrawal of life support in the next few days CODE STATUS: DNR SYMPTOMS: --Painpotential sources: s/p CPR. patient with reported history of chronic back pain. Of note he was recently seen in [place] [facility] 02/22/18 for severe back pain. Lumbar spine imaging notes possible acute ligament injury L3-L4, with chronic/stable findings of anterolisthesis at L4, L5, severe foraminal stenosis at L4, L5, and moderate stenosis at L5, S1. [Neurosurgery was consulted at that time and recommended conservative management with pain control, at some point if pain unremitting could consider surgery discharged with analgesic, muscle relaxant, Neurontin recommended for follow-up 1-2 weeks]. + hx old rib fx. Currently nonresponsive, no signs of distress --Dyspnea-intubated due to brain injury and no respiratory effort, currently breathing comfortable on mechanical vent, would likely require prolonged support and possibly tracheostomy given severity of anoxic brain injury --Encephalopathy-found unresponsive and pulseless, unknown amount of downtime out of hospital, underwent CPR with ROSC. Imaging, EEG indicative of severe anoxic injury. Poor prognosis for meaningful neurologic recovery Palliative care will continue to follow during hospital course as condition evolves, to assist patient/decision-maker with understanding of medical conditions, weighing benefits/burdens of treatment options, for clarification of goals of treatment. Additionally will assist with any symptoms of palliative concern Attestation Attestation: To help prompt me to consider important information that might be impacting today's encounter and assessment, information from prior notes written by myself or my colleagues may have been "brought forward" into today's note. My signature on this note, however, is an attestation that I personally performed the exam, history, and/or decision-making noted today, and, unless otherwise indicated, the interactions with patient, family, and staff as well as the review of records all occurred today. I also attest that the listed assessment and stated plan reflect my best clinical judgment today based on the combination of historical information, prior notes, and today's exam/ interactions. When time spent is documented, it refers only to time spent today by the signer, or if indicated, combined time spent today by collaborating physician/nurse practitioner.
[2018-03-26] MEDS: Heparin - SQ 10,000 UNITS/ML Vial SQ SCH ×2 (15:07→22:30)
[2018-03-27] MEDS: Oral Hygiene Kit OROPHARYNG SCH ×4 (02:09→16:36)
[2018-03-27] MEDS: Heparin - SQ 10,000 UNITS/ML Vial SQ SCH ×3 (05:12→21:47)
[2018-03-27] MEDS: Piperacil/Tazo 4.5 GM Premix 4.5 GM/100 ML BAG IV.SIG SCH ×4 (05:12→23:20)
--- NOTE | 2018-03-27 06:21 | XR ---
EXAM DATE: 03/27/2018 6:18 AM EST AGE/SEX: 62 years / Male INDICATIONS: Shortness of breath, possible respiratory disease. CLINICAL DATA: This is the patient's subsequent encounter. Patient reports that signs and symptoms h ave been present for 2 weeks and indicates a pain score of Nonresponsive. MEDICAL/SURGICAL HISTORY: Non-responsive. Non-responsive. COMPARISON: [facility], CHEST 1V SINGLE AP, 03/16/2018. . FINDINGS: Endotracheal tube is present with tip 7 cm above the saqib. Nasogastric tube descends into the stoma ch. There is mild fairly symmetric interstitial prominence which may be largely chronic. No significa nt alveolar consolidation or pleural effusion. Cardiac contours are satisfactory. CONCLUSION: Diffuse interstitial prominence Electronically signed by: Jared Lucia MD Board Certified Radiologist 03/27/2018 6:20 AM EST
[2018-03-27 07:23] LABS: Baso # (Auto) 0.1 th/mm3 (0.0-0.2); Baso % (Auto) 0.4 % (0.0-2.0); Eos # (Auto) 0.1 th/mm3 (0.0-0.4); Eos % (Auto) 0.8 % (0.0-4.0); Hematocrit 34.7 % (39.0-51.0); Hemoglobin 12.1 gm/dL (13.0-17.0); Lymph # (Auto) 0.9 th/mm3 (1.0-4.8); Lymph % (Auto) 5.2 % (9.0-44.0); Mean Corpuscular HGB Conc 34.8 % (32.0-36.0); Mean Corpuscular Hemoglobin 31.6 pg (27.0-34.0); Mean Corpuscular Volume 90.9 fL (80.0-100.0); Mean Platelet Volume 10.6 fL (7.0-11.0); Mono # (Auto) 0.7 th/mm3 (0.0-0.9); Mono % (Auto) 3.9 % (0.0-8.0); Neut # (Auto) 15.4 th/mm3 (1.8-7.7); Neut % (Auto) 89.7 % (16.0-70.0); Platelet Count 322 th/mm3 (150-450); Red Blood Count 3.82 mil/mm3 (4.50-5.90); Red Cell Distribution Width 13.3 % (11.6-17.2); White Blood Count 17.2 th/mm3 (4.0-11.0)
[2018-03-27 08:00] LABS: Alanine Aminotransferase 91 U/L (12-78); Albumin 1.8 g/dL (3.4-5.0); Anion Gap 6 meq/L (5-15); Aspartate Aminotransferase 120 U/L (15-37); Blood Urea Nitrogen 34 mg/dL (7-18); Calcium 7.8 mg/dL (8.5-10.1); Carbon Dioxide 28.8 meq/L (21.0-32.0); Chloride 118 meq/L (98-107); Glomerular Filtration Rate 61 mL/min (>89); Glucose,Random 144 mg/dL (74-106); Magnesium 2.5 mg/dL (1.5-2.5); Phosphorus 2.1 mg/dL (2.5-4.9); Sodium 153 meq/L (136-145)
[2018-03-27 08:02] LABS: Alkaline Phosphatase 91 U/L (45-117); Total Protein 5.9 g/dL (6.4-8.2)
[2018-03-27] MEDS ORDERED: Potassium Phosphate Inj 30 MMOL in Sodium Chlor 0.9% Inj 250 ML IV.SIG ONE (08:10)
[2018-03-27] MEDS ORDERED: Potassium Chloride 25 MEQ Effervescent Tablet PO ONE (08:10)
--- NOTE | 2018-03-27 08:14 | P.PNCC ---
Subjective Subjective Remarks/Hospital Course: This is a 62-year-old male. Date of admission 03/13/2018. Past medical history includes hepatitis C, pancreatitis hypertension, chronic back pain and allergic rhinitis. History of tobacco abuse. Patient presents to [facility] as a PEA arrest per documentation, patient also history of heroin abuse. Patient was found to be unresponsive in attendance in a homeless camp. Presenting rhythm was pulseless electric activity. Chest compressions started. Patient was intubated. Patient was given epinephrine IV x3 and sodium bicarb 1 amp IV, naltrexone 2 mg IV. Patient was transported to ED for evaluation. Patient regained pulse upon arrival to the ED. 15 minutes per ED physician CT brain revealed no acute intracranial findings. Troponin 0.0 0.5. Patient had a leukocytosis, elevated magnesium, acute injury creatinine 1.8, lactate of 9.8 and a blood sugar today today. Toxicology screen positive for opiates, cocaine and cannabinoids. Patient is currently not moving his unresponsive at 50 rebeka grams per kilogram per minute of propofol this is currently on hold. Chest x-ray revealed old right rib fractures. No pneumothorax. ET tube 5 cm above the saqib. 03/14/18: Induced hypothermia initiated by overnight forest scientist currently at target temperature. Patient is on propofol fentanyl and Nimbex. Troponin has peaked at 16. I will start IV heparin and aspirin. Cardiology consulted. 03/15/18: Induced hypothermia completed. Currently in the rewarming phase. Will be completed by to prevent in the afternoon. Currently sedated and paralyzed limiting neuro exam. Pupils are slightly reactive. 03/16/18: Patient remains off sedation last 12 hours. No clinical improvement in neuro status. Patient remains comatose. Weak cough. Slight sluggish pupil reflex. No spontaneous eye opening no withdrawal to pain. MRI of the brain ordered neurology consulted. Also check EEG to rule out subclinical seizures. Noted to have increasing white count chest x-ray shows no infiltrate 2: Remains encephalopathic off sedation. Orally intubated on mechanical ventilation. Has some spontaneous eye opening however no purposeful movements. 2: Remains encephalopathic, orally intubated on mechanical ventilation. Febrile. Tolerating tube feeds. 03/19: Remains encephalopathic, orally intubated on mechanical ventilation. Febrile. Tolerating tube feeds. Patient's sister is deciding regarding goals of therapy with palliative 2: Remains encephalopathic, orally intubated on mechanical ventilation. Awaiting family's decision regarding goals of therapy. 03/21: Remains encephalopathic, orally intubated on mechanical ventilation. 03/22: Remains encephalopathic, on mechanical ventilation. Awaiting family's decision regarding goals of therapy. Switched IV fluid to D5 water in view of hypernatremia 03/23: Remains encephalopathic on mechanical ventilation. Awaiting patient's sister's decision regarding goals of therapy. Poor neurologic prognosis. 03/24: Remains encephalopathic on mechanical ventilation. Has spontaneous eye opening. Hyponatremic. Febrile. Sputum cultures with Pseudomonas on Zosyn. We will repeat nam cultures. Patient's sister is not sure regarding decision for trach PEG versus comfort measures currently. She requests additional neuro follow-up for prognosis. 03/25: Persistent severe anoxic injury. He opens his eyes to painful stimuli but do not track. Extensive posturing to painful stimuli. Positive corneals. However clinical exam EEG and MRI consistent with severe anoxic injury 03/26: Patient is opens eyes to painful stimuli but eyes were rolled upward into the left. Continues to posture not sedated to noxious stimulus. Intubated since 03/13. Subjective 03/27: Patient opens eyes to noxious stimulation/rolled upwards and to the left. Continue to posture. Not sedated. Intubated/03/13. Plan for compassionate withdrawal on Friday if no improvement neurologically per healthcare proxy/ sister Objective Vital Signs / I&O: Vital Signs 03/26/18 08:30 03/26/18 09:00 03/26/18 09:30 Temperature Pulse Rate 90 92 H 96 H Respiratory Rate 22 20 29 H Blood Pressure 110/60 118/65 124/81 Pulse Oximetry 100 99 100 03/26/18 09:59 03/26/18 10:00 03/26/18 10:30 Temperature Pulse Rate 92 H 90 96 H Respiratory Rate 20 18 26 H Blood Pressure 111/66 105/77 Pulse Oximetry 100 100 03/26/18 11:00 03/26/18 11:30 03/26/18 12:00 Temperature 99.6 F Pulse Rate 98 H 93 H 93 H Respiratory Rate 24 21 27 H Blood Pressure 114/67 112/66 116/73 Pulse Oximetry 99 99 100 03/26/18 12:11 03/26/18 12:27 03/26/18 12:30 Temperature Pulse Rate 100 H 96 H Respiratory Rate 25 H 24 Blood Pressure 114/70 Pulse Oximetry 100 99 03/26/18 13:00 03/26/18 13:30 03/26/18 14:00 Temperature Pulse Rate 103 H 91 H 84 Respiratory Rate 34 H 24 24 Blood Pressure 107/79 100/67 104/70 Pulse Oximetry 90 L 100 100 03/26/18 14:30 03/26/18 15:00 03/26/18 15:01 Temperature Pulse Rate 82 92 H 93 H Respiratory Rate 25 H 26 H 26 H Blood Pressure 107/71 134/81 Pulse Oximetry 100 97 99 03/26/18 15:11 03/26/18 15:30 03/26/18 16:00 Temperature Pulse Rate 95 H 100 H 103 H Respiratory Rate 24 27 H 31 H Blood Pressure 132/71 109/77 Pulse Oximetry 99 98 98 03/26/18 16:10 03/26/18 16:30 03/26/18 17:00 Temperature Pulse Rate 97 H 104 H 94 H Respiratory Rate 27 H 21 Blood Pressure 111/77 101/71 Pulse Oximetry 99 100 03/26/18 17:30 03/26/18 19:00 03/26/18 20:00 Temperature 99 F Pulse Rate 94 H 99 H 98 H Respiratory Rate 26 H 24 22 Blood Pressure 102/67 111/75 115/81 Pulse Oximetry 99 98 99 03/26/18 20:10 03/26/18 20:14 03/26/18 21:00 Temperature Pulse Rate 99 H 105 H Respiratory Rate 26 H 30 H 27 H Blood Pressure 107/73 Pulse Oximetry 100 98 03/26/18 22:00 03/26/18 23:00 03/27/18 00:00 Temperature 99.2 F Pulse Rate 104 H 109 H 113 H Respiratory Rate 32 H 26 H 25 H Blood Pressure 113/76 115/78 129/81 Pulse Oximetry 100 96 98 03/27/18 00:06 03/27/18 01:00 03/27/18 02:00 Temperature Pulse Rate 108 H 102 H Respiratory Rate 23 26 H 22 Blood Pressure 126/73 99/65 L Pulse Oximetry 98 97 96 03/27/18 03:00 03/27/18 03:42 03/27/18 04:00 Temperature 99 F Pulse Rate 103 H 106 H 114 H Respiratory Rate 24 26 H 22 Blood Pressure 106/68 114/81 Pulse Oximetry 98 99 03/27/18 04:10 03/27/18 05:00 03/27/18 07:06 Temperature Pulse Rate 116 H Respiratory Rate 24 50 H 25 H Blood Pressure 115/78 Pulse Oximetry 97 96 98 Intake & Output 03/26/18 03/27/18 03/27/18 18:59 06:59 18:59 Intake Total 2106 / 2106 [birth year] Output Total 1125 / 1125 1200 / 1200 Balance 981 / 981 766 / 766 Weight 79.1 kg Intake: IV 400 / 400 200 / 200 D5W Inj 1,000 ML @ 150 mls/hr 102 / 102 IV.SIG .Q6H40M [facility] Rx#:[id number] Zosyn 4.5 GM Premix 4.5 gm In 298 / 298 200 / 200 100 ml @ 200 mls/hr IV.SIG Q6H [facility] Rx#:[id number] Tube Feeding 446 / 446 506 / 506 Tube Irrigant 60 / 60 60 / 60 Water Bolus Amount 600 / 600 600 / 600 Free Water Amount 600 / 600 600 / 600 Output: Stool 400 / 400 200 / 200 Urine Amount (Catheter) 725 / 725 1000 / 1000 Condom 725 / 725 1000 / 1000 Other: Date of Last Bowel Movement 03/26/18 03/26/18 Result Diagrams: 03/27/18 07:05 03/27/18 07:05 Other Results: Microbiology 03/24/18 12:00 Sputum - Endotracheal Gram Stain - Final 03/24/18 12:00 Sputum - Endotracheal Sputum Culture - Final Pseudomonas aeruginosa 03/24/18 11:10 Blood - Peripheral Aerobic Blood Culture - Preliminary No growth in 2 days 03/24/18 11:10 Blood - Peripheral Anaerobic Blood Culture - Preliminary No growth in 2 days 03/24/18 11:17 Blood - Peripheral Aerobic Blood Culture - Preliminary No growth in 2 days 03/24/18 11:17 Blood - Peripheral Anaerobic Blood Culture - Preliminary No growth in 2 days 03/24/18 12:00 Random Urine Urine Culture - Final 50-100,000 cfu/mL mixed gram positive flip (probable contaminants) 03/17/18 03:55 Blood - Peripheral Aerobic Blood Culture - Final No growth in 5 days 03/17/18 03:55 Blood - Peripheral Anaerobic Blood Culture - Final No growth in 5 days 03/17/18 01:00 Blood - Peripheral Aerobic Blood Culture - Final No growth in 5 days 03/17/18 01:00 Blood - Peripheral Anaerobic Blood Culture - Final No growth in 5 days 03/14/18 19:55 Blood - Line Aerobic Blood Culture - Final No growth in 5 days 03/14/18 19:55 Blood - Line Anaerobic Blood Culture - Final No growth in 5 days 03/13/18 21:00 Blood - Peripheral Aerobic Blood Culture - Final No growth in 5 days 03/13/18 21:00 Blood - Peripheral Anaerobic Blood Culture - Final No growth in 5 days 03/13/18 21:10 Blood - Peripheral Aerobic Blood Culture - Final No growth in 5 days 03/13/18 21:10 Blood - Peripheral Anaerobic Blood Culture - Final No growth in 5 days 03/14/18 01:10 Sputum - Endotracheal Gram Stain - Final 03/14/18 01:10 Sputum - Endotracheal Sputum Culture - Final Pseudomonas aeruginosa Imaging: Head CT 03/13/18 20:50 CONCLUSION: 1. No acute hemorrhage or mass effect. 2. Extensive sinusitis with abnormal soft tissue density in the nasal passage which could indicate polyposis. . Chest X-Ray 03/13/18 20:52 CONCLUSION: 1. Mild bibasilar atelectasis. 2. Endotracheal tube tip 5.7 cm above the saqib. 3. Nasogastric tube tip at the GE junction. Chest X-Ray 03/13/18 21:57 CONCLUSION: Clear lungs. Endotracheal tube and nasogastric tube positions as above. Old right rib fractures. Chest X-Ray 03/14/18 06:00 CONCLUSION: NG tube tip in the distal esophagus. This should be advanced. Abdomen/Bladder Ultrasound 03/14/18 23:09 CONCLUSION: 1. Normal appearance of the kidneys without abnormal echotexture or hydronephrosis. There is a Aly catheter identified within the decompressed bladder. Chest X-Ray 03/16/18 06:00 CONCLUSION: No acute cardiopulmonary abnormality is appreciated. Head MRI 03/17/18 00:00 CONCLUSION: Symmetric abnormal diffusion capacity bilaterally characteristic of global anoxic/hypoxic insult/encephalopathy. Findings were discussed with Casandra the patient's nurse at the time of this dictation at 11:[address] Coleman without be reached by phone. Chest X-Ray 02/15/19 06:00 CONCLUSION: Diffuse interstitial prominence Objective Remarks: GENERAL: 62-year-old male currently orotracheally intubated SKIN: Warm and dry. No rash HEAD: Atraumatic. Normocephalic. EYES: Pupils equal and round about 2 mm bilaterally and reactive. No scleral icterus. No injection or drainage. ENT: No nasal bleeding or discharge. Mucous membranes pink and moist. NECK: Trachea midline. No JVD. CARDIOVASCULAR: Regular rate and rhythm. S1, S2. No S4. RESPIRATORY: No accessory muscle use. Clear to auscultation. Breath sounds equal bilaterally. GASTROINTESTINAL: Abdomen soft, non-tender, nondistended. Hypoactive bowel sounds appreciated MUSCULOSKELETAL: Extremities without clubbing, cyanosis, or edema. NEUROLOGICAL: Currently off all sedation. Positive corneal reflex. Positive gag and cough. Postures with extreme noxious stimulation to upper and bilateral lower extremities Assessment and Plan - Problem List (1) Lactic acidosis Code(s): E87.2 - Acidosis Status: Acute (2) Leukocytosis Code(s): D72.829 - Elevated white blood cell count, unspecified Status: Acute (3) Hyperglycemia Code(s): R73.9 - Hyperglycemia, unspecified Status: Acute (4) Cocaine abuse Code(s): F14.10 - Cocaine abuse, uncomplicated Status: Acute (5) Synthetic cannabinoid abuse Code(s): F19.10 - Other psychoactive substance abuse, uncomplicated Status: Acute (6) Cardiopulmonary arrest Code(s): I46.9 - Cardiac arrest, cause unspecified Status: Acute (7) Acute drug overdose Code(s): T50.901A - Poisoning by unspecified drugs, medicaments and biological substances, accidental (unintentional), initial encounter Status: Acute - Assessment and Plan Plan: Neuro/Psych: Hypoxic ischemic encephalopathy Polysubstance overdose including opiates, cocaine and cannabinoids Rewarming completed, off all sedation for almost 7 days No improvement in neuro exam-see detailed neuro exam in the physical exam. EEG and MRI brain consistent with severe anoxic brain injury CT brain on admission revealed no acute intracranial findings. Sinusitis Acetaminophen 650 by tube every 6 hours as needed fever Urine toxicology screen positive for cocaine, cannabinoids and opiates. Document of possible heroin overdose CV: PEA arrest NSTEMI Uncontrolled hypertension Cardiomyopathy with EF 20-25% EKG reveals no ST elevation, telemetry strips shows left bundle branch block Initial troponin 0 0.05. Later troponin peaked at 16 Off IV heparin. Aspirin 81 mg daily Due to lower blood pressure currently on Cipro 5 mg twice daily metoprolol tartrate 20 mg twice daily Discontinue clonidine 0.1 mg every 6 hours and amlodipine 10 mg daily Cardiology consult appreciated. Further workup of meaningful neurological improvement. 2D echocardiogram EF severely reduced with an estimated ejection fraction in the range of 20-25% Lactic acid has cleared Resp: Acute respiratory failure PRVC/AC Ventilation bundle. Head of bed at 30 degrees Albuterol/ipratropium aerosols every 6 hours with albuterol aerosols every 2 hours as needed dyspnea Spontaneous breathing trials as clinically indicated GI: History of hepatitis C Hyperammonemia Elevated total bilirubin Elevated AST hypoalbuminemia Tube feeds with Jevity 1.5 currently 45 cc an hour Pantoprazole for GI prophylaxis Docusate sodium/senna 1 tablet twice daily for bowel regimen Ammonia level was 47 Check ammonia level in a.m. 03/28. On lactulose 30 cc twice daily Endo: Hyperglycemia Sliding scale insulin aspart insulin with Accu-Cheks every 6 hours to maintain euglycemia medium protocol Renal: Acute kidney injury Hypernatremia Continue free water replacement. Follow sodium. Monitor urine output Accurate I's and O's. Currently free water 200 cc every 4 hours Heme: Leukocytosis Normocytic anemia Monitor CBC No indication for transfusion of blood product ID: Pseudomonas pneumonia Piperacillin/tazobactam to 4.5 g IV every 6 hourly Blood cultures x2, negative to date Pseudomonas in sputum on admission 03/14 and repeated 03/24 FEN: Hypernatremia Hypopotassemia Hypokalemia Currently on D5 water at 150 cc an hour.. Discontinued 03/26 Replace electrolytes as clinically indicated per ICU electrolyte protocol. 30 mmol potassium phosphate IV x1 now and 25 mEq potassium chloride Effient x1 now. Recheck in a.m. Access -Utilize peripheral IV. Heat exchange femoral catheter placed to 03/13/18 it has been discontinued Prophylaxis -GI -pantoprazole -DVT -SCD/cutaneous heparin Level 2 follow-up (2) Leukocytosis Qualifiers: Leukocytosis type: unspecified Qualified Code(s): D72.829 - Elevated white blood cell count, unspecified (7) Acute drug overdose Qualifiers: Encounter type: initial encounter Injury intent: undetermined intent Qualified Code(s): T50.904A - Poisoning by unspecified drugs, medicaments and biological substances, undetermined, initial encounter
[2018-03-27] MEDS: Lisinopril 5 MG Tablet PO SCH ×2 (09:04→20:54)
[2018-03-27] MEDS: Artificial Tears Opth Drops 15 ML Bottle EACH EYE SCH ×3 (09:05→22:41)
[2018-03-27] MEDS: Metoprolol Tartrate 25 MG Tablet PO SCH ×3 (09:05→17:09)
[2018-03-27] MEDS: Senna/Docusate Sodium 8.6/50 MG Tablet PO SCH ×2 (09:05→20:53)
[2018-03-27] MEDS: Chlorhexidine 0.12% Oral Kit 15 ML UDC OROPHARYNG SCH ×2 (09:06→20:52)
[2018-03-27] MEDS: [UNRECOGNIZED DRUG - OTHER] EACH EYE SCH ×2 (09:06→21:46)
--- NOTE | 2018-03-27 14:34 | P.PNPAL ---
Reason for Visit Reason for visit: a. To assist with evaluation and management of symptoms including: Dyspnea, encephalopathy b. To assist medical decision maker(s) with: better understanding of current medical conditions; weighing benefits/burdens of medical treatment options; making medical treatment decisions. Subjective Subjective/Interval History: Pt seen today to follow up on comfort, goals with decision maker. Later yesterday nursing notified sister arrived and requested to sign withdrawal exhibits for possible withdrawal Friday. WBC remains elevated 17.2. Na remains elevated though downtrending 153. K+3.0, repletion per critical care protocol. Temps 99. Nursing indicates with some high residuals on TF, having loose BMs in rectal drain. CXR today=Diffuse interstitial prominence Pt seen in room,no visitors present. No eye opening, upward eye gaze. +blink w eye exam, light. + spont RR over vent rate. No withdrawal to pain on BUE, slight foot flexion to pain BLE. No sedation. d/w RN, d/w critical care. Signed exhibit B is in chart, sister signed yesterday. Tentative plan to proceed w compassionate withdrawal of life support Friday03/30/18. call to sister Gómez barton Objective Vital Signs: Vital Signs 03/26/18 13:30 03/26/18 14:00 03/26/18 14:30 Temperature Pulse Rate 91 H 84 82 Respiratory Rate 24 24 25 H Blood Pressure 100/67 104/70 107/71 Pulse Oximetry 100 100 100 03/26/18 15:00 03/26/18 15:01 03/26/18 15:11 Temperature Pulse Rate 92 H 93 H 95 H Respiratory Rate 26 H 26 H 24 Blood Pressure 134/81 Pulse Oximetry 97 99 99 03/26/18 15:30 03/26/18 16:00 03/26/18 16:10 Temperature Pulse Rate 100 H 103 H 97 H Respiratory Rate 27 H 31 H Blood Pressure 132/71 109/77 Pulse Oximetry 98 98 03/26/18 16:30 03/26/18 17:00 03/26/18 17:30 Temperature Pulse Rate 104 H 94 H 94 H Respiratory Rate 27 H 21 26 H Blood Pressure 111/77 101/71 102/67 Pulse Oximetry 99 100 99 03/26/18 19:00 03/26/18 20:00 03/26/18 20:10 Temperature 99 F Pulse Rate 99 H 98 H Respiratory Rate 24 22 26 H Blood Pressure 111/75 115/81 Pulse Oximetry 98 99 100 03/26/18 20:14 03/26/18 21:00 03/26/18 22:00 Temperature Pulse Rate 99 H 105 H 104 H Respiratory Rate 30 H 27 H 32 H Blood Pressure 107/73 113/76 Pulse Oximetry 98 100 03/26/18 23:00 03/27/18 00:00 03/27/18 00:06 Temperature 99.2 F Pulse Rate 109 H 113 H Respiratory Rate 26 H 25 H 23 Blood Pressure 115/78 129/81 Pulse Oximetry 96 98 98 03/27/18 01:00 03/27/18 02:00 03/27/18 03:00 Temperature Pulse Rate 108 H 102 H 103 H Respiratory Rate 26 H 22 24 Blood Pressure 126/73 99/65 L 106/68 Pulse Oximetry 97 96 98 03/27/18 03:42 03/27/18 04:00 03/27/18 04:10 Temperature 99 F Pulse Rate 106 H 114 H Respiratory Rate 26 H 22 24 Blood Pressure 114/81 Pulse Oximetry 99 97 03/27/18 05:00 03/27/18 07:06 03/27/18 08:00 Temperature 99.8 F H Pulse Rate 116 H 112 H Respiratory Rate 50 H 25 H Blood Pressure 115/78 Pulse Oximetry 96 98 03/27/18 08:43 03/27/18 11:34 Temperature Pulse Rate 112 H Respiratory Rate 25 H 24 Blood Pressure Pulse Oximetry 98 Intake & Output 03/26/18 03/27/18 03/27/18 18:59 06:59 18:59 Intake Total 2106 / 2106 [birth year] 400 / 400 Output Total 1125 / 1125 1200 / 1200 Balance 981 / 981 766 / 766 400 / 400 Weight 79.1 kg Intake: IV 400 / 400 200 / 200 D5W Inj 1,000 ML @ 150 mls/hr 102 / 102 IV.SIG .Q6H40M ALEIDA Rx#:[id number] Zosyn 4.5 GM Premix 4.5 gm In 298 / 298 200 / 200 100 ml @ 200 mls/hr IV.SIG Q6H ALEIDA Rx#:[id number] Tube Feeding 446 / 446 506 / 506 Tube Irrigant 60 / 60 60 / 60 Water Bolus Amount 600 / 600 600 / 600 Free Water Amount 600 / 600 600 / 600 400 / 400 Output: Stool 400 / 400 200 / 200 Urine Amount (Catheter) 725 / 725 1000 / 1000 Condom 725 / 725 1000 / 1000 Other: Date of Last Bowel Movement 03/26/18 03/26/18 03/26/18 Physical Exam: CONSTITUTIONAL/GENERAL: This is an adequately nourished older male, no distress. TUBES/LINES/DRAINS: Peripheral IV RUE, OG tube, external catheter. rectal drain tube. SKIN: Skin warm /diaphoretic. HEAD: Atraumatic. Normocephalic. EYES: Pupils equal and round and reactive 2mm. Blinks w exam. Upward gaze. No scleral icterus. No injection or drainage. Fundi not examined. ENT: Nose without bleeding or purulent drainage. Limited oropharynx exam secondary to tubes CARDIOVASCULAR: Regular rate and rhythm without murmur . No JVD. Peripheral pulses symmetric. RESPIRATORY/CHEST: Symmetric, unlabored respirations via ET tube mechanical vent. + spont RR over vent . few scattered rhonchi. Breath sounds equal bilaterally. GASTROINTESTINAL: Abdomen soft, no apparent tenderness, nondistended. No palpable masses. Bowel sounds present.TF infusing. loose brown stool in rectal drain. GENITOURINARY: Without palpable bladder distension. External catheter in place. MUSCULOSKELETAL: Extremities without clubbing, cyanosis, or edema. No joint effusion noted. No mottling or clubbing. NEUROLOGICAL: no sedation. On mechanical vent. minimally responsive to my exam no response from UE. Slight flexion to pain stimuli BLE. + RR over vent rate w stimuli. Eyes with upward gaze. Positive corneal reflex. PSYCHIATRIC: No obvious anxiety/depression--limited assessment secondary to clinical condition. Diagnostic Tests Laboratory: Laboratory Results - last 72 hr 03/24/18 03/25/18 03/25/18 12:00 04:27 04:27 WBC 22.6 H RBC 4.34 L Hgb 13.4 Hct 40.5 MCV 93.3 MCH 30.7 MCHC 32.9 RDW 13.9 Plt Count 260 MPV 10.8 Prelim Diff (Auto) Slide review pending Neut % (Auto) 87.2 H Lymph % (Auto) 6.5 L Runnels % (Auto) 4.4 Eos % (Auto) 1.6 Baso % (Auto) 0.3 Neut # (Auto) 19.7 H Lymph # (Auto) 1.5 Runnels # (Auto) 1.0 H Eos # (Auto) 0.4 Baso # (Auto) 0.1 WBC Differential Manual diff final Seg Neuts % (Manual) 88 H Band Neuts % (Manual) 3 Lymphocytes % (Manual) 4 L Monocytes % (Manual) 3 Eosinophils % (Manual) 2 Abs Neuts (Manual) 20.6 H Differential Comment . Platelet Estimate Normal Platelet Morphology Normal RBC Morphology Normal Sodium 159 H* Potassium 3.5 Chloride 123 H Carbon Dioxide 29.1 Anion Gap 7 BUN 35 H Creatinine 1.19 Estimated GFR 62 L Random Glucose 117 H Calcium 8.0 L Phosphorus Magnesium Total Bilirubin 2.0 H AST 101 H ALT 73 Alkaline Phosphatase 99 Ammonia Total Protein 6.1 L D Albumin 2.0 L Urine Color [place] Urine Clarity Clear Urine pH 6.0 Ur Specific Bowler 1.028 Urine Protein 30 H Urine Glucose (UA) Negative Urine Ketones Negative Urine Occult Blood Negative Urine Nitrate Negative Urine Bilirubin Small H Urine Ictotest Positive H Urine Urobilinogen Less than 2 Ur Leukocyte Esterase Negative Urine RBC 3 Urine WBC 1 Ur Squamous Epith Cells <1 Urine Yeast Moderate H Ur Yeast w Hyphae Moderate H Ur Microscopic Review Not Reportable 03/26/18 03/27/18 03/27/18 03:41 07:05 07:05 WBC 14.8 H 17.2 H RBC 3.44 L 3.82 L Hgb 10.6 L D 12.1 L Hct 31.5 L 34.7 L MCV 91.6 90.9 MCH 30.7 31.6 MCHC 33.5 34.8 RDW 13.4 13.3 Plt Count 244 322 D MPV 10.5 10.6 Prelim Diff (Auto) Neut % (Auto) 86.2 H 89.7 H Lymph % (Auto) 7.5 L 5.2 L Runnels % (Auto) 4.3 3.9 Eos % (Auto) 1.7 0.8 Baso % (Auto) 0.3 0.4 Neut # (Auto) 12.7 H 15.4 H Lymph # (Auto) 1.1 0.9 L Runnels # (Auto) 0.6 0.7 Eos # (Auto) 0.3 0.1 Baso # (Auto) 0.0 0.1 WBC Differential . . Seg Neuts % (Manual) Band Neuts % (Manual) Lymphocytes % (Manual) Monocytes % (Manual) Eosinophils % (Manual) Abs Neuts (Manual) Differential Comment Auto diff final Auto diff final Platelet Estimate Platelet Morphology RBC Morphology Sodium 153 H Potassium 3.0 L Chloride 118 H Carbon Dioxide 28.8 Anion Gap 6 BUN 34 H Creatinine 1.21 Estimated GFR 61 L Random Glucose 144 H Calcium 7.8 L Phosphorus 2.1 L Magnesium 2.5 Total Bilirubin 1.5 H AST 120 H ALT 91 H Alkaline Phosphatase 91 Ammonia Total Protein 5.9 L Albumin 1.8 L Urine Color Urine Clarity Urine pH Ur Specific Bowler Urine Protein Urine Glucose (UA) Urine Ketones Urine Occult Blood Urine Nitrate Urine Bilirubin Urine Ictotest Urine Urobilinogen Ur Leukocyte Esterase Urine RBC Urine WBC Ur Squamous Epith Cells Urine Yeast Ur Yeast w Hyphae Ur Microscopic Review 03/27/18 07:05 WBC RBC Hgb Hct MCV MCH MCHC RDW Plt Count MPV Prelim Diff (Auto) Neut % (Auto) Lymph % (Auto) Runnels % (Auto) Eos % (Auto) Baso % (Auto) Neut # (Auto) Lymph # (Auto) Runnels # (Auto) Eos # (Auto) Baso # (Auto) WBC Differential Seg Neuts % (Manual) Band Neuts % (Manual) Lymphocytes % (Manual) Monocytes % (Manual) Eosinophils % (Manual) Abs Neuts (Manual) Differential Comment Platelet Estimate Platelet Morphology RBC Morphology Sodium Potassium Chloride Carbon Dioxide Anion Gap BUN Creatinine Estimated GFR Random Glucose Calcium Phosphorus Magnesium Total Bilirubin AST ALT Alkaline Phosphatase Ammonia 47 H Total Protein Albumin Urine Color Urine Clarity Urine pH Ur Specific Bowler Urine Protein Urine Glucose (UA) Urine Ketones Urine Occult Blood Urine Nitrate Urine Bilirubin Urine Ictotest Urine Urobilinogen Ur Leukocyte Esterase Urine RBC Urine WBC Ur Squamous Epith Cells Urine Yeast Ur Yeast w Hyphae Ur Microscopic Review Result Diagrams: 03/27/18 07:05 03/27/18 07:05 Microbiology: Microbiology 03/24/18 11:10 Aerobic Blood Culture - Preliminary Blood - Peripheral No growth in 3 days Anaerobic Blood Culture - Preliminary No growth in 3 days 03/24/18 11:17 Aerobic Blood Culture - Preliminary Blood - Peripheral No growth in 3 days Anaerobic Blood Culture - Preliminary No growth in 3 days 03/24/18 12:00 Gram Stain - Final Sputum - Endotracheal Sputum Culture - Final Pseudomonas aeruginosa 03/24/18 12:00 Urine Culture - Final Random Urine 50-100,000 cfu/mL mixed gram positive flip (probable contaminants) Imaging: Impressions Chest X-Ray 03/27/18 06:00 CONCLUSION: Diffuse interstitial prominence Assessment and Plan - Disease Oriented Problem List (1) Anoxic encephalopathy (2) Cardiopulmonary arrest (3) Acute drug overdose (4) Lactic acidosis (5) Leukocytosis (6) Hyperglycemia (7) Hepatitis C (8) Acute respiratory failure (9) Cardiomyopathy (10) NSTEMI (non-ST elevated myocardial infarction) Pertinent Non-Medical Issues: Psychosocial: Patient born and raised in [place]. 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 Parents , has 1 sister. Not , no children. Intermittently homeless. Most recently lived with a roommate. Spiritual: Sister indicates "they believe ", requests cafeteria director support Legal: Patient is unable to participate in medical decision making does not appear he will regain ability secondary to significant brain injury. Per [place] statutes his only sister would be appropriate legal proxy (Maribell). He is not , no children. Parents . Ethical issues impacting care: No ethical issues identified Important Contacts: Sister Maribell Salazar [phone] Prognosis: This patient was admitted for out of hospital arrest, possible overdose. He has sustained severe anoxic brain injury. Prognosis for meaningful neurologic recovery is poor. Per neurology: "pt has severe anoxic encephalopathy and is not going to recover to his prior state of functioning. he will be in a long-term for the remainder of his life with a feeding tube and trach as total care. no other testing needed at this time withdrawal is appropriate if family agrees.will sign off." Code Status: No Code DNR Plan: Legal decision maker:Patient is unable to participate in medical decision making does not appear he will regain ability secondary to significant brain injury. Per [place] statutes his only sister would be appropriate legal proxy ( Maribell). He is not , no children. Parents . Goals: sister has requested compassionate withdrawal of life support, tentatively planned for 03/30/18. Exhibit be signed by sister/proxy and in chart. CODE STATUS: DNR SYMPTOMS: --Painpotential sources: s/p CPR. patient with reported history of chronic back pain. Of note he was recently seen in [facility] ED 02/22/18 for severe back pain. Lumbar spine imaging notes possible acute ligament injury L3-L4, with chronic/stable findings of anterolisthesis at L4, L5, severe foraminal stenosis at L4, L5, and moderate stenosis at L5, S1. [Neurosurgery was consulted at that time and recommended conservative management with pain control, at some point if pain unremitting could consider surgery discharged with analgesic, muscle relaxant, Neurontin recommended for follow-up 1-2 weeks]. + hx old rib fx. Currently nonresponsive, no signs of distress --Dyspnea-intubated due to brain injury and no respiratory effort, currently breathing comfortable on mechanical vent, would likely require prolonged support and possibly tracheostomy given severity of anoxic brain injury --Encephalopathy-found unresponsive and pulseless, unknown amount of downtime out of hospital, underwent CPR with ROSC. Imaging, EEG indicative of severe anoxic injury. Poor prognosis for meaningful neurologic recovery Palliative care will continue to follow during hospital course as condition evolves, to assist patient/decision-maker with understanding of medical conditions, weighing benefits/burdens of treatment options, for clarification of goals of treatment. Additionally will assist with any symptoms of palliative concern Attestation Attestation: To help prompt me to consider important information that might be impacting today's encounter and assessment, information from prior notes written by myself or my colleagues may have been "brought forward" into today's note. My signature on this note, however, is an attestation that I personally performed the exam, history, and/or decision-making noted today, and, unless otherwise indicated, the interactions with patient, family, and staff as well as the review of records all occurred today. I also attest that the listed assessment and stated plan reflect my best clinical judgment today based on the combination of historical information, prior notes, and today's exam/ interactions. When time spent is documented, it refers only to time spent today by the signer, or if indicated, combined time spent today by collaborating physician/nurse practitioner.
[2018-03-28] MEDS: Oral Hygiene Kit OROPHARYNG SCH ×4 (04:00→15:19)
[2018-03-28 04:56] LABS: Baso # (Auto) 0.1 th/mm3 (0.0-0.2); Baso % (Auto) 0.3 % (0.0-2.0); Eos # (Auto) 0.2 th/mm3 (0.0-0.4); Eos % (Auto) 1.3 % (0.0-4.0); Hematocrit 33.4 % (39.0-51.0); Hemoglobin 11.2 gm/dL (13.0-17.0); Lymph # (Auto) 0.9 th/mm3 (1.0-4.8); Lymph % (Auto) 5.8 % (9.0-44.0); Mean Corpuscular HGB Conc 33.4 % (32.0-36.0); Mean Corpuscular Hemoglobin 30.8 pg (27.0-34.0); Mean Platelet Volume 10.8 fL (7.0-11.0); Mono # (Auto) 0.7 th/mm3 (0.0-0.9); Mono % (Auto) 4.5 % (0.0-8.0); Neut # (Auto) 14.5 th/mm3 (1.8-7.7); Neut % (Auto) 88.1 % (16.0-70.0); Platelet Count 325 th/mm3 (150-450); Red Blood Count 3.63 mil/mm3 (4.50-5.90); Red Cell Distribution Width 13.4 % (11.6-17.2); White Blood Count 16.4 th/mm3 (4.0-11.0)
--- NOTE | 2018-03-28 05:09 | XR ---
EXAM DATE: 03/28/2018 5:04 AM EST AGE/SEX: 62 years / Male INDICATIONS: Shortness of breath, possible pulmonary disease. CLINICAL DATA: This is the patient's subsequent encounter. Patient reports that signs and symptoms h ave been present for 2 weeks and indicates a pain score of Nonresponsive. MEDICAL/SURGICAL HISTORY: Non-responsive. Non-responsive. COMPARISON: [facility], CHEST 1V SINGLE AP, 03/27/2018. . FINDINGS: Endotracheal tube tip is present 8 cm below the saqib. Nasogastric tube descends into the stomach. D iffuse interstitial prominence is grossly unchanged. Cardiac contours are unchanged. CONCLUSION: No significant interval change Electronically signed by: Jared Lucia MD Board Certified Radiologist 03/28/2018 5:08 AM EST
[2018-03-28 05:37] LABS: Alanine Aminotransferase 126 U/L (12-78); Albumin 1.7 g/dL (3.4-5.0); Anion Gap 7 meq/L (5-15); Aspartate Aminotransferase 137 U/L (15-37); Blood Urea Nitrogen 35 mg/dL (7-18); Calcium 7.7 mg/dL (8.5-10.1); Carbon Dioxide 28.5 meq/L (21.0-32.0); Chloride 120 meq/L (98-107); Glomerular Filtration Rate 71 mL/min (>89); Glucose,Random 127 mg/dL (74-106); Magnesium 2.5 mg/dL (1.5-2.5); Potassium 3.3 meq/L (3.5-5.1); Sodium 155 meq/L (136-145)
[2018-03-28 05:39] LABS: Alkaline Phosphatase 102 U/L (45-117)
[2018-03-28] MEDS: Heparin - SQ 10,000 UNITS/ML Vial SQ SCH ×3 (05:51→22:59)
[2018-03-28] MEDS: Piperacil/Tazo 4.5 GM Premix 4.5 GM/100 ML BAG IV.SIG SCH ×3 (05:52→17:31)
[2018-03-28] MEDS: Artificial Tears Opth Drops 15 ML Bottle EACH EYE SCH ×3 (06:04→22:59)
[2018-03-28] MEDS: Potassium Chlor 20 mEq Premix 20 MEQ/100 ML PIGGYBACK IV.SIG PRN ×2 (06:44→09:50)
[2018-03-28] MEDS: Chlorhexidine 0.12% Oral Kit 15 ML UDC OROPHARYNG SCH ×2 (07:39→20:34)
[2018-03-28] MEDS: Metoprolol Tartrate 25 MG Tablet PO SCH ×3 (08:18→17:31)
[2018-03-28] MEDS: [UNRECOGNIZED DRUG - OTHER] EACH EYE SCH ×2 (08:18→20:32)
[2018-03-28] MEDS: Senna/Docusate Sodium 8.6/50 MG Tablet PO SCH ×2 (08:19→20:32)
[2018-03-28] MEDS: Lisinopril 5 MG Tablet PO SCH ×2 (08:20→20:32)
[2018-03-28] MEDS: Potassium Phosphate 500 MG Soluble Tablet PO PRN ×2 (08:20→14:43)
[2018-03-28] MEDS ORDERED: hydrALAZINE HCl Inj 20 MG/ML Vial IV.PUSH PRN (14:00)
--- NOTE | 2018-03-28 14:06 | P.PNCC ---
Subjective Subjective Remarks/Hospital Course: This is a 62-year-old male. Date of admission 03/13/2018. Past medical history includes hepatitis C, pancreatitis hypertension, chronic back pain and allergic rhinitis. History of tobacco abuse. Patient presents to [facility] as a PEA arrest per documentation, patient also history of heroin abuse. Patient was found to be unresponsive in attendance in a homeless camp. Presenting rhythm was pulseless electric activity. Chest compressions started. Patient was intubated. Patient was given epinephrine IV x3 and sodium bicarb 1 amp IV, naltrexone 2 mg IV. Patient was transported to ED for evaluation. Patient regained pulse upon arrival to the ED. 15 minutes per ED physician CT brain revealed no acute intracranial findings. Troponin 0.0 0.5. Patient had a leukocytosis, elevated magnesium, acute injury creatinine 1.8, lactate of 9.8 and a blood sugar today today. Toxicology screen positive for opiates, cocaine and cannabinoids. Patient is currently not moving his unresponsive at 50 rebeka grams per kilogram per minute of propofol this is currently on hold. Chest x-ray revealed old right rib fractures. No pneumothorax. ET tube 5 cm above the saqib. 03/14/18: Induced hypothermia initiated by overnight clip bolter and wrapper currently at target temperature. Patient is on propofol fentanyl and Nimbex. Troponin has peaked at 16. I will start IV heparin and aspirin. Cardiology consulted. 03/15/18: Induced hypothermia completed. Currently in the rewarming phase. Will be completed by to prevent in the afternoon. Currently sedated and paralyzed limiting neuro exam. Pupils are slightly reactive. 03/16/18: Patient remains off sedation last 12 hours. No clinical improvement in neuro status. Patient remains comatose. Weak cough. Slight sluggish pupil reflex. No spontaneous eye opening no withdrawal to pain. MRI of the brain ordered neurology consulted. Also check EEG to rule out subclinical seizures. Noted to have increasing white count chest x-ray shows no infiltrate 2: Remains encephalopathic off sedation. Orally intubated on mechanical ventilation. Has some spontaneous eye opening however no purposeful movements. 2: Remains encephalopathic, orally intubated on mechanical ventilation. Febrile. Tolerating tube feeds. 03/19: Remains encephalopathic, orally intubated on mechanical ventilation. Febrile. Tolerating tube feeds. Patient's sister is deciding regarding goals of therapy with palliative 2: Remains encephalopathic, orally intubated on mechanical ventilation. Awaiting family's decision regarding goals of therapy. 03/21: Remains encephalopathic, orally intubated on mechanical ventilation. 03/22: Remains encephalopathic, on mechanical ventilation. Awaiting family's decision regarding goals of therapy. Switched IV fluid to D5 water in view of hypernatremia 03/23: Remains encephalopathic on mechanical ventilation. Awaiting patient's sister's decision regarding goals of therapy. Poor neurologic prognosis. 03/24: Remains encephalopathic on mechanical ventilation. Has spontaneous eye opening. Hyponatremic. Febrile. Sputum cultures with Pseudomonas on Zosyn. We will repeat nam cultures. Patient's sister is not sure regarding decision for trach PEG versus comfort measures currently. She requests additional neuro follow-up for prognosis. 03/25: Persistent severe anoxic injury. He opens his eyes to painful stimuli but do not track. Extensive posturing to painful stimuli. Positive corneals. However clinical exam EEG and MRI consistent with severe anoxic injury 03/26: Patient is opens eyes to painful stimuli but eyes were rolled upward into the left. Continues to posture not sedated to noxious stimulus. Intubated since 03/13. 03/27: Patient opens eyes to noxious stimulation/rolled upwards and to the left. Continue to posture. Not sedated. Intubated/03/13. Plan for compassionate withdrawal on Friday if no improvement neurologically per healthcare proxy/ sister Subjective 03/28: No acute changes overnight. Neurological exam unchanged. Afebrile. Compassionate withdrawal plan for Friday Objective Vital Signs / I&O: Vital Signs 03/27/18 14:30 03/27/18 15:00 03/27/18 15:11 Temperature Pulse Rate 88 97 H 85 Respiratory Rate 36 H 30 H 23 Blood Pressure 116/74 141/79 H Pulse Oximetry 99 99 100 03/27/18 15:30 03/27/18 16:00 03/27/18 19:00 Temperature 99.8 F H Pulse Rate 96 H 104 H 80 Respiratory Rate 31 H 29 H 22 Blood Pressure 113/84 141/79 H 105/66 Pulse Oximetry 100 99 100 03/27/18 20:00 03/27/18 20:10 03/27/18 20:17 Temperature 99 F Pulse Rate 100 H 104 H Respiratory Rate 22 30 H 30 H Blood Pressure 130/79 Pulse Oximetry 96 96 02/15/19 21:00 03/27/18 22:00 03/27/18 23:00 Temperature Pulse Rate 113 H 115 H 114 H Respiratory Rate 21 22 25 H Blood Pressure 119/78 128/82 136/83 Pulse Oximetry 97 97 97 03/28/18 00:00 03/28/18 00:05 03/28/18 03:47 Temperature 99.2 F Pulse Rate 118 H 115 H Respiratory Rate 22 30 H 26 H Blood Pressure 132/81 Pulse Oximetry 95 97 03/28/18 04:00 03/28/18 04:01 03/28/18 05:00 Temperature 99 F Pulse Rate 107 H Respiratory Rate 22 26 H Blood Pressure 96/66 L 110/70 Pulse Oximetry 99 99 03/28/18 06:00 03/28/18 07:00 03/28/18 08:00 Temperature 100.4 F H Pulse Rate 101 H 101 H 101 H Respiratory Rate 22 21 26 H Blood Pressure 119/73 129/73 116/85 Pulse Oximetry 97 98 98 03/28/18 08:12 03/28/18 09:00 03/28/18 10:00 Temperature Pulse Rate 93 H 86 Respiratory Rate 23 24 21 Blood Pressure 110/74 110/72 Pulse Oximetry 98 97 98 03/28/18 10:13 03/28/18 11:00 03/28/18 11:49 Temperature Pulse Rate 84 92 H Respiratory Rate 16 31 H 22 Blood Pressure 143/92 H Pulse Oximetry 97 98 03/28/18 12:00 Temperature 98.9 F Pulse Rate 90 Respiratory Rate 24 Blood Pressure 108/69 Pulse Oximetry 96 Intake & Output 03/27/18 03/28/18 03/28/18 18:59 06:59 18:59 Intake Total 2024 / 202 2042 / 2042 500 / 500 Output Total 1500 / 1500 650 / 650 Balance 525 / 525 1392 / 1392 500 / 500 Weight 78.5 kg Intake: IV 460 / 460 200 / 200 100 / 100 Zosyn 4.5 GM Premix 4.5 gm In 200 / 200 200 / 200 100 ml @ 200 mls/hr IV.SIG Q6H ALEIDA Rx#:[id number] KCl 20 mEq Premix Inj 20 meq In 100 / 100 100 ml @ 50 mls/hr IV.SIG Q2H PRN Rx#:[id number] Tube Feeding 465 / 465 582 / 582 Tube Irrigant 500 / 500 60 / 60 Water Bolus Amount 600 / 600 Free Water Amount 600 / 600 600 / 600 400 / 400 Output: Stool 900 / 900 200 / 200 Urine Amount (Catheter) 600 / 600 450 / 450 Condom 600 / 600 450 / 450 Other: Date of Last Bowel Movement 03/26/18 03/26/18 03/28/18 Result Diagrams: 03/28/18 04:25 03/28/18 04:25 Other Results: Microbiology 03/24/18 11:10 Blood - Peripheral Aerobic Blood Culture - Preliminary No growth in 4 days 03/24/18 11:10 Blood - Peripheral Anaerobic Blood Culture - Preliminary No growth in 4 days 03/24/18 11:17 Blood - Peripheral Aerobic Blood Culture - Preliminary No growth in 4 days 03/24/18 11:17 Blood - Peripheral Anaerobic Blood Culture - Preliminary No growth in 4 days 03/24/18 12:00 Sputum - Endotracheal Gram Stain - Final 03/24/18 12:00 Sputum - Endotracheal Sputum Culture - Final Pseudomonas aeruginosa 03/24/18 12:00 Random Urine Urine Culture - Final 50-100,000 cfu/mL mixed gram positive flip (probable contaminants) 03/17/18 03:55 Blood - Peripheral Aerobic Blood Culture - Final No growth in 5 days 03/17/18 03:55 Blood - Peripheral Anaerobic Blood Culture - Final No growth in 5 days 03/17/18 01:00 Blood - Peripheral Aerobic Blood Culture - Final No growth in 5 days 03/17/18 01:00 Blood - Peripheral Anaerobic Blood Culture - Final No growth in 5 days 03/14/18 19:55 Blood - Line Aerobic Blood Culture - Final No growth in 5 days 03/14/18 19:55 Blood - Line Anaerobic Blood Culture - Final No growth in 5 days 03/13/18 21:00 Blood - Peripheral Aerobic Blood Culture - Final No growth in 5 days 03/13/18 21:00 Blood - Peripheral Anaerobic Blood Culture - Final No growth in 5 days 03/13/18 21:10 Blood - Peripheral Aerobic Blood Culture - Final No growth in 5 days 03/13/18 21:10 Blood - Peripheral Anaerobic Blood Culture - Final No growth in 5 days 03/14/18 01:10 Sputum - Endotracheal Gram Stain - Final 03/14/18 01:10 Sputum - Endotracheal Sputum Culture - Final Pseudomonas aeruginosa Imaging: Head CT 03/13/18 20:50 CONCLUSION: 1. No acute hemorrhage or mass effect. 2. Extensive sinusitis with abnormal soft tissue density in the nasal passage which could indicate polyposis. . Chest X-Ray 03/13/18 20:52 CONCLUSION: 1. Mild bibasilar atelectasis. 2. Endotracheal tube tip 5.7 cm above the saqib. 3. Nasogastric tube tip at the GE junction. Chest X-Ray 03/13/18 21:57 CONCLUSION: Clear lungs. Endotracheal tube and nasogastric tube positions as above. Old right rib fractures. Chest X-Ray 03/14/18 06:00 CONCLUSION: NG tube tip in the distal esophagus. This should be advanced. Abdomen/Bladder Ultrasound 03/14/18 23:09 CONCLUSION: 1. Normal appearance of the kidneys without abnormal echotexture or hydronephrosis. There is a Aly catheter identified within the decompressed bladder. Chest X-Ray 03/16/18 06:00 CONCLUSION: No acute cardiopulmonary abnormality is appreciated. Head MRI 03/17/18 00:00 CONCLUSION: Symmetric abnormal diffusion capacity bilaterally characteristic of global anoxic/hypoxic insult/encephalopathy. Findings were discussed with Casandra the patient's nurse at the time of this dictation at 11:[address] Coleman without be reached by phone. Chest X-Ray 03/27/18 06:00 CONCLUSION: Diffuse interstitial prominence Chest X-Ray 03/28/18 06:00 CONCLUSION: No significant interval change Objective Remarks: GENERAL: 62-year-old male currently orotracheally intubated SKIN: Warm and dry. No rash HEAD: Atraumatic. Normocephalic. EYES: Pupils equal and round about 2 mm bilaterally and reactive. No scleral icterus. No injection or drainage. ENT: No nasal bleeding or discharge. Mucous membranes pink and moist. Oropharynx without erythema NECK: Trachea midline. No JVD. CARDIOVASCULAR: Regular rate and rhythm. S1, S2. No S4. RESPIRATORY: No accessory muscle use. Clear to auscultation. Breath sounds equal bilaterally. GASTROINTESTINAL: Abdomen soft, non-tender, nondistended. Hypoactive bowel sounds appreciated MUSCULOSKELETAL: Extremities without clubbing, cyanosis, or edema. NEUROLOGICAL: Currently off all sedation. Positive corneal reflex. Positive gag and cough. Postures with extreme noxious stimulation to upper and bilateral lower extremities Assessment and Plan - Problem List (1) Lactic acidosis Code(s): E87.2 - Acidosis Status: Acute (2) Leukocytosis Code(s): D72.829 - Elevated white blood cell count, unspecified Status: Acute (3) Hyperglycemia Code(s): R73.9 - Hyperglycemia, unspecified Status: Acute (4) Cocaine abuse Code(s): F14.10 - Cocaine abuse, uncomplicated Status: Acute (5) Synthetic cannabinoid abuse Code(s): F19.10 - Other psychoactive substance abuse, uncomplicated Status: Acute (6) Cardiopulmonary arrest Code(s): I46.9 - Cardiac arrest, cause unspecified Status: Acute (7) Acute drug overdose Code(s): T50.901A - Poisoning by unspecified drugs, medicaments and biological substances, accidental (unintentional), initial encounter Status: Acute - Assessment and Plan Plan: Neuro/Psych: Hypoxic ischemic encephalopathy Polysubstance overdose including opiates, cocaine and cannabinoids Rewarming completed, off all sedation for almost 7 days No improvement in neuro exam-see detailed neuro exam in the physical exam. EEG and MRI brain consistent with severe anoxic brain injury CT brain on admission revealed no acute intracranial findings. Sinusitis Acetaminophen 650 by tube every 6 hours as needed fever Urine toxicology screen positive for cocaine, cannabinoids and opiates. Document of possible heroin overdose CV: PEA arrest NSTEMI Uncontrolled hypertension Cardiomyopathy with EF 20-25% EKG reveals no ST elevation, telemetry strips shows left bundle branch block Initial troponin 0 0.05. Later troponin peaked at 16 Off IV heparin. Aspirin 81 mg daily Due to lower blood pressure currently on Cipro 5 mg twice daily metoprolol tartrate 20 mg twice daily Discontinue clonidine 0.1 mg every 6 hours and amlodipine 10 mg daily Cardiology consult appreciated. Further workup of meaningful neurological improvement. 2D echocardiogram EF severely reduced with an estimated ejection fraction in the range of 20-25% Lactic acid has cleared Resp: Acute respiratory failure PRVC/AC Ventilation bundle. Head of bed at 30 degrees Albuterol/ipratropium aerosols every 6 hours with albuterol aerosols every 2 hours as needed dyspnea Spontaneous breathing trials as clinically indicated GI: History of hepatitis C Hyperammonemia Elevated total bilirubin Elevated AST hypoalbuminemia Tube feeds with Jevity 1.5 currently 45 cc an hour Pantoprazole for GI prophylaxis Docusate sodium/senna 1 tablet twice daily for bowel regimen Ammonia level was 47 Check ammonia level in a.m. 03/28. On lactulose 30 cc twice daily Endo: Hyperglycemia Sliding scale insulin aspart insulin with Accu-Cheks every 6 hours to maintain euglycemia medium protocol Renal: Acute kidney injury Hypernatremia Continue free water replacement. Follow sodium. Monitor urine output Accurate I's and O's. Currently free water 200 cc every 4 hours Heme: Leukocytosis Normocytic anemia Monitor CBC No indication for transfusion of blood product ID: Pseudomonas pneumonia Piperacillin/tazobactam to 4.5 g IV every 6 hourly to be continued Blood cultures x2, negative to date Pseudomonas in sputum on admission 03/14 and repeated 03/24 FEN: Hypernatremia Hypopotassemia Hypokalemia Currently on D5 water at 150 cc an hour.. Discontinued 03/26 Replace electrolytes as clinically indicated per ICU electrolyte protocol. 30 mmol potassium phosphate IV x1 now recheck in a.m. Access -Utilize peripheral IV. Heat exchange femoral catheter placed to 03/13/18 it has been discontinued Prophylaxis -GI -pantoprazole -DVT -SCD/cutaneous heparin Level 2 follow-up (2) Leukocytosis Qualifiers: Leukocytosis type: unspecified Qualified Code(s): D72.829 - Elevated white blood cell count, unspecified (7) Acute drug overdose Qualifiers: Encounter type: initial encounter Injury intent: undetermined intent Qualified Code(s): T50.904A - Poisoning by unspecified drugs, medicaments and biological substances, undetermined, initial encounter
[2018-03-28] MEDS ORDERED: Potassium Phosphate Inj 30 MMOL in Sodium Chlor 0.9% Inj 250 ML IV.SIG ONE (15:00)
[2018-03-28 16:53] LABS: Potassium 3.6 meq/L (3.5-5.1)
[2018-03-28 17:04] LABS: Phosphorus 2.4 mg/dL (2.5-4.9)
[2018-03-29] MEDS: Oral Hygiene Kit OROPHARYNG SCH ×5 (00:04→23:17)
[2018-03-29] MEDS: Piperacil/Tazo 4.5 GM Premix 4.5 GM/100 ML BAG IV.SIG SCH ×5 (00:04→23:17)
[2018-03-29] MEDS: Heparin - SQ 10,000 UNITS/ML Vial SQ SCH ×3 (05:28→21:40)
[2018-03-29 06:00] LABS: Baso # (Auto) 0.1 th/mm3 (0.0-0.2); Baso % (Auto) 0.5 % (0.0-2.0); Eos # (Auto) 0.3 th/mm3 (0.0-0.4); Eos % (Auto) 2.3 % (0.0-4.0); Hemoglobin 10.8 gm/dL (13.0-17.0); Lymph # (Auto) 1.5 th/mm3 (1.0-4.8); Lymph % (Auto) 9.8 % (9.0-44.0); Mean Corpuscular HGB Conc 32.6 % (32.0-36.0); Mono # (Auto) 0.7 th/mm3 (0.0-0.9); Mono % (Auto) 4.8 % (0.0-8.0); Neut # (Auto) 12.4 th/mm3 (1.8-7.7); Neut % (Auto) 82.6 % (16.0-70.0); Platelet Count 342 th/mm3 (150-450); Red Blood Count 3.59 mil/mm3 (4.50-5.90); Red Cell Distribution Width 13.6 % (11.6-17.2)
--- NOTE | 2018-03-29 06:05 | XR ---
EXAM DATE: 03/29/2018 5:53 AM EST AGE/SEX: 62 years / Male INDICATIONS: Shortness of breath, possible pulmonary disease. CLINICAL DATA: This is the patient's subsequent encounter. Patient reports that signs and symptoms h ave been present for 2 weeks and indicates a pain score of Nonresponsive. MEDICAL/SURGICAL HISTORY: Non-responsive. Non-responsive. COMPARISON: [facility], CHEST 1V SINGLE AP, 03/28/2018. . FINDINGS: Endotracheal tube tip is 7 cm above the saqib. Nasogastric tube descends into the stomach. Persisten t diffuse bilateral interstitial prominence, not significantly changed. No evidence of effusion. Card iac contours are stable. CONCLUSION: No significant change Electronically signed by: Jared Lucia MD Board Certified Radiologist 03/29/2018 6:04 AM EST
[2018-03-29 06:31] LABS: Alanine Aminotransferase 123 U/L (12-78); Albumin 1.7 g/dL (3.4-5.0); Alkaline Phosphatase 113 U/L (45-117); Anion Gap 8 meq/L (5-15); Aspartate Aminotransferase 114 U/L (15-37); Blood Urea Nitrogen 35 mg/dL (7-18); Calcium 7.7 mg/dL (8.5-10.1); Carbon Dioxide 26.6 meq/L (21.0-32.0); Chloride 122 meq/L (98-107); Glomerular Filtration Rate 77 mL/min (>89); Glucose,Random 115 mg/dL (74-106); Magnesium 2.5 mg/dL (1.5-2.5); Potassium 3.3 meq/L (3.5-5.1); Total Protein 5.9 g/dL (6.4-8.2)
[2018-03-29 07:04] LABS: Sodium 157 meq/L (136-145)
--- NOTE | 2018-03-29 09:08 | P.PNCC ---
Subjective Subjective Remarks/Hospital Course: This is a 62-year-old male. Date of admission 03/13/2018. Past medical history includes hepatitis C, pancreatitis hypertension, chronic back pain and allergic rhinitis. History of tobacco abuse. Patient presents to [facility] as a PEA arrest per documentation, patient also history of heroin abuse. Patient was found to be unresponsive in [place] in a homeless [place]. Presenting rhythm was pulseless electric activity. Chest compressions started. Patient was intubated. Patient was given epinephrine IV x3 and sodium bicarb 1 amp IV, naltrexone 2 mg IV. Patient was transported to ED for evaluation. Patient regained pulse upon arrival to the ED. 15 minutes per ED physician CT brain revealed no acute intracranial findings. Troponin 0.0 0.5. Patient had a leukocytosis, elevated magnesium, acute injury creatinine 1.8, lactate of 9.8 and a blood sugar today today. Toxicology screen positive for opiates, cocaine and cannabinoids. Patient is currently not moving his unresponsive at 50 rebeka grams per kilogram per minute of propofol this is currently on hold. Chest x-ray revealed old right rib fractures. No pneumothorax. ET tube 5 cm above the saqib. 03/14/18: Induced hypothermia initiated by overnight j2ee developer currently at target temperature. Patient is on propofol fentanyl and Nimbex. Troponin has peaked at 16. I will start IV heparin and aspirin. Cardiology consulted. 03/15/18: Induced hypothermia completed. Currently in the rewarming phase. Will be completed by to prevent in the afternoon. Currently sedated and paralyzed limiting neuro exam. Pupils are slightly reactive. 03/16/18: Patient remains off sedation last 12 hours. No clinical improvement in neuro status. Patient remains comatose. Weak cough. Slight sluggish pupil reflex. No spontaneous eye opening no withdrawal to pain. MRI of the brain ordered neurology consulted. Also check EEG to rule out subclinical seizures. Noted to have increasing white count chest x-ray shows no infiltrate 2: Remains encephalopathic off sedation. Orally intubated on mechanical ventilation. Has some spontaneous eye opening however no purposeful movements. 2: Remains encephalopathic, orally intubated on mechanical ventilation. Febrile. Tolerating tube feeds. 03/19: Remains encephalopathic, orally intubated on mechanical ventilation. Febrile. Tolerating tube feeds. Patient's sister is deciding regarding goals of therapy with palliative 2: Remains encephalopathic, orally intubated on mechanical ventilation. Awaiting family's decision regarding goals of therapy. 03/21: Remains encephalopathic, orally intubated on mechanical ventilation. 03/22: Remains encephalopathic, on mechanical ventilation. Awaiting family's decision regarding goals of therapy. Switched IV fluid to D5 water in view of hypernatremia 03/23: Remains encephalopathic on mechanical ventilation. Awaiting patient's sister's decision regarding goals of therapy. Poor neurologic prognosis. 03/24: Remains encephalopathic on mechanical ventilation. Has spontaneous eye opening. Hyponatremic. Febrile. Sputum cultures with Pseudomonas on Zosyn. We will repeat nam cultures. Patient's sister is not sure regarding decision for trach PEG versus comfort measures currently. She requests additional neuro follow-up for prognosis. 03/25: Persistent severe anoxic injury. He opens his eyes to painful stimuli but do not track. Extensive posturing to painful stimuli. Positive corneals. However clinical exam EEG and MRI consistent with severe anoxic injury 03/26: Patient is opens eyes to painful stimuli but eyes were rolled upward into the left. Continues to posture not sedated to noxious stimulus. Intubated since 03/13. 03/27: Patient opens eyes to noxious stimulation/rolled upwards and to the left. Continue to posture. Not sedated. Intubated/03/13. Plan for compassionate withdrawal on Friday if no improvement neurologically per healthcare proxy/ sister 03/28: No acute changes overnight. Neurological exam unchanged. Afebrile. Compassionate withdrawal plan for Friday Subjective 03/29: Eyes are open. Not following commands. Replacing potassium and phosphorus this a.m. No change in neurological examination. Continues with copious airway secretions Objective Vital Signs / I&O: Vital Signs 03/28/18 10:00 03/28/18 10:13 03/28/18 11:00 Temperature Pulse Rate 86 84 92 H Respiratory Rate 21 16 31 H Blood Pressure 110/72 143/92 H Pulse Oximetry 98 97 03/28/18 11:49 03/28/18 12:00 03/28/18 13:00 Temperature 98.9 F Pulse Rate 90 79 Respiratory Rate 22 24 18 Blood Pressure 108/69 110/65 Pulse Oximetry 98 96 98 03/28/18 14:00 03/28/18 14:50 03/28/18 15:00 Temperature Pulse Rate 79 81 83 Respiratory Rate 22 20 26 H Blood Pressure 109/62 113/79 Pulse Oximetry 98 97 03/28/18 16:00 03/28/18 17:00 03/28/18 18:00 Temperature 98.5 F Pulse Rate 87 87 80 Respiratory Rate 24 23 23 Blood Pressure 121/80 135/81 120/77 Pulse Oximetry 98 98 98 03/28/18 19:00 03/28/18 20:00 03/28/18 21:00 Temperature 99.2 F Pulse Rate 79 83 93 H Respiratory Rate 20 23 25 H Blood Pressure 103/67 103/64 136/76 Pulse Oximetry 96 97 99 03/28/18 21:32 03/28/18 22:00 03/28/18 23:00 Temperature Pulse Rate 90 95 H 92 H Respiratory Rate 18 25 H 24 Blood Pressure 137/81 144/87 H Pulse Oximetry 97 97 98 03/28/18 23:34 03/29/18 00:00 03/29/18 01:00 Temperature 98.4 F Pulse Rate 96 H 100 H Respiratory Rate 20 18 28 H Blood Pressure 151/90 H 148/89 H Pulse Oximetry 99 99 98 03/29/18 02:00 03/29/18 03:00 03/29/18 04:00 Temperature 98.1 F Pulse Rate 101 H 96 H 86 Respiratory Rate 24 22 19 Blood Pressure 126/78 127/72 121/69 Pulse Oximetry 91 L 98 100 03/29/18 04:03 03/29/18 05:00 03/29/18 08:00 Temperature Pulse Rate 83 90 Respiratory Rate 16 23 24 Blood Pressure 119/71 Pulse Oximetry 100 100 97 Intake & Output 03/28/18 03/29/18 03/29/18 18:59 06:59 18:59 Intake Total 1000 / 1000 1914 / 1914 Output Total 800 / 800 1250 / 1250 Balance 200 / 200 665 / 665 Weight 79.1 kg Intake: IV 400 / 400 200 / 200 Zosyn 4.5 GM Premix 4.5 gm In 200 / 200 200 / 200 100 ml @ 200 mls/hr IV.SIG Q6H ALEIDA Rx#:[id number] KCl 20 mEq Premix Inj 20 meq In 200 / 200 100 ml @ 50 mls/hr IV.SIG Q2H PRN Rx#:[id number] Tube Feeding 455 / 455 Tube Irrigant 60 / 60 Water Bolus Amount 600 / 600 Free Water Amount 600 / 600 600 / 600 Output: Urine 650 / 650 Stool 300 / 300 600 / 600 Urine Amount (Catheter) 500 / 500 Condom 500 / 500 Other: Date of Last Bowel Movement 03/28/18 03/29/18 Result Diagrams: 03/29/18 05:29 03/29/18 05:29 Other Results: Microbiology 03/24/18 11:10 Blood - Peripheral Aerobic Blood Culture - Preliminary No growth in 4 days 03/24/18 11:10 Blood - Peripheral Anaerobic Blood Culture - Preliminary No growth in 4 days 03/24/18 11:17 Blood - Peripheral Aerobic Blood Culture - Preliminary No growth in 4 days 03/24/18 11:17 Blood - Peripheral Anaerobic Blood Culture - Preliminary No growth in 4 days 03/24/18 12:00 Sputum - Endotracheal Gram Stain - Final 03/24/18 12:00 Sputum - Endotracheal Sputum Culture - Final Pseudomonas aeruginosa 03/24/18 12:00 Random Urine Urine Culture - Final 50-100,000 cfu/mL mixed gram positive flip (probable contaminants) 03/17/18 03:55 Blood - Peripheral Aerobic Blood Culture - Final No growth in 5 days 03/17/18 03:55 Blood - Peripheral Anaerobic Blood Culture - Final No growth in 5 days 03/17/18 01:00 Blood - Peripheral Aerobic Blood Culture - Final No growth in 5 days 03/17/18 01:00 Blood - Peripheral Anaerobic Blood Culture - Final No growth in 5 days 03/14/18 19:55 Blood - Line Aerobic Blood Culture - Final No growth in 5 days 03/14/18 19:55 Blood - Line Anaerobic Blood Culture - Final No growth in 5 days 03/13/18 21:00 Blood - Peripheral Aerobic Blood Culture - Final No growth in 5 days 03/13/18 21:00 Blood - Peripheral Anaerobic Blood Culture - Final No growth in 5 days 03/13/18 21:10 Blood - Peripheral Aerobic Blood Culture - Final No growth in 5 days 03/13/18 21:10 Blood - Peripheral Anaerobic Blood Culture - Final No growth in 5 days 03/14/18 01:10 Sputum - Endotracheal Gram Stain - Final 03/14/18 01:10 Sputum - Endotracheal Sputum Culture - Final Pseudomonas aeruginosa Imaging: Head CT 03/13/18 20:50 CONCLUSION: 1. No acute hemorrhage or mass effect. 2. Extensive sinusitis with abnormal soft tissue density in the nasal passage which could indicate polyposis. . Chest X-Ray 03/13/18 20:52 CONCLUSION: 1. Mild bibasilar atelectasis. 2. Endotracheal tube tip 5.7 cm above the saqib. 3. Nasogastric tube tip at the GE junction. Chest X-Ray 03/13/18 21:57 CONCLUSION: Clear lungs. Endotracheal tube and nasogastric tube positions as above. Old right rib fractures. Chest X-Ray 03/14/18 06:00 CONCLUSION: NG tube tip in the distal esophagus. This should be advanced. Abdomen/Bladder Ultrasound 03/14/18 23:09 CONCLUSION: 1. Normal appearance of the kidneys without abnormal echotexture or hydronephrosis. There is a Aly catheter identified within the decompressed bladder. Chest X-Ray 03/16/18 06:00 CONCLUSION: No acute cardiopulmonary abnormality is appreciated. Head MRI 03/17/18 00:00 CONCLUSION: Symmetric abnormal diffusion capacity bilaterally characteristic of global anoxic/hypoxic insult/encephalopathy. Findings were discussed with Casandra the patient's nurse at the time of this dictation at 11:[address] Coleman without be reached by phone. Chest X-Ray 03/27/18 06:00 CONCLUSION: Diffuse interstitial prominence Chest X-Ray 03/28/18 06:00 CONCLUSION: No significant interval change Chest X-Ray 03/29/18 06:00 CONCLUSION: No significant change Objective Remarks: GENERAL: 62-year-old male currently orotracheally intubated SKIN: Warm and dry. No rash HEAD: Atraumatic. Normocephalic. EYES: Pupils equal and round about 2 mm bilaterally and reactive. No scleral icterus. No injection or drainage. ENT: No nasal bleeding or discharge. Mucous membranes pink and moist. Oropharynx without erythema NECK: Trachea midline. No JVD. CARDIOVASCULAR: Regular rate and rhythm. S1, S2. No S4. No murmur appreciated RESPIRATORY: No accessory muscle use. Clear to auscultation. Breath sounds equal bilaterally. GASTROINTESTINAL: Abdomen soft, non-tender, nondistended. Hypoactive bowel sounds appreciated MUSCULOSKELETAL: Extremities without clubbing, cyanosis, or edema. NEUROLOGICAL: Currently off all sedation. Positive corneal reflex. Positive gag and cough. Postures with extreme noxious stimulation to upper and bilateral lower extremities Assessment and Plan - Problem List (1) Lactic acidosis Code(s): E87.2 - Acidosis Status: Acute (2) Leukocytosis Code(s): D72.829 - Elevated white blood cell count, unspecified Status: Acute (3) Hyperglycemia Code(s): R73.9 - Hyperglycemia, unspecified Status: Acute (4) Cocaine abuse Code(s): F14.10 - Cocaine abuse, uncomplicated Status: Acute (5) Synthetic cannabinoid abuse Code(s): F19.10 - Other psychoactive substance abuse, uncomplicated Status: Acute (6) Cardiopulmonary arrest Code(s): I46.9 - Cardiac arrest, cause unspecified Status: Acute (7) Acute drug overdose Code(s): T50.901A - Poisoning by unspecified drugs, medicaments and biological substances, accidental (unintentional), initial encounter Status: Acute - Assessment and Plan Plan: Neuro/Psych: Hypoxic ischemic encephalopathy Polysubstance overdose including opiates, cocaine and cannabinoids Rewarming completed, off all sedation for almost 7 days No improvement in neuro exam-see detailed neuro exam in the physical exam. EEG and MRI brain consistent with severe anoxic brain injury CT brain on admission revealed no acute intracranial findings. Sinusitis Acetaminophen 650 by tube every 6 hours as needed fever Urine toxicology screen positive for cocaine, cannabinoids and opiates. Document of possible heroin overdose CV: PEA arrest NSTEMI Uncontrolled hypertension Cardiomyopathy with EF 20-25% EKG reveals no ST elevation, telemetry strips shows left bundle branch block Initial troponin 0 0.05. Later troponin peaked at 16 Off IV heparin. Aspirin 81 mg daily Due to lower blood pressure currently on Cipro 5 mg twice daily metoprolol tartrate 20 mg twice daily Discontinue clonidine 0.1 mg every 6 hours and amlodipine 10 mg daily Cardiology consult appreciated. Further workup of meaningful neurological improvement. 2D echocardiogram EF severely reduced with an estimated ejection fraction in the range of 20-25% Lactic acid has cleared Resp: Acute respiratory failure PRVC/AC Ventilation bundle. Head of bed at 30 degrees Albuterol/ipratropium aerosols every 6 hours with albuterol aerosols every 2 hours as needed dyspnea Spontaneous breathing trials as clinically indicated GI: History of hepatitis C Hyperammonemia Elevated total bilirubin Elevated AST hypoalbuminemia Tube feeds with Jevity 1.5 currently 45 cc an hour Pantoprazole for GI prophylaxis Docusate sodium/senna 1 tablet twice daily for bowel regimen Ammonia level was 47 Check ammonia level in a.m. 03/28. On lactulose 30 cc twice daily Endo: Hyperglycemia Sliding scale insulin aspart insulin with Accu-Cheks every 6 hours to maintain euglycemia medium protocol Renal: Acute kidney injury Hypernatremia Hypopotassemia Hyperphosphatemia Continue one quarter normal saline with 20 mEq of KCl 100 cc an hour x 2 L today Monitor urine output Accurate I's and O's. Currently free water 200 cc every 4 hours 30 mmol potassium phosphate, 25 mEq potassium chloride x1 now. Recheck in a.m. Heme: Leukocytosis Normocytic anemia Monitor CBC No indication for transfusion of blood product ID: Pseudomonas pneumonia Piperacillin/tazobactam to 4.5 g IV every 6 hourly to be continued Blood cultures x2, negative to date Pseudomonas in sputum on admission 03/14 and repeated 03/24 FEN: Hypernatremia Hypopotassemia Hypokalemia Currently on D5 water at 150 cc an hour.. Discontinued 03/26 Replace electrolytes as clinically indicated per ICU electrolyte protocol. 30 mmol potassium phosphate IV x1 now recheck in a.m. Access -Utilize peripheral IV. Heat exchange femoral catheter placed to 03/13/18 it has been discontinued Prophylaxis -GI -pantoprazole -DVT -SCD/cutaneous heparin Level 2 follow-up (2) Leukocytosis Qualifiers: Leukocytosis type: unspecified Qualified Code(s): D72.829 - Elevated white blood cell count, unspecified (7) Acute drug overdose Qualifiers: Encounter type: initial encounter Injury intent: undetermined intent Qualified Code(s): T50.904A - Poisoning by unspecified drugs, medicaments and biological substances, undetermined, initial encounter
[2018-03-29] MEDS: Chlorhexidine 0.12% Oral Kit 15 ML UDC OROPHARYNG SCH ×2 (09:39→20:05)
[2018-03-29] MEDS: Artificial Tears Opth Drops 15 ML Bottle EACH EYE SCH ×3 (09:39→23:17)
[2018-03-29] MEDS: Lisinopril 5 MG Tablet PO SCH ×2 (09:40→20:01)
[2018-03-29] MEDS: Senna/Docusate Sodium 8.6/50 MG Tablet PO SCH ×2 (09:40→20:02)
[2018-03-29] MEDS: Metoprolol Tartrate 25 MG Tablet PO SCH ×3 (09:40→18:06)
[2018-03-29] MEDS: Potassium Chloride Inj 20 MEQ, Sodium Chloride 23.4% Inj 38.5 MEQ in Water for Inj, Ste... IV.CONT SCH ×2 (09:41→20:03)
[2018-03-29] MEDS: [UNRECOGNIZED DRUG - OTHER] EACH EYE SCH ×2 (09:41→20:02)
[2018-03-29] MEDS ORDERED: Potassium Phosphate Inj 30 MMOL in Sodium Chlor 0.9% Inj 250 ML IV.SIG ONE (10:00)
[2018-03-29] MEDS: Potassium Chloride Liq 20 MEQ/15 ML UDC PO PRN (10:00)
[2018-03-29] MEDS ORDERED: Potassium Chloride 25 MEQ Effervescent Tablet PO ONE (10:00)
[2018-03-30] MEDS: Heparin - SQ 10,000 UNITS/ML Vial SQ SCH (05:21)
[2018-03-30] MEDS: Piperacil/Tazo 4.5 GM Premix 4.5 GM/100 ML BAG IV.SIG SCH (05:21)
[2018-03-30] MEDS: Oral Hygiene Kit OROPHARYNG SCH ×4 (05:21→23:36)
--- NOTE | 2018-03-30 06:00 | XR ---
EXAM DATE: 03/30/2018 5:42 AM EST AGE/SEX: 62 years / Male INDICATIONS: Shortness of breath, possible pulmonary disease. CLINICAL DATA: This is the patient's subsequent encounter. Patient reports that signs and symptoms h ave been present for 2 weeks and indicates a pain score of Nonresponsive. MEDICAL/SURGICAL HISTORY: Non-responsive. Non-responsive. COMPARISON: [facility] [place]ST 1V SINGLE AP, 03/29/2018. . FINDINGS: A single AP view of the chest demonstrates the lungs to be symmetrically aerated with minimal interst itial prominence which may show some interval improvement. Endotracheal and nasogastric tubes are unc hanged in position. Heart size is normal. Osseous structures are intact. CONCLUSION: 1. Interstitial prominence seen previously do show some interval improvement. No confluent airspace process. 2. Stable position of life-support tubes. Electronically signed by: Earl Joel MD Board Certified Radiologist 03/30/2018 5:59 AM EST
[2018-03-30] MEDS: Artificial Tears Opth Drops 15 ML Bottle EACH EYE SCH ×3 (06:30→23:36)
[2018-03-30 06:45] LABS: Baso # (Auto) 0.1 th/mm3 (0.0-0.2); Baso % (Auto) 0.6 % (0.0-2.0); Eos # (Auto) 0.4 th/mm3 (0.0-0.4); Eos % (Auto) 2.6 % (0.0-4.0); Hematocrit 32.2 % (39.0-51.0); Hemoglobin 10.7 gm/dL (13.0-17.0); Lymph # (Auto) 1.4 th/mm3 (1.0-4.8); Lymph % (Auto) 9.2 % (9.0-44.0); Mean Corpuscular HGB Conc 33.1 % (32.0-36.0); Mean Corpuscular Hemoglobin 30.1 pg (27.0-34.0); Mean Corpuscular Volume 90.9 fL (80.0-100.0); Mono # (Auto) 0.8 th/mm3 (0.0-0.9); Mono % (Auto) 5.2 % (0.0-8.0); Neut # (Auto) 12.1 th/mm3 (1.8-7.7); Neut % (Auto) 82.4 % (16.0-70.0); Platelet Count 398 th/mm3 (150-450); Red Blood Count 3.54 mil/mm3 (4.50-5.90); White Blood Count 14.7 th/mm3 (4.0-11.0)
[2018-03-30 06:52] LABS: Albumin 1.7 g/dL (3.4-5.0); Anion Gap 7 meq/L (5-15); Aspartate Aminotransferase 118 U/L (15-37); Blood Urea Nitrogen 31 mg/dL (7-18); Carbon Dioxide 24.8 meq/L (21.0-32.0); Chloride 120 meq/L (98-107); Glomerular Filtration Rate 77 mL/min (>89); Glucose,Random 109 mg/dL (74-106); Magnesium 2.4 mg/dL (1.5-2.5); Potassium 3.7 meq/L (3.5-5.1); Sodium 152 meq/L (136-145)
[2018-03-30 06:54] LABS: Alanine Aminotransferase 121 U/L (12-78)
[2018-03-30 06:56] LABS: Alkaline Phosphatase 121 U/L (45-117)
[2018-03-30] MEDS: Senna/Docusate Sodium 8.6/50 MG Tablet PO SCH (08:31)
[2018-03-30] MEDS: Lisinopril 5 MG Tablet PO SCH (08:31)
[2018-03-30] MEDS: Potassium Phosphate 500 MG Soluble Tablet PO PRN (08:31)
[2018-03-30] MEDS: Metoprolol Tartrate 25 MG Tablet PO SCH (08:31)
[2018-03-30] MEDS: Chlorhexidine 0.12% Oral Kit 15 ML UDC OROPHARYNG SCH (08:32)
[2018-03-30] MEDS: [UNRECOGNIZED DRUG - OTHER] EACH EYE SCH ×2 (08:32→20:26)
--- NOTE | 2018-03-30 11:12 | P.PNPAL ---
Palliative care follow-up with Mr. Salazar regarding transition to comfort measures only with compassionate withdrawal of artificial life support. Mr. Salazar is unable to make his own medical decisions and is not expected to regain capacity. Spoke with sister/HCP, Maribell Salazar. She confirms desire for transition to comfort with compassionate withdrawal of life support today, Friday03/30/18. She indicates she has signed exhibits and this has been confirmed. Copies on chart. Maribell, sister, states she does not want to be notified of when withdrawal takes place. She indicates nursing should have information of home chosen ( [facility] in [place]). She is appropriately tearful. Denies any questions or concerns. Palliative care will continue to follow throughout hospitalization. Important Contacts: Sister Maribell Salazar [phone]
--- NOTE | 2018-03-30 12:36 | P.PNCC ---
Subjective Subjective Remarks/Hospital Course: This is a 62-year-old male. Date of admission 03/13/2018. Past medical history includes hepatitis C, pancreatitis hypertension, chronic back pain and allergic rhinitis. History of tobacco abuse. Patient presents to [facility] as a PEA arrest per documentation, patient also history of heroin abuse. Patient was found to be unresponsive in attendance in a homeless camp. Presenting rhythm was pulseless electric activity. Chest compressions started. Patient was intubated. Patient was given epinephrine IV x3 and sodium bicarb 1 amp IV, naltrexone 2 mg IV. Patient was transported to ED for evaluation. Patient regained pulse upon arrival to the ED. 15 minutes per ED physician CT brain revealed no acute intracranial findings. Troponin 0.0 0.5. Patient had a leukocytosis, elevated magnesium, acute injury creatinine 1.8, lactate of 9.8 and a blood sugar today today. Toxicology screen positive for opiates, cocaine and cannabinoids. Patient is currently not moving his unresponsive at 50 rebeka grams per kilogram per minute of propofol this is currently on hold. Chest x-ray revealed old right rib fractures. No pneumothorax. ET tube 5 cm above the saqib. 03/14/18: Induced hypothermia initiated by overnight lawn mower mechanic currently at target temperature. Patient is on propofol fentanyl and Nimbex. Troponin has peaked at 16. I will start IV heparin and aspirin. Cardiology consulted. 03/15/18: Induced hypothermia completed. Currently in the rewarming phase. Will be completed by to prevent in the afternoon. Currently sedated and paralyzed limiting neuro exam. Pupils are slightly reactive. 03/16/18: Patient remains off sedation last 12 hours. No clinical improvement in neuro status. Patient remains comatose. Weak cough. Slight sluggish pupil reflex. No spontaneous eye opening no withdrawal to pain. MRI of the brain ordered neurology consulted. Also check EEG to rule out subclinical seizures. Noted to have increasing white count chest x-ray shows no infiltrate 2: Remains encephalopathic off sedation. Orally intubated on mechanical ventilation. Has some spontaneous eye opening however no purposeful movements. 2: Remains encephalopathic, orally intubated on mechanical ventilation. Febrile. Tolerating tube feeds. 03/19: Remains encephalopathic, orally intubated on mechanical ventilation. Febrile. Tolerating tube feeds. Patient's sister is deciding regarding goals of therapy with palliative 2: Remains encephalopathic, orally intubated on mechanical ventilation. Awaiting family's decision regarding goals of therapy. 03/21: Remains encephalopathic, orally intubated on mechanical ventilation. 03/22: Remains encephalopathic, on mechanical ventilation. Awaiting family's decision regarding goals of therapy. Switched IV fluid to D5 water in view of hypernatremia 03/23: Remains encephalopathic on mechanical ventilation. Awaiting patient's sister's decision regarding goals of therapy. Poor neurologic prognosis. 03/24: Remains encephalopathic on mechanical ventilation. Has spontaneous eye opening. Hyponatremic. Febrile. Sputum cultures with Pseudomonas on Zosyn. We will repeat nam cultures. Patient's sister is not sure regarding decision for trach PEG versus comfort measures currently. She requests additional neuro follow-up for prognosis. 03/25: Persistent severe anoxic injury. He opens his eyes to painful stimuli but do not track. Extensive posturing to painful stimuli. Positive corneals. However clinical exam EEG and MRI consistent with severe anoxic injury 03/26: Patient is opens eyes to painful stimuli but eyes were rolled upward into the left. Continues to posture not sedated to noxious stimulus. Intubated since 03/13. 03/27: Patient opens eyes to noxious stimulation/rolled upwards and to the left. Continue to posture. Not sedated. Intubated/03/13. Plan for compassionate withdrawal on Friday if no improvement neurologically per healthcare proxy/ sister 03/28: No acute changes overnight. Neurological exam unchanged. Afebrile. Compassionate withdrawal plan for Wednesday 03/29: Eyes are open. Not following commands. Replacing potassium and phosphorus this a.m. No change in neurological examination. Continues with copious airway secretions 03/30: Patient's sister/ medical decision maker has decided to transition the patient to comfort-based measures today. Exhibits signed and in chart. Objective Vital Signs / I&O: Vital Signs 03/29/18 13:00 03/29/18 14:00 03/29/18 14:55 Temperature Pulse Rate 90 85 87 Respiratory Rate 24 23 25 H Blood Pressure 132/83 119/79 Pulse Oximetry 97 97 03/29/18 15:00 03/29/18 15:45 03/29/18 16:00 Temperature 100.4 F H Pulse Rate 86 98 H Respiratory Rate 18 24 24 Blood Pressure 121/79 Pulse Oximetry 99 99 99 03/29/18 16:01 03/29/18 17:00 03/29/18 18:00 Temperature Pulse Rate 99 H 100 H 97 H Respiratory Rate 22 23 19 Blood Pressure 130/85 134/80 134/81 Pulse Oximetry 99 98 99 03/29/18 19:00 03/29/18 19:36 03/29/18 20:00 Temperature 99.0 F Pulse Rate 88 82 88 Respiratory Rate 16 18 23 Blood Pressure 126/81 127/87 Pulse Oximetry 99 99 96 03/29/18 21:00 03/29/18 22:00 03/29/18 23:00 Temperature Pulse Rate 90 95 H 97 H Respiratory Rate 22 25 H 22 Blood Pressure 130/82 125/85 129/82 Pulse Oximetry 99 96 97 03/30/18 00:00 03/30/18 00:01 03/30/18 01:00 Temperature 100.4 F H Pulse Rate 92 H 92 H 90 Respiratory Rate 20 18 18 Blood Pressure 125/75 116/79 Pulse Oximetry 99 100 100 03/30/18 01:06 03/30/18 02:00 03/30/18 03:00 Temperature Pulse Rate 100 H 100 H Respiratory Rate 22 34 H 31 H Blood Pressure 129/90 126/76 Pulse Oximetry 100 98 97 03/30/18 03:49 03/30/18 04:00 03/30/18 05:00 Temperature 100.2 F H Pulse Rate 96 H 97 H 100 H Respiratory Rate 24 35 H 28 H Blood Pressure 132/78 144/90 H Pulse Oximetry 100 99 100 03/30/18 06:00 03/30/18 07:00 03/30/18 07:34 Temperature Pulse Rate 105 H 91 H 86 Respiratory Rate 28 H 22 18 Blood Pressure 150/83 H 128/79 Pulse Oximetry 100 100 100 03/30/18 08:00 03/30/18 09:00 03/30/18 10:00 Temperature 99.4 F Pulse Rate 92 H 101 H 88 Respiratory Rate 25 H 23 Blood Pressure 137/86 151/90 H Pulse Oximetry 100 99 03/30/18 11:17 Temperature Pulse Rate Respiratory Rate 23 Blood Pressure Pulse Oximetry 99 Intake & Output 03/29/18 03/30/18 03/30/18 18:59 06:59 18:59 Intake Total 3054 / 3054 / 1219.625 / 1219.625 Output Total 1100 / 1100 1325 / 1325 Balance 1953 / 1953 742.625 / 678.596 8987.625 / 1219.625 Weight 78.7 kg Intake: IV 1295 / 1295 384.625 / 850.131 8717.625 / 1019.625 KCl Inj 20 MEQ Sodium Chloride 835 / 835 184.625 / 832.085 6750.625 / 1019.625 23.4% Inj 38.5 MEQ In Sterile Water for Inj 1,000 ML @ 100 mls/hr IV.CONT .[id number] [facility] Rx# :[id number] Zosyn 4.5 GM Premix 4.5 gm In 200 / 200 200 / 200 100 ml @ 200 mls/hr IV.SIG Q6H [facility] Rx#:[id number] Potassium Phosphate Inj 30 MMOL 260 / 260 In NS Inj 250 ML @ 43.333 mls/ hr IV.SIG ONCE ONE Rx#:[id number] Tube Feeding 529 / 529 423 / 423 Tube Irrigant 30 / 30 60 / 60 Water Bolus Amount 600 / 600 600 / 600 Free Water Amount 600 / 600 600 / 600 200 / 200 Output: Urine 625 / 625 Stool 500 / 500 700 / 700 Urine Amount (Catheter) 600 / 600 Condom 600 / 600 Other: Date of Last Bowel Movement 03/29/18 03/30/18 03/30/18 Result Diagrams: 03/30/18 05:49 03/30/18 05:49 Objective Remarks: GENERAL: Intubated, obtunded SKIN: Warm and dry. No rash HEAD: Atraumatic. Normocephalic. EYES: Pupils equal and round about 2 mm bilaterally and sluggishly reactive. No scleral icterus. No injection or drainage. ENT: No nasal bleeding or discharge. Mucous membranes pink and moist. NECK: Trachea midline. CARDIOVASCULAR: Regular rate and rhythm. RESPIRATORY: Mechanical breath sounds present bilaterally GASTROINTESTINAL: Abdomen soft, non-tender, non-distended. MUSCULOSKELETAL: Trace to 1+ peripheral edema NEUROLOGICAL: Currently off all sedation. Positive corneal reflex. Positive gag and cough. Decerebrate posturing of left upper extremity to painful stimuli , no withdrawal of other extremities. Assessment and Plan - Assessment and Plan Plan: This patient is an unfortunate 62yM who presented with an out of hospital PEA arrest, acute hypoxic respiratory failure requiring prolonged mechanical ventilation, and encephalopathy secondary to severe anoxic brain injury. He has not had any neurologic recovery during his admission and his sister has decided to transition him to comfort-based measures today. Palliative care service is following, exhibits are signed and in chart. Level 3 follow up Code Status: Transition to comfort-based measures with compassionate extubation today
[2018-03-30] MEDS ORDERED: Acetaminophen 650 MG Supp RECTAL PRN (12:52)
--- NOTE | 2018-03-30 13:05 | P.PNPAL ---
Reason for Visit Reason for visit: a. To assist with evaluation and management of symptoms including: Dyspnea, encephalopathy b. To assist medical decision maker(s) with: better understanding of current medical conditions; weighing benefits/burdens of medical treatment options; making medical treatment decisions. Subjective Subjective/Interval History: Patient seen and examined in ICU. Discussed with Dr. Weaver and nursing staff. Notes indicate Dr. Hernandez agrees with compassionate withdrawal of life support. No evidence of neurologic recovery. Patient postures to painful stimuli uppers, no withdraw to pain on lowers. Patient with eyes open, upward gaze. Does not track. No grimacing noted. Off all sedation. Teresa Mccall LCSW spoke with sister via phone who indicated she does not plan to be here for withdrawal of life support. She requests to be contacted after patient dies. Family/Friend Interactions: See interval note. Advance Directives Health Care Surrogate Name and Number: HCP: Sister Maribell Salazar [phone] Significant change in goals:: NO CODE. Sister has elected to proceed with compassionate withdrawal of life support and comfort measures. Objective Vital Signs: Vital Signs 03/29/18 13:00 03/29/18 14:00 03/29/18 14:55 Temperature Pulse Rate 90 85 87 Respiratory Rate 24 23 25 H Blood Pressure 132/83 119/79 Pulse Oximetry 97 97 03/29/18 15:00 03/29/18 15:45 03/29/18 16:00 Temperature 100.4 F H Pulse Rate 86 98 H Respiratory Rate 18 24 24 Blood Pressure 121/79 Pulse Oximetry 99 99 99 03/29/18 16:01 03/29/18 17:00 03/29/18 18:00 Temperature Pulse Rate 99 H 100 H 97 H Respiratory Rate 22 23 19 Blood Pressure 130/85 134/80 134/81 Pulse Oximetry 99 98 99 03/29/18 19:00 03/29/18 19:36 03/29/18 20:00 Temperature 99.0 F Pulse Rate 88 82 88 Respiratory Rate 16 18 23 Blood Pressure 126/81 127/87 Pulse Oximetry 99 99 96 03/29/18 21:00 03/29/18 22:00 03/29/18 23:00 Temperature Pulse Rate 90 95 H 97 H Respiratory Rate 22 25 H 22 Blood Pressure 130/82 125/85 129/82 Pulse Oximetry 99 96 97 03/30/18 00:00 03/30/18 00:01 03/30/18 01:00 Temperature 100.4 F H Pulse Rate 92 H 92 H 90 Respiratory Rate 20 18 18 Blood Pressure 125/75 116/79 Pulse Oximetry 99 100 100 03/30/18 01:06 03/30/18 02:00 03/30/18 03:00 Temperature Pulse Rate 100 H 100 H Respiratory Rate 22 34 H 31 H Blood Pressure 129/90 126/76 Pulse Oximetry 100 98 97 03/30/18 03:49 03/30/18 04:00 03/30/18 05:00 Temperature 100.2 F H Pulse Rate 96 H 97 H 100 H Respiratory Rate 24 35 H 28 H Blood Pressure 132/78 144/90 H Pulse Oximetry 100 99 100 03/30/18 06:00 03/30/18 07:00 03/30/18 07:34 Temperature Pulse Rate 105 H 91 H 86 Respiratory Rate 28 H 22 18 Blood Pressure 150/83 H 128/79 Pulse Oximetry 100 100 100 03/30/18 08:00 03/30/18 09:00 03/30/18 10:00 Temperature 99.4 F Pulse Rate 92 H 101 H 88 Respiratory Rate 25 H 23 Blood Pressure 137/86 151/90 H Pulse Oximetry 100 99 03/30/18 11:17 Temperature Pulse Rate Respiratory Rate 23 Blood Pressure Pulse Oximetry 99 Intake & Output 03/29/18 03/30/18 03/30/18 18:59 06:59 18:59 Intake Total 3054 / 3054 2067.625 / 2067.625 1219.625 / 1219.625 Output Total 1100 / 1100 1325 / 1325 Balance 1953 / 1953 742.625 / 317.582 1606.625 / 1219.625 Weight 78.7 kg Intake: IV 1295 / 1295 384.625 / 103.813 4027.625 / 1019.625 KCl Inj 20 MEQ Sodium Chloride 835 / 835 184.625 / 793.928 0470.625 / 1019.625 23.4% Inj 38.5 MEQ In Sterile Water for Inj 1,000 ML @ 100 mls/hr IV.CONT .[id number] [facility] Rx# :[id number] Zosyn 4.5 GM Premix 4.5 gm In 200 / 200 200 / 200 100 ml @ 200 mls/hr IV.SIG Q6H [facility] Rx#:[id number] Potassium Phosphate Inj 30 MMOL 260 / 260 In NS Inj 250 ML @ 43.333 mls/ hr IV.SIG ONCE ONE Rx#:[id number] Tube Feeding 529 / 529 423 / 423 Tube Irrigant 30 / 30 60 / 60 Water Bolus Amount 600 / 600 600 / 600 Free Water Amount 600 / 600 600 / 600 200 / 200 Output: Urine 625 / 625 Stool 500 / 500 700 / 700 Urine Amount (Catheter) 600 / 600 Condom 600 / 600 Other: Date of Last Bowel Movement 03/29/18 03/30/18 03/30/18 Physical Exam: CONSTITUTIONAL/GENERAL: This is an adequately nourished older male, no distress. TUBES/LINES/DRAINS: PIV RUE, OG tube, external catheter. rectal drain tube. SKIN: Skin warm /diaphoretic. EYES: Pupils equal and round. ENT: Nose without bleeding or purulent drainage. Limited oropharynx exam secondary to tubes CARDIOVASCULAR: Regular rate and rhythm without murmur. RESPIRATORY/CHEST: unlabored respirations on mechanical vent. few scattered rhonchi. Breath sounds equal bilaterally. GASTROINTESTINAL: Abdomen soft, no apparent tenderness, nondistended. loose brown stool in rectal drain. GENITOURINARY: Without palpable bladder distension. External catheter in place. MUSCULOSKELETAL: Extremities without clubbing, cyanosis, or edema. No joint effusion noted. No mottling or clubbing. NEUROLOGICAL: no sedation. On mechanical vent, unresponsive. posturing noted to painful stimuli uppers, no withdraw bilateral LEs. Eyes with upward gaze. PSYCHIATRIC: No obvious anxiety/depression--limited assessment secondary to clinical condition. Diagnostic Tests Laboratory: Laboratory Results - last 72 hr 03/28/18 03/28/18 03/28/18 04:25 04:25 04:25 WBC 16.4 H RBC 3.63 L Hgb 11.2 L Hct 33.4 L MCV 92.0 MCH 30.8 MCHC 33.4 RDW 13.4 Plt Count 325 MPV 10.8 Neut % (Auto) 88.1 H Lymph % (Auto) 5.8 L Cooper % (Auto) 4.5 Eos % (Auto) 1.3 Baso % (Auto) 0.3 Neut # (Auto) 14.5 H Lymph # (Auto) 0.9 L Cooper # (Auto) 0.7 Eos # (Auto) 0.2 Baso # (Auto) 0.1 WBC Differential . Differential Comment Auto diff final Sodium 155 H Potassium 3.3 L Chloride 120 H Carbon Dioxide 28.5 Anion Gap 7 BUN 35 H Creatinine 1.06 Estimated GFR 71 L Random Glucose 127 H Calcium 7.7 L Phosphorus 2.0 L Magnesium 2.5 Total Bilirubin 1.3 H AST 137 H ALT 126 H Alkaline Phosphatase 102 Ammonia 42 H Total Protein 6.0 L Albumin 1.7 L 03/28/18 03/29/18 03/29/18 16:12 05:29 05:29 WBC 15.0 H RBC 3.59 L Hgb 10.8 L Hct 33.0 L MCV 92.0 MCH 30.0 MCHC 32.6 RDW 13.6 Plt Count 342 MPV 11.0 Neut % (Auto) 82.6 H Lymph % (Auto) 9.8 Cooper % (Auto) 4.8 Eos % (Auto) 2.3 Baso % (Auto) 0.5 Neut # (Auto) 12.4 H Lymph # (Auto) 1.5 Cooper # (Auto) 0.7 Eos # (Auto) 0.3 Baso # (Auto) 0.1 WBC Differential . Differential Comment Auto diff final Sodium 157 H* Potassium 3.6 3.3 L Chloride 122 H Carbon Dioxide 26.6 Anion Gap 8 BUN 35 H Creatinine 0.99 Estimated GFR 77 L Random Glucose 115 H Calcium 7.7 L Phosphorus 2.4 L 2.0 L Magnesium 2.5 Total Bilirubin 0.8 AST 114 H ALT 123 H Alkaline Phosphatase 113 Ammonia Total Protein 5.9 L Albumin 1.7 L 03/29/18 03/30/18 03/30/18 05:29 05:49 05:49 WBC 14.7 H RBC 3.54 L Hgb 10.7 L Hct 32.2 L MCV 90.9 MCH 30.1 MCHC 33.1 RDW 14.0 Plt Count 398 MPV 11.0 Neut % (Auto) 82.4 H Lymph % (Auto) 9.2 Cooper % (Auto) 5.2 Eos % (Auto) 2.6 Baso % (Auto) 0.6 Neut # (Auto) 12.1 H Lymph # (Auto) 1.4 Cooper # (Auto) 0.8 Eos # (Auto) 0.4 Baso # (Auto) 0.1 WBC Differential . Differential Comment Auto diff final Sodium 152 H Potassium 3.7 Chloride 120 H Carbon Dioxide 24.8 Anion Gap 7 BUN 31 H Creatinine 0.99 Estimated GFR 77 L Random Glucose 109 H Calcium 8.0 L Phosphorus 2.0 L Magnesium 2.4 Total Bilirubin 1.0 AST 118 H ALT 121 H Alkaline Phosphatase 121 H Ammonia 35 H Total Protein 6.0 L Albumin 1.7 L Result Diagrams: 03/30/18 05:49 03/30/18 05:49 Microbiology: Microbiology 03/24/18 11:10 Aerobic Blood Culture - Final Blood - Peripheral No growth in 5 days Anaerobic Blood Culture - Final No growth in 5 days 03/24/18 11:17 Aerobic Blood Culture - Final Blood - Peripheral No growth in 5 days Anaerobic Blood Culture - Final No growth in 5 days Imaging: Head CT 03/13/18 20:50 CONCLUSION: 1. No acute hemorrhage or mass effect. 2. Extensive sinusitis with abnormal soft tissue density in the nasal passage which could indicate polyposis. . Abdomen/Bladder Ultrasound 03/14/18 23:09 CONCLUSION: 1. Normal appearance of the kidneys without abnormal echotexture or hydronephrosis. There is a Aly catheter identified within the decompressed bladder. Head MRI 03/17/18 00:00 CONCLUSION: Symmetric abnormal diffusion capacity bilaterally characteristic of global anoxic/hypoxic insult/encephalopathy. Findings were discussed with Casandra the patient's nurse at the time of this dictation at 11:[address] Coleman without be reached by phone. Chest X-Ray 03/30/18 06:00 CONCLUSION: 1. Interstitial prominence seen previously do show some interval improvement. No confluent airspace process. 2. Stable position of life-support tubes. Assessment and Plan - Disease Oriented Problem List (1) Anoxic encephalopathy (2) Cardiopulmonary arrest (3) Acute drug overdose (4) Lactic acidosis (5) Leukocytosis (6) Hyperglycemia (7) Hepatitis C (8) Acute respiratory failure (9) Cardiomyopathy (10) NSTEMI (non-ST elevated myocardial infarction) - Symptom Scale (1) Dyspnea 0-10 Scale: Unable to quantify (2) Encephalopathy 0-10 Scale: Unable to quantify (3) Pain 0-10 Scale: Unable to quantify Pertinent Non-Medical Issues: Psychosocial: Patient born and raised in [place]. 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 Parents , has 1 sister. Not , no children. Intermittently homeless. Most recently lived with a roommate. Spiritual: Sister indicates "they believe ", requests conservation science officer support Legal: Patient is unable to participate in medical decision making does not appear he will regain ability secondary to significant brain injury. Per [place] statutes his only sister would be appropriate legal proxy (Maribell). He is not , no children. Parents . Ethical issues impacting care: No ethical issues identified Important Contacts: Sister Maribell Salazar [phone] Prognosis: This patient was admitted for out of hospital arrest, possible overdose. He has sustained severe anoxic brain injury. Prognosis for meaningful neurologic recovery is poor. Per neurology: "pt has severe anoxic encephalopathy and is not going to recover to his prior state of functioning. he will be in a half-way for the remainder of his life with a feeding tube and trach as total care. no other testing needed at this time withdrawal is appropriate if family agrees.will sign off." Code Status: No Code DNR Plan: Legal decision maker:Patient is unable to participate in medical decision making does not appear he will regain ability secondary to significant brain injury. Per [place] statutes his only sister would be appropriate legal proxy ( Maribell). He is not , no children. Parents . Goals: sister has requested compassionate withdrawal of life support today. She requests to be notified after patient dies. CODE STATUS: DNR SYMPTOMS: --Painpotential sources: s/p CPR. patient with reported history of chronic back pain. Of note he was recently seen in [place] ED 02/22/18 for severe back pain. Lumbar spine imaging notes possible acute ligament injury L3-L4, with chronic/stable findings of anterolisthesis at L4, L5, severe foraminal stenosis at L4, L5, and moderate stenosis at L5, S1. [Neurosurgery was consulted at that time and recommended conservative management with pain control, at some point if pain unremitting could consider surgery discharged with analgesic, muscle relaxant, Neurontin recommended for follow-up 1-2 weeks]. + hx old rib fx. Currently nonresponsive, no signs of distress --Dyspnea-intubated due to brain injury and no respiratory effort, currently breathing comfortable on mechanical vent, would likely require prolonged support and possibly tracheostomy given severity of anoxic brain injury --Encephalopathy-found unresponsive and pulseless, unknown amount of downtime out of hospital, underwent CPR with ROSC. Imaging, EEG indicative of severe anoxic injury. Poor prognosis for meaningful neurologic recovery Palliative care will continue to follow during hospital course as condition evolves, to assist patient/decision-maker with understanding of medical conditions, weighing benefits/burdens of treatment options, for clarification of goals of treatment. Additionally will assist with any symptoms of palliative concern Attestation Attestation: To help prompt me to consider important information that might be impacting today's encounter and assessment, information from prior notes written by myself or my colleagues may have been "brought forward" into today's note. My signature on this note, however, is an attestation that I personally performed the exam, history, and/or decision-making noted today, and, unless otherwise indicated, the interactions with patient, family, and staff as well as the review of records all occurred today. I also attest that the listed assessment and stated plan reflect my best clinical judgment today based on the combination of historical information, prior notes, and today's exam/ interactions. When time spent is documented, it refers only to time spent today by the signer, or if indicated, combined time spent today by collaborating physician/nurse practitioner.
[2018-03-30] MEDS ORDERED: Hyoscyamine Inj 0.5 MG/ML Ampul IV.PUSH ONE (13:20)
[2018-03-30] MEDS ORDERED: Morphine Inj 4 MG/ML Vial IV.PUSH ONE (13:30)
[2018-03-30] MEDS ORDERED: Morphine Sulfate Inj 8 MG/ML Vial IV.PUSH ONE (13:30)
[2018-03-30] MEDS: Morphine Sulfate Inj 8 MG/ML Vial IV.PUSH PRN (17:59)
[2018-03-30] MEDS: Morphine Inj 4 MG/ML Vial IV.PUSH PRN ×2 (20:26→23:35)
[2018-03-30 20:58] VITALS: RESP 14
[2018-03-31] MEDS: Hyoscyamine Inj 0.5 MG/ML Ampul IV.PUSH PRN ×3 (01:14→11:56)
[2018-03-31] MEDS: Oral Hygiene Kit OROPHARYNG SCH ×2 (03:57→13:19)
[2018-03-31] MEDS: Morphine Inj 4 MG/ML Vial IV.PUSH PRN ×2 (03:57→05:47)
[2018-03-31] MEDS: Artificial Tears Opth Drops 15 ML Bottle EACH EYE SCH (06:43)
[2018-03-31] MEDS: Morphine Sulfate Inj 8 MG/ML Vial IV.PUSH PRN ×4 (07:38→14:08)
[2018-03-31 09:49] VITALS: BP 94/57; TEMP 97.6; O2SAT 93
[2018-03-31] MEDS: [UNRECOGNIZED DRUG - OTHER] EACH EYE SCH (11:24)
--- NOTE | 2018-03-31 11:47 | P.PNPAL ---
Reason for Visit Reason for visit: a. To assist with evaluation and management of symptoms including: Dyspnea, encephalopathy b. To assist medical decision maker(s) with: better understanding of current medical conditions; weighing benefits/burdens of medical treatment options; making medical treatment decisions. Subjective Subjective/Interval History: Patient seen and examined in ICU. Discussed with Dr. Weaver and nursing staff. Patient has been stable overnight. Dr. Weaver has consulted hospice. Plan for transfer to hospice care center. Current meds appear effective to manage pain and dyspnea. Discussed with hospice nurse Gabriel. Advance Directives Health Care Surrogate Name and Number: HCP: Sister Maribell Salazar [phone] Significant change in goals:: NO CODE. Plan for transfer to hospice care center when arrangements made. Objective Vital Signs: Vital Signs 03/30/18 12:00 03/30/18 13:00 03/30/18 13:31 Temperature Pulse Rate 92 H 85 84 Respiratory Rate 23 20 Blood Pressure 138/87 125/77 Pulse Oximetry 98 100 03/30/18 14:00 03/30/18 15:00 03/30/18 16:00 Temperature Pulse Rate 87 100 H 94 H Respiratory Rate 23 14 14 Blood Pressure 134/87 102/62 108/64 Pulse Oximetry 99 93 L 96 03/30/18 17:00 03/30/18 18:00 03/30/18 19:00 Temperature Pulse Rate 91 H 91 H 91 H Respiratory Rate 16 18 13 Blood Pressure 103/65 109/68 105/68 Pulse Oximetry 97 96 92 L 03/30/18 20:00 03/30/18 22:00 03/31/18 00:00 Temperature 100.2 F H Pulse Rate 91 H 94 H 92 H Respiratory Rate 14 Blood Pressure 112/66 Pulse Oximetry 90 L 03/31/18 02:00 03/31/18 04:00 03/31/18 06:00 Temperature Pulse Rate 99 H 98 H 96 H Respiratory Rate Blood Pressure Pulse Oximetry 03/31/18 07:00 03/31/18 08:00 03/31/18 09:00 Temperature 97.6 F Pulse Rate 93 H 101 H 94 H Respiratory Rate 15 15 14 Blood Pressure 107/64 94/62 L 94/57 L Pulse Oximetry 100 89 L 93 L 03/31/18 10:00 Temperature Pulse Rate 88 Respiratory Rate Blood Pressure Pulse Oximetry Intake & Output 03/30/18 03/31/18 03/31/18 18:59 06:59 18:59 Intake Total 1219.625 / 1219.625 Output Total 550 / 550 850 / 850 Balance 669.625 / 669.625 -850 / -850 Weight 78.4 kg Intake: IV 1019.625 / 1019.625 KCl Inj 20 MEQ Sodium Chloride 1019.625 / 1019.625 23.4% Inj 38.5 MEQ In Sterile Water for Inj 1,000 ML @ 100 mls/hr IV.CONT .[id number] [facility] Rx# :[id number] Free Water Amount 200 / 200 Output: Urine 650 / 650 Stool 200 / 200 Urine Amount (Catheter) 550 / 550 Condom 550 / 550 Other: Date of Last Bowel Movement 03/30/18 03/31/18 03/31/18 Physical Exam: CONSTITUTIONAL/GENERAL: This is an adequately nourished older male, no distress. TUBES/LINES/DRAINS: PIV RUE, external catheter SKIN: Skin warm. EYES: eyes closed. ENT: Nose without bleeding or purulent drainage. Limited oropharynx exam secondary to tubes CARDIOVASCULAR: Regular rate and rhythm without murmur. RESPIRATORY/CHEST: unlabored respirations on mechanical vent. few scattered rhonchi. Breath sounds equal bilaterally. GASTROINTESTINAL: Abdomen soft, no apparent tenderness, nondistended. loose brown stool in rectal drain. GENITOURINARY: Without palpable bladder distension. External catheter in place. MUSCULOSKELETAL: Extremities without clubbing, cyanosis, or edema. No mottling or clubbing. NEUROLOGICAL: unresponsive. Diagnostic Tests Laboratory: Laboratory Results - last 72 hr 03/28/18 03/29/18 03/29/18 16:12 05:29 05:29 WBC 15.0 H RBC 3.59 L Hgb 10.8 L Hct 33.0 L MCV 92.0 MCH 30.0 MCHC 32.6 RDW 13.6 Plt Count 342 MPV 11.0 Neut % (Auto) 82.6 H Lymph % (Auto) 9.8 Glades % (Auto) 4.8 Eos % (Auto) 2.3 Baso % (Auto) 0.5 Neut # (Auto) 12.4 H Lymph # (Auto) 1.5 Glades # (Auto) 0.7 Eos # (Auto) 0.3 Baso # (Auto) 0.1 WBC Differential . Differential Comment Auto diff final Sodium 157 H* Potassium 3.6 3.3 L Chloride 122 H Carbon Dioxide 26.6 Anion Gap 8 BUN 35 H Creatinine 0.99 Estimated GFR 77 L Random Glucose 115 H Calcium 7.7 L Phosphorus 2.4 L 2.0 L Magnesium 2.5 Total Bilirubin 0.8 AST 114 H ALT 123 H Alkaline Phosphatase 113 Ammonia Total Protein 5.9 L Albumin 1.7 L 03/29/18 03/30/18 03/30/18 05:29 05:49 05:49 WBC 14.7 H RBC 3.54 L Hgb 10.7 L Hct 32.2 L MCV 90.9 MCH 30.1 MCHC 33.1 RDW 14.0 Plt Count 398 MPV 11.0 Neut % (Auto) 82.4 H Lymph % (Auto) 9.2 Glades % (Auto) 5.2 Eos % (Auto) 2.6 Baso % (Auto) 0.6 Neut # (Auto) 12.1 H Lymph # (Auto) 1.4 Glades # (Auto) 0.8 Eos # (Auto) 0.4 Baso # (Auto) 0.1 WBC Differential . Differential Comment Auto diff final Sodium 152 H Potassium 3.7 Chloride 120 H Carbon Dioxide 24.8 Anion Gap 7 BUN 31 H Creatinine 0.99 Estimated GFR 77 L Random Glucose 109 H Calcium 8.0 L Phosphorus 2.0 L Magnesium 2.4 Total Bilirubin 1.0 AST 118 H ALT 121 H Alkaline Phosphatase 121 H Ammonia 35 H Total Protein 6.0 L Albumin 1.7 L Result Diagrams: 03/30/18 05:49 03/30/18 05:49 Microbiology: Microbiology 03/24/18 11:10 Aerobic Blood Culture - Final Blood - Peripheral No growth in 5 days Anaerobic Blood Culture - Final No growth in 5 days 03/24/18 11:17 Aerobic Blood Culture - Final Blood - Peripheral No growth in 5 days Anaerobic Blood Culture - Final No growth in 5 days Imaging: Head CT 03/13/18 20:50 CONCLUSION: 1. No acute hemorrhage or mass effect. 2. Extensive sinusitis with abnormal soft tissue density in the nasal passage which could indicate polyposis. . Abdomen/Bladder Ultrasound 03/14/18 23:09 CONCLUSION: 1. Normal appearance of the kidneys without abnormal echotexture or hydronephrosis. There is a Aly catheter identified within the decompressed bladder. Head MRI 03/17/18 00:00 CONCLUSION: Symmetric abnormal diffusion capacity bilaterally characteristic of global anoxic/hypoxic insult/encephalopathy. Findings were discussed with Casandra the patient's nurse at the time of this dictation at 11:[address] Coleman without be reached by phone. Chest X-Ray 03/30/18 06:00 CONCLUSION: 1. Interstitial prominence seen previously do show some interval improvement. No confluent airspace process. 2. Stable position of life-support tubes. Assessment and Plan - Disease Oriented Problem List (1) Anoxic encephalopathy (2) Cardiopulmonary arrest (3) Acute drug overdose (4) Lactic acidosis (5) Leukocytosis (6) Hyperglycemia (7) Hepatitis C (8) Acute respiratory failure (9) Cardiomyopathy (10) NSTEMI (non-ST elevated myocardial infarction) - Symptom Scale (1) Dyspnea 0-10 Scale: Unable to quantify (2) Encephalopathy 0-10 Scale: Unable to quantify (3) Pain 0-10 Scale: Unable to quantify Pertinent Non-Medical Issues: Psychosocial: Patient born and raised in [place]. 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 Parents , has 1 sister. Not , no children. Intermittently homeless. Most recently lived with a roommate. Spiritual: Sister indicates "they believe ", requests adaptive physical educator support Legal: Patient is unable to participate in medical decision making does not appear he will regain ability secondary to significant brain injury. Per [place] statutes his only sister would be appropriate legal proxy (Maribell). He is not , no children. Parents . Ethical issues impacting care: No ethical issues identified Important Contacts: Sister Maribell Salazar [phone] Prognosis: This patient was admitted for out of hospital arrest, possible overdose. He has sustained severe anoxic brain injury. Prognosis for meaningful neurologic recovery is poor. Per neurology: "pt has severe anoxic encephalopathy and is not going to recover to his prior state of functioning. he will be in a residential for the remainder of his life with a feeding tube and trach as total care. no other testing needed at this time withdrawal is appropriate if family agrees.will sign off." Code Status: No Code DNR Plan: * Legal decision maker:Patient is unable to participate in medical decision making does not appear he will regain ability secondary to significant brain injury. Per [place] statutes his only sister would be appropriate legal proxy ( Maribell). He is not , no children. Parents . * NO CODE. * Plan for transfer to hospice care center when arrangement made. * Hospice consulted. SYMPTOMS: * Painpotential sources: s/p CPR. patient with reported history of chronic back pain. Of note he was recently seen in [place] ED 02/22/18 for severe back pain. Lumbar spine imaging notes possible acute ligament injury L3-L4, with chronic/stable findings of anterolisthesis at L4, L5, severe foraminal stenosis at L4, L5, and moderate stenosis at L5, S1. [Neurosurgery was consulted at that time and recommended conservative management with pain control, at some point if pain unremitting could consider surgery discharged with analgesic, muscle relaxant, Neurontin recommended for follow-up 1-2 weeks]. + hx old rib fx. Currently nonresponsive, no signs of distress. * Dyspnea-intubated due to brain injury and no respiratory effort, currently breathing comfortable on mechanical vent, would likely require prolonged support and possibly tracheostomy given severity of anoxic brain injury. * Encephalopathy-found unresponsive and pulseless, unknown amount of downtime out of hospital, underwent CPR with ROSC. Imaging, EEG indicative of severe anoxic injury. Poor prognosis for meaningful neurologic recovery. * Palliative care will continue to follow during hospital course as condition evolves, to assist patient/decision-maker with understanding of medical conditions, weighing benefits/burdens of treatment options, for clarification of goals of treatment. Additionally will assist with any symptoms of palliative concern. Attestation Attestation: To help prompt me to consider important information that might be impacting today's encounter and assessment, information from prior notes written by myself or my colleagues may have been "brought forward" into today's note. My signature on this note, however, is an attestation that I personally performed the exam, history, and/or decision-making noted today, and, unless otherwise indicated, the interactions with patient, family, and staff as well as the review of records all occurred today. I also attest that the listed assessment and stated plan reflect my best clinical judgment today based on the combination of historical information, prior notes, and today's exam/ interactions. When time spent is documented, it refers only to time spent today by the signer, or if indicated, combined time spent today by collaborating physician/nurse practitioner.
[2018-03-31 13:10] VITALS: PULSE 93
--- NOTE | 2018-03-31 14:49 | P.DS ---
Date of admission: 03/13/18 21:49 Primary care physician: UNKNOWN Attending physician on discharge: Matilde Weaver Anticipated date of discharge: 03/31/18 Brief History from admission: This is a 62-year-old male. Date of admission 03/13/2018. Past medical history includes hepatitis C, pancreatitis hypertension, chronic back pain and allergic rhinitis. History of tobacco abuse. Patient presents to [facility] as a PEA arrest per documentation, patient also history of heroin abuse. Patient was found to be unresponsive in attendance in a homeless camp. Presenting rhythm was pulseless electric activity. Chest compressions started. Patient was intubated. Patient was given epinephrine IV x3 and sodium bicarb 1 amp IV, naltrexone 2 mg IV. Patient was transported to ED for evaluation. Patient regained pulse upon arrival to the ED. 15 minutes per ED physician CT brain revealed no acute intracranial findings. Troponin 0.0 0.5. Patient had a leukocytosis, elevated magnesium, acute injury creatinine 1.8, lactate of 9.8 and a blood sugar today today. Toxicology screen positive for opiates, cocaine and cannabinoids. Patient is currently not moving his unresponsive at 50 rebeka grams per kilogram per minute of propofol this is currently on hold. Chest x-ray revealed old right rib fractures. No pneumothorax. ET tube 5 cm above the saqib. Patient update on day of discharge: Patient accepted to hospice facility, transport arranged for the afternoon of . DS: Diagnosis - Discharge Diagnosis (1) Cardiopulmonary arrest Status: Acute (2) Acute drug overdose Status: Acute (3) Lactic acidosis Status: Acute (4) Leukocytosis Status: Acute (5) Hyperglycemia Status: Acute (6) Cocaine abuse Status: Acute (7) Synthetic cannabinoid abuse Status: Acute (8) Dyspnea Status: Acute (9) Encephalopathy Status: Acute (10) Pain Status: Acute (11) Anoxic encephalopathy Status: Acute (12) Hepatitis C Status: Acute (13) Acute respiratory failure Status: Acute (14) Cardiomyopathy Status: Acute (15) NSTEMI (non-ST elevated myocardial infarction) Status: Acute DS: Summary Hospital Course: This is a 62-year-old male. Date of admission 03/13/2018. Past medical history includes hepatitis C, pancreatitis hypertension, chronic back pain and allergic rhinitis. History of tobacco abuse. Patient presents to [facility] as a PEA arrest per documentation, patient also history of heroin abuse. Patient was found to be unresponsive in attendance in a homeless camp. Presenting rhythm was pulseless electric activity. Chest compressions started. Patient was intubated. Patient was given epinephrine IV x3 and sodium bicarb 1 amp IV, naltrexone 2 mg IV. Patient was transported to ED for evaluation. Patient regained pulse upon arrival to the ED. 15 minutes per ED physician CT brain revealed no acute intracranial findings. Troponin 0.0 0.5. Patient had a leukocytosis, elevated magnesium, acute injury creatinine 1.8, lactate of 9.8 and a blood sugar today today. Toxicology screen positive for opiates, cocaine and cannabinoids. Patient is currently not moving his unresponsive at 50 rebeka grams per kilogram per minute of propofol this is currently on hold. Chest x-ray revealed old right rib fractures. No pneumothorax. ET tube 5 cm above the saqib. 03/14/18: Induced hypothermia initiated by overnight fish cutter currently at target temperature. Patient is on propofol fentanyl and Nimbex. Troponin has peaked at 16. I will start IV heparin and aspirin. Cardiology consulted. 03/15/18: Induced hypothermia completed. Currently in the rewarming phase. Will be completed by to prevent in the afternoon. Currently sedated and paralyzed limiting neuro exam. Pupils are slightly reactive. 03/16/18: Patient remains off sedation last 12 hours. No clinical improvement in neuro status. Patient remains comatose. Weak cough. Slight sluggish pupil reflex. No spontaneous eye opening no withdrawal to pain. MRI of the brain ordered neurology consulted. Also check EEG to rule out subclinical seizures. Noted to have increasing white count chest x-ray shows no infiltrate 2/5: Remains encephalopathic off sedation. Orally intubated on mechanical ventilation. Has some spontaneous eye opening however no purposeful movements. 26: Remains encephalopathic, orally intubated on mechanical ventilation. Febrile. Tolerating tube feeds. 27: Remains encephalopathic, orally intubated on mechanical ventilation. Febrile. Tolerating tube feeds. Patient's sister is deciding regarding goals of therapy with palliative 2: Remains encephalopathic, orally intubated on mechanical ventilation. Awaiting family's decision regarding goals of therapy. 03/21: Remains encephalopathic, orally intubated on mechanical ventilation. 03/22: Remains encephalopathic, on mechanical ventilation. Awaiting family's decision regarding goals of therapy. Switched IV fluid to D5 water in view of hypernatremia 03/23: Remains encephalopathic on mechanical ventilation. Awaiting patient's sister's decision regarding goals of therapy. Poor neurologic prognosis. 03/24: Remains encephalopathic on mechanical ventilation. Has spontaneous eye opening. Hyponatremic. Febrile. Sputum cultures with Pseudomonas on Zosyn. We will repeat nam cultures. Patient's sister is not sure regarding decision for trach PEG versus comfort measures currently. She requests additional neuro follow-up for prognosis. 03/25: Persistent severe anoxic injury. He opens his eyes to painful stimuli but do not track. Extensive posturing to painful stimuli. Positive corneals. However clinical exam EEG and MRI consistent with severe anoxic injury 03/26: Patient is opens eyes to painful stimuli but eyes were rolled upward into the left. Continues to posture not sedated to noxious stimulus. Intubated since 03/13. 03/27: Patient opens eyes to noxious stimulation/rolled upwards and to the left. Continue to posture. Not sedated. Intubated/03/13. Plan for compassionate withdrawal on Friday if no improvement neurologically per healthcare proxy/ sister 03/28: No acute changes overnight. Neurological exam unchanged. Afebrile. Compassionate withdrawal plan for Wednesday 03/29: Eyes are open. Not following commands. Replacing potassium and phosphorus this a.m. No change in neurological examination. Continues with copious airway secretions 03/30: Patient's sister/ medical decision maker has decided to transition the patient to comfort-based measures today. Exhibits signed and in chart. 03/31: Patient compassionately extubated yesterday afternoon, arrangements made to transfer him to a hospice facility this afternoon. He appears comfortable and in no acute distress. - Time Spent with Patient Total time spent providing and/or coordinating discharge services: Less than 30 minutes - Quality: VTE Deep Vein Thrombosis/Pulmonary Embolism Present on Admission: No Exam Vital signs: Vital Signs 03/30/18 15:00 03/30/18 16:00 03/30/18 17:00 Temperature Pulse Rate 100 H 94 H 91 H Respiratory Rate 14 14 16 Blood Pressure 102/62 108/64 103/65 Pulse Oximetry 93 L 96 97 03/30/18 18:00 03/30/18 19:00 03/30/18 20:00 Temperature 100.2 F H Pulse Rate 91 H 91 H 91 H Respiratory Rate 18 13 14 Blood Pressure 109/68 105/68 112/66 Pulse Oximetry 96 92 L 90 L 03/30/18 22:00 03/31/18 00:00 03/31/18 02:00 Temperature Pulse Rate 94 H 92 H 99 H Respiratory Rate Blood Pressure Pulse Oximetry 03/31/18 04:00 03/31/18 06:00 03/31/18 07:00 Temperature 97.6 F Pulse Rate 98 H 96 H 93 H Respiratory Rate 15 Blood Pressure 107/64 Pulse Oximetry 100 03/31/18 08:00 03/31/18 09:00 03/31/18 10:00 Temperature Pulse Rate 101 H 94 H 88 Respiratory Rate 15 14 Blood Pressure 94/62 L 94/57 L Pulse Oximetry 89 L 93 L 03/31/18 12:00 Temperature Pulse Rate 93 H Respiratory Rate Blood Pressure Pulse Oximetry Intake & Output 03/30/18 03/31/18 03/31/18 18:59 06:59 18:59 Intake Total 1219.625 / 1219.625 Output Total 550 / 550 850 / 850 Balance 669.625 / 669.625 -850 / -850 Weight 78.4 kg Intake: IV 1019.625 / 1019.625 KCl Inj 20 MEQ Sodium Chloride 1019.625 / 1019.625 23.4% Inj 38.5 MEQ In Sterile Water for Inj 1,000 ML @ 100 mls/hr IV.CONT .[id number] [facility] Rx# :[id number] Free Water Amount 200 / 200 Output: Urine 650 / 650 Stool 200 / 200 Urine Amount (Catheter) 550 / 550 Condom 550 / 550 Other: Date of Last Bowel Movement 03/30/18 03/31/18 03/31/18 Narrative: GENERAL: Ill- appearing, obtunded SKIN: Warm and dry. No rashes HEAD: NCAT EYES: No scleral icterus. No injection or drainage. ENT: Mucous membranes pink and moist. NECK: Trachea midline. CARDIOVASCULAR: Borderline tachy, regular RESPIRATORY: Bradypneic, no respiratory distess GASTROINTESTINAL: Abdomen soft, non-distended MUSCULOSKELETAL: 1+ peripheral edema NEUROLOGICAL: Obtunded, does not withdraw extremities to noxious stimuli Results Procedures completed during hospitalization: Endotracheal intubation 03/14/18 Left femoral arterial line 03/14/18 Right femoral Quattro-catheter central line for target temperature management 03/14/18 Pending studies at discharge: None Labs on day of discharge: None - Impressions ITS Impressions Head CT 03/13/18 20:50 CONCLUSION: 1. No acute hemorrhage or mass effect. 2. Extensive sinusitis with abnormal soft tissue density in the nasal passage which could indicate polyposis. . Abdomen/Bladder Ultrasound 03/14/18 23:09 CONCLUSION: 1. Normal appearance of the kidneys without abnormal echotexture or hydronephrosis. There is a Aly catheter identified within the decompressed bladder. Head MRI 03/17/18 00:00 CONCLUSION: Symmetric abnormal diffusion capacity bilaterally characteristic of global anoxic/hypoxic insult/encephalopathy. Findings were discussed with Casandra the patient's nurse at the time of this dictation at 11:[address] Coleman without be reached by phone. Chest X-Ray 03/30/18 06:00 CONCLUSION: 1. Interstitial prominence seen previously do show some interval improvement. No confluent airspace process. 2. Stable position of life-support tubes. Discharge Plan - Discharge Disposition Patient Disposition: 51 Hospice/Med Facility - Discharge Condition Condition: Critical - Discharge Order Discharge Orders: Discharge Order (Routine); Ordered 03/31/18 Ordered By: Matilde Weaver - Discharge Details Anticipated Discharge Date: 03/31/18 Discharge Comment: Hospice - Physicians Team Primary Care Provider: UNKNOWN, Attending Provider: Jose Thurston Other Providers: Samantha Bui MD ; Judith Hernandez MD ; Jong Holley MD ; Jose Thurston MD ; Marvin Russo MD
== END 2018-03-31 14:50 | disposition hospice, inpatient (51) | DRG 917 ==
LOC: NEPE 20:40 → NEDA 21:49 → HCVI 23:40 → HIMC 03-23 10:05
PROVIDERS: ADMIT Internal Medicine Critical Care Medicine; ATTEND Internal Medicine Critical Care Medicine
CPT/HCPCS: 36600; 43753; 51702; 70450; 70551; 71010; 71045; 76775; 76937; 80048; 80053; 80307; 81001; 82040; 82140; 82248; 82550; 82552; 82570; 82805; 82948; 82962; 83605; 83690; 83735; 84100; 84132; 84300; 84443; 84484; 85014; 85025; 85027; 85610; 85730; 86850; 86900; 86901; 87040; 87070; 87077; 87086; 87186; 87205; 87641; 93005; 93306; 94002; 94003; 94640; 94656; 94657; 94664; 94665; 95819; 97110; 97161; 99285; C9113; J0171; J0360; J1644; J1980; J2060; J2270; J2543; J2704; J3010; J3411; J3480; J7030; J7040; J7050; J7070